=== PATIENT | female | born 1935 | race Caucasian/White ===

== ENCOUNTER 2017-08-02 11:26 | Outpatient (RCR) | payer MEDICARE, OTHER, SELFPAY ==
[2017-07-12 17:29] LABS: International Normalized Ratio 2.3; Prothrombin Time (Protime)PT. 24.1 SECONDS (11.7-14.9)
[2017-08-02 12:14] LABS: International Normalized Ratio 1.8; Prothrombin Time (Protime)PT. 20.5 SECONDS (11.7-14.9)
== END 2017-08-02 11:30 | disposition home or self-care (01) ==
LOC: LAB 11:26
PROVIDERS: Family Provider Family Medicine; PCP Family Medicine; Visit Provider Internal Medicine Cardiovascular Disease
DX: I48.1 Persistent atrial fibrillation (principal); I34.8 Other nonrheumatic mitral valve disorders; Z79.899 Other long term (current) drug therapy
CPT/HCPCS: 36415; 85610

== ENCOUNTER 2017-08-21 11:30 | Outpatient (RCR) | payer MEDICARE, OTHER, SELFPAY ==
[2017-08-21 12:05] LABS: International Normalized Ratio 2.9; Prothrombin Time (Protime)PT. 29.2 SECONDS (11.7-14.9)
== END 2017-08-21 15:00 | disposition home or self-care (01) ==
LOC: LAB 11:30
PROVIDERS: Family Provider Family Medicine; PCP Family Medicine; Visit Provider Internal Medicine Cardiovascular Disease
DX: I48.0 Paroxysmal atrial fibrillation (principal); Z79.01 Long term (current) use of anticoagulants
CPT/HCPCS: 36415; 85610

== ENCOUNTER 2017-09-25 15:15 | Outpatient (RCR) | payer MEDICARE, OTHER, SELFPAY ==
[2017-09-11 16:33] LABS: International Normalized Ratio 3.1; Prothrombin Time (Protime)PT. 32.5 SECONDS (11.7-14.9)
[2017-09-25 17:38] LABS: Prothrombin Time (Protime)PT. 31.2 SECONDS (11.7-14.9)
== END 2017-09-25 16:00 | disposition home or self-care (01) ==
LOC: LAB 15:15
PROVIDERS: Family Provider Family Medicine; PCP Family Medicine; Visit Provider Internal Medicine Cardiovascular Disease
DX: I48.0 Paroxysmal atrial fibrillation (principal); Z79.01 Long term (current) use of anticoagulants
CPT/HCPCS: 36415; 85610

== ENCOUNTER → 2017-09-28 10:36 | Outpatient (CLI) | payer MEDICARE, OTHER, SELFPAY ==
[2017-09-28 11:20] LABS: Hematocrit 34.6 % (37-47); Hemoglobin 11.9 g/dl (12.0-15.0); Mean Corp Hgb Conc 34.4 g/gl (32-36); Mean Corpuscular Hgb 33.6 pg (27.0-32.0); Mean Corpuscular Volume 97.7 fL (81-99); Mean Platelet Vol. 9.4 fl (6.2-12.0); Platelet Count 359 K/mm3 (150-450); RBC Distribution Width CV 12.5 % (11.6-14.6); RBC Distribution Width SD 43.5 fl (35.1-43.9); Red Blood Count 3.54 M/mm3 (4.2-5.4); White Blood Count 5.5 K/mm3 (4.4-11.0)
[2017-09-28 11:26] LABS: Scan Indicated on CBC? Y/N NO
[2017-09-28 11:49] LABS: Thyroid Stim Hormone (TSH) 1.53 uIU/mL (0.358-3.74)
== END ==
PROVIDERS: Family Provider Family Medicine; PCP Family Medicine; Visit Provider Internal Medicine Critical Care Medicine
DX: R53.83 Other fatigue (principal)
CPT/HCPCS: 36415; 84443; 85027

== ENCOUNTER 2017-10-23 15:21 | Outpatient (RCR) | payer MEDICARE, OTHER, SELFPAY ==
[2017-10-23 16:29] LABS: International Normalized Ratio 2.8
== END 2017-10-23 16:00 | disposition home or self-care (01) ==
LOC: LAB 15:21
PROVIDERS: Family Provider Family Medicine; PCP Family Medicine; Visit Provider Internal Medicine Cardiovascular Disease
DX: I48.0 Paroxysmal atrial fibrillation (principal); Z79.01 Long term (current) use of anticoagulants
CPT/HCPCS: 36415; 85610

== ENCOUNTER 2017-11-20 08:31 | Outpatient (RCR) | payer MEDICARE, OTHER, SELFPAY ==
[2017-11-20 10:39] LABS: International Normalized Ratio 3.2; Prothrombin Time (Protime)PT. 32.8 SECONDS (11.7-14.9)
== END 2017-11-20 09:00 | disposition home or self-care (01) ==
LOC: LAB 08:31
PROVIDERS: Family Provider Family Medicine; PCP Family Medicine; Visit Provider Internal Medicine Cardiovascular Disease
DX: I48.0 Paroxysmal atrial fibrillation (principal); Z79.01 Long term (current) use of anticoagulants
CPT/HCPCS: 36415; 85610

== ENCOUNTER 2017-12-29 13:56 | Outpatient (RCR) | payer MEDICARE, OTHER, SELFPAY ==
[2017-12-08 12:10] LABS: Prothrombin Time (Protime)PT. 35.7 SECONDS (11.7-14.9)
[2017-12-08 12:12] LABS: International Normalized Ratio 3.5
[2017-12-15 15:43] LABS: International Normalized Ratio 2.4; Prothrombin Time (Protime)PT. 26.1 SECONDS (11.7-14.9)
[2017-12-29 14:59] LABS: International Normalized Ratio 1.9; Prothrombin Time (Protime)PT. 22.2 SECONDS (11.7-14.9)
== END 2017-12-29 15:00 | disposition home or self-care (01) ==
LOC: LAB 13:56
PROVIDERS: Family Provider Family Medicine; PCP Family Medicine; Visit Provider Internal Medicine Cardiovascular Disease
DX: I48.0 Paroxysmal atrial fibrillation (principal); Z79.01 Long term (current) use of anticoagulants
CPT/HCPCS: 36415; 85610

== ENCOUNTER 2018-01-12 14:50 | Outpatient (RCR) | payer MEDICARE, OTHER, SELFPAY ==
[2018-01-12 15:54] LABS: Prothrombin Time (Protime)PT. 22.9 SECONDS (11.7-14.9)
== END 2018-01-12 16:00 | disposition home or self-care (01) ==
LOC: LAB 14:50
PROVIDERS: Family Provider Family Medicine; PCP Family Medicine; Visit Provider Internal Medicine Cardiovascular Disease
DX: I48.0 Paroxysmal atrial fibrillation (principal); Z79.01 Long term (current) use of anticoagulants
CPT/HCPCS: 36415; 85610

== ENCOUNTER → 2018-01-18 13:35 | Outpatient (CLI) | payer MEDICARE, OTHER, SELFPAY ==
--- NOTE | 2018-01-19 09:53 | PFT ---
INTRODUCTION: The patient is an 83-year-old female that presents for pulmonary function testing secondary to a diagnosis of shortness of breath. Respiratory therapy reports good patient effort. Bronchodilators were used during testing. 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 There is no significant response to aerosolized bronchodilators. Spirograms are of good quality do not plateau. Body plus tomography was performed and reveals an elevated TLC and RV, indicative of underlying hyperinflation and air-trapping. Diffusing capacity by single breath CO is severely reduced. When compared to previous pulmonary function studies dated December 2016, there has been a significant reduction in the patient's DLCO. IMPRESSION: These pulmonary function studies demonstrate the presence of an irreversible moderately severe large airways obstructive ventilatory defect with associated hyperinflation, air trapping and reduction in diffusing capacity. There has been significant worsening in the patient's DLCO since PFTs were last completed in December 2016.
== END ==
PROVIDERS: Family Provider Family Medicine; PCP Family Medicine; Visit Provider Nurse Practitioner Acute Care
DX: E66.9 Obesity, unspecified (principal); R06.09 Other forms of dyspnea; F17.201 Nicotine dependence, unspecified, in remission; J44.9 Chronic obstructive pulmonary disease, unspecified
CPT/HCPCS: 94060; 94726; 94729

== ENCOUNTER → 2018-02-05 10:55 | Outpatient (CLI) | payer MEDICARE, OTHER, SELFPAY ==
--- NOTE | 2018-02-05 10:57 | ECHOCS_ITS ---
Reason For Study: DYSPNEA/ SOB Procedure This was a 2D Doppler, Color Flow transthoracic echocardiogram. Exam performed in department. Left Ventricle Normal size and thickness. The estimated ejection fraction is 65 %. Stage 2 diastolic dysfunction. No regional wall motion abnormalities noted. Right Ventricle Normal size and thickness. Normal systolic function. Atria The left atrium is moderately enlarged. Normal right atrium. Normal atrial septum. Mitral Valve Mild diffuse mitral valve thickening. Mild mitral annular calcification extending into the posterior leaflet. Tricuspid Valve Normal tricuspid valve. Mild (1+) tricuspid valve insufficiency. Right ventricular systolic pressure estimated to be 30 mmHg. Aortic Valve Trisinus/trileaflet aortic valve. Pulmonic Valve Normal pulmonic valve. Great Vessels Normal aortic root. Mild atherosclerosis of the aortic arch. Normal inferior vena cava. Inferior vena cava collapse with sniff. Pericardium/Pleural No pericardial effusion. MMode/2D Measurements & Calculations LVIDd: 4.9 cm IVSd: 1.1 cm LVOT diam: 2.0 cm LVIDs: 3.5 cm LVPWd: 1.3 cm LVOT area: 3.0 cm2 RVDd: 3.5 cm FS: 28.3 % Ao root diam: 3.6 cm LAV(MOD-bp): 82.3 ml EDV(MOD-sp4): 39.4 ml LA dimension: 4.7 cm LAV(MOD-bp) Indexed: 50.5 ml/m2 ESV(MOD-sp4): 15.7 ml LAV(MOD-sp2): 80.1 ml EF(MOD-sp4): 60.2 % LAV(MOD-sp4): 84.1 ml EDV(MOD-sp2): 41.0 ml SV(MOD-sp4): 23.7 ml SV(MOD-sp2): 27.0 ml EF(MOD-sp2): 65.8 % LA A4 area: 26.1 cm2 RA A4 area: 20.2 cm2 Time Measurements MV dec time: 0.18 sec Doppler Measurements & Calculations MV E max seth: 87.4 cm/sec Lat Peak E' Seth: 7.0 cm/sec Med Peak E' Seth: 7.3 cm/sec MV A max seth: 28.5 cm/sec E/E' lat: 12.5 E/E' med: 12.0 MV E/A: 3.1 Ao V2 max: 98.2 cm/sec LV V1 max: 77.8 cm/sec PA V2 max: 72.0 cm/sec Ao max P.9 mmHg LV V1 max P.4 mmHg DILLON(V,D): 2.4 cm2 PI end-d seth: 136.9 cm/sec TR max seth: 235.0 cm/sec TR max P.2 mmHg Interpretation Summary The estimated ejection fraction is 65 %. Stage 2 diastolic dysfunction. The left atrium is moderately enlarged. Mild (1+) tricuspid valve insufficiency. Right ventricular systolic pressure estimated to be 30 mmHg. Compared to echo report dated 06/19/2015, LV function has remained the same; RVSP has decreased from 36 to 30 mm Hg. Ordering Physician: Goldie Chua Referring Physician: KARY GALICIA Performed By: Korin Samaniego RDCS, RVT
== END ==
PROVIDERS: Family Provider Family Medicine; PCP Family Medicine; Visit Provider Nurse Practitioner Acute Care
DX: R06.09 Other forms of dyspnea (principal); R06.02 Shortness of breath; Z98.890 Other specified postprocedural states; Z90.49 Acquired absence of other specified parts of digestive tract
CPT/HCPCS: 93306

== ENCOUNTER → 2018-02-08 20:23 | Outpatient (CLI) | payer MEDICARE, OTHER, SELFPAY | PROVIDERS: Family Provider Family Medicine; PCP Family Medicine; Visit Provider Nurse Practitioner Acute Care | DX: G47.10 Hypersomnia, unspecified (principal) | CPT/HCPCS: 95810 ==

== ENCOUNTER 2018-02-23 15:01 | Outpatient (RCR) | payer MEDICARE, OTHER, SELFPAY ==
[2018-02-02 14:43] LABS: International Normalized Ratio 2.7
[2018-02-23 16:15] LABS: International Normalized Ratio 2.7; Prothrombin Time (Protime)PT. 28.4 SECONDS (11.7-14.9)
== END 2018-02-23 16:00 | disposition home or self-care (01) ==
LOC: LAB 15:01
PROVIDERS: Family Provider Family Medicine; PCP Family Medicine; Visit Provider Internal Medicine Cardiovascular Disease
DX: I48.0 Paroxysmal atrial fibrillation (principal); Z79.01 Long term (current) use of anticoagulants
CPT/HCPCS: 36415; 85610

== ENCOUNTER 2018-03-16 15:20 | Outpatient (RCR) | payer MEDICARE, OTHER, SELFPAY ==
[2018-03-16 17:15] LABS: International Normalized Ratio 2.8; Prothrombin Time (Protime)PT. 29.3 SECONDS (11.7-14.9)
== END 2018-03-16 17:00 | disposition home or self-care (01) ==
LOC: LAB 15:20
PROVIDERS: Family Provider Family Medicine; PCP Family Medicine; Visit Provider Internal Medicine Cardiovascular Disease
DX: I48.0 Paroxysmal atrial fibrillation (principal); Z79.01 Long term (current) use of anticoagulants
CPT/HCPCS: 36415; 85610

== ENCOUNTER 2018-04-13 15:02 | Outpatient (RCR) | payer MEDICARE, OTHER, SELFPAY ==
[2018-04-13 17:34] LABS: International Normalized Ratio 2.6; Prothrombin Time (Protime)PT. 27.8 SECONDS (11.7-14.9)
== END 2018-04-13 16:00 | disposition home or self-care (01) ==
LOC: LAB 15:02
PROVIDERS: Family Provider Family Medicine; PCP Family Medicine; Referring Provider Internal Medicine Cardiovascular Disease; Visit Provider Internal Medicine Cardiovascular Disease
DX: I48.0 Paroxysmal atrial fibrillation (principal); Z79.01 Long term (current) use of anticoagulants
CPT/HCPCS: 36415; 85610

== ENCOUNTER → 2018-05-16 23:12 | Outpatient (CLI) | payer MEDICARE, OTHER, SELFPAY ==
[2018-05-16] MEDS: Zolpidem Tartrate 5 MG Tablet PO (22:00)
== END ==
PROVIDERS: Family Provider Family Medicine; PCP Family Medicine; Visit Provider Nurse Practitioner Acute Care
DX: G47.33 Obstructive sleep apnea (adult) (pediatric) (principal)
CPT/HCPCS: 95811

== ENCOUNTER 2018-05-18 14:42 | Outpatient (RCR) | payer MEDICARE, OTHER, SELFPAY ==
[2018-05-18 17:00] LABS: International Normalized Ratio 2.5; Prothrombin Time (Protime)PT. 27.5 SECONDS (11.7-14.9)
== END 2018-06-01 11:10 | disposition home or self-care (01) ==
LOC: LAB 14:42
PROVIDERS: Family Provider Family Medicine; PCP Family Medicine; Referring Provider Internal Medicine Cardiovascular Disease; Visit Provider Internal Medicine Cardiovascular Disease
DX: I48.0 Paroxysmal atrial fibrillation (principal); Z79.01 Long term (current) use of anticoagulants
CPT/HCPCS: 36415; 85610

== ENCOUNTER 2018-06-14 13:00 | Outpatient (RCR) | payer MEDICARE, OTHER, SELFPAY ==
[2018-04-18 10:13] VITALS: BMI 28.3
[2018-06-14 13:48] LABS: International Normalized Ratio 2.8; Prothrombin Time (Protime)PT. 29.4 SECONDS (11.7-14.9)
--- OUTSIDE RECORDS SUMMARY | 2018-07-31 08:41 | XMS RPT_ITS ---
:1935 Author Organization OHIP Support Name Relationship Address Phone YESIKA YAÑEZ Unavailable [address] + [place] [address] R Unavailable Unavailable Unavailable AYANAHALL YESIKA Unavailable [address] + [place] [address] R Unavailable Unavailable Unavailable AYANAHALL YESIKA Unavailable [address] + [place] [address] R Unavailable Unavailable Unavailable AYANAHALL YESIKA Unavailable [address] + [place] [address] R Unavailable Unavailable Unavailable AYANAHALL YESIKA Unavailable [address] + [place] [address] R Unavailable Unavailable Unavailable MULHALL YESIKA Unavailable [address] + [place] [address] R Unavailable Unavailable Unavailable MULHALL YESIKA Unavailable [address] + [place] [address] R Unavailable Unavailable Unavailable AYANAHALL YESIKA Unavailable [address] + [place] [address] R Unavailable Unavailable Unavailable AYANAHALL YESIKA Unavailable [address] + [place] [address] R Unavailable Unavailable Unavailable AYANAHALL YESIKA Unavailable [address] + [place] [address] R Unavailable Unavailable Unavailable MULHALL YESIKA Unavailable [address] + [place] [address] R Unavailable Unavailable Unavailable MULHALL YESIKA Unavailable [address] + [place] [address] R Unavailable Unavailable Unavailable AYANAHALL YESIKA Unavailable [address] + [place] [address] R Unavailable Unavailable Unavailable MULHALL YESIKA Unavailable [address] + [place] [address] R Unavailable Unavailable Unavailable MULHALL YESIKA Unavailable [address] + [place] [address] R Unavailable Unavailable Unavailable MULHALL YESIKA Unavailable [address] + [place] [address] R Unavailable Unavailable Unavailable MULHALL YESIKA Unavailable [address] + [place] [address] R Unavailable Unavailable Unavailable MULHALL YESIKA Unavailable [address] + [place] [address] R Unavailable Unavailable Unavailable MULHALL YESIKA Unavailable [address] + [place] [address] R Unavailable Unavailable Unavailable MULHALL YESIKA Unavailable [address] + [place] [address] R Unavailable Unavailable Unavailable MULHALL YESIKA Unavailable [address] + [place] [address] R Unavailable Unavailable Unavailable MULHALL YESIKA Unavailable [address] + [place] [address] R Unavailable Unavailable Unavailable MULHALL YESIKA Unavailable [address] + [place] [address] R Unavailable Unavailable Unavailable MULHALL YESIKA Unavailable [address] + [place] [address] R Unavailable Unavailable Unavailable MULHALL YESIKA Unavailable [address] + [place] [address] R Unavailable Unavailable Unavailable MULHALL YESIKA Unavailable [address] + [place] [address] R Unavailable Unavailable Unavailable MULHALL YESIKA Unavailable [address] + [place] [address] R Unavailable Unavailable Unavailable MULHALL YESIKA Unavailable [address] + [place] [address] R Unavailable Unavailable Unavailable Care Team Providers Name Role Phone Rafael Chacon Attending Unavailable Rafael Chacon Referring Unavailable Malys, Kayla Primary Care Unavailable Goldie Chua Attending Unavailable Malys, Kayla Referring Unavailable Moodispaw, Rafael Attending Unavailable Malys, Kayla Primary Care Unavailable Moodispaw, Rafael Attending Unavailable MoodispawRafael Referring Unavailable Malys, Kayla Primary Care Unavailable Moodispaw, Rafael Attending Unavailable Moodispaw, Rafael Referring Unavailable Malys, Kayla Primary Care Unavailable Silver, Tylor Attending Unavailable Malys, Kayla Referring Unavailable Silver, Tylor Attending Unavailable Silver, Tylor Referring Unavailable Malys, Kayla Primary Care Unavailable Silver, Tylor Attending Unavailable Silver, Tylor Referring Unavailable Malys, Kayla Primary Care Unavailable Moodispaw, Rafael Attending Unavailable Moodispaw, Rafael Referring Unavailable Malys, Kayla Primary Care Unavailable Moodispaw, Rafael Attending Unavailable Moodispani, Rafael Referring Unavailable Malys, Kayla Primary Care Unavailable Moodispani, Rafael Attending Unavailable Moodispani, Rafael Referring Unavailable Malys, Kayla Primary Care Unavailable Toma, Goldie Attending Unavailable Malys, Kayla Referring Unavailable Moodispaw, Rafael Attending Unavailable Moodispaw, Rafael Referring Unavailable Malys, Kayla Primary Care Unavailable Toma, Goldie Attending Unavailable Goldie Chua Referring Unavailable Malys, Kayla Primary Care Unavailable Toma, Goldie Attending Unavailable Malys, Kayla Referring Unavailable Toma, Goldie Attending Unavailable Toma, Goldie Referring Unavailable Malys, Kayla Primary Care Unavailable Goldie Chua Attending Unavailable Toma, Goldie Referring Unavailable Malys, Kayla Primary Care Unavailable Eli Vasques Attending Unavailable Moodispani, Rafael Attending Unavailable Moodispani, Rafael Referring Unavailable Malys, Kayla Primary Care Unavailable Moodispaw, Rafael Attending Unavailable Malys, Kayla Referring Unavailable Malys, Kayla Primary Care Unavailable Robert Mario D.O. Attending Unavailable Goldie Chua Referring Unavailable Moodispaw, Rafael Attending Unavailable Moodispani, Rafael Referring Unavailable Malys, Kayla Primary Care Unavailable Asif Sanchez Attending Unavailable Goldie Chua Referring Unavailable Moodispaw, Rafael Attending Unavailable Moodispaw, Rafael Referring Unavailable Malys, Kayla Primary Care Unavailable Toma, Goldie Attending Unavailable Malys, Kayla Referring Unavailable Moodispaw, Rafael Attending Unavailable Moodispani, Rafael Referring Unavailable Malys, Kayla Primary Care Unavailable Toma, Goldie Attending Unavailable Malys, Kayla Primary Care Unavailable Moodispaw, Rafael Attending Unavailable Moodispaw, Rafael Referring Unavailable WilliamcharuKayla Primary Care Unavailable PROBLEMS PROBLEMS DATE TYPE CONDITION / CODE ATTENDING STATUS SOURCE 07/19/2018 Unknown I48.1 - Persistent Chua, Active [place] atrial fibrillation [facility] / I48.1(ICD-10) Hospital Repository 07/19/2018 Unknown G47.33 - Obstructive Chua, Active [place] sleep apnea (adult) [facility] (pediatric) / Hospital G47.33(ICD-10) Repository 07/19/2018 Unknown R53.83 - Other Chua, Active [place] fatigue / [facility] R53.83(ICD-10) Hospital Repository 07/02/2018 Unknown I48.0 - Paroxysmal MoodisRafael biswas Active [facility] atrial fibrillation [facility] / I48.0(ICD-10) Hospital Repository 02/08/2018 Unknown G47.10 - Chua, Active [place] Hypersomnia, [facility] unspecified / Hospital G47.10(ICD-10) Repository 03/07/2018 Unknown R06.09 - Other forms Asif Sanchez Active [place] of dyspnea / Community R06.09(ICD-10) Hospital Repository 01/25/2018 Unknown Z98.890 - Other Chua, Active [place] specified [facility] postprocedural Hospital states / Repository Z98.890(ICD-10) 01/25/2018 Unknown Z90.49 - Acquired Chua, Active [place] absence of other [facility] specified parts of Hospital digestive tract / Repository Z90.49(ICD-10) 01/25/2018 Unknown R06.00 - Dyspnea, Chua, Active [place] unspecified / [facility] R06.00(ICD-10) Hospital Repository 02/08/2018 Unknown R06.02 - Shortness Robert Brown, Active [facility] of breath / [facility] R06.02(ICD-10) Hospital Repository 02/01/2018 Unknown Z79.01 - care home Rafael Chacon Active [facility] (current) use of [facility] anticoagulants / Hospital Z79.01(ICD-10) Repository 09/28/2017 Unknown J44.9 - Chronic SilverTylor bolanos Active [place] obstructive [facility] pulmonary disease, Hospital unspecified / Repository J44.9(ICD-10) PROCEDURES PROCEDURES No Procedure Records FoundRESULTS RESULTS PULMONARY VISIT REPORT Observed: 07/19/2018 Status: F Source: [facility] [place] [address] [place] [address] OFFICE VISIT Date of Service: 07/19/18 MR#: [id number] Acct: [id number] Name: IVELISSE YAÑEZ Rep #: [id number] : 1935 Provider: Goldie Chua Age/Sex: 83/F [place] [facility] Status: Signed Assessment AND Plan 1. Restless legs syndrome (RLS) G25.81 Plan New. Plan to evaluate whether or not she truly has restless leg syndrome or if her limbs are restless secondary to cause such as anemia. Blood work will be obtained next week, as she already has blood work to be scheduled, we will check a CBC, ferritin level, iron and iron binding capacity. If anemia is identified she will be treated appropriately. If anemia is ruled out we will consider whether or not she would benefit from treatment of restless leg syndrome with medication such as Requip. Follow-up in 3 months. Contact the office with any new or worsening symptoms in the meantime. 2. ROSARIO (obstructive sleep apnea) G47.33 Plan Patient is using and benefiting from Pap therapy. No indication for titration study at this time. Continue to encourage weight loss. Contact the office for any new or worsening symptoms in the meantime. Follow-up in 3 months. Orders Orders: 3. 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 No need for prednisone or antibiotic. Continue current maintenance medication. No additional testing at this time. Contact the office for any new or worsening symptoms. An acute visit and typically be arranged within 1-2 days. Follow-up in 3 months. Annual influenza vaccination current. Pneumonia vaccines current. Plan Detail Other Orders Orders: Follow Up 3 Months ([facility]) HPI 3 M FU: Chief Complaint: Nonproductive cough HPI Comments Details: This patient presents the office today to follow- up on her obstructive sleep apnea, moderate COPD and dyspnea on exertion. She is in a wheelchair today, on room air. She has not been seen in the ED or urgent care for any respiratory illnesses since her last office visit. She has not required any antibiotics or prednisone for any breathing problems. She continues compliance with her albuterol nebulizer as needed, which she has not needed recently. She does report that she recently did have a cold but did not require any treatment for it and is getting over the symptoms as we speak. She continues to have a nonproductive cough, denies any sputum production or hemoptysis. She denies any fever, chills or body aches. She denies any wheezing, chest tightness, chest pain or palpitations. She continues to experience shortness of breath on exertion only but believes that it has somewhat improved. He has noticed that she feels more rested when using the BiPAP. She admits that over the past 10-14 days she had some difficulty with compliance secondary to her chest congestion and for cough. She does report feeling good relief and feeling refreshed using the BiPAP. She is not currently napping. She denies any difficulty with dry mouth but does admit some occasional air leaks. She is unsure if she is restless when she sleeps. Titration study completed on May 16, 2018 suggested that patient be treated with pressure support of 16/10 cm of water with 1 L of supplemental oxygen bleed, also noted PLMS index of 89.1 events per hour. Compliance report in the past 30 days has been reviewed and shows 70% compliance, average use is just under 4 hours. Current settings are 12/8 cm of water. AHI is controlled at an average of 0.5 events per hour and leaks do appear to be a consistent issue. Intake Vital Signs07/19/18 Height 5 ft 1 in 07/19/18 Weight: 149 lb Intake Visit Reasons: 3 M FU [facility] Vendor: [employer] Accompanied by: Self Allergies hydrochlorothiazide Allergy (Severe, Verified 07/19/18 08:06) Unknown Sulfa (Sulfonamide Antibiotics) Allergy (Severe, Verified 07/19/18 08:06) Unknown Medications warfarin 6 mg tablet 3 mg PO .1XW tab 06/22/17 [History Confirmed 07/19/18] albuterol sulfate HFA 90 mcg/actuation aerosol inhaler 2 puff INHALATION Q4H PRN g 07/11/17 [History Confirmed 07/19/18] warfarin 3 mg tablet 3 mg PO QWEEK #12 tab 07/13/17 [Rx Confirmed 07/19/18] potassium chloride ER 10 mEq tablet,extended release 20 meq PO QDAY #180 tab 08/21/17 [Rx Confirmed 07/19/18] diltiazem CD 120 mg capsule,extended release 24 hr 120 mg PO QDAY cap 01/12/18 [History Confirmed 07/19/18] warfarin 5 mg tablet 5 mg PO 6XW #90 tab 01/12/18 [Rx Confirmed 07/19/18] albuterol sulfate 2.5 mg/3 mL (0.083 %) solution for nebulization 2.5 mg INHALATION Q4H PRN #180 vial 04/18/18 [Rx Confirmed 07/19/18] ipratropium bromide 0.02 % solution for inhalation 2.5 ml INHALATION BID #120 vial 04/20/18 [Rx Confirmed 07/19/18] pravastatin 20 mg tablet 20 mg PO QHS #90 tab 05/31/18 [Rx Confirmed 07/19/18] [facility] Medical History Nonrheumatic tricuspid valve regurgitation (Acute) Nonrheumatic mitral valve regurgitation (Acute) Persistent atrial fibrillation (Chronic) Long-term use of high-risk medication (Chronic) Dyspnea (Acute) Atrial enlargement, bilateral (Chronic) Neck mass (Chronic) Thyromegaly (Chronic) Thyroid nodule (Chronic) Stage 2 moderate COPD by GOLD classification (Chronic) Syncope (Acute) Hypoxia (Acute) Tobacco dependence in remission (Chronic) TREVIÑO (dyspnea on exertion) (Chronic) Obesity (Chronic) care home (current) use of anticoagulants (Chronic) Nummular eczema (Chronic) Seborrheic keratoses (Chronic) History of colon cancer (Resolved) Surgical History History of colon resection (Resolved) Family History Father CAD (coronary artery disease) Myocardial infarction, Onset Age: 54 Daughter Breast cancer Social History Smoking Status: Former smoker how long ago did patient quit smokin second hand exposure: Yes alcohol intake: current alcohol intake frequency: a few times a week Alcohol type: beer, wine substance use type: does not use Review of Systems Const CONSTITUTIONAL: Positive fatigue; negative anorexia, body ache, chills, daytime sleepiness, fever(s), night sweats, oral thrush, stops breathing during sleep, weight loss, sleeping in chair, weight loss, weight gain, frequent colds, seasonal allergies, other, headache(s) or orthopnea EETM Ear Nose Throat Mouth: Positive nasal discharge and hearing normal; negative hoarseness, dry mouth in morning, change in vision, itchy eyes, eye pain, swallowing Difficulty, ear pain, headache(s), mouth pain, nasal congestion, sinus pain, sinus pressure, sore throat, other, hard of hearing, nose bleed or post nasal drip Cardio Cardiovascular: Negative chest pain, chest pain at rest, chest pain with activity, irregular heart rhythm, edema, shortness of breath when lying down, palpitations, other or murmur Resp Respiratory: Positive as per HPI, shortness of breath shortness of breath: Positive with activity and cough cough: Positive productive color: Positive thick and yellow and non-productive; negative pain with cough, wheezing, chest congestion, chest tightness, pain on inspiration, inhalers, increase use of rescue inhalers, snoring, apnea or other Gastro Gastrointestional: Negative bloody stools, change in appetite, difficulty swallowing, reflux, hematemesis, melena stool, loose stool, constipation or other Genitourinary: Negative blood in urine, nocturia, pain with urination or other Musc Musculoskeletal: Negative body pain, back pain, neck pain or other Skin/Breast Skin/Breast: Negative dry skin, itching, unusual bruising, breast lump, other or rash Neuro Neurological: Negative restless legs, confusion, weakness or other Psych Psychocological: Negative abnormal sleep pattern, anxiety, thoughts of hurting self/others, hopelessness or other Lymph Lymphatic: Negative easy bleeding, easy bruising, other or swollen lymph nodes Exam Const Constitutional: Positive cooperative, in no acute respiratory distress, healthy appearing, well developed, well nourished, good hygiene and conversant Head Head: Positive normocephalic and atraumatic; negative cyanosis of lips/distal nose Eyes Eye: Positive clear conjunctiva; negative nystagmus or scleral abnormality Ears Ear: Positive external ears normal and hearing normal; negative hard of hearing Nose Nose: Positive external nose normal and no nasal discharge; negative epistaxis Mouth Mouth: Positive oral mucosae normal, no lesions, good dentition and posterior oropharynx is adequate; negative malodorous breath, oral thrush present or post nasal drip Mallampati Score: II: Mallampati Score Neck Neck: Positive normal visual inspection, full ROM, trachea midline and thick neck; negative lymphadenopathy, JVD or tender Chest Wall Chest: Positive normal inspection of the chest and symmetric chest movement; negative increased A/P diameter Resp lung sounds: Positive diminished, normal expiratory time and normal respiratory effort; negative wheezes, rhonchi, rales, dullness to percussion or wheeze present on forced exhalation Cardio Cardiac: Positive regular rate, S2 normal, S1 normal and regular rhythm; negative murmur GI GI: Positive normal to inspection; negative distended Genitourinary: Positive deferred Musc Musculoskeletal: Positive ROM normal and in a wheelchair; negative kyphosis or scoliosis Skin Pulmonary Skin Exam: Positive intact and dermal atrophy; negative rash Pulses Pulse: Yes pulses normal x4 extremities Extremities Extremities: Yes capillary refill normal, No clubbing, No cyanosis, Yes edema Location: lower extremity location: Bilateral pitting +1 Neuro Neurologic: Yes conversant, Yes no focal neuro deficits, Yes normal concentration, Yes understands questions, Yes cooperative, Yes normal cognition, Yes normal coordination, No tremor Lymph Lymphatic: No tenderness, No cervical adenopathy, No lymphadenopathy Psych Appearance: Positive grossly normal, eye contact and well kempt Mental Status: Positive mental status grossly normal Mood: Positive congruent mood Affect: Positive normal affect Coding Level of Care Code Off vis,est,level 4 Diagnoses Restless legs syndrome (RLS) G25.81 ROSARIO (obstructive sleep apnea) G47.33 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 [place], [place], [address] PROTHROMBIN TIME W/INR Collected: 06/14/2018 Status: F Source: [place] 1:02 PM [facility] REPOSITORY TYPE CODE TESTS RESULT OUT OF RANGE REFERENCE UNITS LAB L300.4150 11.7-14.9 SECONDS High PROTIME 29.4 LAB L300.4200 Normal INR 2.8 Performed By: #### L300.3900 #### [facility] [address] [place], [place], [address] PROTHROMBIN TIME W/INR Collected: 05/18/2018 Status: F Source: [place] 2:58 PM [facility] REPOSITORY TYPE CODE TESTS RESULT OUT OF RANGE REFERENCE UNITS LAB L300.4150 11.7-14.9 SECONDS High PROTIME 27.5 LAB L300.4200 Normal INR 2.5 Performed By: #### L300.3900 #### [facility] [address] [place], [place], [address] PULMONARY VISIT REPORT Observed: 04/20/2018 Status: F Source: [place] 3:41 PM [facility] REPOSITORY Pul[facility] Medicine of [address] [place], [place] [address] OFFICE VISIT Date of Service: 04/18/18 MR#: [id number] Acct: [id number] Name: IVELISSE YAÑEZ Rep #: [id number] : 1935 Provider: Goldie Chua Age/Sex: 83/F [place] [facility] Status: Signed Assessment AND Plan 1. ROSARIO (obstructive sleep apnea) G47.33 Plan New. Lengthy discussion about the pathophysiology of obstructive sleep apnea and its impact on her respiratory failure and COPD. Patient is agreeable to participate in a titration study. Initially goal will be that she wears the device at least 4 hours nightly, ultimately any time spent sleeping she should wear Pap therapy. Follow-up in 3 months to evaluate her response to therapy, anticipate that she will be on therapy 4-6 weeks at the 3-month follow-up. Contact the office with any difficulties acclimating to Pap therapy. Orders Orders: 2. 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 No need for prednisone or antibiotic. Continue current maintenance medication. No additional testing at this time. Contact the office for any new or worsening symptoms. An acute visit and typically be arranged within 1-2 days. Follow-up in 3 months. Continue the use of supplemental oxygen as needed to maintain saturations 89-92%. The patient is using and benefiting from supplemental oxygen, most specifically on ambulation. Plan Detail Other Medications New: albuterol sulfate 2.5 mg (3 mL) Inhalation Q4H PRN 180 vials 6RF shortness of breath or wheezing Refilled: Follow Up 3 Months ([facility]) HPI 3 M FU: Chief Complaint: Shortness of breath HPI Comments Details: This patient presents the office today for routine follow-up on her COPD and hypersomnia. She is in a wheelchair and currently on room air. She reports that she continues to have shortness of breath on exertion and is exerted easily. She does not experience any shortness of breath with conversation or at rest. She continues to have an occasional cough that is productive of yellow sputum, denies any hemoptysis. She also has clear nasal drainage. She denies any wheezing, chest tightness, chest pain or palpitations. She has been compliant with DuoNeb's by nebulizer 2-3 times daily. She finds them very effective. She has not added any [id number] medications. She has not been to the ED urgent care for respiratory illnesses since her last office visit. She has not required any antibiotics or prednisone for any breathing problems. She does not feel rested upon arising in the morning. She has occasional dry cough. She does have a couple episodes of nocturia nightly. She naps for 30 minutes typically daily. Echocardiogram completed on February 05, 2018 showed an EF of 65% with stage II diastolic dysfunction and an RVSP estimated to be 30 mmHg. Polysomnogram completed on February 08, 2018 interpreted as showing moderate obstructive sleep apnea with an overall AHI of 19.4 events per hour noted to be higher in the REM stage of sleep at 38.6 events per hour. Significant limb movement was also noted with a PLMS index of 107.6 events per hour, nocturnal hypoxia was also documented. A CPAP titration study is recommended with the use of 2 L of supplemental oxygen during the titration. Intake Vital Signs04/18/18 Height 5 ft 1 in 04/18/18 Weight: 150 lb Intake Visit Reasons: 3 M FU Information Management Officer Required: No DME [place] [facility]ompanied by: Self Allergies hydrochlorothiazide Allergy (Severe, Verified 04/18/18 06:46) Unknown Sulfa (Sulfonamide Antibiotics) Allergy (Severe, Verified 04/18/18 06:46) Unknown Medications warfarin 6 mg tablet 3 mg PO .1XW tab 06/22/17 [History Confirmed 04/18/18] albuterol sulfate HFA 90 mcg/actuation aerosol inhaler 2 puff INHALATION Q4H PRN g 07/11/17 [History Confirmed 04/18/18] pravastatin 20 mg tablet 20 mg PO QHS 07/11/17 [History Confirmed 04/18/18] warfarin 3 mg tablet 3 mg PO QWEEK #12 tab 07/13/17 [Rx Confirmed 04/18/18] potassium chloride ER 10 mEq tablet,extended release 20 meq PO QDAY #180 tab 08/21/17 [Rx Confirmed 04/18/18] diltiazem CD 120 mg capsule,extended release 24 hr 120 mg PO QDAY cap 01/12/18 [History Confirmed 04/18/18] warfarin 5 mg tablet 5 mg PO 6XW #90 tab 01/12/18 [Rx Confirmed 04/18/18] albuterol sulfate 2.5 mg/3 mL (0.083 %) solution for nebulization 2.5 mg INHALATION Q4H PRN #180 vial 04/18/18 [Rx Confirmed 04/18/18] ipratropium bromide 0.02 % solution for inhalation 2.5 ml INHALATION BID #120 vial 04/20/18 [Rx] [facility] Medical History Nonrheumatic tricuspid valve regurgitation (Acute) Nonrheumatic mitral valve regurgitation (Acute) Persistent atrial fibrillation (Chronic) Long-term use of high-risk medication (Chronic) Dyspnea (Acute) Atrial enlargement, bilateral (Chronic) Neck mass (Chronic) Thyromegaly (Chronic) Thyroid nodule (Chronic) Stage 2 moderate COPD by GOLD classification (Chronic) Syncope (Acute) Hypoxia (Acute) Tobacco dependence in remission (Chronic) TREVIÑO (dyspnea on exertion) (Chronic) Obesity (Chronic) meterman (current) use of anticoagulants (Chronic) Nummular eczema (Chronic) Seborrheic keratoses (Chronic) History of colon cancer (Resolved) Surgical History History of colon resection (Resolved) Family History Father CAD (coronary artery disease) Myocardial infarction, Onset Age: 54 Daughter Breast cancer Social History Smoking Status: Former smoker how long ago did patient quit smokin second hand exposure: Yes alcohol intake: current alcohol intake frequency: a few times a week Alcohol type: beer, wine substance use type: does not use Review of Systems Const CONSTITUTIONAL: Positive fatigue; negative anorexia, body ache, chills, daytime sleepiness, fever(s), night sweats, oral thrush, stops breathing during sleep, weight loss, sleeping in chair, weight loss, weight gain, frequent colds, seasonal allergies, other, headache(s) or orthopnea EETM Ear Nose Throat Mouth: Positive hearing normal and nasal discharge; negative hard of hearing, hoarseness, dry mouth in morning, change in vision, itchy eyes, eye pain, swallowing Difficulty, ear pain, nose bleed, headache(s), mouth pain, nasal congestion, post nasal drip, sinus pain, sinus pressure, sore throat or other Cardio Cardiovascular: Positive edema Location: lower extremity; negative chest pain, chest pain at rest, chest pain with activity, irregular heart rhythm, shortness of breath when lying down, palpitations, murmur or other Resp Respiratory: Positive as per HPI, shortness of breath shortness of breath: Positive with activity, cough cough: Positive productive color: Positive yellow and inhalers; negative pain with cough, wheezing, chest congestion, chest tightness, pain on inspiration, increase use of rescue inhalers, snoring, apnea or other Gastro Gastrointestional: Negative bloody stools, change in appetite, difficulty swallowing, reflux, hematemesis, melena stool, loose stool, constipation or other Genitourinary: Negative blood in urine, nocturia, pain with urination or other Musc Musculoskeletal: Negative body pain, back pain, neck pain or other Skin/Breast Skin/Breast: Negative dry skin, itching, rash, unusual bruising, breast lump or other Neuro Neurological: Negative restless legs, confusion, weakness or other Psych Psychocological: Negative abnormal sleep pattern, anxiety, thoughts of hurting self/others, hopelessness or other Lymph Lymphatic: Negative easy bleeding, easy bruising, swollen lymph nodes or other Exam Const Constitutional: Positive conversant, cooperative, in no acute respiratory distress, healthy appearing, well developed, well nourished and good hygiene Head Head: Positive normocephalic and atraumatic; negative cyanosis of lips/distal nose Eyes Eye: Positive clear conjunctiva; negative nystagmus or scleral abnormality Ears Ear: Positive hearing normal and external ears normal; negative hard of hearing Nose Nose: Positive external nose normal and no nasal discharge; negative epistaxis Mouth Mouth: Positive oral mucosae normal, no lesions, good dentition and posterior oropharynx is adequate; negative post nasal drip, malodorous breath or oral thrush present Mallampati Score: II: Mallampati Score Neck Neck: Positive normal visual inspection, full ROM, trachea midline and thick neck; negative lymphadenopathy, JVD or tender Chest Wall Chest: Positive normal inspection of the chest and symmetric chest movement; negative increased A/P diameter Resp lung sounds: Positive diminished, normal expiratory time and normal respiratory effort; negative wheezes, rhonchi, rales, dullness to percussion or wheeze present on forced exhalation Cardio Cardiac: Positive regular rate, S2 normal, S1 normal and regular rhythm; negative murmur GI GI: Positive normal to inspection; negative distended Genitourinary: Positive deferred [facility] [place] Musculoskeletal: Positive ROM normal and in a wheelchair; negative kyphosis or scoliosis Skin Pulmonary Skin Exam: Positive intact and dermal atrophy; negative rash Pulses Pulse: Yes pulses normal x4 extremities Extremities Extremities: Yes capillary refill normal, No clubbing, No cyanosis, Yes edema Location: lower extremity location: Bilateral pitting +1 Neuro Neurologic: Yes conversant, Yes no focal neuro deficits, Yes normal concentration, Yes understands questions, Yes cooperative, Yes normal cognition, Yes normal coordination Lymph Lymphatic: No lymphadenopathy, No tenderness, No cervical adenopathy Psych Appearance: Positive grossly normal, eye contact and well kempt Mental Status: Positive mental status grossly normal Mood: Positive congruent mood Affect: Positive normal affect Coding Level of Care Code Off vis,est,level 4 Diagnoses ROSARIO (obstructive sleep apnea) G47.33 Stage 2 moderate COPD by GOLD classification J44.9 04/20/18 1541 <Electronically signed by Goldie Chua PERFORMANCE IMPROVEMENT CONSULTANT-C> Date Goldie Chua PERFORMANCE IMPROVEMENT CONSULTANT-C Cosigner Signature: Date (if applicable) CC: Kayla Lund DO PROTHROMBIN TIME W/INR Collected: 04/13/2018 Status: F Source: [place] 3:05 PM [facility] [place] REPOSITORY TYPE CODE TESTS RESULT OUT OF RANGE REFERENCE UNITS LAB L300.4150 11.7-14.9 SECONDS High PROTIME 27.8 LAB L300.4200 Normal INR 2.6 Performed By: #### L300.3900 #### [facility] [address] [place], [place], [address] PROTHROMBIN TIME W/INR Collected: 03/16/2018 Status: F Source: [place] 3:22 PM [facility] REPOSITORY TYPE CODE TESTS RESULT OUT OF RANGE REFERENCE UNITS LAB L300.4150 11.7-14.9 SECONDS High PROTIME 29.3 LAB L300.4200 Normal INR 2.8 Performed By: #### L300.3900 #### [facility] [address] [place], [place], [address] PROTHROMBIN TIME W/INR Collected: 02/23/2018 Status: F Source: [place] 3:12 PM [facility] REPOSITORY TYPE CODE TESTS RESULT OUT OF RANGE REFERENCE UNITS LAB L300.4150 11.7-14.9 SECONDS High PROTIME 28.4 LAB L300.4200 Normal INR 2.7 Performed By: #### L300.3900 #### [facility] [address] [place], [address] ECHO, COMPLETE W/ Observed: 02/05/2018 Status: F Source: [place] CONTRAST 4:59 PM [facility] REPOSITORY [facility] [address] [place] [address] Echo Complete 02/05/18 1057 MR#: [id number] Acct: [id number] Name: IVELISSE YAÑEZ Rep #: [id number] : 1935 83 From: Asif Sanchez MD Attending Dr: Goldie Chua PERFORMANCE IMPROVEMENT CONSULTANT Status: REG CLI Ordering Dr: Goldie Chua PERFORMANCE IMPROVEMENT CONSULTANT-C Date: 02/05/18 Location: CVS Sex: F C Admitted: Reason For Study: DYSPNEA/ SOB Procedure This was a 2D Doppler, Color Flow transthoracic echocardiogram. Exam performed in department. Left Ventricle Normal size and thickness. The estimated ejection fraction is 65 %. Stage 2 diastolic dysfunction. No regional wall motion abnormalities noted. Right Ventricle Normal size and thickness. Normal systolic function. Atria The left atrium is moderately enlarged. Normal right atrium. Normal atrial septum. Mitral Valve Mild diffuse mitral valve thickening. Mild mitral annular calcification extending into the posterior leaflet. Tricuspid Valve Normal tricuspid valve. Mild (1+) tricuspid valve insufficiency. Right ventricular systolic pressure estimated to be 30 mmHg. Aortic Valve Trisinus/trileaflet aortic valve. Pulmonic Valve Normal pulmonic valve. Great Vessels Normal aortic root. Mild atherosclerosis of the aortic arch. Normal inferior vena cava. Inferior vena cava collapse with sniff. Pericardium/Pleural No pericardial effusion. MMode/2D Measurements AND Calculations LVIDd: 4.9 cm IVSd: 1.1 cm LVOT diam: 2.0 cm LVIDs: 3.5 cm LVPWd: 1.3 cm LVOT area: 3.0 cm2 RVDd: 3.5 cm FS: 28.3 % Ao root diam: 3.6 cm LAV(MOD-bp): 82.3 ml EDV(MOD-sp4): 39.4 ml LA dimension: 4.7 cm LAV(MOD-bp) Indexed: 50.5 ml/m2 ESV(MOD-sp4): 15.7 ml LAV(MOD-sp2): 80.1 ml EF(MOD-sp4): 60.2 % LAV(MOD-sp4): 84.1 ml EDV(MOD-sp2): 41.0 ml SV(MOD-sp4): 23.7 ml SV(MOD-sp2): 27.0 ml EF(MOD-sp2): 65.8 % LA A4 area: 26.1 cm2 RA A4 area: 20.2 cm2 Time Measurements MV dec time: 0.18 sec Doppler Measurements AND Calculations MV E max seth: 87.4 cm/sec Lat Peak E' Seth: 7.0 cm/sec Med Peak E' Seth: 7.3 cm/sec MV A max seth: 28.5 cm/sec E/E' lat: 12.5 E/E' med: 12.0 MV E/A: 3.1 Ao V2 max: 98.2 cm/sec LV V1 max: 77.8 cm/sec PA V2 max: 72.0 cm/sec Ao max P.9 mmHg LV V1 max P.4 mmHg DILLON(V,D): 2.4 cm2 PI end-d seth: 136.9 cm/sec TR max seth: 235.0 cm/sec TR max P.2 mmHg Interpretation Summary The estimated ejection fraction is 65 %. Stage 2 diastolic dysfunction. The left atrium is moderately enlarged. Mild (1+) tricuspid valve insufficiency. Right ventricular systolic pressure estimated to be 30 mmHg. Compared to echo report dated 06/19/2015, LV function has remained the same; RVSP has decreased from 36 to 30 mm Hg. Ordering Physician: Goldie Chua Referring Physician: KAYLA LUND Performed By: Korin Samaniego, AMANDACS, RVT 02/05/18 1659 Date Asif Sanchez MD CC: Goldie Lund DO Date Dictated: 02/05/18 1057 Date Transcribed: 02/05/181658 Computer Systems Software Architect: Signed CARDIOLOGY VISIT Observed: 02/05/2018 Status: F Source: [place]Y REPORT 10:59 AM [facility] REPOSITORY [facility] [address] [place] [address]. [address] [place] [address] OFFICE VISIT Date of Service: 02/05/18 MR#: [id number] Acct: [id number] Name: IVELISSE YAÑEZ Rep #: [id number] : 1935 Provider: Rafael Chacon MD Age/Sex: 83/F Location[place] [facility] Status: Signed HPI HPI Details: IVELISSE YAÑEZ, is a 83 F who presents to the office today for for outpatient cardiovascular follow-up of her history of underlying atrial fibrillation, MR/TR, and COPD. She states since her visit of 02/01/2017 she has not required any additional inpatient cardiovascular evaluation or care. She states she is scheduled for an outpatient cardiovascular study today which she believes is a transthoracic echocardiogram. She is also scheduled for an upcoming sleep study. She denies any resting or exertional chest discomfort. There has been no obvious evidence of orthopnea or PND. She has waxing and waning trace bilateral ankle edema. There has been no near syncope or syncope. She does state that she has her chronic shortness of breath and becomes more dyspneic with exertion. Intake Vital Signs02/05/18 Height 5 ft 1 in 02/05/18 Weight: 145 lb 02/05/18 Body Mass Index (BMI) 27.3 02/05/18 Blood Pressure 116/68 Intake Visit Reasons: 1 Y FU Allergies hydrochlorothiazide Allergy (Severe, Verified 02/05/18 10:03) Unknown Sulfa (Sulfonamide Antibiotics) Allergy (Severe, Verified 02/05/18 10:03) Unknown Medications warfarin 6 mg tablet 3 mg PO .1XW tab 06/22/17 [History Confirmed 02/05/18] albuterol sulfate 2.5 mg/3 mL (0.083 %) solution for nebulization 2.5 mg INHALATION Q4H PRN ml 07/11/17 [History Confirmed 02/05/18] albuterol sulfate HFA 90 mcg/actuation aerosol inhaler 2 puff INHALATION Q4H PRN g 07/11/17 [History Confirmed 02/05/18] ipratropium bromide 0.02 % solution for inhalation 1.25 ml INHALATION BID ml 07/11/17 [History Confirmed 02/05/18] pravastatin 20 mg tablet 20 mg PO QHS 07/11/17 [History Confirmed 02/05/18] warfarin 3 mg tablet 3 mg PO QWEEK #12 tab 07/13/17 [Rx Confirmed 02/05/18] potassium chloride ER 10 mEq tablet,extended release 20 meq PO QDAY #180 tab 08/21/17 [Rx Confirmed 02/05/18] diltiazem CD 120 mg capsule,extended release 24 hr 120 mg PO QDAY cap 01/12/18 [History Confirmed 02/05/18] warfarin 5 mg tablet 5 mg PO 6XW #90 tab 01/12/18 [Rx Confirmed 02/05/18] [facility] Medical History Nonrheumatic tricuspid valve regurgitation (Acute) Nonrheumatic mitral valve regurgitation (Acute) Persistent atrial fibrillation (Chronic) Long-term use of high-risk medication (Chronic) Dyspnea (Acute) Atrial enlargement, bilateral (Chronic) Neck mass (Chronic) Thyromegaly (Chronic) Thyroid nodule (Chronic) Stage 2 moderate COPD by GOLD classification (Chronic) Syncope (Acute) Hypoxia (Acute) Tobacco dependence in remission (Chronic) TREVIÑO (dyspnea on exertion) (Chronic) Obesity (Chronic) care home (current) use of anticoagulants (Chronic) Nummular eczema (Chronic) Seborrheic keratoses (Chronic) History of colon cancer (Resolved) Surgical History History of colon resection (Resolved) Family History Father CAD (coronary artery disease) Myocardial infarction, Onset Age: 54 Daughter Breast cancer Social History Smoking Status: Former smoker how long ago did patient quit smokin second hand exposure: Yes alcohol intake: current alcohol intake frequency: a few times a week Alcohol type: beer, wine substance use type: does not use ROS Const Const: Positive for fatigue (tired all of the time; I dont feel myself); negative for weakness, weight gain, weight loss, frequent falls or excessive sweating Eyes Eyes: Negative for change in vision, blurry vision or transient loss of vision ENT ENT: Positive for balance problems (ambulates with a cane while out); negative for dizziness Cardio Chest Pain: No Palpitations: No Edema: None Muscle aches with walking: None Resp Respiratory: Positive for SOB with activity (slightly increased); negative for SOB at rest GI GI: Negative vomiting or vomiting blood/hematemesis : Negative for hematuria Musc Musc: Positive for balance problems (ambulates with a cane while out); negative for muscle aches/ myalgia, muscle weakness or joint pain Skin Skin: Negative non-healing lesions or rash Neuro Neuro: Negative for weakness, blurry vision, dizziness, lightheadedness, frequent falls or orthostatic symptoms Silvestre Hematologic/Lymphatic: Negative for easy bleeding Endo Endo: Positive for fatigue (tired all of the time; I dont feel myself); negative for excessive sweating Psych Psych: Negative for anxiety or depression Allergy Allergy/Immunology: Negative for hives, Negative for rash Cardiology Exam Const Appearance: cooperative, healthy appearing, comfortable, no acute distress, well developed and well groomed Nutritional Appearance: average body habitus Orientation: alert, awake and oriented x3 Head Head: normal to inspection, normocephalic and atraumatic Ears: hearing grossly normal bilaterally Nose: external nose normal Face and Sinus: face symmetric Mouth: oral mucosae normal Eyes Eyelids: eyelids normal Conjunctivae: conjunctivae normal Pupils: PERRL EOM: EOM intact bilaterally Neck Neck: normal visual inspection and full ROM Carotids: normal carotid upstroke Chest Chest inspection: normal inspection of the chest and symmetric chest movement Auscultation: Bilateral: Clear to Auscultation Cardio Rhythm: irregular rhythm Heart sounds: S1 normal and S2 normal Murmur: Grade 1/6, soft, mid systolic and LLSB GI GI: normal to inspection, bowel sounds present and soft Neuro General: alert, awake and other (examined in the wheelchair) Extremities Pulses: Normal: Right Radial Pulse, Left Radial Pulse Lower Extremity Edema: Trace: Bilateral Psych Psychological: normal affect Supplemental Info She did have a transthoracic echocardiogram performed on 06/19/2015. The results are as noted below. Having issues L room 5 is an issue as wellInterpretation Summary Lefi ventricular systolic function is normal. The estimated ejection fraction is 70 %. Mild concentric left ventricular hypertrophy. Mildly dilated right ventricle. The left atrium is severely enlarged. The right atrium is severely enlarged. There is moderate mitral annular calcification. Extension of the mitral annular calcification onto the posterior mitral valve leaflet. Mild-Moderate (1-2+) mitral valve insufficiency. Mild tricuspid valve insufficiency. Mild focal aortic valve thickening. Trivial aortic valve insufficiency. Right ventricular systolic pressure estimated to be 36 mmHg. She had a pharmacologic stress nuclear imaging study performed on 01/08/2015. The results are as noted below. The patient underwent pharmacologic (regadenoson) evaluation with a peak heart rate of 81 beats per minute (56% predicted maximum heart rate) and a peak blood pressure of 136/78 mmHg. The baseline ECG demonstrated atrial fibrillation. The peak pharmacologic ECG demonstrated continued atrial fibrillation with no obvious ECG changes. There were no obvious additional cardiac dysrhythmias pretest, during pharmacologic infusion, or recovery. There was no complaint of chest discomfort during pharmacologic infusion or recovery. The examination was discontinued secondary to completion of protocol. IMPRESSION: 1. Pharmacologic (regadenoson) evaluation. 2. Peak pharmacologic ECG with continued atrial fibrillation with no obvious ECG changes. 3. Nuclear images pending. MYOCARDIAL PERFUSION IMAGING STUDY: TECHNIQUE: The patient was injected with 10.5 mCi of Tc99m Cardiolite and subsequently rest SPECT Cardiolite nuclear imaging was obtained in the horizontal long, vertical long and short axes views. The patient underwent pharmacologic (regadenoson) evaluation with a peak heart rate of 81 beats per minute (56% predicted maximum heart rate) and a peak blood pressure of 136/78 mmHg. The patient was injected with 35.7 mCi of Tc99m Cardiolite and subsequently stress SPECT Cardiolite nuclear imaging was obtained in the horizontal long, vertical long and short axes views. A gated Cardiolite study at peak stress was obtained. INTERPRETATION: Rest and stress SPECT Cardiolite nuclear imaging both demonstrate an element of extracardiac/hepatic and gastrointestinal tracer uptake near the inferior segments. At rest, there is notation of a small area of subtle decreased tracer uptake near the distal anterior/anteroapical/lateral apical segments. These findings appear to improve and/or normalize following stress. There are similar type findings on the resting and stress polar map images. There was end systolic thickening and brightening. The gated Cardiolite study demonstrates myocardial thickening and inward wall motion. The reported LVEF is 87%. The aforementioned findings appear compatible with shifting soft tissue attenuation/artifact and/or physiologic apical thinning with no myocardial perfusion changes considered diagnostic for stress induced myocardial ischemia or previous myocardial injury/infarction. IMPRESSION: 1. Rest and stress SPECT Cardiolite nuclear imaging demonstrate myocardial perfusion changes appearing compatible with the effects of shifting soft tissue attenuation/artifact being more prominent at rest as opposed to stress and/or physiologic apical thinning with no myocardial perfusion changes considered diagnostic for stress induced myocardial ischemia or previous myocardial injury/infarction. 2. The gated Cardiolite study reports an LVEF of 87%. She had a Holter monitor performed on 07/08/2010. The results are as noted below. THIS JARON 24 HOUR HOLTER SCAN. 100% ATRIAL FIBRILLATION. LONGEST R-R WAS 2.1 SECONDS AT 5:03 AM. MINIMUM HEART RATE 43 8PM AT 4:44 AM. AVERAGE HEART RATE 72 BPM. MAXIMUM HEART RATE 104 BPM AT 3:10 PM. PT. REPORTS GOING UP AND DOWN STEPS TO BASEMENT AND GETTING A LITTLE SOB SOMETIME AFTER 2:15 PM AND BEFORE 5:00 PM? OCCASIONAL VENTRICULAR COMPLEXES. 24 VENTRICULAR COUPLETS. NINE BEATS IN VENTRICULAR TRIGEMINY. NO RUNS. NO SYMPTOMS OTHER THAN THE LITTLE SHORT OF BREATH WHEN GOING UP AND DOWN STAIRS. She had an ECG performed on . At that time she was in atrial fibrillation/flutter; low voltage-possible pulmonary disease Assessment AND Plan 1. Persistent atrial fibrillation I48.1 Plan At the present time she appears to be rate controlled. She continues her anticoagulant therapy. 2. Nonrheumatic mitral valve insufficiency I34.0 Plan She does have a history of both MR and TR. Based upon her ongoing shortness of breath and dyspnea she is already been asked to have an echocardiogram to reassess her valvular anatomy and physiology with respect any potential progression of disease and her alteration in right sided involvement/pressures that would contribute to her symptoms. 3. Nonrheumatic tricuspid valve regurgitation I36.1 Plan Again she is going to undergo further evaluation with an echocardiographic study which is already been arranged. 4. Long-term use of high-risk medication Z79.899 Plan She will continue medical therapy. Her INR is followed and her medications are adjusted 5. Dyspnea on exertion R06.09 Plan She will undergo evaluation as noted above for her shortness of breath and dyspnea. If her noninvasive cardiovascular study and her pulmonary studies are unremarkable and if there is still cardiovascular concerns that she may need to be reconsidered for additional cardiovascular evaluation for the possibility of CAD/myocardial ischemia with either noninvasive or invasive studies Plan Detail Additional Comments Otherwise she will be scheduled for an outpatient visit in approximately 1 year. Thank you for allowing me to participate in the care of your patient. Please don't hesitate to call if any issues arise. This note was generated using a voice recognition system and there may be incorrect words, spelling or punctuation that were not noted when reviewing the office note prior to saving. Follow Up 1 Year (PFM) Coding Level of Care Code Off vis,est,level 3 Diagnoses Persistent atrial fibrillation I48.1 Nonrheumatic mitral valve insufficiency I34.0 Nonrheumatic tricuspid valve regurgitation I36.1 Long-term use of high-risk medication Z79.899 Dyspnea on exertion R06.09 Coding Level of Care Code Off vis,est,level 3 Diagnoses Persistent atrial fibrillation I48.1 Nonrheumatic mitral valve insufficiency I34.0 Nonrheumatic tricuspid valve regurgitation I36.1 Long-term use of high-risk medication Z79.899 Dyspnea on exertion R06.09 02/05/18 1059 <Electronically signed by Rafael Chacon MD> Date Rafael Chacon MD Cosigner Signature: Date (if applicable) CC: Kayla Lund DO PROTHROMBIN TIME W/INR Collected: 02/02/2018 Status: F Source: [place] 1:09 PM [facility] REPOSITORY TYPE CODE TESTS RESULT OUT OF RANGE REFERENCE UNITS LAB L300.4150 11.7-14.9 SECONDS High PROTIME 29.0 LAB L300.4200 Normal INR 2.7 Performed By: #### L300.3900 #### [facility] [address] [place], [place], [id number] PULMONARY VISIT REPORT Observed: 01/25/2018 Status: F Source: [place] 2:30 PM [facility] REPOSITORY [facility] [address] [place] [address] OFFICE VISIT Date of Service: 01/25/18 MR#: [id number] Acct: [id number] Name: IVELISSE YAÑEZ Rep #: [id number] : 1935 Provider: Goldie Chua Age/Sex: 83/F Location[place] [facility] Status: Signed Assessment AND Plan 1. Hypersomnia G47.10 Plan New. Patient reports that she does not feel rested upon arising in the morning, she does report dry mouth in the morning and is having episodes of nocturia nightly. Concern for hypersomnia, she is agreeable to a polysomnogram, with follow- up as indicated and treatment if necessary. Plan to follow-up in 3 months, at which time anticipate she will be on Pap therapy for at least 4 weeks. She has been encouraged to contact the office with any difficulties acclimating to Pap therapy in the meantime. Orders Orders: 2. Stage 2 moderate COPD by GOLD classification J44.9 Plan Stable. She does not appear to be an exacerbation of her COPD today. No additional testing at this time. Follow-up in 3 months. 3. TREVIÑO (dyspnea on exertion) R06.09 Plan Shortness of breath on exertion has worsened, there was some concern for possible hypoxia with ambulation. The patient was able to complete a 6 minute walk in the office today and did not desaturate the entire time. Given her worsening shortness of breath and now her inability to tolerate walking as she did previously, I am going to have an echocardiogram completed. She does have a follow-up appointment with her field service technician on February 06, I would like to have the echocardiogram completed and available for him to review. Follow-up with myself in 3 months to continue to review the patient's symptoms and develop a plan. Orders Orders: Plan Detail Other Orders Orders: Follow Up 3 Months ([facility]) HPI 3 M FU: Chief Complaint: Shortness of breath on exertion HPI Comments Details: This patient presents the office today for routine follow-up on her moderate COPD. She is in a wheelchair today, currently on room air. She has not been seen in the ED or urgent care for any respiratory illnesses since last office visit. She has not required any antibiotics or prednisone for any breathing problems. She does not typically in a wheelchair but she reports that over the past 3 months her shortness of breath has worsened and she has began using a wheelchair when away from home. She denies any cough, sputum production or hemoptysis. She denies any wheezing or chest tightness. She denies any fever, chills or body aches. She is using her rescue inhaler once daily for her shortness of breath, but admits that she does not see any improvement. She is having some lower extremity edema. She is not feeling rested upon arising in the morning. She does report frequent morning dry mouth. She is having couple episodes of nocturia nightly. Test results reviewed with the patient: Pulmonary function test completed on January 18, 2018 interpreted as showing a reversible moderately severe large airway obstructive defect associated with hyperinflation, air trapping and a reduction in diffusing capacity. It is noted that the diffusing capacity has worsened significantly since last PFTs. FVC 70% of predicted, FEV1 64% predicted, FEV1/FVC 67% predicted, TLC 133% predicted, RV to 20% predicted and DLCO 6% of predicted. Intake Vital Signs01/25/18 Pulse Ox 98 01/25/18 Oxygen Delivery Method room air 01/25/18 Comment 6 min, ambulation 01/25/18 Pulse Ox 96 01/25/18 Oxygen Delivery Method room air Intake Visit Reasons: 3 M FU Accompanied by: Self Allergies hydrochlorothiazide Allergy (Severe, Verified 01/25/18 10:07) Unknown Sulfa (Sulfonamide Antibiotics) Allergy (Severe, Verified 01/25/18 10:07) Unknown Medications warfarin 6 mg tablet 3 mg PO .1XW tab 06/22/17 [History Confirmed 01/25/18] albuterol sulfate 2.5 mg/3 mL (0.083 %) solution for nebulization 2.5 mg INHALATION Q4H PRN ml 07/11/17 [History Confirmed 01/25/18] albuterol sulfate HFA 90 mcg/actuation aerosol inhaler 2 puff INHALATION Q4H PRN g 07/11/17 [History Confirmed 01/25/18] ipratropium bromide 0.02 % solution for inhalation 1.25 ml INHALATION BID ml 07/11/17 [History Confirmed 01/25/18] pravastatin 20 mg tablet 20 mg PO QHS 07/11/17 [History Confirmed 01/25/18] warfarin 3 mg tablet 3 mg PO QWEEK #12 tab 07/13/17 [Rx Confirmed 01/25/18] potassium chloride ER 10 mEq tablet,extended release 20 meq PO QDAY #180 tab 02/19/18 [Rx Confirmed 01/25/18] diltiazem CD 120 mg capsule,extended release 24 hr 120 mg PO QDAY cap 01/12/18 [History Confirmed 01/25/18] warfarin 5 mg tablet 5 mg PO 6XW #90 tab 01/12/18 [Rx Confirmed 01/25/18] [facility] Medical History 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) Palpitations (Acute) Long-term use of high-risk medication (Chronic) Dyspnea (Acute) Atrial enlargement, bilateral (Chronic) History of colon cancer (Resolved) Neck mass (Chronic) Thyromegaly (Chronic) Thyroid nodule (Chronic) Stage 2 moderate COPD by GOLD classification (Chronic) Seborrheic keratosis (Chronic) Syncope (Acute) Hypoxia (Acute) Tobacco dependence in remission (Chronic) TREVIÑO (dyspnea on exertion) (Chronic) Obesity (Chronic) Paroxysmal atrial fibrillation (Chronic) meterman (current) use of anticoagulants (Chronic) Surgical History History of colon resection (Resolved) Family History Father CAD (coronary artery disease) Daughter Breast cancer Social History Smoking Status: Former smoker how long ago did patient quit smokin second hand exposure: Yes alcohol intake: current alcohol intake frequency: a few times a week Alcohol type: beer, wine substance use type: does not use Review of Systems Const CONSTITUTIONAL: Positive fatigue; negative anorexia, body ache, chills, daytime sleepiness, fever(s), night sweats, oral thrush, stops breathing during sleep, weight loss, sleeping in chair, weight loss, weight gain, frequent colds, seasonal allergies, other, headache(s) or orthopnea EETM Ear Nose Throat Mouth: Positive hard of hearing; negative hoarseness, dry mouth in morning, change in vision, itchy eyes, eye pain, swallowing Difficulty, ear pain, nose bleed, headache(s), mouth pain, nasal congestion, nasal discharge, post nasal drip, sinus pain, sinus pressure, sore throat or other Cardio Cardiovascular: Negative chest pain, chest pain at rest, chest pain with activity, irregular heart rhythm, edema, shortness of breath when lying down, palpitations, murmur or other Resp Respiratory: Positive as per HPI, shortness of breath shortness of breath: Positive with activity, cough cough: Positive productive color: Positive thick and yellow and inhalers; negative pain with cough, wheezing, chest congestion, chest tightness, pain on inspiration, increase use of rescue inhalers, snoring, apnea or other Gastro Gastrointestional: Negative bloody stools, change in appetite, difficulty swallowing, reflux, hematemesis, melena stool, loose stool, constipation or other Genitourinary: Negative blood in urine, nocturia, pain with urination or other Musc Musculoskeletal: Negative body pain, back pain, neck pain or other Skin/Breast Skin/Breast: Negative dry skin, itching, rash, unusual bruising, breast lump or other Neuro Neurological: Negative restless legs, confusion, weakness or other Psych Psychocological: Negative abnormal sleep pattern, anxiety, thoughts of hurting self/others, hopelessness or other Lymph Lymphatic: Negative easy bleeding, easy bruising, swollen lymph nodes or other Exam Const Constitutional: Positive conversant, cooperative, in no acute respiratory distress, well developed, well nourished, good hygiene and frail appearing Head Head: Positive normocephalic and atraumatic; negative cyanosis of lips/distal nose Eyes Eye: Positive clear conjunctiva; negative nystagmus or scleral abnormality Ears Ear: Positive hard of hearing and external ears normal Nose Nose: Positive external nose normal and no nasal discharge; negative epistaxis Mouth Mouth: Positive dentures, oral mucosae normal, no lesions and crowded posterior oropharynx; negative post nasal drip, malodorous breath or oral thrush present Mallampati Score: III: Mallampati Score Neck Neck: Positive normal visual inspection, full ROM and trachea midline; negative lymphadenopathy, JVD or tender Chest Wall Chest: Positive normal inspection of the chest and symmetric chest movement; negative increased A/P diameter Resp lung sounds: Positive clear to auscultation, good air exchange, normal expiratory time and normal respiratory effort; negative diminished, wheezes, rhonchi, rales, dullness to percussion or wheeze present on forced exhalation Cardio Cardiac: Positive regular rate, regular rhythm, S1 normal and S2 normal; negative murmur GI GI: Positive normal to inspection and normal bowel sounds; negative distended Genitourinary: Positive deferred Musc Musculoskeletal: Positive ROM normal and in a wheelchair; negative kyphosis or scoliosis Skin Pulmonary Skin Exam: Positive intact; negative rash, lesion, ulcers, erythema or scaly Pulses Pulse: Yes pulses normal x4 extremities Extremities Extremities: Yes capillary refill normal, No clubbing, No cyanosis, Yes edema Location: lower extremity location: Bilateral pitting +1 Neuro Neurologic: Yes conversant, Yes no focal neuro deficits, Yes understands questions, Yes normal concentration, Yes cooperative, Yes normal cognition, Yes normal coordination Lymph Lymphatic: No lymphadenopathy, No tenderness, No cervical adenopathy, No axillary adenopathy Psych Appearance: Positive grossly normal, eye contact and well kempt Mental Status: Positive mental status grossly normal Mood: Positive congruent mood Affect: Positive normal affect Office Procedures Walking Oximetry Walking Oximetry Procedure performed by: Mervat Hooper Walking Oximetry: Yes walking oximetry preformed, desaturation below 89% did not occur, no signs of distress prior to departing office and no indication for supplemental oxygen at this time Coding Level of Care Code Off vis,est,level 4 Diagnoses Hypersomnia G47.10 Stage 2 moderate COPD by GOLD classification J44.9 TREVIÑO (dyspnea on exertion) R06.09 01/25/18 1430 <Electronically signed by Goldie Chua PERFORMANCE IMPROVEMENT CONSULTANT-C> Date Goldie Chua NP-C Cosigner Signature: Date (if applicable) CC: Kayla Lund DO PULMONARY FUNCTION Observed: 01/19/2018 Status: F Source: [place] TEST 9:55 AM [facility] REPOSITORY [facility] Pulmonary Services/Neurology [address] [place] [address] MR#: [id number] Acct: [id number] Name: IVELISSE YAÑEZ Rep #: [id number] : 1935 83 From: Robert Mario DO Referring Dr: Goldie Chua PERFORMANCE IMPROVEMENT CONSULTANT Status: REG CLI Ordering Dr: Date: Location: [facility] Sex: F C INTRODUCTION: The patient is an 83-year-old female that presents for pulmonary function testing secondary to a diagnosis of shortness of breath. Respiratory therapy reports good patient effort. Bronchodilators were used during testing. 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 There is no significant response to aerosolized bronchodilators. Spirograms are of good quality do not plateau. Body plus tomography was performed and reveals an elevated TLC and RV, indicative of underlying hyperinflation and air-trapping. Diffusing capacity by single breath CO is severely reduced. When compared to previous pulmonary function studies dated December 2016, there has been a significant reduction in the patient's DLCO. IMPRESSION: These pulmonary function studies demonstrate the presence of an irreversible moderately severe large airways obstructive ventilatory defect with associated hyperinflation, air trapping and reduction in diffusing capacity. There has been significant worsening in the patient's DLCO since PFTs were last completed in December 2016. 01/19/18 0955 <Electronically signed by Robert Mario DO> Date Robert Mario DO CC: Goldie Lund DO Date Dictated: 01/19/18952 Date Transcribed: 01/19/18952 Computer Systems Software Architect: LISA Signed PROTHROMBIN TIME W/INR Collected: 01/12/2018 Status: F Source: [place] 3:01 PM [facility] REPOSITORY TYPE CODE TESTS RESULT OUT OF RANGE REFERENCE UNITS LAB L300.4150 11.7-14.9 SECONDS High PROTIME 22.9 LAB L300.4200 Normal INR 2.0 Performed By: #### L300.3900 #### [facility] [address] [place], [place], [address] PROTHROMBIN TIME W/INR Collected: 12/29/2017 Status: F Source: [place] 1:58 PM [facility] REPOSITORY TYPE CODE TESTS RESULT OUT OF RANGE REFERENCE UNITS LAB L300.4150 11.7-14.9 SECONDS High PROTIME 22.2 LAB L300.4200 Normal INR 1.9 Performed By: #### L300.3900 #### [facility] [address] [place], [place], [address] PROTHROMBIN TIME W/INR Collected: 12/15/2017 Status: F Source: [place] 2:31 PM [facility] REPOSITORY TYPE CODE TESTS RESULT OUT OF RANGE REFERENCE UNITS LAB L300.4150 11.7-14.9 SECONDS High PROTIME 26.1 LAB L300.4200 Normal INR 2.4 Performed By: #### [id number] #### [facility] [address] [place], [address] PROTHROMBIN TIME W/INR Collected: 12/08/2017 Status: F Source: [place] 10:33 AM [facility] REPOSITORY TYPE CODE TESTS RESULT OUT OF REFERENCE UNITS RANGE LAB L300.4150 11.7-14.9 SECONDS High PROTIME 35.7 LAB L300.4200 High alert INR 3.5 Result Comment: CRITICAL VALUE VERIFIED. CALLED TO MEG AT 'S OFFICE. 12/08/17 1211 Aram Powers. RESULTS READ BACK BY SAME. Performed By: #### L300.3900 #### [facility] [address] [place], [address] PROTHROMBIN TIME W/INR Collected: 11/20/2017 Status: F Source: [place] 8:35 AM [facility] REPOSITORY TYPE CODE TESTS RESULT OUT OF RANGE REFERENCE UNITS LAB L300.4150 11.7-14.9 SECONDS High PROTIME 32.8 LAB L300.4200 Normal INR 3.2 Performed By: #### [id number] #### [facility] [address] [place], [address] PROTHROMBIN TIME W/INR Collected: 10/23/2017 Status: F Source: [place] 3:24 PM [facility] REPOSITORY TYPE CODE TESTS RESULT OUT OF RANGE REFERENCE UNITS LAB L300.4150 11.7-14.9 SECONDS High PROTIME 30.0 LAB L300.4200 Normal INR 2.8 Performed By: #### [id number] #### [facility] [address] [place], [address] PULMONARY VISIT REPORT Observed: 09/28/2017 Status: F Source: [place] 3:41 PM [facility] REPOSITORY [facility] [address] [place] [address] OFFICE VISIT Date of Service: 09/28/17 MR#: [id number] Acct: [id number] Name: IVELISSE YAÑEZ Rep #: [id number] : 1935 Provider: Tylor Sheppard MD Age/Sex: 82/F [facility] Status: Signed Assessment AND Plan 1. Stage 2 moderate COPD by GOLD classification J44.9 Plan Patient is reporting significant worsening in dyspnea on exertion despite the fact that she has not smoked in several years. Patient does have some comorbid conditions such as atrial fibrillation, which may be compensating overall disease process. Patient has had pulmonary function test in the past, but had significant difficulty in performing the testing. It is unclear if repeating the testing would be too reliable results for true correlation. Will obtain a walking oximetry for comparison to previous. Patient may benefit from supplemental oxygen with exertion. Obtain walking oximetry. No change in medications. Orders Orders: 2. Fatigue, unspecified type R53.83 Plan Patient reports significant fatigue throughout the day. It is unclear if this is related to untreated sleep apnea. Other possible etiologies would be anemia and possible hypothyroidism. Patient does have a history of a thyroid nodule, but has no information on whether this has been checked. Will obtain a TSH for evaluation. Patient also has a history of almost dying from colon cancer, so a CBC to evaluate for possible anemia will also be obtained. Obtain CBC and TSH. Defer to PCP if abnormal. Orders Orders: 3. Hypersomnia G47.10 Plan Patient does report a history of being fatigued during the day. Patient will take naps and does report snoring. Patient does not have anyone has witnessed apneas. Did discuss with patient about the role of polysomnogram and the overall workup. After review of the risks, benefits alternatives, patient would like to forego any diagnostic testing at this time. Sleep study in the future if patient agrees HPI 3 M FU: Chief Complaint: Shortness of breath on exertion Details: Patient is an 82-year-old female, currently under the care of Dr. Lund, who presents for evaluation secondary to continued shortness of breath on exertion. Since last visit, patient denies any ER visits, hospitalizations or prednisone burst. Patient does believe that her dyspnea on exertion has progressed since its last visit. Patient denies any dyspnea at rest, but states her exercise tolerance is approximately 100 feet at this time. Patient readily avoids steps secondary to her dyspnea on exertion. Patient estimates that she has been using her nebulizer 2-3 times per week and does report some subjective improvement in overall condition. Patient has reported that she tends to take daily naps. Patient does report snoring. Patient believes her nocturnal oxygen at 2 L/min does help her sleep more soundly. Patient denies waking up with headaches. Patient does report sometimes having problems in concentration immediately upon waking. Patient does take a nap on a daily basis. Patient reports that over the winter she felt like she was more cold and had noted dry skin and fatigue. Patient is not clear if this is secondary to seasonal affective disorder or if something is wrong. Patient is not a very good historian about her past and did not know about the reported thyromegaly and thyroid nodule. Patient was unable to say whether she had had any routine laboratory studies recently. Patient has noted a loss of appetite, but denies any fever, chills, nausea, vomiting, diarrhea or rash. Intake Vital Signs09/28/17 Height 5 ft 1 in 09/28/17 Weight: 68.492 kg Intake Visit Reasons: 3 M FU Accompanied by: Self Allergies hydrochlorothiazide Allergy (Severe, Verified 09/28/17 09:41) Unknown Sulfa (Sulfonamide Antibiotics) Allergy (Severe, Verified 09/28/17 09:41) Unknown Medications warfarin 5 mg tablet 5 mg PO 6XW tab 06/22/17 [History Confirmed 09/28/17] warfarin 6 mg tablet 3 mg PO .1XW tab 06/22/17 [History Confirmed 09/28/17] albuterol sulfate 2.5 mg/3 mL (0.083 %) solution for nebulization 2.5 mg INHALATION Q4H PRN ml 07/11/17 [History Confirmed 09/28/17] albuterol sulfate HFA 90 mcg/actuation aerosol inhaler 2 puff INHALATION Q4H PRN g 07/11/17 [History Confirmed 09/28/17] diltiazem CD 120 mg capsule,extended release 24 hr 120 mg PO ONCE 07/11/17 [History Confirmed 09/28/17] ipratropium bromide 0.02 % solution for inhalation 1.25 ml INHALATION BID ml 07/11/17 [History Confirmed 09/28/17] pravastatin 20 mg tablet 20 mg PO QHS 07/11/17 [History Confirmed 09/28/17] warfarin 3 mg tablet 3 mg PO QWEEK #12 tab 07/13/17 [Rx Confirmed 09/28/17] potassium chloride ER 10 mEq tablet,extended release 20 meq PO QDAY #180 tab 08/21/17 [Rx Confirmed 09/28/17] [facility] Medical History 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) Palpitations (Acute) Long-term use of high-risk medication (Chronic) Dyspnea (Acute) Atrial enlargement, bilateral (Chronic) History of colon cancer (Resolved) Neck mass (Chronic) Thyromegaly (Chronic) Thyroid nodule (Chronic) Stage 2 moderate COPD by GOLD classification (Chronic) Seborrheic keratosis (Chronic) Syncope (Acute) Hypoxia (Acute) Tobacco dependence in remission (Chronic) TREVIÑO (dyspnea on exertion) (Chronic) Obesity (Chronic) Paroxysmal atrial fibrillation (Chronic) care home (current) use of anticoagulants (Chronic) Surgical History History of colon resection (Resolved) Family History Father CAD (coronary artery disease) Daughter Breast cancer Social History Smoking Status: Former smoker how long ago did patient quit smokin second hand exposure: Yes alcohol intake: current alcohol intake frequency: a few times a week Alcohol type: beer, wine substance use type: does not use Review of Systems Const CONSTITUTIONAL: Positive fatigue; negative anorexia, body ache, chills, daytime sleepiness, fever(s), night sweats, oral thrush, stops breathing during sleep, weight loss, sleeping in chair, weight loss, weight gain, frequent colds, seasonal allergies, other, headache(s) or orthopnea EETM Ear Nose Throat Mouth: Positive hard of hearing; negative hearing normal, hoarseness, dry mouth in morning, change in vision, itchy eyes, eye pain, swallowing Difficulty, ear pain, nose bleed, headache(s), mouth pain, nasal congestion, nasal discharge, post nasal drip, sinus pain, sinus pressure, sore throat or other Cardio Cardiovascular: Negative chest pain, chest pain at rest, chest pain with activity, irregular heart rhythm, edema, shortness of breath when lying down, palpitations, murmur or other Resp Respiratory: Positive as per HPI and shortness of breath; negative pain with cough, wheezing, chest congestion, cough, chest tightness, pain on inspiration, inhalers, increase use of rescue inhalers, snoring, apnea or other Gastro Gastrointestional: Positive change in appetite; negative bloody stools, difficulty swallowing, reflux, hematemesis, melena stool, loose stool, constipation or other Genitourinary: Negative blood in urine, nocturia, pain with urination or other Musc Musculoskeletal: Negative body pain, back pain, neck pain or other Skin/Breast Skin/Breast: Negative dry skin, itching, rash, unusual bruising, breast lump or other Neuro Neurological: Negative restless legs, confusion, weakness or other Psych Psychocological: Negative abnormal sleep pattern, anxiety, thoughts of hurting self/others, hopelessness or other Lymph Lymphatic: Negative easy bleeding, easy bruising, swollen lymph nodes or other Exam Const Constitutional: Positive conversant, cooperative, in no acute respiratory distress, well developed, well nourished and good hygiene; negative wearing supplemental oxygen Head Head: Positive normocephalic and atraumatic; negative cyanosis of lips/distal nose, frontal sinus tenderness or maxillary sinus tenderness Eyes Eye: Positive clear conjunctiva; negative scleral abnormality or nystagmus Ears Ear: Positive hard of hearing and external ears normal; negative hearing normal Nose Nose: Positive external nose normal, septum normal and no nasal discharge; negative epistaxis or nasal polyp Mouth Mouth: Positive oral mucosae normal, dentures and crowded posterior oropharynx; negative post nasal drip, malodorous breath, no lesions or oral thrush present Mallampati Score: III: Mallampati Score Neck Neck: Positive normal visual inspection, full ROM, trachea midline and female neck greater than 37 cm (15 in); negative lymphadenopathy or JVD Chest Wall Chest: Positive normal inspection of the chest and symmetric chest movement; negative crepitus or increased A/P diameter Resp lung sounds: Positive clear to auscultation, good air exchange, normal expiratory time and normal respiratory effort; negative wheezes, wheeze present on forced exhalation, rhonchi, rales, dullness to percussion or use of accessory muscles Cardio Cardiac: Positive regular rate, S1 normal and S2 normal; negative murmur, regular rhythm, rub or gallop GI GI: Positive normal to inspection and normal bowel sounds; negative distended, epigastric tenderness, hepatomegaly or splenomegaly Genitourinary: Positive deferred Musc Musculoskeletal: Positive ROM normal and in a wheelchair; negative kyphosis, scoliosis or rheumatoid nodules Skin Pulmonary Skin Exam: Positive intact; negative rash, lesion, ulcers, erythema or dermal atrophy Pulses Pulse: Yes radial pulses present Extremities Extremities: Yes capillary refill normal, No clubbing, No cyanosis, Yes edema Location: lower extremity location: Bilateral pitting trace, No stasis dermatitis Neuro Neurologic: Yes conversant, Yes no focal neuro deficits, Yes cooperative, Yes normal cognition, Yes understands questions, Yes normal concentration, Yes normal coordination Lymph Lymphatic: No lymphadenopathy Psych Appearance: Positive grossly normal Mental Status: Positive mental status grossly normal Mood: Positive congruent mood Affect: Positive normal affect Coding Level of Care Code Off vis,est,level 4 Diagnoses Stage 2 moderate COPD by GOLD classification J44.9 Fatigue, unspecified type R53.83 Fatigue type: unspecified Hypersomnia G47.10 09/28/17 1541 <Electronically signed by Tylor Sheppard MD> Date Tylor Sheppard MD Cosigner Signature: Date (if applicable) CC: Kayla Lund DO CBC-COMPLETE BLOOD CNT Collected: 09/28/2017 Status: F Source: [place] NO DIFF 10:41 AM [facility] REPOSITORY TYPE CODE TESTS RESULT OUT OF RANGE REFERENCE UNITS LAB L100.1000 4.4-11.0 K/mm3 Normal WBC 5.5 LAB L100.1200 4.2-5.4 M/mm3 Low RBC 3.54 LAB L100.1300 12.0-15.0 g/dl Low HGB 11.9 LAB L100.1400 37-47 % Low HCT 34.6 LAB L100.1500 81-99 fL Normal MCV 97.7 LAB L100.1600 27.0-32.0 pg High MCH 33.6 LAB L100.1700 32-36 g/gl Normal MCHC 34.4 LAB L100.1810 11.6-14.6 % Normal RDW CV 12.5 LAB L100.1820 35.1-43.9 fl Normal RDW SD 43.5 LAB L100.1900 150-450 K/mm3 Normal PLT 359 LAB L100.2000 6.2-12.0 fl Normal MPV 9.4 Performed By: #### L100.0500, L501.9520 #### [facility] Laboratory [address] [place], [address] THYROID STIM HORMONE Collected: 09/28/2017 Status: F Source: REMY (TSH) 10:41 AM [facility] REPOSITORY TYPE CODE TESTS RESULT OUT OF RANGE REFERENCE UNITS LAB L501.9520 0.358-3.74 uIU/mL Normal TSH 1.53 Performed By: #### L100.0500, L501.9520 #### [facility] Laboratory [address] [place], [address] PROTHROMBIN TIME W/INR Collected: 09/25/2017 Status: F Source: REMY 3:16 PM [facility] REPOSITORY TYPE CODE TESTS RESULT OUT OF RANGE REFERENCE UNITS LAB L300.4150 11.7-14.9 SECONDS High PROTIME 31.2 LAB L300.4200 Normal INR 3.0 Performed By: #### L300.3900 #### [facility] Laboratory [address] [facility] [place], [address] PROTHROMBIN TIME W/INR Collected: 09/11/2017 Status: F Source: REMY 2:24 PM [facility] REPOSITORY TYPE CODE TESTS RESULT OUT OF RANGE REFERENCE UNITS LAB L300.4150 11.7-14.9 SECONDS High PROTIME 32.5 LAB L300.4200 Normal INR 3.1 Performed By: #### L300.3900 #### [facility] Laboratory [address] [place], [address] PROTHROMBIN TIME W/INR Collected: 08/21/2017 Status: F Source: REMY 11:36 AM [facility] REPOSITORY Order Comment: Comments: STANDING ORDER Comments: STANDING ORDER TYPE CODE TESTS RESULT OUT OF RANGE REFERENCE UNITS LAB L300.4150 11.7-14.9 SECONDS High PROTIME 29.2 LAB L300.4200 Normal INR 2.9 Performed By: #### L300.3900 #### [facility] Laboratory [address] [place], [address] PROTHROMBIN TIME W/INR Collected: 08/02/2017 Status: F Source: REMY 11:31 AM [facility] REPOSITORY TYPE CODE TESTS RESULT OUT OF RANGE REFERENCE UNITS LAB L300.4150 11.7-14.9 SECONDS High PROTIME 20.5 LAB L300.4200 Normal INR 1.8 Performed By: #### L300.3900 #### [facility] Laboratory [address] [place], [address] ALLERGIES ALLERGIES DATE TYPE / CODE NAME / CODE REACTION SEVERITY SOURCE 07/19/2018 Drug Sulfa Unknown [facility] Allergy/4160 (Sulfonamide Hospital 79296(SNOMED Antibiotics)/ Repository CT) [id number](RX NORM) 07/19/2018 Drug hydrochloroth Unknown [facility] Allergy/4160 iazide/G98448 Hospital 67263(SNOMED 2294(RXNORM) Repository CT) ENCOUNTERS ENCOUNTERS ADMIT/DISCHARGE ACCOUNT ADMITTING ENCOUNTER LOCATION SOURCE NUMBER CLASS 07/19/2018/ [id number] Ambulatory BMSBuilding:B [place] 9 1 [facility] Repository 07/03/2018 [id number] Ambulatory [place] 3 [facility] ing:LAB Repository 06/14/2018/ [id number] [place] 8 1 [facility] ing:LAB Repository 05/18/2018/ [id number] Ambulatory [place] 8 2 [facility] ing:LAB Repository 05/16/2018 [id number] [facility] [place] [facility] Repository 04/18/2018/ [id number] Ambulatory BMSBuilding:B [place] 8 3 [facility] Repository 04/13/2018/ [id number] Amb[place] 8 8 [facility] Repository 03/16/2018/ [id number] Ambulatory [place] 8 6 [facility] ing:LAB Repository 02/23/2018/ [id number] Ambulatory [place] [facility]LAB Repository 02/08/2018 [id number] [place] 7 [facility] Hospital ing:SL Repository 02/05/2018 [id number] Ambulatory [place] 3 [facility] Hospital ing:CVS Repository 02/05/2018/ [id number] Ambulatory BMSBuilding:B [place] 8 5 [facility] Repository 02/05/2018 [id number] Ambulatory BMSBuilding:W [place] 2 [facility] Repository 02/01/2018 [id number] Ambulatory BMSBuilding:B [place] 9 [facility] Repository 01/25/2018/ [id number] Ambulatory BMSBuilding:B [place] 8 4 [facility] Repository 01/19/2018 [id number] Ambulatory BMSBuilding:W [place] 1 [facility] Repository 01/18/2018 [id number] Ambulatory [place] 6 [facility] ing[facility]PSN Repository 01/12/2018/ [id number] Ambulatory [place] 8 0 [facility] ing:LAB Repository 12/29/2017/ [id number] Ambulatory [place] 8 3 [facility] ing:LAB Repository 12/27/2017 [id number] Ambulatory BMSBuilding:B [place] 7 [facility] Repository 11/20/2017/ [id number] Ambulatory [place]y 8 8 [facility] ing:LAB Repository 10/23/2017/ [id number] Ambulatory [place] 8 2 [facility] ing:LAB Repository 10/06/2017 [id number] Ambulatory [place] 9 [facility] ing:PSN Repository 09/28/2017 [id number] Ambulatory [place] Remy 3 [facility] ing:LAB Repository 09/28/2017/ [id number] Ambulatory BMSBuilding:B [place] 8 9 [facility] Repository 09/25/2017/ [id number] Ambulatory [place] 8 8 [facility] ing:LAB Repository 08/21/2017/ [id number] Ambulatory [place] 8 4 [facility] ing:LAB Repository 08/02/2017/ [id number] Ambulatory [place] 8 1 [facility] ing:LAB Repository PAYERS PAYERS ENCOUNTER GUARANTOR PAYER SUBSCRIBER SOURCE 07/19/2018 IVELISSE M Primary IVELISSE M [place] [id number] N Insurance:MEDICARE MULHALLDOB: [facility] [id number] Number: Repository [address]Zmc: [phone]) [id number] [phone] () Date:2018-04-18 07/19/2018 Secondary IVELISSE M [place] Insurance:CONTINENTAL MULHALLDOB: [facility] [id number] Cancer CenterPolicy Number: Repository [id number] Date:0658-05-21[address]XVNQGG, [place] [address]TA: 07/19/2018 Tertiary NOT GIVENUNK [place] Insurance:SELF PAY [facility] Number: Effective Repository Date:2018-07-12 07/03/2018 IVELISSE M Primary IVELISSE M [place] [id number] N Insurance:CONTINENTAL MULHALLDOB: [facility] 3523[place]: Repository [id number]: 330 [id number] [phone] (HP) Date:4800-48-50MW [address] [address]UATKNF, [place] [address]NF: 07/03/2018 Secondary IVELISSE M [place] Insurance:MEDICARE MULHALLDOB: Community PART A [facility] [id number] Hospital Number: Repository [id number] Date:2017-08-04 07/03/2018 Tertiary NOT GIVENUNK [place] Insurance:SELF PAY [facility] Number: Effective Repository Date:2018-07-02 06/14/2018 IVELISSE M Primary IVELISSE M [place] [id number] N Insurance:CONTINENTAL MULHALLDOB: [facility] 7712-92-[place]: Repository [id number]: [phone] [id number] [phone] () Date:9332-17-81VB [address] [address]XOKL, [place] [address]AZ: 06/14/2018 Secondary IVELISSE M [place] Insurance:MEDICARE MULHALLDOB: Community PART A [facility] [id number] Hospital Number: Repository [id number] Date:2017-08-04 06/14/2018 Tertiary NOT GIVENUNK [place] Insurance:SELF PAY [facility] Hospital Number: Effective Repository Date:2018-06-04 05/18/2018 IVELISSE M Primary IVELISSE M [place] [id number] N Insurance:CONTINENTAL MULHALLDOB: [facility] 0168-84-[place]: Repository [id number]: (330 [id number] [phone] (HP) Date:7325-80-81LS [address] [address]VJBCIZ, [place] [address]EO: 05/18/2018 Secondary IVELISSE M [place] Insurance:MEDICARE MULHALLDOB: Community PART A [facility] [id number] Hospital Number: Repository [id number] Date:2017-08-04 05/18/2018 Tertiary NOT GIVENUNK [place] Insurance:SELF PAY [facility] Number: Effective Repository Date:2018-05-03 05/16/2018 IVELISSE M Primary IVELISSE M [place] [id number] N Insurance:MEDICARE MULHALLDOB: Community PROSPECT PART A [facility] [id number] [facility] [place] Number: Repository [address]Ejc: 330 [id number] [phone] (HP) Date:2018-04-18 05/16/2018 Secondary IVELISSE M [place] Insurance:CONTINENTAL MULHALLDOB: [facility] [id number] Cancer CenterPolicy Number: Repository [id number] Date:9902-72-95GJ [address] [address]FSPLDP, [place] [address]KC: 05/16/2018 Tertiary NOT GIVENUNK [place] Insurance:SELF PAY [facility] Number: Effective Repository Date:2018-04-18 04/18/2018 IVELISSE M Primary IVELISSE M [place] [id number] N Insurance:MEDICARE MULHALLDOB: Community PROSPECT PART A [facility] [id number] [facility] [place] Number: Repository [address]Cwe: 330 [id number] [phone] (HP) Date:2018-01-25 04/18/2018 Secondary IVELISSE M [place] Insurance:CONTINENTAL MULHALLDOB: [facility] [id number] Hospital [place]icy Number: Repository [id number] Date:4639-77-41KR [address] [address]OOEUDA, [place] [address]KA: 04/18/2018 Tertiary NOT GIVENUNK [place] Insurance:SELF PAY [facility] Number: Effective Repository Date:2018-04-11 04/13/2018 IVELISSE M Primary IVELISSE M [place] [id number] N Insurance:MEDICARE MULHALLDOB: Community PROSPECT PART A [facility] [id number] [facility] Number: Repository [address]Vos: 330 [id number] [phone] (HP) Date:2017-08-04 04/13/2018 Secondary IVELISSE M [place] Insurance:CONTINENTAL MULHALLDOB: Community [place] [id number] Hospital [place]CP[place]icy Number: Repository [id number] Date:2202-37-67WM [address] [address]LRRYVF, [place] [address]NR: 04/13/2018 Tertiary NOT GIVENUNK [place] Insurance:SELF PAY [facility] Number: Effective Repository Date:2018-04-04 03/16/2018 IVELISSE M Primary IVELISSE M [place] [id number] N Insurance:MEDICARE MULHALLDOB: Community PROSPECT PART A [facility] [id number] [facility]amos [facility] Number: Repository [address]Dzx: 330 [id number] [phone] (HP) Date:2017-08-04 03/16/2018 Secondary IVELISSE M [place] Insurance:CONTINENTAL MULHALLDOB: [facility] [id number] Hospital [place]icy Number: Repository [id number] Date:7224-91-58QK [address]JKLVWI, [place] [address]RH: 03/16/2018 Tertiary NOT GIVENUNK [place] Insurance:SELF PAY [facility] Number: Effective Repository Date:2018-03-06 02/23/2018 IVELISSE M Primary IVELISSE M [place] [id number] N Insurance:MEDICARE MULHALLDOB: Community PROSPECT PART A [facility] [id number] [facility], [place] Number: Repository [address]Xgw: 330 [id number] [phone] (HP) Date:2017-08-04 02/23/2018 Secondary IVELISSE M [place] Insurance:CONTINENTAL MULHALLDOB: [facility] [id number] Hospital [place]CPolicy Number: Repository [id number] Date:6979-55-42OX [address] [address]BMBAFN, [place] [address]WI: 02/23/2018 Tertiary NOT GIVENUNK [place] Insurance:SELF PAY [facility] Number: Effective Repository Date:2018-02-01 02/08/2018 IVELISSE M Primary IVELISSE M [place] [id number] N Insurance:MEDICARE MULHALLDOB: Community PROSPECT PART A [facility] [id number] [facility] [place] Number: Repository [address]Mns: 330 [id number] [phone] (HP) Date:2018-01-29 02/08/2018 Secondary IVELISSE M [place] Insurance:CONTINENTAL MULHALLDOB: [facility] [id number] Hospital [place]CPolicy Number: Repository [id number] Date:2548-40-33VT [address] [address]SDSPPN, [place] [address]ST: 02/08/2018 Tertiary NOT GIVENUNK [place] Insurance:SELF PAY [facility] Number: Effective Repository Date:2018-01-29 02/05/2018 IVELISSE M Primary IVELISSE M [place] [id number] N Insurance:MEDICARE MULHALLDOB: Community PROSPECT PART A [facility] [id number] Alamos Medical [facility], [place] Number: Repository [address]Fml: 330 [id number] [phone] (HP) Date:2018-01-29 02/05/2018 Secondary IVELISSE M [place] Insurance:CONTINENTAL MULHALLDOB: [facility] [id number] Hospital INCPolicy Number: Repository [id number] Date:2907-22-22MK [address] [address]VFNXKB, [place] [address]YB: 02/05/2018 Tertiary NOT GIVENUNK [place] Insurance:SELF PAY [facility] Number: Effective Repository Date:2018-01-29 02/05/2018 IVELISSE M Primary IVELISSE M [place] [id number] N Insurance:MEDICARE MULHALLDOB: Community PROSPECT PART A [facility] [id number] Memorial [facility] [place] Number: Repository [address]Onk: 330 [id number] [phone] (HP) Date:2017-06-20 02/05/2018 Secondary IVELISSE M [place] Insurance:CONTINENTAL MULHALLDOB: [facility] [id number] Hospital INCPolicy Number: Repository [id number] Date:9575-52-36VC [address] [address]UZEFQL, [place] [address]ER: 02/05/2018 Tertiary NOT GIVENUNK [place] Insurance:SELF PAY [facility] Number: Effective Repository Date:2018-02-05 02/05/2018 IVELISSE M Primary IVELISSE M [place] [id number] N Insurance:MEDICARE MULHALLDOB: Community PROSPECT PART A [facility] [id number], [place] Number: Repository [address]Zbb: 330 [id number] [phone] (HP) Date:2017-08-04 02/05/2018 Secondary IVELISSE M [place] Insurance:CONTINENTAL MULHALLDOB: [facility] [id number] Number: Repository [id number] Date:2335-04-47QK [address] [address]IYSAXL, [place] [address]PA: 02/05/2018 Tertiary NOT GIVENUNK [place] Insurance:SELF PAY [facility] Number: Effective Repository Date:2018-02-05 02/01/2018 IVELISSE M Primary IVELISSE M [place] [id number] N Insurance:MEDICARE MULHALLDOB: Community PROSPECT PART A [facility] [id number] [place] [address], [place] Number: Repository [address]Pyr: 330 [id number] [phone] (HP) Date:2018-02-01 02/01/2018 Secondary IVELISSE M [place] Insurance:CONTINENTAL MULHALLDOB: [facility] [id number] [place], [place] [address]ic Number: Repository [id number] Date:9932-86-13WS [address] [address]AU[place]US, [place] [address]ND: 02/01/2018 Tertiary NOT GIVENUNK [place] Insurance:SELF PAY [facility] Number: Effective Repository Date:2018-02-01 01/25/2018 IVELISSE M Primary IVELISSE M [place] [id number] N Insurance:MEDICARE MULHALLDOB: Community PROSPECT PART A [facility] [id number] [place] [address], [place] Number: Repository [address]Mty: 330 [id number] [phone] (HP) Date:2017-12-25 01/25/2018 Secondary IVELISSE M [place] Insurance:CONTINENTAL MULHALLDOB: [facility] [id number] Hospital INCPolicy Number: Repository [id number] Date:8867-12-16RJ [address] [address]ICIVIL, [place] [address]FD: 01/25/2018 Tertiary NOT GIVENUNK [place] Insurance:SELF PAY [facility] Number: Effective Repository Date:2018-01-17 01/19/2018 IVELISSE M Primary IVELISSE M [place] [id number] N Insurance:MEDICARE MULHALLDOB: Community PROSPECT PART A [facility] [id number] [facility], [place] Number: Repository [address]Lhw: 330 [id number] [phone] (HP) Date:2017-12-25 01/19/2018 Secondary IVELISSE M [place] Insurance:CONTINENTAL MULHALLDOB: [facility] [id number] Hospital INCPolicy Number: Repository [id number] Date:0591-56-84EQ [address] [address]K, [place] [address]WW: 01/19/2018 Tertiary NOT GIVENUNK [place] Insurance:SELF PAY [facility] Number: Effective Repository Date:2018-01-19 01/18/2018 IVELISSE M Primary IVELISSE M [place] [id number] N Insurance:MEDICARE MULHALLDOB: Community PROSPECT PART A [facility] [id number] Alamos Medical Center, [place] Number: Repository [address]Ykj: 330 [id number] [phone] (HP) Date:2017-12-25 01/18/2018 Secondary IVELISSE M [place] Insurance:CONTINENTAL MULHALLDOB: [facility] [id number] Hospital INCPolicy Number: Repository [id number] Date:9455-23-88VB [address] [address]KASFCP, [place] [address]IM: 01/18/2018 Tertiary NOT GIVENUNK [place] Insurance:SELF PAY [facility] INS[facility]ANCEVa Hospital Number: Effective Repository Date:2017-12-25 01/12/2018 IVELISSE M Primary IVELISSE M [place] [id number] N Insurance:MEDICARE MULHALLDOB: Community PROSPECT PART A [facility] [id number] Alamos [facility], [place] Number: Repository 78[address]Qfa: 330 [id number] [phone] (HP) Date:2017-08-04 01/12/2018 Secondary IVELISSE M [place] Insurance:CONTINENTAL MULHALLDOB: [facility] [id number] Hospital INCPolicy Number: Repository [id number] Date:8657-87-96GL [address] [address]TUVPMA, [place] [address]RQ: 01/12/2018 Tertiary NOT GIVENUNK [place] Insurance:SELF PAY [facility] Number: Effective Repository Date:2017-12-29 12/29/2017 IVELISSE M Primary IVELISSE M [place] [id number] N Insurance:MEDICARE MULHALLDOB: Community PROSPECT PART A [facility] [id number] Alamos Medical [facility], [place] Number: Repository [address]Hko: 330 [id number] [phone] () Date:2017-08-04 12/29/2017 Secondary IVELISSE M [place] Insurance:CONTINENTAL MULHALLDOB: [facility] [id number] Hospital INCPolicy Number: Repository [id number] Date:2944-77-45ET [address]BIXJOR, [place] [address]EU: 12/29/2017 Tertiary NOT GIVENUNK [place] Insurance:SELF PAY [facility] Number: Effective Repository Date:2017-11-30 12/27/2017 IVELISSE M Primary IVELISSE M [place] [id number] N Insurance:MEDICARE MULHALLDOB: Community PROSPECT PART A [facility] [id number] [facility] [place] Number: Repository [address]Htu: 330 [id number] [phone] (HP) Date:2017-09-28 12/27/2017 Secondary IVELISSE M [place] Insurance:CONTINENTAL MULHALLDOB: [facility] [id number] Cancer CenterPolicy Number: Repository [id number] Date:5218-29-77XJ [address] [address]LOEPNI, [place] [address]HB: 12/27/2017 Tertiary NOT GIVENUNK [place] Insurance:SELF PAY [facility] Number: Effective Repository Date:2017-12-20 11/20/2017 Ivelisse M Primary Ivelisse M [place] [id number] N Insurance:MEDICARE Mul[place]DOB: Community [place] PART A [facility] [id number] Number: Repository [address]Vkl: 330 [id number] [phone] () Date:2017-08-04 11/20/2017 Secondary Ivelisse M [place] Insurance:CONTINENTAL MulhallDOB: [facility] [id number] Alamos Medical Centericy Number: Repository [id number] Date:1870-36-11YZ [address] [address]RTBVTJ, [place] [address]YQ: 11/20/2017 Tertiary NOT GIVENUNK [place] Insurance:SELF PAY [facility] Number: Effective Repository Date:2017-10-31 10/23/2017 Ivelisse M Primary Ivelisse M [place] [id number] N Insurance:MEDICARE MulhallDOB: Community [place] PART A [facility] [id number], [place] Number: Repository [address]Zta: 330 [id number] [phone] (HP) Date:2017-08-04 10/23/2017 Secondary Ivelisse M [place] Insurance:CONTINENTAL MulhallDOB: [facility] [id number] Alamos Medical Centeric Number: Repository [id number] Date:3762-44-95UK [address] [address]HYUSSB, [place] [address]WS: 10/23/2017 Tertiary NOT GIVENUNK [place] Insurance:SELF PAY [facility] Number: Effective Repository Date:2017-10-02 10/06/2017 Ivelisse M Primary Ivelisse M [place] [id number] N Insurance:MEDICARE MulhallDOB: Community [place] PART A [facility] [id number] [place] Number: Repository [address]Scp: 330 [id number] [phone] (HP) Date:2017-09-28 10/06/2017 Secondary Ivelisse M [place] Insurance:CONTINENTAL MulhallDOB: [facility] [id number] Hospital INCPolicy Number: Repository [id number] Date:7738-11-97SN [address] [address]HTUWMX, [place] [address]OP: 10/06/2017 Tertiary NOT GIVENUNK [place] Insurance:SELF PAY [facility] Number: Effective Repository Date:2017-09-28 09/28/2017 Ivelisse M Primary Ivelisse M [place] [id number] N Insurance:MEDICARE MulhallDOB: Community [place] PART A [facility] [id number] Regional Medical [facility], [place] Number: Repository [address]Azj: 330 [id number] [phone] (HP) Date:2017-09-28 09/28/2017 Secondary Ivelisse M [place] Insurance:CONTINENTAL MulhallDOB: [facility] [id number] Hospital INCPolicy Number: Repository [id number] Date:4513-48-69UD [address] [address]VJCRWK, [place] [address]PN: 09/28/2017 Tertiary NOT GIVENUNK [place] Insurance:SELF PAY [facility] Number: Effective Repository Date:2017-09-28 09/28/2017 Ivelisse M Primary Ivelisse M [place] [id number] N Insurance:MEDICARE MulhallDOB: Community [place] PART A [facility] [id number] Regional Medical [facility], [place] Number: Repository [address]Vix: 330 [id number] [phone] (HP) Date:2017-07-12 09/28/2017 Secondary Ivelisse M [place] Insurance:CONTINENTAL MulhallDOB: [facility] [id number] [place], [place] [address]Policy Number: Repository [id number] Date:8461-38-62BN [address] [address]IXJLQD, [place] [address]CZ: 09/28/2017 Tertiary NOT GIVENUNK [place] Insurance:SELF PAY [facility] Number: Effective Repository Date:2017-09-26 09/25/2017 Ivelisse M Primary Ivelisse M [place] [id number] N Insurance:MEDICARE MulhallDOB: Community [place] PART A [facility] [id number], [place] Number: Repository [address]Eet: 330 [id number] [phone] (HP) Date:2017-08-04 09/25/2017 Secondary Ivelisse M [place] Insurance:CONTINENTAL MulhallDOB: [facility] [id number] [place] [address] [place]CPolicy Number: Repository [id number] Date:1336-88-98KM [address] [address]WUWCJA, [place] [address]FK: 09/25/2017 Tertiary NOT GIVENUNK [place] Insurance:SELF PAY [facility] Number: Effective Repository Date:2017-09-01 08/21/2017 Ivelisse M Primary Ivelisse M [place] [id number] N Insurance:MEDICARE MulhallDOB: Community [place] PART A [facility] [id number], [place] Number: Repository [address]Kdc: 330 [id number] [phone] (HP) Date:2017-08-04 08/21/2017 Secondary Ivelisse M [place] Insurance:CONTINENTAL MulhallDOB: [facility] [id number] [place] [address] [place]CPolicy Number: Repository [id number] Date:2178-01-48CU [address] [address]NVLOMT, [place] [address]HT: 08/21/2017 Tertiary NOT GIVENUNK [place] Insurance:SELF PAY [facility] Hospital Number: Effective Repository Date:2017-08-04 08/02/2017 Ivelisse M Primary Ivelisse M [place] [id number] N Insurance:MEDICARE MulhallDOB: Community [place] PART A BPolicy [id number] Care Hospital [facility] [place] Number[place] Repository [address]Zmy: (844) [id number] [phone] () Date:2001-12-31 08/02/2017 Secondary Ivelisse M [place] Insurance:CONTINENTAL MulhallDOB: [facility] [place] [id number] Hospital INCPolicy Number: Repository [id number] Date:3473-34-56CD [address] [address]LGNIWG, [place] [address]KK: 08/02/2017 Tertiary NOT GIVENUNK [place] Insurance:SELF PAY [facility] [facility] Number: Effective Repository Date:2017-07-03
== END 2018-06-14 14:00 | disposition home or self-care (01) ==
LOC: LAB 13:00
PROVIDERS: Family Provider Family Medicine; PCP Family Medicine; Referring Provider Internal Medicine Cardiovascular Disease; Visit Provider Internal Medicine Cardiovascular Disease
DX: I48.0 Paroxysmal atrial fibrillation (principal); Z79.01 Long term (current) use of anticoagulants
CPT/HCPCS: 36415; 85610

== ENCOUNTER 2018-07-26 13:39 | Outpatient (RCR) | payer MEDICARE, OTHER, SELFPAY ==
[2018-04-18 10:13] VITALS: BMI 28.3
[2018-07-12 14:15] LABS: International Normalized Ratio 3.1; Prothrombin Time (Protime)PT. 32.4 SECONDS (11.7-14.9)
[2018-07-19 10:14] VITALS: BMI 28.1
[2018-07-26 14:56] LABS: Hematocrit 36.5 % (37-47); Hemoglobin 11.6 g/dl (12.0-15.0); Mean Corp Hgb Conc 31.8 g/gl (32-36); Mean Corpuscular Hgb 30.1 pg (27.0-32.0); Mean Corpuscular Volume 94.6 fL (81-99); Mean Platelet Vol. 9.9 fl (6.2-12.0); Platelet Count 308 K/mm3 (150-450); RBC Distribution Width SD 48.3 fl (35.1-43.9); Red Blood Count 3.86 M/mm3 (4.2-5.4); White Blood Count 5.6 K/mm3 (4.4-11.0)
[2018-07-26 14:57] LABS: Scan Indicated on CBC? Y/N NO
[2018-07-26 15:07] LABS: International Normalized Ratio 2.7; Prothrombin Time (Protime)PT. 29.1 SECONDS (11.7-14.9)
[2018-07-26 15:20] LABS: Ferritin 145 ng/mL (8-252); Iron 85 ug/dL (50-170); Iron Binding Capacity,Total 318 ug/dL (250-450); PERCENT IRON SATURATION 26.7 % (15.0-55.0)
== END 2018-07-26 14:00 | disposition home or self-care (01) ==
LOC: LAB 13:39
PROVIDERS: Nurse Practitioner Acute Care; Family Provider Family Medicine; PCP Family Medicine; Referring Provider Internal Medicine Cardiovascular Disease; Visit Provider Internal Medicine Cardiovascular Disease
DX: I48.0 Paroxysmal atrial fibrillation (principal); Z79.01 Long term (current) use of anticoagulants; R53.83 Other fatigue
CPT/HCPCS: 36415; 82728; 83540; 83550; 85027; 85610

== ENCOUNTER → 2018-08-30 10:34 | Outpatient (CLI) | payer MEDICARE, OTHER, SELFPAY ==
[2018-07-19 10:14] VITALS: BMI 28.1
[2018-08-30 11:02] VITALS: PULSE 77; PULSE 78; PULSE 79; PULSE 81; PULSE 86; PULSE 89; O2SAT 96; O2SAT 97; O2SAT 98
--- NOTE | 2018-08-30 13:58 | WT_ITS ---
PSN 6 Minute Walk Test - 6 Minute Walk Test 6 Minute Walk Test: 6 Minute Walk Test PSN:6-Minute Walk Test Start: 08/30/18 11:02 Freq: Status: Active Protocol: RESP.6MINW Document 08/30/18 11:02 [facility] (Rec: 08/30/18 11:06 [facility] [id number]) 6 Minute Walk Test Date Performed 08/30/18 Time Performed 10:45 Height 5 ft 2 in Weight: 152 lb Weight in Pounds 152.[address]: Goldie Chua Assistive device used: Cane Pre-test Oxygen Delivery Method Room Air Pulse Ox (%) 98 Pulse Rate (60-100 beats/min) 78 Dyspnea Yuliya Scale (0-10) 0 Exertion Yuliya Scale (6-20) 11 1st minute Oxygen Delivery Method Room Air Pulse Ox (%) 96 Pulse Rate (60-100 beats/min) 77 2nd minute Oxygen Delivery Method Room Air Pulse Ox (%) 96 Pulse Rate (60-100 beats/min) 86 3rd minute Oxygen Delivery Method Room Air Pulse Ox (%) 98 Pulse Rate (60-100 beats/min) 79 4th minute Oxygen Delivery Method Room Air Pulse Ox (%) 97 Pulse Rate (60-100 beats/min) 81 5th minute Oxygen Delivery Method Room Air Pulse Ox (%) 98 Pulse Rate (60-100 beats/min) 89 6th minute Oxygen Delivery Method Room Air Pulse Ox (%) 96 Pulse Rate (60-100 beats/min) 77 Post-test Oxygen Delivery Method Room Air Pulse Ox (%) 98 Pulse Rate (60-100 beats/min) 78 Dyspnea Yuliya Scale (0-10) 0.5 Exertion Yuliya Scale (6-20) 13 Full Laps Walked 8 Partial Lap, Number of Tiles Walked 11 Total Distance Walked (ft) 483 - Interpretation Interpretation: The patient ambulated 483 feet over the course of 6 minutes beginning on room air with the use of a cane. Pretesting oxygen saturation was noted to be 98% on room air. With ambulation, the emerald oxygen saturation was 96%. Although there was evidence of impaired walk distance, there was no significant exertional oxygen desaturation. This would suggest a musculoskeletal limitation to exercise tolerance. - Recommendations Recommendations: There is no indication for the use of supplemental oxygen at this time.
== END ==
PROVIDERS: Family Provider Family Medicine; PCP Family Medicine; Referring Provider Nurse Practitioner Acute Care; Visit Provider Nurse Practitioner Acute Care
DX: J44.9 Chronic obstructive pulmonary disease, unspecified (principal); I48.1 Persistent atrial fibrillation; Z79.01 Long term (current) use of anticoagulants
CPT/HCPCS: 36415; 85610; 94618

== ENCOUNTER 2018-08-30 11:03 | Outpatient (RCR) | payer MEDICARE, OTHER, SELFPAY ==
[2018-07-19 10:14] VITALS: BMI 28.1
[2018-08-16 13:31] LABS: International Normalized Ratio 3.1; Prothrombin Time (Protime)PT. 31.8 SECONDS (11.7-14.9)
[2018-08-30 12:54] LABS: International Normalized Ratio 3.4; Prothrombin Time (Protime)PT. 34.3 SECONDS (11.7-14.9)
== END 2018-08-30 14:29 | disposition home or self-care (01) ==
LOC: LAB 11:03
PROVIDERS: Family Provider Family Medicine; PCP Family Medicine; Referring Provider Internal Medicine Cardiovascular Disease; Visit Provider Internal Medicine Cardiovascular Disease
DX: I48.1 Persistent atrial fibrillation (principal); Z79.01 Long term (current) use of anticoagulants
CPT/HCPCS: 36415; 85610

== ENCOUNTER 2018-09-17 12:33 | Outpatient (RCR) | payer MEDICARE, OTHER, SELFPAY ==
[2018-07-19 10:14] VITALS: BMI 28.1
[2018-09-10 14:33] LABS: International Normalized Ratio 3.3; Prothrombin Time (Protime)PT. 33.4 SECONDS (11.7-14.9)
[2018-09-17 13:12] LABS: International Normalized Ratio 2.9; Prothrombin Time (Protime)PT. 30.5 SECONDS (11.7-14.9)
== END 2018-09-17 13:33 | disposition home or self-care (01) ==
LOC: LAB 12:33
PROVIDERS: Family Provider Family Medicine; PCP Family Medicine; Referring Provider Internal Medicine Cardiovascular Disease; Visit Provider Internal Medicine Cardiovascular Disease
DX: I48.1 Persistent atrial fibrillation (principal); Z79.01 Long term (current) use of anticoagulants
CPT/HCPCS: 36415; 85610

== ENCOUNTER 2018-10-22 11:43 | Outpatient (RCR) | payer MEDICARE, OTHER, SELFPAY ==
[2018-07-19 10:14] VITALS: BMI 28.1
[2018-10-01 14:03] LABS: International Normalized Ratio 2.7; Prothrombin Time (Protime)PT. 28.6 SECONDS (11.7-14.9)
[2018-10-22 12:48] LABS: International Normalized Ratio 2.6; Prothrombin Time (Protime)PT. 28.3 SECONDS (11.7-14.9)
== END 2018-10-30 16:00 | disposition home or self-care (01) ==
LOC: LAB 11:43
PROVIDERS: Family Provider Family Medicine; PCP Family Medicine; Referring Provider Internal Medicine Cardiovascular Disease; Visit Provider Internal Medicine Cardiovascular Disease
DX: I48.0 Paroxysmal atrial fibrillation (principal); Z79.01 Long term (current) use of anticoagulants
CPT/HCPCS: 36415; 85610

== ENCOUNTER → 2018-11-14 20:00 | Outpatient (CLI) | payer MEDICARE, OTHER, SELFPAY ==
[2018-10-10 10:15] VITALS: BMI 28.5
[2018-11-14] MEDS: Zolpidem Tartrate 5 MG Tablet PO (21:00)
== END ==
PROVIDERS: Family Provider Family Medicine; PCP Family Medicine; Referring Provider Nurse Practitioner Acute Care; Visit Provider Nurse Practitioner Acute Care
DX: G47.33 Obstructive sleep apnea (adult) (pediatric) (principal)
CPT/HCPCS: 95811

== ENCOUNTER 2018-11-19 14:04 | Outpatient (RCR) | payer MEDICARE, OTHER, SELFPAY ==
[2018-10-10 10:15] VITALS: BMI 28.5
[2018-10-31 12:19] VITALS: BMI 28.1
[2018-11-19 15:03] LABS: International Normalized Ratio 3.4; Prothrombin Time (Protime)PT. 34.5 SECONDS (11.7-14.9)
== END 2018-11-19 15:04 | disposition home or self-care (01) ==
LOC: LAB 14:04
PROVIDERS: Family Provider Family Medicine; PCP Family Medicine; Referring Provider Internal Medicine Cardiovascular Disease; Visit Provider Internal Medicine Cardiovascular Disease
DX: I48.1 Persistent atrial fibrillation (principal); Z79.01 Long term (current) use of anticoagulants
CPT/HCPCS: 36415; 85610

== ENCOUNTER 2018-12-24 13:07 | Outpatient (RCR) | payer MEDICARE, OTHER, SELFPAY ==
[2018-10-31 12:19] VITALS: BMI 28.1
[2018-12-03 13:13] LABS: International Normalized Ratio 2.5; Prothrombin Time (Protime)PT. 26.9 SECONDS (11.7-14.9)
[2018-12-24 13:44] LABS: International Normalized Ratio 2.3; Prothrombin Time (Protime)PT. 25.4 SECONDS (11.7-14.9)
== END 2018-12-30 12:00 | disposition home or self-care (01) ==
LOC: LAB 13:07
PROVIDERS: Family Provider Family Medicine; PCP Family Medicine; Referring Provider Internal Medicine Cardiovascular Disease; Visit Provider Internal Medicine Cardiovascular Disease
DX: I48.1 Persistent atrial fibrillation (principal); Z79.01 Long term (current) use of anticoagulants
CPT/HCPCS: 36415; 85610

== ENCOUNTER 2019-01-21 14:16 | Outpatient (RCR) | payer MEDICARE, OTHER, SELFPAY ==
[2018-12-04 15:25] VITALS: BMI 28.5
[2019-01-21 15:16] LABS: Prothrombin Time (Protime)PT. 31.3 SECONDS (11.7-14.9)
== END 2019-01-30 16:00 | disposition home or self-care (01) ==
LOC: LAB 14:16
PROVIDERS: Family Provider Family Medicine; PCP Family Medicine; Referring Provider Internal Medicine Cardiovascular Disease; Visit Provider Internal Medicine Cardiovascular Disease
DX: I48.1 Persistent atrial fibrillation (principal); Z79.01 Long term (current) use of anticoagulants
CPT/HCPCS: 36415; 85610

== ENCOUNTER 2019-02-18 13:11 | Outpatient (RCR) | payer MEDICARE, OTHER, SELFPAY ==
[2018-12-04 15:25] VITALS: BMI 28.5
[2019-02-18 14:21] LABS: International Normalized Ratio 3.1
== END 2019-02-18 15:00 | disposition home or self-care (01) ==
LOC: LAB 13:11
PROVIDERS: Family Provider Family Medicine; PCP Family Medicine; Referring Provider Internal Medicine Cardiovascular Disease; Visit Provider Internal Medicine Cardiovascular Disease
DX: I48.1 Persistent atrial fibrillation (principal); Z79.01 Long term (current) use of anticoagulants
CPT/HCPCS: 36415; 85610

== ENCOUNTER → 2019-03-06 15:10 | Outpatient (CLI) | payer MEDICARE, OTHER, SELFPAY ==
[2019-03-06 14:20] VITALS: BMI 30.8
--- NOTE | 2019-03-06 15:15 | RAD_ITS ---
STUDY: X-RAY CHEST REASON FOR EXAM: Female, 84 years old. Shortness of breath. Atrial fibrillation. TECHNIQUE: PA and lateral views of the chest. COMPARISON: January 05, 2015. FINDINGS: The lungs are well expanded. No new mass or infiltrate. There is no demonstrated pleural abnormality. There is mild cardiac enlargement. Normal mediastinum and kylee. Normal visualized pulmonary arteries. There is atherosclerotic calcification of the aortic arch with tortuosity. There is demineralization of the osseous structures. There is anterior wedging of what is thought to be the T10 vertebra. This is stable. There is degenerative osteoarthritis of the bilateral shoulders. There is no demonstrated abnormality of the visualized soft tissue structures of the upper abdomen. RAD/Chest PA and Lateral IMPRESSION: Cardiomegaly without acute pulmonary disease or major interval change. Electronically Signed: Marcus Simpson DO at 19:01 EDT Tel [phone], Service support ,
== END ==
PROVIDERS: Family Provider Family Medicine; PCP Family Medicine; Referring Provider Internal Medicine Cardiovascular Disease; Visit Provider Internal Medicine Cardiovascular Disease
DX: I48.1 Persistent atrial fibrillation (principal); R06.09 Other forms of dyspnea; I34.0 Nonrheumatic mitral (valve) insufficiency; I36.1 Nonrheumatic tricuspid (valve) insufficiency; Z79.01 Long term (current) use of anticoagulants
CPT/HCPCS: 36415; 71046; 85610

== ENCOUNTER → 2019-03-29 06:56 | Outpatient (CLI) | payer MEDICARE, OTHER, SELFPAY ==
[2019-03-06 14:20] VITALS: BMI 30.8
--- NOTE | 2019-03-29 06:57 | ECHOD_ITS ---
Reason For Study: DYSPNEA/SOB Procedure This was a 2D Doppler, Color Flow transthoracic echocardiogram. The study was technically difficult. Exam performed in department. Left Ventricle Normal LV size. Sigmoid septum. Left ventricular systolic function is normal. The estimated ejection fraction is 70 %. No regional wall motion abnormalities noted. Right Ventricle Normal RV size. Normal systolic function. Atria The left atrium is severely enlarged. The right atrium is severely enlarged. No doppler evidence for ASD. Bubble contrast study negative for right to left interatrial shunt. Mitral Valve There is moderate mitral annular calcification. Extension of the mitral annular calcification onto the posterior mitral valve leaflet. Moderate (2+) mitral valve insufficiency. Tricuspid Valve Normal tricuspid valve. Moderate (2+) tricuspid valve insufficiency. Right ventricular systolic pressure estimated to be 34 mmHg. Aortic Valve Trisinus/trileaflet aortic valve. Mild diffuse aortic valve thickening. Mild focal aortic valve calcification. Aortic sclerosis, no stenosis. Pulmonic Valve The pulmonic valve is not well visualized. Mild (1+) pulmonic valve insufficiency. Great Vessels Normal sized aortic root. Pericardium/Pleural No pericardial effusion. Medication Performed a rapid injection of agitated mix of 9 cc saline and 1cc air to assess for atrial septal defect. MMode/2D Measurements & Calculations LVIDd: 5.6 cm IVSd: 0.86 cm Ao root diam: 3.6 cm LVIDs: 3.5 cm LVPWd: 0.92 cm RVDd: 3.6 cm FS: 37.6 % LAV(MOD-bp): 87.7 ml LA A4 area: 25.5 cm2 LA dimension(2D): 4.6 cm LAV(MOD-bp) Indexed: 50.7 ml/m2 LAV(MOD-sp2): 84.7 ml LAV(MOD-sp4): 86.2 ml RA A4 area: 25.4 cm2 Time Measurements MV dec time: 0.17 sec Doppler Measurements & Calculations MV E max nena: 123.2 cm/sec Ao V2 max: 118.3 cm/sec LV V1 max: 75.1 cm/sec MV A max nena: 36.5 cm/sec Ao max P.6 mmHg LV V1 max P.3 mmHg MV E/A: 3.4 PA V2 max: 65.4 cm/sec TR max nena: 278.5 cm/sec TR max P.1 mmHg Interpretation Summary The study was technically difficult. Left ventricular systolic function is normal. The estimated ejection fraction is 70 %. Sigmoid septum. The left atrium is severely enlarged. The right atrium is severely enlarged. There is moderate mitral annular calcification. Extension of the mitral annular calcification onto the posterior mitral valve leaflet. Moderate (2+) mitral valve insufficiency. Moderate (2+) tricuspid valve insufficiency. Aortic sclerosis, no stenosis. Mild (1+) pulmonic valve insufficiency. Right ventricular systolic pressure estimated to be 34 mmHg. Transmitral diastolic flow velocities suggest diastolic dysfunction (pseudonormal pattern). Bubble contrast study negative for right to left interatrial shunt. Ordering Physician: Rafael Chacon Referring Physician: Kayla Lund Performed By: Mildred Valdez, MERNA, RVT
--- NOTE | 2019-03-29 10:44 | STRESSREP_ITS ---
Stress Test Report Date: 03-29-19 Procedure: Pharmacologic stress nuclear imaging study Indications: Shortness of breath/dyspnea; atrial fibrillation Consent: Per the patient Procedure: The patient underwent pharmacologic (Regadenoson) evaluation with a peak heart rate of 81 beats per minute (58 %predicted maximal heart rate) and a peak blood pressure of 152/80 mmHg. The baseline ECG demonstrated atrial fibrillation; low voltage QRS. The peak pharmacologic ECG demonstrated no obvious ECG changes. There were no cardiac dysrhythmias pretest, during pharmacologic infusion, or recovery. There was no complaint of chest discomfort during pharmacologic infusion or recovery. The examination was discontinued secondary to completion of protocol. Impression: 1. Pharmacologic (Regadenoson) evaluation 2. Peak pharmacologic ECG with continued atrial fibrillation with low voltage QRS with no obvious ECG changes. 3. There were no cardiac dysrhythmias pretest, during pharmacologic infusion, or recovery. 4. Nuclear images pending Myocardial perfusion imaging study: Technique: The patient was injected with 11.0 millicuries of technetium 99m Cardiolite and subsequently rest SPECT Cardiolite nuclear imaging was obtained in the horizontal long, vertical long, and short axis views. The patient underwent pharmacologic (Regadenoson) evaluation with a peak heart rate of 81 beats per minute (58 % percent predicted maximal heart rate) and a peak blood pressure of 152/80 mmHg. The patient was injected with 33.0 millicuries of technetium 99m Ca rdiolite and subsequently stress SPECT Cardiolite nuclear imaging was obtained in the horizontal long, vertical long, and short axis views. A gated Cardiolite study at peak stress was note obtained. Interpretation: Rest and stress SPECT Cardiolite nuclear imaging status post realignment, normalization, and attenuation correction demonstrate relative uniform tracer uptake and myocardial perfusion appearing within normal limits. Impression: 1. Rest and stress SPECT Cardiolite nuclear imaging demonstrate relative uniform tracer uptake and myocardial perfusion appearing within normal limits. 2. The gated Cardiolite study at peak stress was not obtained. This note was generated with [email or web address] software. It may contain incorrect words, spelling, and punctuation that were not noted in checking the note before signing.
== END ==
PROVIDERS: Family Provider Family Medicine; PCP Family Medicine; Referring Provider Internal Medicine Cardiovascular Disease; Visit Provider Internal Medicine Cardiovascular Disease
DX: I48.1 Persistent atrial fibrillation (principal); I34.0 Nonrheumatic mitral (valve) insufficiency; I36.1 Nonrheumatic tricuspid (valve) insufficiency; R06.09 Other forms of dyspnea
CPT/HCPCS: 78452; 93017; 93306; A9500; A4216; J2785

== ENCOUNTER 2019-04-01 10:52 | Outpatient (RCR) | payer MEDICARE, OTHER, SELFPAY ==
[2018-12-04 15:25] VITALS: BMI 28.5
[2019-03-06 14:20] VITALS: BMI 30.8
[2019-03-06 16:48] LABS: International Normalized Ratio 2.4; Prothrombin Time (Protime)PT. 26.4 SECONDS (11.7-14.9)
[2019-03-18 13:50] LABS: International Normalized Ratio 2.9; Prothrombin Time (Protime)PT. 30.8 SECONDS (11.7-14.9)
[2019-04-01 12:03] LABS: International Normalized Ratio 3.1; Prothrombin Time (Protime)PT. 32.4 SECONDS (11.7-14.9)
== END 2019-04-01 16:32 | disposition home or self-care (01) ==
LOC: LAB 10:52
PROVIDERS: Family Provider Family Medicine; PCP Family Medicine; Referring Provider Internal Medicine Cardiovascular Disease; Visit Provider Internal Medicine Cardiovascular Disease
DX: I48.1 Persistent atrial fibrillation (principal); Z79.01 Long term (current) use of anticoagulants
CPT/HCPCS: 36415; 85610

== ENCOUNTER 2019-04-22 13:17 | Outpatient (RCR) | payer MEDICARE, OTHER, SELFPAY ==
[2019-04-01 10:10] VITALS: BMI 30.4
[2019-04-10 10:11] VITALS: BMI 30.4
[2019-04-22 15:09] LABS: International Normalized Ratio 2.6; Prothrombin Time (Protime)PT. 27.9 SECONDS (11.7-14.9)
== END 2019-04-22 18:00 | disposition home or self-care (01) ==
LOC: LAB 13:17
PROVIDERS: Family Provider Family Medicine; PCP Family Medicine; Referring Provider Internal Medicine Cardiovascular Disease; Visit Provider Internal Medicine Cardiovascular Disease
DX: I48.19 Other persistent atrial fibrillation (principal); Z79.01 Long term (current) use of anticoagulants
CPT/HCPCS: 36415; 85610

== ENCOUNTER 2019-05-23 12:47 | Outpatient (RCR) | payer MEDICARE, OTHER, SELFPAY ==
[2019-04-10 10:11] VITALS: BMI 30.4
[2019-05-20 16:08] LABS: Prothrombin Time (Protime)PT. 43.9 SECONDS (11.7-14.9)
[2019-05-20 16:36] LABS: International Normalized Ratio 4.6
[2019-05-23 13:40] LABS: International Normalized Ratio 2.3; Prothrombin Time (Protime)PT. 25.2 SECONDS (11.7-14.9)
== END 2019-05-23 18:00 | disposition home or self-care (01) ==
LOC: LAB 12:47
PROVIDERS: Family Provider Family Medicine; PCP Family Medicine; Referring Provider Internal Medicine Cardiovascular Disease; Visit Provider Internal Medicine Cardiovascular Disease
DX: I48.11 Longstanding persistent atrial fibrillation (principal); Z79.01 Long term (current) use of anticoagulants
CPT/HCPCS: 36415; 85610

== ENCOUNTER 2019-06-20 15:29 | Outpatient (RCR) | payer MEDICARE, OTHER, SELFPAY ==
[2019-04-10 10:11] VITALS: BMI 30.4
[2019-06-06 14:33] LABS: International Normalized Ratio 2.5; Prothrombin Time (Protime)PT. 27.4 SECONDS (11.7-14.9)
[2019-06-20 17:47] LABS: Prothrombin Time (Protime)PT. 22.4 SECONDS (11.7-14.9)
== END 2019-06-20 18:00 | disposition home or self-care (01) ==
LOC: LAB 15:29
PROVIDERS: Family Provider Family Medicine; PCP Family Medicine; Referring Provider Internal Medicine Cardiovascular Disease; Visit Provider Internal Medicine Cardiovascular Disease
DX: I48.11 Longstanding persistent atrial fibrillation (principal); Z79.01 Long term (current) use of anticoagulants
CPT/HCPCS: 36415; 85610

== ENCOUNTER 2019-07-11 13:04 | Outpatient (RCR) | payer MEDICARE, OTHER, SELFPAY ==
[2019-04-10 10:11] VITALS: BMI 30.4
[2019-07-11 14:37] LABS: Prothrombin Time (Protime)PT. 22.9 SECONDS (11.7-14.9)
== END 2019-07-11 18:00 | disposition home or self-care (01) ==
LOC: LAB 13:04
PROVIDERS: Family Provider Family Medicine; PCP Family Medicine; Referring Provider Internal Medicine Cardiovascular Disease; Visit Provider Internal Medicine Cardiovascular Disease
DX: I48.11 Longstanding persistent atrial fibrillation (principal); Z79.01 Long term (current) use of anticoagulants
CPT/HCPCS: 36415; 85610

== ENCOUNTER 2019-08-08 15:00 | Outpatient (RCR) | payer MEDICARE, OTHER, SELFPAY ==
[2019-04-10 10:11] VITALS: BMI 30.4
[2019-08-08 17:11] LABS: International Normalized Ratio 2.3; Prothrombin Time (Protime)PT. 24.9 SECONDS (11.7-14.9)
== END 2019-08-08 18:00 | disposition home or self-care (01) ==
LOC: LAB 15:00
PROVIDERS: Family Provider Family Medicine; PCP Family Medicine; Referring Provider Internal Medicine Cardiovascular Disease; Visit Provider Internal Medicine Cardiovascular Disease
DX: I48.19 Other persistent atrial fibrillation (principal); Z79.01 Long term (current) use of anticoagulants
CPT/HCPCS: 36415; 85610

== ENCOUNTER 2019-09-05 12:55 | Outpatient (RCR) | payer MEDICARE, OTHER, SELFPAY ==
[2019-04-10 10:11] VITALS: BMI 30.4
[2019-09-05 13:48] LABS: International Normalized Ratio 2.2; Prothrombin Time (Protime)PT. 24.2 SECONDS (11.7-14.9)
== END 2019-09-05 18:00 | disposition home or self-care (01) ==
LOC: LAB 12:55
PROVIDERS: Family Provider Family Medicine; PCP Family Medicine; Referring Provider Internal Medicine Cardiovascular Disease; Visit Provider Internal Medicine Cardiovascular Disease
DX: I48.11 Longstanding persistent atrial fibrillation (principal); Z79.01 Long term (current) use of anticoagulants
CPT/HCPCS: 36415; 85610

== ENCOUNTER 2019-10-03 09:47 | Outpatient (RCR) | payer MEDICARE, OTHER, SELFPAY ==
[2019-04-10 10:11] VITALS: BMI 30.4
[2019-10-03 10:52] LABS: International Normalized Ratio 2.9; Prothrombin Time (Protime)PT. 30.8 SECONDS (11.7-14.9)
== END 2019-10-03 18:00 | disposition home or self-care (01) ==
LOC: LAB 09:47
PROVIDERS: Family Provider Family Medicine; PCP Family Medicine; Referring Provider Internal Medicine Cardiovascular Disease; Visit Provider Internal Medicine Cardiovascular Disease
DX: I48.19 Other persistent atrial fibrillation (principal); Z79.01 Long term (current) use of anticoagulants
CPT/HCPCS: 36415; 85610

== ENCOUNTER 2019-11-27 11:50 | Outpatient (RCR) | payer MEDICARE, OTHER, SELFPAY ==
[2019-10-16 08:10] VITALS: BMI 30.4
[2019-11-27 11:04] VITALS: BMI 29.8
[2019-11-27 12:47] LABS: International Normalized Ratio 1.8; Prothrombin Time (Protime)PT. 20.5 SECONDS (11.7-14.9)
== END 2019-11-27 18:00 | disposition home or self-care (01) ==
LOC: LAB 11:50
PROVIDERS: Nurse Practitioner Family; Family Provider Family Medicine; PCP Family Medicine; Referring Provider Internal Medicine Cardiovascular Disease; Visit Provider Internal Medicine Cardiovascular Disease
DX: I48.19 Other persistent atrial fibrillation (principal); Z79.01 Long term (current) use of anticoagulants
CPT/HCPCS: 36415; 85610

== ENCOUNTER 2019-12-04 14:48 | Outpatient (RCR) | payer MEDICARE, OTHER, SELFPAY ==
[2019-12-04 17:20] LABS: Prothrombin Time (Protime)PT. 22.1 SECONDS (11.7-14.9)
== END 2019-12-04 18:00 | disposition home or self-care (01) ==
LOC: LAB 14:48
PROVIDERS: Family Provider Family Medicine; PCP Family Medicine; Referring Provider Internal Medicine Cardiovascular Disease; Visit Provider Internal Medicine Cardiovascular Disease
DX: I48.19 Other persistent atrial fibrillation (principal); Z79.01 Long term (current) use of anticoagulants
CPT/HCPCS: 36415; 85610

== ENCOUNTER 2020-01-30 13:31 | Outpatient (RCR) | payer MEDICARE, OTHER, SELFPAY ==
[2020-01-02 13:42] LABS: International Normalized Ratio 2.6; Prothrombin Time (Protime)PT. 27.8 SECONDS (11.7-14.9)
[2020-01-30 14:37] LABS: International Normalized Ratio 2.3; Prothrombin Time (Protime)PT. 24.6 SECONDS (11.7-14.9)
== END 2020-01-30 18:00 | disposition home or self-care (01) ==
LOC: LAB 13:31
PROVIDERS: Family Provider Family Medicine; PCP Family Medicine; Referring Provider Internal Medicine Cardiovascular Disease; Visit Provider Internal Medicine Cardiovascular Disease
DX: I48.19 Other persistent atrial fibrillation (principal); Z79.01 Long term (current) use of anticoagulants
CPT/HCPCS: 36415; 85610

== ENCOUNTER 2020-02-27 13:20 | Outpatient (RCR) | payer MEDICARE, OTHER, SELFPAY ==
[2020-02-27 14:40] LABS: International Normalized Ratio 2.8; Prothrombin Time (Protime)PT. 29.4 SECONDS (11.7-14.9)
== END 2020-03-02 18:00 | disposition home or self-care (01) ==
LOC: LAB 13:20
PROVIDERS: Family Provider Family Medicine; PCP Family Medicine; Referring Provider Internal Medicine Cardiovascular Disease; Visit Provider Internal Medicine Cardiovascular Disease
DX: I48.19 Other persistent atrial fibrillation (principal); Z79.01 Long term (current) use of anticoagulants
CPT/HCPCS: 36415; 85610

== ENCOUNTER 2020-03-26 13:46 | Outpatient (RCR) | payer MEDICARE, OTHER, SELFPAY ==
[2020-03-26 15:12] LABS: Prothrombin Time (Protime)PT. 37.3 SECONDS (11.7-14.9)
[2020-03-26 15:18] LABS: International Normalized Ratio 3.8
== END 2020-03-26 18:00 | disposition home or self-care (01) ==
LOC: LAB 13:46
PROVIDERS: Family Provider Family Medicine; PCP Family Medicine; Referring Provider Internal Medicine Cardiovascular Disease; Visit Provider Internal Medicine Cardiovascular Disease
DX: I48.19 Other persistent atrial fibrillation (principal); Z79.01 Long term (current) use of anticoagulants
CPT/HCPCS: 36415; 85610

== ENCOUNTER 2020-04-23 13:47 | Outpatient (RCR) | payer MEDICARE, OTHER, SELFPAY ==
[2020-04-02 13:36] LABS: International Normalized Ratio 3.3; Prothrombin Time (Protime)PT. 33.1 SECONDS (11.7-14.9)
[2020-04-09 12:22] LABS: International Normalized Ratio 2.3; Prothrombin Time (Protime)PT. 24.4 SECONDS (11.7-14.9)
[2020-04-23 14:24] LABS: International Normalized Ratio 2.1; Prothrombin Time (Protime)PT. 22.8 SECONDS (11.7-14.9)
== END 2020-04-23 18:00 | disposition home or self-care (01) ==
LOC: LAB 13:47
PROVIDERS: Family Provider Family Medicine; PCP Family Medicine; Referring Provider Internal Medicine Cardiovascular Disease; Visit Provider Internal Medicine Cardiovascular Disease
DX: I48.19 Other persistent atrial fibrillation (principal); Z79.01 Long term (current) use of anticoagulants
CPT/HCPCS: 36415; 85610

== ENCOUNTER 2020-05-21 11:32 | Outpatient (RCR) | payer MEDICARE, OTHER, SELFPAY ==
[2020-04-16 10:36] VITALS: BMI 29.2
[2020-05-21 12:40] LABS: International Normalized Ratio 2.3; Prothrombin Time (Protime)PT. 24.7 SECONDS (11.7-14.9)
== END 2020-05-21 18:00 | disposition home or self-care (01) ==
LOC: LAB 11:32
PROVIDERS: Family Provider Family Medicine; PCP Family Medicine; Referring Provider Internal Medicine Cardiovascular Disease; Visit Provider Internal Medicine Cardiovascular Disease
DX: I48.19 Other persistent atrial fibrillation (principal); Z79.01 Long term (current) use of anticoagulants
CPT/HCPCS: 36415; 85610

== ENCOUNTER 2020-07-02 13:46 | Outpatient (RCR) | payer MEDICARE, OTHER, SELFPAY ==
[2020-04-16 10:36] VITALS: BMI 29.2
[2020-06-18 15:27] LABS: International Normalized Ratio 1.7; Prothrombin Time (Protime)PT. 19.3 SECONDS (11.7-14.9)
[2020-07-02 16:00] LABS: International Normalized Ratio 2.2; Prothrombin Time (Protime)PT. 23.9 SECONDS (11.7-14.9)
== END 2020-07-02 18:00 | disposition home or self-care (01) ==
LOC: LAB 13:46
PROVIDERS: Family Provider Family Medicine; PCP Family Medicine; Referring Provider Internal Medicine Cardiovascular Disease; Visit Provider Internal Medicine Cardiovascular Disease
DX: I48.19 Other persistent atrial fibrillation (principal); Z79.01 Long term (current) use of anticoagulants
CPT/HCPCS: 36415; 85610

== ENCOUNTER 2020-07-30 10:07 | Outpatient (RCR) | payer MEDICARE, OTHER, SELFPAY ==
[2020-04-16 10:36] VITALS: BMI 29.2
[2020-07-16 15:50] LABS: International Normalized Ratio 1.9; Prothrombin Time (Protime)PT. 21.1 SECONDS (11.7-14.9)
[2020-07-30 11:29] LABS: International Normalized Ratio 2.3; Prothrombin Time (Protime)PT. 24.5 SECONDS (11.7-14.9)
[2020-07-30 11:52] LABS: AST(SGOT) 21 U/L (15-37); Alanine Aminotransfer ALT/SGPT 20 U/L (13-56); Albumin, Serum 3.5 g/dL (3.2-5.0); Alkaline Phosphatase 101 U/L (45-117); Bilirubin, Direct 0.21 mg/dL (0.00-0.30); Cholesterol 160 mg/dL (200); High Density Lipoprotein 78 mg/dL; Protein, Total 7.5 g/dL (6.4-8.2); Triglycerides 118 mg/dL; Very Low Density Lipoprotein 24 mg/dL (5-40)
== END 2020-07-30 18:00 | disposition home or self-care (01) ==
LOC: LAB 10:07
PROVIDERS: Family Provider Family Medicine; PCP Family Medicine; Referring Provider Internal Medicine Cardiovascular Disease; Visit Provider Internal Medicine Cardiovascular Disease
DX: I48.19 Other persistent atrial fibrillation (principal); Z79.01 Long term (current) use of anticoagulants; E78.00 Pure hypercholesterolemia, unspecified
CPT/HCPCS: 36415; 80061; 80076; 85610

== ENCOUNTER 2020-08-20 14:16 | Outpatient (RCR) | payer MEDICARE, OTHER, SELFPAY ==
[2020-07-27 15:20] VITALS: BMI 28.9
[2020-08-20 16:16] LABS: International Normalized Ratio 2.2; Prothrombin Time (Protime)PT. 23.9 SECONDS (11.7-14.9)
== END 2020-08-20 18:00 | disposition home or self-care (01) ==
LOC: LAB 14:16
PROVIDERS: Family Provider Family Medicine; PCP Family Medicine; Referring Provider Internal Medicine Cardiovascular Disease; Visit Provider Internal Medicine Cardiovascular Disease
DX: I48.19 Other persistent atrial fibrillation (principal); Z79.01 Long term (current) use of anticoagulants
CPT/HCPCS: 36415; 85610

== ENCOUNTER 2020-09-17 13:50 | Outpatient (RCR) | payer MEDICARE, OTHER, SELFPAY ==
[2020-07-27 15:20] VITALS: BMI 28.9
[2020-09-17 15:10] LABS: International Normalized Ratio 2.7; Prothrombin Time (Protime)PT. 28.2 SECONDS (11.7-14.9)
== END 2020-09-17 18:00 | disposition home or self-care (01) ==
LOC: LAB 13:50
PROVIDERS: Family Provider Family Medicine; PCP Family Medicine; Referring Provider Internal Medicine Cardiovascular Disease; Visit Provider Internal Medicine Cardiovascular Disease
DX: Z79.01 Long term (current) use of anticoagulants (principal); I48.19 Other persistent atrial fibrillation
CPT/HCPCS: 36415; 85610

== ENCOUNTER 2020-10-15 16:19 | Outpatient (RCR) | payer MEDICARE, OTHER, SELFPAY ==
[2020-07-27 15:20] VITALS: BMI 28.9
[2020-10-15 17:05] LABS: International Normalized Ratio 2.1
== END 2020-10-15 18:00 | disposition home or self-care (01) ==
LOC: LAB 16:19
PROVIDERS: Family Provider Family Medicine; PCP Family Medicine; Referring Provider Internal Medicine Cardiovascular Disease; Visit Provider Internal Medicine Cardiovascular Disease
DX: I48.19 Other persistent atrial fibrillation (principal); Z79.01 Long term (current) use of anticoagulants
CPT/HCPCS: 36415; 85610

== ENCOUNTER 2020-11-12 11:00 | Outpatient (RCR) | payer MEDICARE, OTHER, SELFPAY ==
[2020-10-29 08:08] VITALS: BMI 29.6
[2020-11-12 12:03] LABS: International Normalized Ratio 2.1; Prothrombin Time (Protime)PT. 22.5 SECONDS (11.7-14.9)
== END 2020-11-12 18:00 | disposition home or self-care (01) ==
LOC: LAB 11:00
PROVIDERS: Family Provider Family Medicine; Referring Provider Internal Medicine Cardiovascular Disease; Visit Provider Internal Medicine Cardiovascular Disease
DX: I48.19 Other persistent atrial fibrillation (principal); Z79.01 Long term (current) use of anticoagulants
CPT/HCPCS: 36415; 85610

== ENCOUNTER 2020-12-10 12:35 | Outpatient (RCR) | payer MEDICARE, OTHER, SELFPAY ==
[2020-10-29 08:08] VITALS: BMI 29.6
[2020-12-10 13:30] LABS: International Normalized Ratio 2.5; Prothrombin Time (Protime)PT. 25.8 SECONDS (11.7-14.9)
== END 2020-12-10 18:00 | disposition home or self-care (01) ==
LOC: LAB 12:35
PROVIDERS: Family Provider Family Medicine; Referring Provider Internal Medicine Cardiovascular Disease; Visit Provider Internal Medicine Cardiovascular Disease
DX: I48.19 Other persistent atrial fibrillation (principal); Z79.899 Other long term (current) drug therapy
CPT/HCPCS: 36415; 85610

== ENCOUNTER 2021-01-08 12:32 | Outpatient (RCR) | payer MEDICARE, OTHER, SELFPAY ==
[2020-10-29 08:08] VITALS: BMI 29.6
[2021-01-06 14:28] VITALS: BMI 29.6
[2021-01-08 14:08] LABS: International Normalized Ratio 2.5; Prothrombin Time (Protime)PT. 26.4 SECONDS (11.7-14.9)
== END 2021-01-08 18:00 | disposition home or self-care (01) ==
LOC: LAB 12:32
PROVIDERS: Family Provider Family Medicine; Referring Provider Internal Medicine Cardiovascular Disease; Visit Provider Internal Medicine Cardiovascular Disease
DX: I48.19 Other persistent atrial fibrillation (principal); Z79.01 Long term (current) use of anticoagulants
CPT/HCPCS: 36415; 85610

== ENCOUNTER 2021-02-05 09:23 | Outpatient (RCR) | payer MEDICARE, OTHER, SELFPAY ==
[2021-01-06 14:28] VITALS: BMI 29.6
[2021-02-05 10:27] LABS: International Normalized Ratio 2.1; Prothrombin Time (Protime)PT. 22.7 SECONDS (11.7-14.9)
[2021-02-05 10:33] LABS: AST(SGOT) 14 U/L (15-37); Alanine Aminotransfer ALT/SGPT 15 U/L (13-56); Albumin, Serum 3.5 g/dL (3.2-5.0); Alkaline Phosphatase 76 U/L (45-117); Bilirubin, Direct 0.17 mg/dL (0.00-0.30); Cholesterol 152 mg/dL (200); High Density Lipoprotein 68 mg/dL; Protein, Total 7.5 g/dL (6.4-8.2); Triglycerides 97 mg/dL; Very Low Density Lipoprotein 19 mg/dL (5-40)
== END 2021-02-05 18:00 | disposition home or self-care (01) ==
LOC: LAB 09:23
PROVIDERS: Family Provider Family Medicine; Referring Provider Internal Medicine Cardiovascular Disease; Visit Provider Internal Medicine Cardiovascular Disease
DX: I48.19 Other persistent atrial fibrillation (principal); Z79.899 Other long term (current) drug therapy; E78.9 Disorder of lipoprotein metabolism, unspecified
CPT/HCPCS: 36415; 80061; 80076; 85610

== ENCOUNTER 2021-03-05 15:01 | Outpatient (RCR) | payer MEDICARE, OTHER, SELFPAY ==
[2021-03-02 23:51] VITALS: BMI 29.6
[2021-03-05 16:25] LABS: International Normalized Ratio 2.6; Prothrombin Time (Protime)PT. 27.2 SECONDS (11.7-14.9)
== END 2021-03-05 18:00 | disposition home or self-care (01) ==
LOC: LAB 15:01
PROVIDERS: Family Provider Family Medicine; Referring Provider Internal Medicine Cardiovascular Disease; Visit Provider Internal Medicine Cardiovascular Disease
DX: I48.19 Other persistent atrial fibrillation (principal); Z79.899 Other long term (current) drug therapy
CPT/HCPCS: 36415; 85610

== ENCOUNTER 2021-04-28 15:19 | Outpatient (RCR) | payer MEDICARE, OTHER, SELFPAY ==
[2021-04-01 21:57] VITALS: BMI 29.6
[2021-04-02 12:30] LABS: International Normalized Ratio 2.7; Prothrombin Time (Protime)PT. 27.6 SECONDS (11.7-14.9)
[2021-04-28 16:31] LABS: International Normalized Ratio 2.4; Prothrombin Time (Protime)PT. 25.6 SECONDS (11.7-14.9)
== END 2021-05-02 18:00 | disposition home or self-care (01) ==
LOC: LAB 15:19
PROVIDERS: Family Provider Family Medicine; Referring Provider Internal Medicine Cardiovascular Disease; Visit Provider Internal Medicine Cardiovascular Disease
DX: I48.19 Other persistent atrial fibrillation (principal); Z79.899 Other long term (current) drug therapy
CPT/HCPCS: 36415; 85610

== ENCOUNTER 2021-05-31 14:37 | Outpatient (RCR) | payer MEDICARE, OTHER, SELFPAY ==
[2021-05-02 20:16] VITALS: BMI 29.6
[2021-05-31 15:27] LABS: Prothrombin Time (Protime)PT. 39.1 SECONDS (11.7-14.9)
[2021-05-31 15:49] LABS: International Normalized Ratio 4.1
== END 2021-06-01 18:00 | disposition home or self-care (01) ==
LOC: LAB 14:37
PROVIDERS: Family Provider Family Medicine; Referring Provider Internal Medicine Cardiovascular Disease; Visit Provider Internal Medicine Cardiovascular Disease
DX: I48.19 Other persistent atrial fibrillation (principal); Z79.899 Other long term (current) drug therapy
CPT/HCPCS: 36415; 85610

== ENCOUNTER 2021-06-28 14:24 | Outpatient (RCR) | payer MEDICARE, OTHER, SELFPAY ==
[2021-06-02 03:33] VITALS: BMI 29.6
[2021-06-07 14:23] LABS: International Normalized Ratio 3.3; Prothrombin Time (Protime)PT. 33.1 SECONDS (11.7-14.9)
[2021-06-14 16:21] LABS: International Normalized Ratio 2.8; Prothrombin Time (Protime)PT. 28.6 SECONDS (11.7-14.9)
[2021-06-17 12:06] LABS: International Normalized Ratio 2.4; Prothrombin Time (Protime)PT. 25.5 SECONDS (11.7-14.9)
[2021-06-17 12:26] LABS: Anion Gap 3 (5-15); BUN 14 mg/dL (7-18); BUN/Creat Ratio 10.3 RATIO (10-20); Calcium,Total 9.6 mg/dL (8.5-10.1); Chloride 106 mmol/L (98-107); Creatinine, Serum 1.36 mg/dL (0.55-1.02); EST Glomerular Filtration Rate 39 mL/min (>60); Est Glom Filt Rate - Afr Amer 48 mL/min (>60); Glucose 85 mg/dL (74-106); Potassium 4.4 mmol/L (3.5-5.1); Sodium Level 138 mmol/L (136-145)
[2021-06-28 15:25] LABS: International Normalized Ratio 2.4; Prothrombin Time (Protime)PT. 25.6 SECONDS (11.7-14.9)
== END 2021-07-03 18:00 | disposition home or self-care (01) ==
LOC: LAB 14:24
PROVIDERS: Nurse Practitioner Family; Family Provider Family Medicine; Referring Provider Internal Medicine Cardiovascular Disease; Visit Provider Internal Medicine Cardiovascular Disease
DX: I48.19 Other persistent atrial fibrillation (principal); R06.09 Other forms of dyspnea; Z79.01 Long term (current) use of anticoagulants; Z79.899 Other long term (current) drug therapy
CPT/HCPCS: 36415; 80048; 83880; 85610

== ENCOUNTER 2021-07-12 14:51 | Outpatient (RCR) | payer MEDICARE, OTHER, SELFPAY ==
[2021-07-04 04:35] VITALS: BMI 29.6
[2021-07-12 15:44] LABS: International Normalized Ratio 2.6; Prothrombin Time (Protime)PT. 26.9 SECONDS (11.7-14.9)
== END 2021-08-02 18:00 | disposition home or self-care (01) ==
LOC: LAB 14:51
PROVIDERS: Family Provider Family Medicine; Referring Provider Internal Medicine Cardiovascular Disease; Visit Provider Internal Medicine Cardiovascular Disease
DX: I48.19 Other persistent atrial fibrillation (principal); Z79.01 Long term (current) use of anticoagulants; Z79.899 Other long term (current) drug therapy
CPT/HCPCS: 36415; 85610

== ENCOUNTER 2021-08-09 13:30 | Outpatient (RCR) | payer MEDICARE, OTHER, SELFPAY ==
[2021-08-03 01:25] VITALS: BMI 29.6
[2021-08-09 15:15] LABS: AST(SGOT) 16 U/L (15-37); Alanine Aminotransfer ALT/SGPT 13 U/L (13-56); Albumin, Serum 3.4 g/dL (3.2-5.0); Alkaline Phosphatase 82 U/L (45-117); Bilirubin, Direct 0.09 mg/dL (0.00-0.30); Cholesterol 170 mg/dL (200); Globulin 4.1 g/dL (2.2-4.2); High Density Lipoprotein 65 mg/dL; Protein, Total 7.5 g/dL (6.4-8.2); Triglycerides 228 mg/dL; Very Low Density Lipoprotein 46 mg/dL (5-40)
[2021-08-09 15:23] LABS: International Normalized Ratio 2.6; Prothrombin Time (Protime)PT. 27.2 SECONDS (11.7-14.9)
== END 2021-08-09 23:59 | disposition home or self-care (01) ==
LOC: LAB 13:30
PROVIDERS: Family Provider Family Medicine; Referring Provider Internal Medicine Cardiovascular Disease; Visit Provider Internal Medicine Cardiovascular Disease
DX: Z79.01 Long term (current) use of anticoagulants (principal); Z79.899 Other long term (current) drug therapy
CPT/HCPCS: 36415; 80061; 80076; 85610

== ENCOUNTER 2021-09-06 15:24 | Outpatient (RCR) | payer MEDICARE, OTHER, SELFPAY ==
[2021-08-31 09:51] VITALS: BMI 29.6
[2021-09-06 17:45] LABS: International Normalized Ratio 2.4; Prothrombin Time (Protime)PT. 25.6 SECONDS (11.7-14.9)
== END 2021-09-30 18:00 | disposition home or self-care (01) ==
LOC: LAB 15:24
PROVIDERS: Family Provider Family Medicine; Referring Provider Internal Medicine Cardiovascular Disease; Visit Provider Internal Medicine Cardiovascular Disease
DX: I48.19 Other persistent atrial fibrillation (principal); Z79.899 Other long term (current) drug therapy
CPT/HCPCS: 36415; 85610

== ENCOUNTER 2021-10-05 10:22 | Outpatient (CLI) | payer MEDICARE, OTHER, SELFPAY ==
--- NOTE | 2021-10-05 10:25 | ECHOCS_ITS ---
Procedure This was a 2D Doppler, Color Flow transthoracic echocardiogram. Very technically difficult study, patient unable to lay in proper position for adequate imaging. Contrast injection was performed with those images taken with patient supine.. The study was technically difficult. Contrast injection was performed. Exam performed in department. Left Ventricle Normal LV size. Left ventricular systolic function is normal. The estimated ejection fraction is 60 %. No regional wall motion abnormalities noted. Right Ventricle Normal RV size. Normal systolic function. Atria The left atrium is severely enlarged. The right atrium is severely enlarged. Probable chiari network. No doppler evidence for ASD. Mitral Valve There is moderate mitral annular calcification. Extension of the mitral annular calcification onto the base of the posterior mitral valve leaflet. Moderate (2+) mitral valve insufficiency. Tricuspid Valve Normal tricuspid valve. Moderate (2+) tricuspid valve insufficiency. Right ventricular systolic pressure estimated to be 30 mmHg. Aortic Valve Trisinus/trileaflet aortic valve. Mild diffuse aortic valve thickening. Mild focal aortic valve calcification. Trivial aortic valve insufficiency. Pulmonic Valve The pulmonic valve is not well visualized. Mild (1+) pulmonic valve insufficiency. Great Vessels Normal sized aortic root. Pericardium/Pleural No pericardial effusion. Medication 22 gauge I.V. with prn adaptor inserted into right arm. Diluted definity 2ml given slow IV push to enhance endocardial definition. MMode/2D Measurements & Calculations LVIDd: 4.9 cm IVSd: 0.93 cm Ao root diam: 3.6 cm LVIDs: 2.6 cm LVPWd: 0.96 cm LA dimension: 4.5 cm FS: 47.0 % LAV(MOD-bp): 123.0 ml LA A4 area: 31.9 cm2 RA A4 area: 24.7 cm2 LAV(MOD-bp) Indexed: 72.6 ml/m2 LAV(MOD-sp2): 116.6 ml LAV(MOD-sp4): 112.0 ml Time Measurements MV dec time: 0.16 sec Doppler Measurements & Calculations MV E max seth: 111.1 cm/sec Lat Peak E' Seth: 9.3 cm/sec Med Peak E' Seth: 9.4 cm/sec MV A max seth: 34.0 cm/sec E/E' lat: 12.0 E/E' med: 11.8 MV E/A: 3.3 MV V2 max: 123.6 cm/sec MV P1/2t max seth: 123.6 cm/sec Ao V2 max: 92.9 cm/sec MV max P.1 mmHg MV P1/2t: 72.6 msec Ao max P.4 mmHg MV V2 mean: 55.2 cm/sec MV dec slope: 498.7 cm/sec2 MV mean P.6 mmHg MV V2 VTI: 25.7 cm MVA(P1/2t): 3.0 cm2 LV V1 max: 84.0 cm/sec PA V2 max: 78.0 cm/sec TR max seth: 257.6 cm/sec LV V1 max P.8 mmHg TR max P.5 mmHg ECHO/Echo Complete W/ Contrast Interpretation Summary The study was technically difficult. Contrast injection was performed. Left ventricular systolic function is normal. The estimated ejection fraction is 60 %. The left atrium is severely enlarged. The right atrium is severely enlarged. Probable chiari network. There is moderate mitral annular calcification. Extension of the mitral annular calcification onto the base of the posterior mi tral valve leaflet. Moderate (2+) mitral valve insufficiency. Moderate (2+) tricuspid valve insufficiency. Mild diffuse aortic valve thickening. Mild focal aortic valve calcification. Trivial aortic valve insufficiency. Mild (1+) pulmonic valve insufficiency. Right ventricular systolic pressure estimated to be 30 mmHg. Transmitral diastolic flow velocities suggest diastolic dysfunction (pseudonorm al pattern). Ordering Physician: Jean Rice Referring Physician: Jean Rice Performed By: Josef Kamara RCS
[2021-10-05 12:18] LABS: International Normalized Ratio 2.7; Prothrombin Time (Protime)PT. 28.1 SECONDS (11.7-14.9)
== END 2021-10-05 23:59 | disposition home or self-care (01) ==
LOC: CVS 10:24 → LAB 11:47 → CVS 11:49
PROVIDERS: Referring Provider Nurse Practitioner Family; Visit Provider Nurse Practitioner Family
DX: I48.19 Other persistent atrial fibrillation (principal); Z79.899 Other long term (current) drug therapy
CPT/HCPCS: 36415; 85610; 93306; Q9957; A4216; C8929

== ENCOUNTER 2021-10-05 11:49 | Outpatient (RCR) | payer MEDICARE, OTHER, SELFPAY ==
[2021-10-01 02:42] VITALS: BMI 29.6
== END 2021-10-05 18:00 | disposition home or self-care (01) ==
LOC: LAB 11:49
PROVIDERS: Family Provider Family Medicine; Referring Provider Internal Medicine Cardiovascular Disease; Visit Provider Internal Medicine Cardiovascular Disease
DX: I48.19 Other persistent atrial fibrillation (principal); Z79.899 Other long term (current) drug therapy

== ENCOUNTER 2021-11-09 13:51 | Outpatient (RCR) | payer MEDICARE, OTHER, SELFPAY ==
[2021-10-31 03:35] VITALS: BMI 29.6
[2021-11-09 14:50] LABS: International Normalized Ratio 2.4; Prothrombin Time (Protime)PT. 25.4 SECONDS (11.7-14.9)
== END 2021-11-09 18:00 | disposition home or self-care (01) ==
LOC: LAB 13:51
PROVIDERS: Family Provider Family Medicine; Referring Provider Internal Medicine Cardiovascular Disease; Visit Provider Internal Medicine Cardiovascular Disease
DX: I48.19 Other persistent atrial fibrillation (principal); Z79.899 Other long term (current) drug therapy
CPT/HCPCS: 36415; 85610

== ENCOUNTER 2021-12-07 13:45 | Outpatient (RCR) | payer MEDICARE, OTHER, SELFPAY ==
[2021-11-30 20:55] VITALS: BMI 29.6
[2021-12-07 16:31] LABS: International Normalized Ratio 2.1; Prothrombin Time (Protime)PT. 23.6 SECONDS (11.7-14.9)
== END 2021-12-07 23:59 | disposition home or self-care (01) ==
LOC: LAB 13:45
PROVIDERS: Family Provider Family Medicine; Referring Provider Internal Medicine Cardiovascular Disease; Visit Provider Internal Medicine Cardiovascular Disease
DX: I48.19 Other persistent atrial fibrillation (principal); Z79.01 Long term (current) use of anticoagulants
CPT/HCPCS: 36415; 85610

== ENCOUNTER 2022-01-04 12:56 | Outpatient (RCR) | payer MEDICARE, OTHER, SELFPAY ==
[2021-12-31 07:22] VITALS: BMI 29.6
[2022-01-04 13:51] LABS: International Normalized Ratio 2.1; Prothrombin Time (Protime)PT. 23.4 SECONDS (11.7-14.9)
== END 2022-01-30 02:48 | disposition home or self-care (01) ==
LOC: LAB 12:56
PROVIDERS: Family Provider Family Medicine; Referring Provider Internal Medicine Cardiovascular Disease; Visit Provider Internal Medicine Cardiovascular Disease
DX: I48.19 Other persistent atrial fibrillation (principal); Z79.01 Long term (current) use of anticoagulants
CPT/HCPCS: 36415; 85610

== ENCOUNTER 2022-02-16 10:22 | Outpatient (RCR) | payer MEDICARE, OTHER, SELFPAY ==
[2022-01-30 02:48] VITALS: BMI 29.6
[2022-02-02 17:18] LABS: International Normalized Ratio 3.1; Prothrombin Time (Protime)PT. 31.4 SECONDS (11.7-14.9)
[2022-02-16 11:13] LABS: International Normalized Ratio 2.4
[2022-02-16 11:32] LABS: AST(SGOT) 15 U/L (15-37); Alanine Aminotransfer ALT/SGPT 15 U/L (13-56); Albumin, Serum 3.4 g/dL (3.2-5.0); Alkaline Phosphatase 89 U/L (45-117); Bilirubin, Direct 0.16 mg/dL (0.00-0.30); Cholesterol 158 mg/dL (200); Globulin 4.1 g/dL (2.2-4.2); High Density Lipoprotein 77 mg/dL; Protein, Total 7.5 g/dL (6.4-8.2); Triglycerides 112 mg/dL; Very Low Density Lipoprotein 22 mg/dL (5-40)
== END 2022-02-16 18:00 | disposition home or self-care (01) ==
LOC: LAB 10:22
PROVIDERS: Family Provider Family Medicine; Referring Provider Internal Medicine Cardiovascular Disease; Visit Provider Internal Medicine Cardiovascular Disease
DX: I48.19 Other persistent atrial fibrillation (principal); Z79.01 Long term (current) use of anticoagulants; E78.00 Pure hypercholesterolemia, unspecified; Z79.899 Other long term (current) drug therapy; E66.09 Other obesity due to excess calories; Z68.32 Body mass index [BMI] 32.0-32.9, adult
CPT/HCPCS: 36415; 80061; 80076; 85610

== ENCOUNTER 2022-06-15 13:41 | Outpatient (RCR) | payer MEDICARE, OTHER, SELFPAY ==
[2022-03-02 23:17] VITALS: BMI 29.6
[2022-06-02 15:07] LABS: International Normalized Ratio 4.4; Prothrombin Time (Protime)PT. 42.1 SECONDS (11.7-14.9)
[2022-06-08 15:23] LABS: Hematocrit 37.2 % (37-47); Hemoglobin 12.4 g/dL (12.0-15.0); Mean Corp Hgb Conc 33.3 g/dL (32-36); Mean Corpuscular Hgb 32.6 pg (27.0-32.0); Mean Corpuscular Volume 97.9 fL (81-99); Mean Platelet Vol. 10.1 fl (6.2-12.0); Platelet Count 300 K/mm3 (150-450); RBC Distribution Width CV 14.7 % (11.6-14.6); RBC Distribution Width SD 53.2 fl (35.1-43.9)
[2022-06-08 15:47] LABS: International Normalized Ratio 3.9; Prothrombin Time (Protime)PT. 37.9 SECONDS (11.7-14.9)
[2022-06-08 16:08] LABS: BNP,B-Type NATRIURETIC PEPTIDE 186.3 pg/mL (0-100)
[2022-06-08 16:09] LABS: Anion Gap 4 (5-15); BUN 13 mg/dL (7-18); BUN/Creat Ratio 9.6 RATIO (10-20); Calcium,Total 9.3 mg/dL (8.5-10.1); Chloride 103 mmol/L (98-107); Creatinine, Serum 1.36 mg/dL (0.55-1.02); EST Glomerular Filtration Rate 39 mL/min (>60); Est Glom Filt Rate - Afr Amer 48 mL/min (>60); Glucose 105 mg/dL (74-106); Potassium 3.7 mmol/L (3.5-5.1); Sodium Level 137 mmol/L (136-145)
[2022-06-15 14:50] LABS: International Normalized Ratio 2.8; Prothrombin Time (Protime)PT. 29.4 SECONDS (11.7-14.9)
== END 2022-06-15 18:00 | disposition home or self-care (01) ==
LOC: LAB 13:41
PROVIDERS: Nurse Practitioner Family; Family Provider Family Medicine; Referring Provider Internal Medicine Cardiovascular Disease; Visit Provider Internal Medicine Cardiovascular Disease
DX: I48.19 Other persistent atrial fibrillation (principal); Z79.01 Long term (current) use of anticoagulants; R06.02 Shortness of breath; J96.11 Chronic respiratory failure with hypoxia; I08.1 Rheumatic disorders of both mitral and tricuspid valves
CPT/HCPCS: 36415; 80048; 83880; 85027; 85610

== ENCOUNTER 2022-07-14 13:51 | Outpatient (RCR) | payer MEDICARE, OTHER, SELFPAY ==
[2022-07-03 04:07] VITALS: BMI 29.6
[2022-07-14 14:54] LABS: International Normalized Ratio 2.9; Prothrombin Time (Protime)PT. 30.1 SECONDS (11.7-14.9)
== END 2022-07-14 18:00 | disposition home or self-care (01) ==
LOC: LAB 13:51
PROVIDERS: Family Provider Family Medicine; Referring Provider Internal Medicine Cardiovascular Disease; Visit Provider Internal Medicine Cardiovascular Disease
DX: I48.19 Other persistent atrial fibrillation (principal); Z79.01 Long term (current) use of anticoagulants
CPT/HCPCS: 36415; 85610

== ENCOUNTER 2022-08-24 15:01 | Outpatient (RCR) | payer MEDICARE, OTHER, SELFPAY ==
[2022-08-03 08:34] VITALS: BMI 29.6
[2022-08-19 16:35] LABS: International Normalized Ratio 1.6; Prothrombin Time (Protime)PT. 18.6 SECONDS (11.7-14.9)
[2022-08-24 15:22] LABS: Prothrombin Time (Protime)PT. 22.5 SECONDS (11.7-14.9)
[2022-08-24 16:05] LABS: AST(SGOT) 16 U/L (15-37); Alanine Aminotransfer ALT/SGPT 14 U/L (13-56); Albumin, Serum 3.7 g/dL (3.2-5.0); Alkaline Phosphatase 80 U/L (45-117); Bilirubin, Direct 0.18 mg/dL (0.00-0.30); Cholesterol 175 mg/dL (200); Globulin 3.8 g/dL (2.2-4.2); High Density Lipoprotein 103 mg/dL; Protein, Total 7.5 g/dL (6.4-8.2); Triglycerides 100 mg/dL; Very Low Density Lipoprotein 20 mg/dL (5-40)
== END 2022-08-24 18:00 | disposition home or self-care (01) ==
LOC: LAB 15:01
PROVIDERS: Family Provider Family Medicine; Referring Provider Internal Medicine Cardiovascular Disease; Visit Provider Internal Medicine Cardiovascular Disease
DX: I48.19 Other persistent atrial fibrillation (principal); Z79.01 Long term (current) use of anticoagulants; Z79.899 Other long term (current) drug therapy; E78.00 Pure hypercholesterolemia, unspecified; E66.09 Other obesity due to excess calories; Z68.32 Body mass index [BMI] 32.0-32.9, adult
CPT/HCPCS: 36415; 80061; 80076; 85610

== ENCOUNTER → 2022-09-06 | Outpatient (CLI) | payer MEDICARE, OTHER, SELFPAY ==
--- NOTE | 2022-09-06 14:30 | RAD_ITS ---
EXAM: XR CHEST, 2 VIEWS CLINICAL INDICATION: SOB, cough TECHNIQUE: Frontal and lateral views of the chest. This report was created using alooma report generation technology. COMPARISON: March 06, 2019 FINDINGS: LUNGS AND PLEURAL SPACES: Question short segment scarring/subsegmental atelectasis at the peripheral aspect of the left midlung. No consolidation. No pleural effusion or pneumothorax. Emphysema. Mild subsegmental atelectasis at the lower lobes. HEART: Cardiomegaly. MEDIASTINUM: No hilar or mediastinal enlargement. BONES/JOINTS: Diffuse osteopenia. Redemonstration of a chronic fracture involving a lower thoracic spine vertebral body with overall moderate anterior height loss. SOFT TISSUES: Unremarkable. VASCULATURE: Atherosclerotic calcifications of the nonenlarged thoracic aorta. RAD/Chest PA and Lateral IMPRESSION: Cardiomegaly. No pneumonia. No other acute disease. Electronically Signed: Mahad Avelar MD at 2:20 EST ,
[2022-09-06 15:08] LABS: Absolute Lymphocyte Count 0.89 X10^3/uL (0.83-4.51); Absolute Neutrophil Count 6.3 X10^3/uL (2.0-7.7); Basophil# 0.04 X10^3/uL; Basophil% 0.5 % (0-1); Eosinophil# 0.09 X10^3/uL; Eosinophils% 1.2 % (0-5); Hematocrit 38.7 % (37-47); Hemoglobin 12.8 g/dL (12.0-15.0); Lymphocyte # 0.89 X10^3/ul (0.83-4.51); Lymphocyte % 11.6 % (19-41); Mean Corp Hgb Conc 33.1 g/dL (32-36); Mean Corpuscular Hgb 34.6 pg (27.0-32.0); Mean Corpuscular Volume 104.6 fL (81-99); Mean Platelet Vol. 9.6 fl (6.2-12.0); Monocyte# 0.36 X10^3/uL; Monocyte% 4.7 % (0-10); NRBC Flagged by Analyzer 0 % (0-5); Neutrophil # 6.28 X10^3/uL (2.7-7.7); Neutrophil % 81.5 % (47-70); Platelet Count 379 K/mm3 (150-450); RBC Distribution Width CV 16.3 % (11.6-14.6); RBC Distribution Width SD 63.9 fl (35.1-43.9); White Blood Count 7.7 K/mm3 (4.4-11.0)
[2022-09-06 15:31] LABS: Anion Gap 6 (5-15); BUN 11 mg/dL (7-18); BUN/Creat Ratio 9.7 RATIO (10-20); Calcium,Total 9.4 mg/dL (8.5-10.1); Chloride 100 mmol/L (98-107); Creatinine, Serum 1.13 mg/dL (0.55-1.02); EST Glomerular Filtration Rate 49 mL/min (>60); Est Glom Filt Rate - Afr Amer 59 mL/min (>60); Glucose 101 mg/dL (74-106); Potassium 3.8 mmol/L (3.5-5.1); Sodium Level 138 mmol/L (136-145)
== END | disposition home or self-care (01) ==
LOC: RAD 14:20
PROVIDERS: Referring Provider Nurse Practitioner Family; Visit Provider Nurse Practitioner Family
DX: R06.02 Shortness of breath (principal); R06.09 Other forms of dyspnea; I34.0 Nonrheumatic mitral (valve) insufficiency; Z79.01 Long term (current) use of anticoagulants
CPT/HCPCS: 36415; 71046; 80048; 83880; 85025

== ENCOUNTER 2022-09-28 14:47 | Outpatient (RCR) | payer MEDICARE, OTHER, SELFPAY ==
[2022-08-30 22:29] VITALS: BMI 29.6
[2022-09-02 16:41] LABS: International Normalized Ratio 1.7; Prothrombin Time (Protime)PT. 19.7 SECONDS (11.7-14.9)
[2022-09-19 15:58] LABS: International Normalized Ratio 3.1; Prothrombin Time (Protime)PT. 31.5 SECONDS (11.7-14.9)
[2022-09-28 15:26] LABS: International Normalized Ratio 2.3; Prothrombin Time (Protime)PT. 24.9 SECONDS (11.7-14.9)
== END 2022-09-30 23:13 | disposition home or self-care (01) ==
LOC: LAB 14:47
PROVIDERS: Family Provider Family Medicine; Referring Provider Internal Medicine Cardiovascular Disease; Visit Provider Internal Medicine Cardiovascular Disease
DX: I48.19 Other persistent atrial fibrillation (principal); Z79.899 Other long term (current) drug therapy
CPT/HCPCS: 36415; 85610

== ENCOUNTER 2022-10-12 17:09 | Outpatient (RCR) | payer MEDICARE, OTHER, SELFPAY ==
[2022-09-30 23:13] VITALS: BMI 29.6
[2022-10-12 17:53] LABS: International Normalized Ratio 2.6; Prothrombin Time (Protime)PT. 27.1 SECONDS (11.7-14.9)
== END 2022-10-30 02:06 | disposition home or self-care (01) ==
LOC: LAB 17:09
PROVIDERS: Family Provider Family Medicine; Referring Provider Internal Medicine Cardiovascular Disease; Visit Provider Internal Medicine Cardiovascular Disease
DX: I48.19 Other persistent atrial fibrillation (principal); Z79.899 Other long term (current) drug therapy
CPT/HCPCS: 36415; 85610

== ENCOUNTER 2022-11-04 10:20 | Outpatient (RCR) | payer MEDICARE, OTHER, SELFPAY ==
[2022-10-30 02:06] VITALS: BMI 29.6
[2022-11-04 11:41] LABS: AST(SGOT) 20 U/L (15-37); Alanine Aminotransfer ALT/SGPT 20 U/L (13-56); Albumin, Serum 3.5 g/dL (3.2-5.0); Alkaline Phosphatase 80 U/L (45-117); Bilirubin, Direct 0.17 mg/dL (0.00-0.30); Cholesterol 200 mg/dL (200); Globulin 3.8 g/dL (2.2-4.2); High Density Lipoprotein 96 mg/dL; Protein, Total 7.3 g/dL (6.4-8.2); Triglycerides 106 mg/dL; Very Low Density Lipoprotein 21 mg/dL (5-40)
== END 2022-11-04 11:30 | disposition home or self-care (01) ==
LOC: LAB 10:20
PROVIDERS: Family Provider Family Medicine; PCP Family Medicine Geriatric Medicine; Referring Provider Internal Medicine Cardiovascular Disease; Visit Provider Internal Medicine Cardiovascular Disease
DX: I48.19 Other persistent atrial fibrillation (principal); Z79.899 Other long term (current) drug therapy
CPT/HCPCS: 36415; 80061; 80076

== ENCOUNTER → 2022-12-01 | Outpatient (CLI) | payer MEDICARE, OTHER, SELFPAY ==
[2022-12-01 14:15] LABS: AST(SGOT) 23 U/L (15-37); Alanine Aminotransfer ALT/SGPT 15 U/L (13-56); Albumin, Serum 3.8 g/dL (3.2-5.0); Alkaline Phosphatase 85 U/L (45-117); Cholesterol 211 mg/dL (200); Globulin 3.9 g/dL (2.2-4.2); High Density Lipoprotein 108 mg/dL; Protein, Total 7.7 g/dL (6.4-8.2); Triglycerides 115 mg/dL; Very Low Density Lipoprotein 23 mg/dL (5-40)
== END | disposition home or self-care (01) ==
LOC: LAB 13:30
PROVIDERS: PCP Family Medicine Geriatric Medicine; Referring Provider Nurse Practitioner Gerontology; Visit Provider Nurse Practitioner Gerontology
DX: E78.5 Hyperlipidemia, unspecified (principal)
CPT/HCPCS: 36415; 80061; 80076

== ENCOUNTER 2022-12-08 10:28 | Outpatient (RCR) | payer MEDICARE, OTHER, SELFPAY ==
[2022-12-01 08:15] VITALS: BMI 29.6
[2022-12-08 11:12] LABS: Prothrombin Time (Protime)PT. 22.5 SECONDS (11.7-14.9)
== END 2022-12-08 18:00 | disposition home or self-care (01) ==
LOC: LAB 10:28
PROVIDERS: Family Provider Family Medicine; PCP Family Medicine Geriatric Medicine; Referring Provider Internal Medicine Cardiovascular Disease; Visit Provider Internal Medicine Cardiovascular Disease
DX: I48.19 Other persistent atrial fibrillation (principal); Z79.899 Other long term (current) drug therapy
CPT/HCPCS: 36415; 85610

== ENCOUNTER → 2022-12-09 | Outpatient (CLI) | payer MEDICARE, OTHER, SELFPAY ==
[2022-12-09 12:30] VITALS: PULSE 72; PULSE 77; PULSE 78; PULSE 81; PULSE 84; PULSE 85; PULSE 89; O2SAT 92; O2SAT 93; O2SAT 94; O2SAT 95; O2SAT 96
--- NOTE | 2022-12-10 11:54 | PCM.PSN.6M ---
PSN 6 Minute Walk Test 6 Minute Walk Test 6 Minute Walk Test: 6 Minute Walk Test PSN:6-Minute Walk Test Start: 12/09/22 12:58 Freq: Status: Active Protocol: RESP.6MINW Document 12/09/22 12:30 [facility] (Rec: 12/09/22 13:02 [facility] [id number]) 6 Minute Walk Test Date Performed 12/09/22 Time Performed 12:30 Height 5 ft 2 in Weight: 68.039 kg Weight in Pounds 150.[address]: [place] Assistive device used: Cane Pre-test Oxygen Delivery Method Room Air Pulse Ox (%) 93 Pulse Rate (60-100 beats/min) 77 Dyspnea Yuliya Scale (0-10) 0.5 Exertion Yuliya Scale (6-20) 6 1st minute Oxygen Delivery Method Room Air Pulse Ox (%) 96 Pulse Rate (60-100 beats/min) 78 Reported Symptoms Increased Work of Breathing 2nd minute Oxygen Delivery Method Room Air Pulse Ox (%) 92 Pulse Rate (60-100 beats/min) 77 Reported Symptoms Increased Work of Breathing 3rd minute Oxygen Delivery Method Room Air Pulse Ox (%) 95 Pulse Rate (60-100 beats/min) 81 Dyspnea Yuliya Scale (0-10) 3 Number of Rests Taken 1 Reported Symptoms Increased Work of Breathing 4th minute Oxygen Delivery Method Room Air Pulse Ox (%) 95 Pulse Rate (60-100 beats/min) 84 5th minute Oxygen Delivery Method Room Air Pulse Ox (%) 96 Pulse Rate (60-100 beats/min) 85 Reported Symptoms Increased Work of Breathing 6th minute Oxygen Delivery Method Room Air Pulse Ox (%) 94 Pulse Rate (60-100 beats/min) 89 Dyspnea Yuliya Scale (0-10) 4 Exertion Yuliya Scale (6-20) 12 Reported Symptoms Increased Work of Breathing Post-test Oxygen Delivery Method Room Air Pulse Ox (%) 93 Pulse Rate (60-100 beats/min) 72 Reported Symptoms Increased Work of Breathing Full Laps Walked 8 Partial Lap, Number of Tiles Walked 0 Total Distance Walked (ft) 472 Interpretation Interpretation: The patient was able to ambulate 472 feet over the course of 6 minutes with the assistance of a cane and 1 break. The patient experienced no significant desaturation or tachycardia. These findings are consistent with a musculoskeletal limitation exercise tolerance. Recommendations Recommendations: No supplemental oxygen is indicated at this time.
== END | disposition home or self-care (01) ==
LOC: PSN 12:32
PROVIDERS: PCP Family Medicine Geriatric Medicine; Referring Provider Nurse Practitioner Acute Care; Visit Provider Nurse Practitioner Acute Care
DX: J44.9 Chronic obstructive pulmonary disease, unspecified (principal)
CPT/HCPCS: 94618

== ENCOUNTER 2023-01-06 13:13 | Outpatient (RCR) | payer MEDICARE, OTHER, SELFPAY ==
[2022-12-30 22:34] VITALS: BMI 29.6
[2023-01-06 14:06] LABS: Prothrombin Time (Protime)PT. 23.1 SECONDS (11.7-14.9)
== END 2023-01-30 18:00 | disposition home or self-care (01) ==
LOC: LAB 13:13
PROVIDERS: Family Provider Family Medicine; PCP Family Medicine Geriatric Medicine; Referring Provider Nurse Practitioner Family; Visit Provider Nurse Practitioner Family
DX: I48.19 Other persistent atrial fibrillation (principal); Z79.899 Other long term (current) drug therapy
CPT/HCPCS: 36415; 85610

== ENCOUNTER 2023-02-10 15:32 | Outpatient (RCR) | payer MEDICARE, OTHER, SELFPAY ==
[2023-01-31 00:54] VITALS: BMI 29.6
[2023-02-03 13:54] LABS: International Normalized Ratio 1.7; Prothrombin Time (Protime)PT. 19.7 SECONDS (11.7-14.9)
[2023-02-10 16:21] LABS: Prothrombin Time (Protime)PT. 23.3 SECONDS (11.7-14.9)
== END 2023-02-10 18:00 | disposition home or self-care (01) ==
LOC: LAB 15:32
PROVIDERS: Family Provider Family Medicine; PCP Family Medicine Geriatric Medicine; Referring Provider Nurse Practitioner Family; Visit Provider Nurse Practitioner Family
DX: I48.19 Other persistent atrial fibrillation (principal); Z79.899 Other long term (current) drug therapy
CPT/HCPCS: 36415; 85610

== ENCOUNTER → 2023-02-14 | Outpatient (CLI) | payer MEDICARE, OTHER, SELFPAY ==
--- NOTE | 2023-02-14 16:15 | RAD_ITS ---
EXAM: XR RIGHT FOOT COMPLETE, 3 OR MORE VIEWS CLINICAL INDICATION: FOOT PAIN TECHNIQUE: Frontal, lateral and oblique views of the right foot. COMPARISON: No relevant prior studies available. FINDINGS: BONES/JOINTS: Bones are osteopenic. No acute fracture. No subluxation. Normal alignment. Preservation of the joint space. No sclerotic or destructive changes observed. SOFT TISSUES: Unremarkable. No soft tissue swelling or gas. No radiopaque foreign body. RAD/Foot min 3 Views IMPRESSION: Osteopenia with no acute osseous abnormality. Electronically Signed: Rick Herrera MD at 17:20 EDT ,
[2023-02-14 16:53] LABS: Absolute Lymphocyte Count 0.95 X10^3/uL (0.83-4.51); Basophil# 0.05 X10^3/uL; Basophil% 0.7 % (0-1); Eosinophils% 1.3 % (0-5); Hematocrit 38.2 % (37-47); Hemoglobin 12.8 g/dL (12.0-15.0); Lymphocyte # 0.95 X10^3/ul (0.83-4.51); Lymphocyte % 12.7 % (19-41); Mean Corp Hgb Conc 33.5 g/dL (32-36); Mean Corpuscular Hgb 37.1 pg (27.0-32.0); Mean Corpuscular Volume 110.7 fL (81-99); Mean Platelet Vol. 9.8 fl (6.2-12.0); Monocyte# 0.41 X10^3/uL; Monocyte% 5.5 % (0-10); NRBC Flagged by Analyzer 0 % (0-5); Neutrophil # 5.95 X10^3/uL (2.7-7.7); Neutrophil % 79.4 % (47-70); POSITIVE MORPHOLOGY YES; Platelet Count 368 K/mm3 (150-450); RBC Distribution Width SD 69.4 fl (35.1-43.9); Red Blood Count 3.45 M/mm3 (4.2-5.4); White Blood Count 7.5 K/mm3 (4.4-11.0)
[2023-02-14 16:58] LABS: Differential Indicated SCAN CRITERIA MET
[2023-02-14 17:17] LABS: Differential Comment SCANNED; Erythrocyte Sedimentation Rate 11 mm/hr (0-30)
[2023-02-14 17:20] LABS: Anion Gap 5 (5-15); BUN 20 mg/dL (7-18); Calcium,Total 9.3 mg/dL (8.5-10.1); Chloride 98 mmol/L (98-107); Creatinine, Serum 1.82 mg/dL (0.55-1.02); EST Glomerular Filtration Rate 28 mL/min (>60); Est Glom Filt Rate - Afr Amer 34 mL/min (>60); Glucose 130 mg/dL (74-106); Potassium 3.3 mmol/L (3.5-5.1); Sodium Level 138 mmol/L (136-145); Uric Acid 14.4 mg/dL (2.6-6.0)
== END | disposition home or self-care (01) ==
PROVIDERS: PCP Family Medicine Geriatric Medicine; Visit Provider Family Medicine Geriatric Medicine
DX: I48.91 Unspecified atrial fibrillation (principal); M79.671 Pain in right foot; R09.02 Hypoxemia
CPT/HCPCS: 36415; 73630; 80048; 84550; 85025; 85652; 86141

== ENCOUNTER → 2023-02-23 | Outpatient (CLI) | payer MEDICARE, OTHER, SELFPAY ==
[2023-02-23 12:55] LABS: Anion Gap 10 (5-15); BUN 45 mg/dL (7-18); BUN/Creat Ratio 22.1 RATIO (10-20); Calcium,Total 9.4 mg/dL (8.5-10.1); Chloride 95 mmol/L (98-107); Creatinine, Serum 2.04 mg/dL (0.55-1.02); EST Glomerular Filtration Rate 25 mL/min (>60); Est Glom Filt Rate - Afr Amer 30 mL/min (>60); Glucose 108 mg/dL (74-106); Potassium 3.8 mmol/L (3.5-5.1); Sodium Level 135 mmol/L (136-145)
== END | disposition home or self-care (01) ==
LOC: POLAB3 12:20
PROVIDERS: PCP Family Medicine Geriatric Medicine; Visit Provider Family Medicine Geriatric Medicine
DX: N18.32 Chronic kidney disease, stage 3b (principal)
CPT/HCPCS: 36415; 80048

== ENCOUNTER 2023-03-10 14:47 | Outpatient (RCR) | payer MEDICARE, OTHER, SELFPAY ==
[2023-03-02 23:07] VITALS: BMI 29.6
[2023-03-10 16:54] LABS: International Normalized Ratio 2.3; Prothrombin Time (Protime)PT. 25.5 SECONDS (11.7-14.9)
== END 2023-03-10 18:00 | disposition home or self-care (01) ==
LOC: LAB 14:47
PROVIDERS: Family Provider Family Medicine; PCP Family Medicine Geriatric Medicine; Referring Provider Nurse Practitioner Family; Visit Provider Nurse Practitioner Family
DX: I48.19 Other persistent atrial fibrillation (principal); Z79.899 Other long term (current) drug therapy
CPT/HCPCS: 36415; 85610

== ENCOUNTER 2023-03-30 13:34 | Emergency (ER) | payer MEDICARE, OTHER, SELFPAY ==
[2023-03-30 13:36] VITALS: BP 126/61; PULSE 83; RESP 18; TEMP 37.1; O2SAT 92; BMI 27.8
--- NOTE | 2023-03-30 13:58 | CT_ITS ---
STUDY: CT BRAIN WITHOUT CONTRAST REASON FOR EXAM: Female, 88 years old. Head injury due to a fall. Patient is on blunted. RADIATION DOSAGE (If Supplied By Facility): CTDIvol = ( 44.99 ) mGy, DLP = ( 745.49 ) mGycm TECHNIQUE: Transaxial CT imaging of the brain was performed without administration of intravenous contrast material. Individualized dose optimization techniques were used for this CT. COMPARISON: No relevant priors. FINDINGS: Normal soft tissue structures. Normal calvarium. There is mild cerebral atrophy with widening of the extra-axial spaces and ventricular dilatation. There are areas of decreased attenuation within the white matter tracts of the supratentorial brain, consistent with microvascular disease changes. Normal basal ganglia and thalami. Normal brainstem. Normal cerebellum. There is no intracranial hemorrhage. There are no findings of an acute ischemic infarction. Atherosclerotic calcification of the vertebral arteries and cavernous portions of the internal carotid arteries bilaterally. Partial opacification of the right maxillary sinus. CT/Brain/Head without Contrast IMPRESSION: Chronic involutional changes of the brain. Partial opacification of the right maxillary sinus. Electronically Signed: Tam Motley MD at 14:59 EDT ,
--- NOTE | 2023-03-30 14:00 | EX.ED.DYSGE1 ---
HPI History of Present Illness Chief Complaint: Lower Extremity Injury Informant: patient Narrative Narrative: Patient presents after a fall at home with left hip injury. She was trying to go to the restroom and either lost her balance or missed the commode as she went to sit and fell onto the floor landing on her left hip. EMS was called for transport. She denies striking her head. Patient is on Coumadin. She does wear home oxygen at night, but typically not during the day. She does not know what her normal O2 sat is during the day on room air. [facility] Medical History Atrial enlargement, bilateral TREVIÑO (dyspnea on exertion) Fatigue History of colon cancer Hypersomnia Hypoxia detention (current) use of anticoagulants Long-term use of high-risk medication Neck mass Nonrheumatic mitral valve regurgitation Nonrheumatic tricuspid valve regurgitation Nummular eczema Obesity ROSARIO (obstructive sleep apnea) Persistent atrial fibrillation Restless legs syndrome (RLS) Seborrheic keratoses Stage 2 moderate COPD by GOLD classification Syncope Thyroid nodule Thyromegaly Tobacco dependence in remission Home Medications Handicap Parking Placard #1 ea 12/24/20 [Rx Last Taken Unknown] potassium chloride 10 mEq tablet,extended release 20 meq (2 x 10 mEq) PO QDAY #180 tabs 10/20/22 [Rx Last Taken Unknown] warfarin 3 mg tablet 3 mg PO .COMPLEX #90 tabs 11/24/22 [Rx Last Taken Unknown] diltiazem HCl 120 mg capsule,extended release 24 hr (Cardizem CD) 120 mg PO QDAY #90 caps 01/09/23 [Rx Last Taken Unknown] albuterol sulfate 90 mcg/actuation aerosol inhaler (Ventolin HFA) 2 puff inhalation Q4H PRN shortness of breath or wheezing #8.5 grams 01/23/23 [Rx Last Taken Unknown] furosemide 40 mg tablet (Lasix) 40 mg PO .PRN 01/23/23 [History Last Taken Unknown] febuxostat 40 mg tablet 40 mg PO DAILY 03/15/23 [History Last Taken Unknown] Allergy/AdvReac Type Severity Reaction Status Date / Time hydrochlorothiazide Allergy Severe Unknown Verified 03/30/23 13:43 Sulfa (Sulfonamide Allergy Severe Unknown Verified 03/30/23 13:43 Antibiotics) Family History Father CAD (coronary artery disease) Myocardial infarction, Onset Age: 54 Daughter Breast cancer Surgical History History of colon resection Social History Smoking Status: Former smoker how long ago did patient quit smokin second hand exposure: Yes alcohol intake: current alcohol intake frequency: a few times a week Alcohol type: beer and wine substance use type: does not use ROS ROS ED Constitutional Constitutional ED: Denies chills or fever(s) Eyes Eyes: Denies discharge from eye(s) ENT ENT ED: Denies discharge from eye(s), rhinorrhea or sore throat Cardiovascular Cardiovascular: Denies chest pain or palpitations Respiratory/Chest Respiratory/Chest: Reports dyspnea; Denies cough Gastrointestinal Gastrointestinal: Denies abdominal pain, nausea or vomiting Genitourinary Genitourinary ED: Denies dysuria Musculoskeletal Musculoskeletal: Reports extremity pain; Denies back pain Integumentary Denies Abrasions or rash Neurologic Neurologic: Denies headache(s) Allergic/Immunologic Allergic/Immunologic ED: Denies lip swelling or urticaria EXAM Physical Exam Const Vital Signs: 03/30/23 13:36 Temperature 98.7 F Temperature Source Oral Pulse Rate 83 Respiratory Rate 18 Blood Pressure 126/61 H Blood Pressure Mean 82 Pulse Ox 92 Oxygen Delivery Method Nasal Cannula Oxygen Flow Rate (L/min) 2 Positive well nourished and well developed General Appearance ED: well developed HEENT Reports normocephalic and head/scalp atraumatic Eyes PERRL and EOMs intact bilaterally Neck supple Chest Wall inspection of chest normal and palpation of chest normal Resp normal respiratory effort and clear to auscultation bilaterally Cardio regular rate and regular rhythm GI non-tender Palpation: soft Extremity Extremity Narrative: Tenderness location lateral aspect of the left hip. Patient lying in a left posterior oblique position with her knees bent. No tenderness over the right pelvis. Strong distal pulses are noted patient has good sensation and can wiggle toes of her left leg. Neuro oriented x3 and no sensory deficits noted Sensorium / Orientation: alert Psych mental status grossly normal Skin no rashes or lesions noted MDM MDM MDM Narrative Medical decision making narrative: Patient be given at a small dose of fentanyl for pain control. CT scan of the head will be obtained given her fall and on Coumadin. X-ray of the chest as well as pelvis/left hip obtained to evaluate for fracture or injury. Labwork obtained to evaluate for leukocytosis, anemia, and electrolyte derangement. History & Record Review Discussion w/independent historian: Patient and Family Lab Data Attestation: I reviewed the patient's lab results. Labs: Laboratory Results - last 24 hr 03/30/23 14:14 WBC 8.6 RBC 3.20 L Hgb 12.0 Hct 35.4 L MCV 110.6 H MCH 37.5 H MCHC 33.9 RDW Std Deviation 61.4 H RDW Coeff of Gera 15.0 H Plt Count 324 MPV 9.4 Immature Gran % (Auto) 0.900 Neut % (Auto) 87.6 H Lymph % (Auto) 6.1 L [place] % (Auto) 4.8 Eos % (Auto) 0.3 Baso % (Auto) 0.3 Absolute Neuts (auto) 7.5 Absolute Lymphs (auto) 0.53 L Nucleated RBC % 0 Differential Comment SCANNED PT 27.8 H INR 2.6 Sodium 138 Potassium 3.5 Chloride 100 Carbon Dioxide 33.0 H Anion Gap 5 BUN 33 H Creatinine 1.67 H Estim Creat Clear Calc 19.13 Est GFR (MDRD) Af Amer 37 L Est GFR (MDRD) Non-Af 31 L BUN/Creatinine Ratio 19.8 Glucose 102 Calcium 9.1 Radiography Chest X-Ray - ED: 1 View, Read by ED Physician and Chronic Changes Diagnostic Testing: Clinical Impression(s) from Imaging Studies Brain CT 03/30/23 13:58 IMPRESSION: Chronic involutional changes of the brain. Partial opacification of the right maxillary sinus. Electronically Signed: Tam Motley MD at 14:59 EDT , Chest X-Ray 03/30/23 14:40 IMPRESSION: No acute abnormality is seen. There is been no change since prior study. Electronically Signed: Tam Motley MD at 15:01 EDT , Hip/Pelvis X-Ray 03/30/23 14:40 IMPRESSION: Degenerative changes. Electronically Signed: Tam Motley MD at 15:00 EDT , Treatment and Re-Evaluation :: Patient ultimately declined pain medication here. CT scan of the head is unremarkable. Portable chest x-ray per my interpretation was chronic changes with no acute injury or infiltrate. Radiology interpretation is reviewed. Pelvis and left hip x-rays per my interpretation reveal no obvious bony fracture. Radiology interpretation is reviewed and agrees. CBC and chemistry studies are largely unremarkable. Her INR is therapeutic at 2.6. Patient does have chronic renal insufficiency with a creatinine of 1.67 which is consistent with her baseline. Test results are discussed with the patient. She is able to get up and stand at bedside. She would like to try to go home. She will take Tylenol and use ice to her hip for pain. Return instructions are given. Discharge Plan Triage Chief Complaint: Lower Extremity Injury ED Provider: Sonya Diaz Dx/Rx/DC Orders Clinical Impression: Contusion of hip, Fall Instructions: ED Hip Contusion, ED FALL-from [id number] Prescriptions: No Action furosemide [Lasix] 40 mg tablet 40 mg PO .PRN albuterol sulfate [Ventolin HFA] 90 mcg/actuation HFA aerosol inhaler 2 puff INHALATION Q4H PRN (Reason: shortness of breath or wheezing) Qty: 8.5 0RF (DME) Handicap Parking Placard See Rx Instructions .Route .MEDSUPPLY Qty: 1 0RF Rx Instructions: As directed potassium chloride 10 mEq tablet extended release 20 meq PO QDAY Qty: 180 3RF Rx Instructions: give with food (meal/snack) warfarin 3 mg tablet 3 mg PO .COMPLEX Qty: 90 3RF Protocol: Dose Management Condition: Monday Dose/Route: 3 mg Instruction: 1 x 3 mg tablet Condition: Monday Dose/Route: 1.5 mg Instruction: 0.5 x 3 mg tablets Condition: Monday Dose/Route: 3 mg Instruction: 1 x 3 mg tablet Condition: Monday Dose/Route: 3 mg Instruction: 1 x 3 mg tablet Condition: Dose/Route: 3 mg Instruction: 1 x 3 mg tablet Condition: Monday Dose/Route: 3 mg Instruction: 1 x 3 mg tablet Condition: Monday Dose/Route: 3 mg Instruction: 1 x 3 mg tablet Protocol Text: Adjustment Start Date: Monday03/13/23 INR Value: 2.3 INR Date: 03/10/23 Recheck Date: 04/10/23 Rx Instructions: 1/2 tablet (1.5 mg) on Mondays and Wednesdays: Whole tablet (3mg) all other days of the week. Please give 90 pills in case dose needs increased. diltiazem HCl [Cardizem CD] 120 mg capsule,extended release 24hr 120 mg PO QDAY Qty: 90 3RF febuxostat 40 mg tablet 40 mg PO DAILY Primary Care Provider: Fletcher Menchaca Chi Referrals: Fletcher Menchaca Chi, MD [Primary Care Provider] - 3-5 Days if not improving Disposition Disposition: Home, Self Care
[2023-03-30 14:37] LABS: Absolute Lymphocyte Count 0.53 X10^3/uL (0.83-4.51); Absolute Neutrophil Count 7.5 X10^3/uL (2.0-7.7); Basophil# 0.03 X10^3/uL; Basophil% 0.3 % (0-1); Eosinophil# 0.03 X10^3/uL; Eosinophils% 0.3 % (0-5); Hematocrit 35.4 % (37-47); Lymphocyte # 0.53 X10^3/ul (0.83-4.51); Lymphocyte % 6.1 % (19-41); Mean Corp Hgb Conc 33.9 g/dL (32-36); Mean Corpuscular Hgb 37.5 pg (27.0-32.0); Mean Corpuscular Volume 110.6 fL (81-99); Mean Platelet Vol. 9.4 fl (6.2-12.0); Monocyte# 0.41 X10^3/uL; Monocyte% 4.8 % (0-10); NRBC Flagged by Analyzer 0 % (0-5); Neutrophil # 7.54 X10^3/uL (2.7-7.7); Neutrophil % 87.6 % (47-70); POSITIVE DIFFERENTIAL YES; Platelet Count 324 K/mm3 (150-450); RBC Distribution Width SD 61.4 fl (35.1-43.9); White Blood Count 8.6 K/mm3 (4.4-11.0)
--- NOTE | 2023-03-30 14:40 | RAD_ITS ---
STUDY: X-RAY - PELVIS AND LEFT HIP REASON FOR EXAM: Female, 88 years old. Left hip pain following a fall. TECHNIQUE: 3 views of the pelvis and hip. COMPARISON: None. FINDINGS: There is a non-specific bowel gas pattern. Prior abdominal hernia repair. There is narrowing with cortical sclerosis and osteophyte formation of the sacroiliac joint consistent with degenerative osteoarthritic changes. Normal bilateral superior and inferior pubic rami. Normal pubic symphysis. Normal bilateral ischial tuberosities. Normal visualized femoral head. Normal acetabulum. There is moderate articular joint space narrowing of the hip. RAD/HIP, UNI W/ Pelvis 2-3 Views IMPRESSION: Degenerative changes. Electronically Signed: Tam Motley MD at 15:00 EDT ,
--- NOTE | 2023-03-30 14:40 | RAD_ITS ---
STUDY: X-RAY CHEST REASON FOR EXAM: Female, 88 years old. Shortness of breath. History of fall. TECHNIQUE: Single AP portable view of the chest. COMPARISON: Comparison is made with prior study September 06, 2022. FINDINGS: The lungs are clear and expanded. There is no demonstrated pleural abnormality. There is mild cardiac enlargement. Normal mediastinum and kylee. Normal visualized pulmonary arteries. There is atherosclerotic calcification of the aortic arch with tortuosity. There are diffuse degenerative changes of the visualized thoracic spine. Normal visualized ribs, clavicles, and shoulders. There is no demonstrated abnormality of the visualized soft tissue structures of the upper abdomen. RAD/Chest 1 View (Portable) IMPRESSION: No acute abnormality is seen. There is been no change since prior study. Electronically Signed: Tam Motley MD at 15:01 EDT ,
[2023-03-30 14:44] LABS: Anion Gap 5 (5-15); BUN 33 mg/dL (7-18); BUN/Creat Ratio 19.8 RATIO (10-20); Calcium,Total 9.1 mg/dL (8.5-10.1); Chloride 100 mmol/L (98-107); Creatinine, Serum 1.67 mg/dL (0.55-1.02); EST Glomerular Filtration Rate 31 mL/min (>60); Est Glom Filt Rate - Afr Amer 37 mL/min (>60); Estimated Creatinine Clearance 19.13 ml/min; Glucose 102 mg/dL (74-106); Potassium 3.5 mmol/L (3.5-5.1); Sodium Level 138 mmol/L (136-145)
[2023-03-30 14:48] LABS: International Normalized Ratio 2.6; Prothrombin Time (Protime)PT. 27.8 SECONDS (11.7-14.9)
[2023-03-30 14:59] LABS: Differential Indicated SCAN CRITERIA MET
[2023-03-30 15:19] LABS: Differential Comment SCANNED
[2023-03-30 16:32] VITALS: BP 110/86; PULSE 81; RESP 18; O2SAT 94
== END 2023-03-30 16:33 | disposition home or self-care (01) ==
PROVIDERS: Emergency Provider Emergency Medicine; PCP Family Medicine Geriatric Medicine; Visit Provider Emergency Medicine
DX: S70.02XA Contusion of left hip, initial encounter (principal); J44.9 Chronic obstructive pulmonary disease, unspecified; I48.19 Other persistent atrial fibrillation; W18.39XA Other fall on same level, initial encounter; Y92.002 Bathroom of unspecified non-institutional (private) residence as the place of occurrence of the external cause; Z79.01 Long term (current) use of anticoagulants; Z87.891 Personal history of nicotine dependence
CPT/HCPCS: 70450; 71045; 73502; 80048; 85025; 85610; 99285; A4216

== ENCOUNTER 2023-04-06 12:34 | Outpatient (RCR) | payer MEDICARE, OTHER, SELFPAY ==
[2023-04-02 03:16] VITALS: BMI 29.6
[2023-04-06 13:39] LABS: Prothrombin Time (Protime)PT. 31.2 SECONDS (11.7-14.9)
== END 2023-04-06 18:00 | disposition home or self-care (01) ==
LOC: LAB 12:34
PROVIDERS: Family Provider Family Medicine; PCP Family Medicine Geriatric Medicine; Referring Provider Nurse Practitioner Family; Visit Provider Nurse Practitioner Family
DX: I48.19 Other persistent atrial fibrillation (principal); Z79.899 Other long term (current) drug therapy
CPT/HCPCS: 36415; 85610

== ENCOUNTER 2023-04-09 10:04 | Inpatient (IN) | payer MEDICARE, OTHER, SELFPAY ==
[2023-04-09] VITALS (8 sets, daily range): BP systolic 121–179; BP diastolic 72–145; PULSE 63–94; RESP 12–22; TEMP 36.2–36.6; O2SAT 91–100; BMI 27.1; BMI 25.0
[2023-04-09 10:30] LABS: Mucous, Urine 0 SEEN /hpf (<or=2+); Red Blood Cells-Urine 0 SEEN /hpf (0-5); Squamous Epithelial Cells - UA 0 SEEN /hpf (5-10)
--- NOTE | 2023-04-09 10:32 | CT_ITS ---
INDICATION: confusion EXAMINATION: CT BRAIN - CT Head or Brain W/O Contrast Injection TECHNIQUE: Multiple axial images were obtained of the head without intravenous contrast. A radiation dose optimization technique was used for this scan. IV Contrast dosage and agent: None. RADIATION DOSAGE (If Supplied By Facility): CTDIvol = ( 44.99 ) mGy, DLP = ( 812.98 ) mGycm COMPARISON: March 30, 2023 FINDINGS: BRAIN PARENCHYMA: No intra- or extra-axial hemorrhage. There are patchy areas of low attenuation within the white matter of the cerebral hemispheres, a nonspecific finding most commonly reflecting small vessel ischemia. No evidence of acute infarct. No intracranial mass or mass effect. There is preservation of the tam/white matter interface. Posterior fossa structures are unremarkable. CSF SPACES: Appropriate for age. No hydrocephalus. Basal cisterns are patent. CALVARIUM, SKULL BASE, PARANASAL SINUSES AND MASTOID AIR CELLS: There is a stable partially visualized low-attenuation focus within the right maxillary sinus which may reflect a mucous retention cyst or polyp. No discrete lytic or blastic abnormalities. ORBITS: Both globes, extraocular muscles, optic nerves and retrobulbar fat appear unremarkable. ASPECTS Score for Acute Strokes: 10 CT/Brain/Head without Contrast IMPRESSION: No acute intracranial process. Small vessel ischemia. Electronically Signed: Judy Pena MD at 11:25 EDT ,
--- NOTE | 2023-04-09 10:33 | EDS_ITS ---
HPI History of Present Illness Chief Complaint: Confusion Informant: patient, spouse/S.O. and family Narrative Narrative: Presents with family secondary to increased confusion and weakness. states that he tried to get her up out of bed to her walker today and he was too weak to help her. She slowly slid to the ground and they called grandson to come help. She reportedly has been more confused the last couple days. She wears oxygen at night and states he found her without her oxygen on in the morning. They do have a journal of her vital sign readings including pulse ox during the day and her sats have been over 90%. She did reportedly have an episode of urinary incontinence in the car on the way to the hospital. Nursing staff states her brief was very saturated with foul-smelling urine. Patient denies having a fever. She denies pain, does states she feels very tired. 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 classification Syncope Thyroid nodule Thyromegaly Tobacco dependence in remission Home Medications Handicap Parking Placard #1 ea 12/24/20 [Rx Last Taken Unknown] potassium chloride 10 mEq tablet,extended release 20 meq (2 x 10 mEq) PO QDAY #180 tabs 10/20/22 [Rx Last Taken Unknown] warfarin 3 mg tablet 3 mg PO .COMPLEX #90 tabs 11/24/22 [Rx Last Taken Unknown] diltiazem HCl 120 mg capsule,extended release 24 hr (Cardizem CD) 120 mg PO QDAY #90 caps 01/09/23 [Rx Last Taken Unknown] albuterol sulfate 90 mcg/actuation aerosol inhaler (Ventolin HFA) 2 puff inhalation Q4H PRN shortness of breath or wheezing #8.5 grams 01/23/23 [Rx Last Taken Unknown] furosemide 40 mg tablet (Lasix) 40 mg PO .PRN 01/23/23 [History Last Taken Unknown] febuxostat 40 mg tablet 40 mg PO DAILY 03/15/23 [History Last Taken Unknown] Allergy/AdvReac Type Severity Reaction Status Date / Time hydrochlorothiazide Allergy Severe Unknown Verified 03/30/23 13:43 Sulfa (Sulfonamide Allergy Severe Unknown Verified 03/30/23 13:43 Antibiotics) Family History Father CAD (coronary artery disease) Myocardial infarction, Onset Age: 54 Daughter Breast cancer Surgical History History of colon resection Social History Smoking Status: Former smoker how long ago did patient quit smokin second hand exposure: Yes alcohol intake: current alcohol intake frequency: a few times a week Alcohol type: beer and wine substance use type: does not use ROS ROS ED Constitutional Constitutional ED: Denies chills or fever(s) ENT ENT ED: Denies rhinorrhea or sore throat Cardiovascular Cardiovascular: Denies chest pain or palpitations Respiratory/Chest Respiratory/Chest: Denies cough or dyspnea Gastrointestinal Gastrointestinal: Denies abdominal pain, nausea or vomiting Genitourinary Genitourinary ED: Reports other Details: Urinary incontinence today Musculoskeletal Musculoskeletal: Denies back pain or extremity pain Integumentary Denies Abrasions or rash Neurologic Neurologic: Reports weakness; Denies headache(s) Psychiatric Psychiatric: Denies anxiety or depression Allergic/Immunologic Allergic/Immunologic ED: Denies lip swelling or urticaria EXAM Physical Exam Const Vital Signs: 04/09/23 10:05 Temperature 97.2 F L Temperature Source Temporal Pulse Rate 68 Respiratory Rate 18 Blood Pressure 179/145 H Blood Pressure Mean 156 Pulse Ox 92 Oxygen Delivery Method Room Air Positive well nourished and well developed General Appearance ED: well developed HEENT Reports moist mucous membranes Eyes EOMs intact bilaterally Chest Wall inspection of chest normal and palpation of chest normal Resp normal respiratory effort and clear to auscultation bilaterally Cardio regular rhythm GI non-tender Auscultation: hypoactive bowel sounds Palpation: soft Extremity normal to inspection Neuro Neuro Narrative: Patient was all 4 extremities with no focal deficits. Psych mental status grossly normal Psych Narrative: Calm and cooperative. Skin no rashes or lesions noted Skin Narrative: Nursing staff noted excoriation on her buttocks. MDM MDM MDM Narrative Medical decision making narrative: Patient placed on hospital monitor. Labwork obtained to evaluate for leukocytosis, anemia, and electrolyte derangement. Urinalysis obtained to evaluate for infection/hematuria. Given the patient's confusion and being on Coumadin she is sent for head CT to evaluate for any evidence of bleed. History & Record Review Discussion w/independent historian: Patient, Family and Significant other Additional record(s) reviewed:: Prior ED visit and Prior labs Lab Data Attestation: I reviewed the patient's lab results. Labs: Laboratory Results - last 24 hr 04/09/23 04/09/23 10:25 10:36 WBC 11.7 H RBC 3.59 L Hgb 13.6 Hct 39.8 MCV 110.9 H MCH 37.9 H MCHC 34.2 RDW Std Deviation 61.2 H RDW Coeff of Gera 14.8 H Plt Count 403 MPV 9.7 Immature Gran % (Auto) 1.400 H Neut % (Auto) 93.0 H Lymph % (Auto) 2.6 L [place] % (Auto) 2.8 Eos % (Auto) 0.1 Baso % (Auto) 0.1 Absolute Neuts (auto) 10.9 H Absolute Lymphs (auto) 0.30 L Nucleated RBC % 0 PT 39.9 H INR 4.0 H* Sodium 136 Potassium 4.1 Chloride 99 Carbon Dioxide 29.0 Anion Gap 8 BUN 64 H Creatinine 2.63 H Est GFR (MDRD) Af Amer 22 L Est GFR (MDRD) Non-Af 18 L BUN/Creatinine Ratio 24.3 H Glucose 133 H Calcium 9.8 Urine Color Yellow Urine Clarity Cloudy Urine pH 6.5 Ur Specific [place] 1.010 Urine Protein 30 H Urine Glucose (UA) Normal Urine Ketones Negative Urine Occult Blood 50 H Urine Nitrite Positive H Urine Bilirubin Negative Urine Urobilinogen Normal Ur Leukocyte Esterase 500 H Urine RBC 0 SEEN Urine WBC 50-100 SEEN Ur Squamous Epith Cells 0 SEEN Urine Bacteria 2+ Urine Mucus 0 SEEN Radiography Diagnostic Testing: Clinical Impression(s) from Imaging Studies Brain CT 04/09/23 10:32 IMPRESSION: No acute intracranial process. Small vessel ischemia. Electronically Signed: Judy Pena MD at 11:25 EDT , Treatment and Re-Evaluation :: CBC was elevated white count 11.7 with 93% neutrophils. Hemoglobin is normal at 13.6. INR is elevated at 4.0. Chemistry studies significant for BUN of 64 and a creatinine of 2.63. Creatinine late last month was 1.64. Urinalysis does reveal evidence of infection with positive nitrites, 50-100 white cells, 2+ bacteria. Urine culture has been ordered and patient is given a dose of Rocephin. CT scan of the head was obtained given her confusion with Coumadin. This reveals chronic changes but no evidence of acute bleed. Given the patient's confusion and her 's difficulty in caring for her I do feel she requires observation for IV antibiotics and physical therapy. I will speak with the hospitalist. Discharge Plan Triage Chief Complaint: Confusion Other Complaint: Fall Complaint ED Provider: Sonya Diaz Dx/Rx/DC Orders Clinical Impression: ADOLFO (acute kidney injury), UTI (urinary tract infection), Coagulopathy Prescriptions: No Action furosemide [Lasix] 40 mg tablet 40 mg PO .PRN albuterol sulfate [Ventolin HFA] 90 mcg/actuation HFA aerosol inhaler 2 puff INHALATION Q4H PRN (Reason: shortness of breath or wheezing) Qty: 8.5 0RF (DME) Handicap Parking Placard See Rx Instructions .Route .MEDSUPPLY Qty: 1 0RF Rx Instructions: As directed potassium chloride 10 mEq tablet extended release 20 meq PO QDAY Qty: 180 3RF Rx Instructions: give with food (meal/snack) warfarin 3 mg tablet 3 mg PO .COMPLEX Qty: 90 3RF Protocol: Dose Management Condition: Monday Dose/Route: 3 mg Instruction: 1 x 3 mg tablet Condition: Monday Dose/Route: 1.5 mg Instruction: 0.5 x 3 mg tablets Condition: Monday Dose/Route: 3 mg Instruction: 1 x 3 mg tablet Condition: Monday Dose/Route: 3 mg Instruction: 1 x 3 mg tablet Condition: Dose/Route: 3 mg Instruction: 1 x 3 mg tablet Condition: Monday Dose/Route: 3 mg Instruction: 1 x 3 mg tablet Condition: Monday Dose/Route: 3 mg Instruction: 1 x 3 mg tablet Protocol Text: Adjustment Start Date: Monday04/07/23 INR Value: 3.0 INR Date: 04/06/23 Recheck Date: 05/05/23 Rx Instructions: 1/2 tablet (1.5 mg) on Mondays and Wednesdays: Whole tablet (3mg) all other days of the week. Please give 90 pills in case dose needs increased. diltiazem HCl [Cardizem CD] 120 mg capsule,extended release 24hr 120 mg PO QDAY Qty: 90 3RF febuxostat 40 mg tablet 40 mg PO DAILY Primary Care Provider: Fletcher Menchaca Chi Referrals: Fletcher Menchaca Chi, MD [Primary Care Provider] - Disposition Disposition: Acute Care [facility]
[2023-04-09 10:56] LABS: Anion Gap 8 (5-15); BUN 64 mg/dL (7-18); BUN/Creat Ratio 24.3 RATIO (10-20); Calcium,Total 9.8 mg/dL (8.5-10.1); Chloride 99 mmol/L (98-107); Creatinine, Serum 2.63 mg/dL (0.55-1.02); EST Glomerular Filtration Rate 18 mL/min (>60); Est Glom Filt Rate - Afr Amer 22 mL/min (>60); Glucose 133 mg/dL (74-106); Potassium 4.1 mmol/L (3.5-5.1); Sodium Level 136 mmol/L (136-145)
[2023-04-09 10:58] LABS: Absolute Neutrophil Count 10.9 X10^3/uL (2.0-7.7); Basophil# 0.01 X10^3/uL; Basophil% 0.1 % (0-1); Eosinophil# 0.01 X10^3/uL; Eosinophils% 0.1 % (0-5); Hematocrit 39.8 % (37-47); Hemoglobin 13.6 g/dL (12.0-15.0); Lymphocyte % 2.6 % (19-41); Mean Corp Hgb Conc 34.2 g/dL (32-36); Mean Corpuscular Hgb 37.9 pg (27.0-32.0); Mean Corpuscular Volume 110.9 fL (81-99); Mean Platelet Vol. 9.7 fl (6.2-12.0); Monocyte# 0.33 X10^3/uL; Monocyte% 2.8 % (0-10); NRBC Flagged by Analyzer 0 % (0-5); Neutrophil # 10.91 X10^3/uL (2.7-7.7); POSITIVE DIFFERENTIAL YES; Platelet Count 403 K/mm3 (150-450); RBC Distribution Width CV 14.8 % (11.6-14.6); RBC Distribution Width SD 61.2 fl (35.1-43.9); Red Blood Count 3.59 M/mm3 (4.2-5.4); White Blood Count 11.7 K/mm3 (4.4-11.0)
[2023-04-09 11:00] LABS: Differential Indicated SCAN CRITERIA MET
[2023-04-09 11:02] LABS: Color, Urine Yellow (Yellow); Glucose, Dipstick Normal (Normal); Ketone-Dipstick Negative (Negative); Leukocyte Esterase-Dipstick 500 /ul (Negative); Nitrite-Dipstick Positive (Negative); Occult Blood-Urine 50 /ul (Negative); Protein-Dipstick 30 mg/dl (Negative); Urine Bilirubin Dipstick Negative (Negative); Urine Clarity Cloudy (Clear); Urine Urobilinogen Normal (Normal); Urine pH 6.5 (5.0 - 8.0)
[2023-04-09 11:06] LABS: Prothrombin Time (Protime)PT. 39.9 SECONDS (11.7-14.9)
[2023-04-09 11:36] LABS: Bacteria 2+ /hpf (None Seen); White Blood Cells 50-100 SEEN /hpf (0-5)
[2023-04-09 11:52] LABS: Differential Comment SCANNED
[2023-04-09] MEDS: Ceftriaxone 1 GM/50 ML BAG IV (12:06)
[2023-04-09] MEDS: 0.9% Normal Saline (1000mL) 1,000 ML 150 ML IV (12:06)
--- NOTE | 2023-04-09 16:30 | HP.PCM.HOS_ITS ---
HPI - General General Date of Admission: 04/09/23 Date of Service: 04/09/23 Chief Complaint: Generalized weakness, confusion HPI Narrative IVELISSE YAÑEZ, is a 88 F who presents to the emergency room at [facility] after being brought in by her family due to increased confusion and weakness patient's said that the patient slid to the ground at home and he was unable to get her up off the floor. According to the , she has been confused for the last couple of days, patient states she wears oxygen at night but according to the medical record, he has found her in the morning not wearing the oxygen. According to her pulmonary visit notes, she is on BiPAP at a setting of 11/7, she is supposed to use oxygen at 2-1/2 L as needed to maintain a pulse ox above 90%. Lab work obtained in the emergency room showed a white blood cell count of 11.7, INR was 4, chemistry profile was abnormal for a BUN of 64 and a creatinine of 2.63. Patient's urinalysis revealed 50-100 WBCs, and +[address] of the brain showed no acute intracranial process, there was small vessel ischemia noted. Patient will be admitted to [place] [id number] for acute kidney injury and urinary tract infection. I tried calling the to get information about the patient's nighttime oxygen setting but he cannot hear on the phone due to hearing loss. 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5 grams 01/23/23 [Rx Last Taken Unknown] furosemide 40 mg tablet (Lasix) 40 mg PO DAILY ASK PCP 01/23/23 [History Last Taken Unknown] febuxostat 40 mg tablet 40 mg PO DAILY GOUT 03/15/23 [History Last Taken Unknown] Allergy/AdvReac Type Severity Reaction Status Date / Time hydrochlorothiazide Allergy Severe Unknown Verified 03/30/23 13:43 Sulfa (Sulfonamide Allergy Severe Unknown Verified 03/30/23 13:43 Antibiotics) Family History Father CAD (coronary artery disease) Myocardial infarction, Onset Age: 54 Daughter Breast cancer Surgical History History of colon resection Social History Smoking Status: Former smoker how long ago did patient quit smokin second hand exposure: Yes alcohol intake: current alcohol intake frequency: a few times a week Alcohol type: beer and wine substance use type: does not use ROS ROS Narrative Patient exhibits some moderate confusion, she is oriented as to person, place, and year, she cannot carry on a conversation with this examiner due to confusion. Vital Signs Vital Signs Vital Signs: 04/09/23 10:05 04/09/23 12:09 04/09/23 12:11 Temperature 97.2 F L Temperature Source Temporal Pulse Rate 68 90 82 Respiratory Rate 18 19 H 16 Respiratory Effort Respiratory Depth Respiratory Pattern Blood Pressure 179/145 H 154/89 H Blood Pressure Mean 156 110 Blood Pressure Source Blood Pressure Position Blood Pressure Location Pulse Ox 92 92 93 Oxygen Delivery Method Room Air Room Air 04/09/23 12:20 04/09/23 12:23 04/09/23 13:29 Temperature 97.1 F L Temperature Source Temporal Pulse Rate 93 84 Respiratory Rate 16 18 Respiratory Effort Normal Non-Labored Respiratory Depth Normal Respiratory Pattern Normal Blood Pressure 133/91 H 132/98 H Blood Pressure Mean 105 109 Blood Pressure Source Monitor Blood Pressure Position Semi-Fowlers Blood Pressure Location Right Arm Pulse Ox 91 100 Oxygen Delivery Method Room Air Room Air 04/09/23 16:13 Temperature 97.9 F Temperature Source Oral Pulse Rate 85 Respiratory Rate 18 Respiratory Effort Respiratory Depth Respiratory Pattern Blood Pressure 137/76 H Blood Pressure Mean 96 Blood Pressure Source Monitor Blood Pressure Position Semi-Fowlers Blood Pressure Location Right Arm Pulse Ox 97 Oxygen Delivery Method Room Air Weight Weight: 61.9 kg Body Mass Index (BMI) 25.0 Physical Exam Const alert, no apparent distress and average body habitus Constitutional Narrative: Patient is alert, she is oriented as to person place and year but is otherwise confused and cannot carry on lengthy conversation General Appearance: cooperative, well kempt and well developed Orientation / Consciousness: awake, oriented to person and oriented to place HEENT normocephalic, head/scalp atraumatic, hearing grossly normal bilaterally and moist oral mucous membranes Eyes PERRL, EOMs intact bilaterally and conjunctivae normal Neck supple, no JVD, thyroid normal and no carotid bruits General: trachea midline Resp normal respiratory effort, no retractions, no use of accessory muscles and clear to auscultation bilaterally Auscultation: Negative for rales, rhonchi or wheezes Cardio S1 normal heart sound, S2 normal heart sound, no murmurs, no rub and no gallops Cardio Narrative: Heart rate and rhythm is irregular GI normal to inspection, nondistended, normoactive bowel sounds, soft to palpation, non-tender and non-distended Extremity no clubbing, cyanosis or edema Skin no rashes or lesions noted General Skin Exam: no breakdown Neuro CN's II-XII intact bilaterally, moves all extremities, no focal motor deficits and no sensory deficits noted Neuro Narrative: Exhibits moderate confusion but is oriented as to person, place, and year Sensorium / Orientation: awake, alert, oriented to person and oriented to place Psych Psych Narrative: Patient exhibits moderate confusion, she is oriented as to person, place, and y ear Results Lab / Micro Data 04/09/23 10:36 04/09/23 10:36 Labs: Laboratory Results - last 24 hr 04/09/23 10:25: Urine Color Yellow, Urine Clarity Cloudy, Urine pH 6.5, Ur Specific [place] 1.010, Urine Protein 30 H, Urine Glucose (UA) Normal, Urine Ketones Negative, Urine Occult Blood 50 H, Urine Nitrite Positive H, Urine Bilirubin Negative, Urine Urobilinogen Normal, Ur Leukocyte Esterase 500 H, Urine RBC 0 SEEN, Urine WBC 50-100 SEEN, Ur Squamous Epith Cells 0 SEEN, Urine Bacteria 2+, Urine Mucus 0 SEEN 04/09/23 10:36: WBC 11.7 H, RBC 3.59 L, Hgb 13.6, Hct 39.8, MCV 110.9 H, MCH 37.9 H, MCHC 34.2, RDW Std Deviation 61.2 H, RDW Coeff of Gera 14.8 H, Plt Count 403, MPV 9.7, Immature Gran % (Auto) 1.400 H, Neut % (Auto) 93.0 H, Lymph % (Auto) 2.6 L, [place] % (Auto) 2.8, Eos % (Auto) 0.1, Baso % (Auto) 0.1, Absolute Neuts (auto) 10.9 H, Absolute Lymphs (auto) 0.30 L, Nucleated RBC % 0, Differential Comment SCANNED, PT 39.9 H, INR 4.0 H*, Sodium 136, Potassium 4.1, Chloride 99, Carbon Dioxide 29.0, Anion Gap 8, BUN 64 H, Creatinine 2.63 H, Est GFR (MDRD) Af Amer 22 L, Est GFR (MDRD) Non-Af 18 L, BUN/Creatinine Ratio 24.3 H , Glucose 133 H, Calcium 9.[address] 04/09/23 10:32 IMPRESSION: No acute intracranial process. Small vessel ischemia. Electronically Signed: Judy Pena MD at 11:25 EDT , Assessment & Plan Assessment/Plan (1) ADOLFO (acute kidney injury): PLAN: Plan 1. Acute kidney injury-patient will be admitted to [facility], she will receive IV fluids, labs will be monitored #2 urinary tract infection-patient was given IV Rocephin, she will remain on this medication, urine will be cultured #3 metabolic encephalopathy-complicates care, medical course, recovery, and prognosis #4 acute debility secondary to #1, #2, and #3-patient will be seen by PT and OT #5 chronic atrial fibrillation-patient is on Coumadin but her INR presently is elevated, I will hold her Coumadin and recheck INR tomorrow #6 obstructive sleep apnea-patient is on BiPAP at night-the settings appear to be 11/ 7 cm, it appears that she may be using 2-1/2.5 L of oxygen at bedtime, I am unable to communicate with the patient's over the phone due to his hearing loss #7 chronic obstructive pulmonary disease-complicates care, medical course, recovery, and prognosis #8 chronic hypoxic respiratory failure-it appears that the patient is using oxygen 2-1/2 L as needed at home #9 hypercoagulable state secondary to chronic atrial fibrillation-patient is on Coumadin, INR is now elevated, Coumadin will be held and INR will be rechecked tomorrow Total clinical time spent by myself addressing the patient's medical issues, reviewing all of her data, and collaborating with patient's care team: 75 minutes Charges/Coding Visit Charges Inpatient E&M: 96948 Init Hosp L3
[2023-04-09] MEDS: 0.9% Normal Saline (1000mL) 1,000 ML 100 ML IV (20:57)
[2023-04-09] MEDS: Menthol/Lanolin/Calamine/Znox 113 GM Tube 1 APPLIC TOPICAL (20:57)
[2023-04-10 02:35] VITALS: O2SAT 97
[2023-04-10 03:09] VITALS: BP 109/80; PULSE 95; RESP 20; TEMP 37.1; O2SAT 97
[2023-04-10 06:23] LABS: Absolute Lymphocyte Count 0.46 X10^3/uL (0.83-4.51); Absolute Neutrophil Count 7.7 X10^3/uL (2.0-7.7); Eosinophil# 0.02 X10^3/uL; Eosinophils% 0.2 % (0-5); Hematocrit 33.6 % (37-47); Hemoglobin 11.3 g/dL (12.0-15.0); Lymphocyte # 0.46 X10^3/ul (0.83-4.51); Lymphocyte % 5.3 % (19-41); Mean Corp Hgb Conc 33.6 g/dL (32-36); Mean Corpuscular Hgb 37.8 pg (27.0-32.0); Mean Corpuscular Volume 112.4 fL (81-99); Mean Platelet Vol. 9.8 fl (6.2-12.0); Monocyte# 0.36 X10^3/uL; Monocyte% 4.2 % (0-10); NRBC Flagged by Analyzer 0 % (0-5); Neutrophil % 89.1 % (47-70); POSITIVE DIFFERENTIAL YES; Platelet Count 306 K/mm3 (150-450); RBC Distribution Width SD 61.9 fl (35.1-43.9); Red Blood Count 2.99 M/mm3 (4.2-5.4); White Blood Count 8.6 K/mm3 (4.4-11.0)
[2023-04-10 06:29] LABS: Differential Indicated SCAN CRITERIA MET
[2023-04-10] MEDS: 0.9% Normal Saline (1000mL) 1,000 ML 100 ML IV ×3 (06:43→23:07)
[2023-04-10 06:49] LABS: Anion Gap 6 (5-15); BUN 60 mg/dL (7-18); BUN/Creat Ratio 31.1 RATIO (10-20); Calcium,Total 8.6 mg/dL (8.5-10.1); Chloride 105 mmol/L (98-107); Creatinine, Serum 1.93 mg/dL (0.55-1.02); EST Glomerular Filtration Rate 26 mL/min (>60); Est Glom Filt Rate - Afr Amer 32 mL/min (>60); Estimated Creatinine Clearance 16.55 ml/min; Glucose 85 mg/dL (74-106); Potassium 3.6 mmol/L (3.5-5.1); Sodium Level 139 mmol/L (136-145)
[2023-04-10 06:51] LABS: Differential Comment SCANNED
[2023-04-10 07:20] LABS: Prothrombin Time (Protime)PT. 42.5 SECONDS (11.7-14.9)
[2023-04-10 07:58] LABS: International Normalized Ratio 4.4
[2023-04-10 09:00] VITALS: BP 141/69; PULSE 95; RESP 20; TEMP 36.7; O2SAT 99
[2023-04-10] MEDS: dilTIAZem CD 120 MG Capsule PO (09:08)
[2023-04-10] MEDS: Ceftriaxone 1 GM/50 ML BAG IV (09:09)
[2023-04-10] MEDS: Menthol/Lanolin/Calamine/Znox 113 GM Tube 1 APPLIC TOPICAL ×2 (09:09→20:42)
--- NOTE | 2023-04-10 09:48 | PN.HOSP_ITS ---
Reason for Visit Reason for Visit: Diagnoses Acute kidney failure, unspecified (04/09/23) Subjective Subjective Patient was seen and examined today, she is on 2-1/2 L of oxygen at the present time, she does not look in any distress. Labs are better today, creatinine is 1.93, BUN was 60, white count was normal, INR was still elevated at 4.4 Objective Data Objective Data Vital Signs: Vital Signs Temp Pulse Resp BP Pulse Ox O2 Del Method O2 Flow Rate 98.1 F 95 20 H 141/69 H 99 Nasal Cannula 2.5 04/10/23 09:00 04/10/23 09:00 04/10/23 09:00 04/10/23 09:00 04/10/23 09:00 04/10/23 09:00 04/10/23 09:00 FiO2 30 04/09/23 21:02 Oxygen Flow Rate (L/min) 2.5 Oxygen Delivery Method Nasal Cannula Weight: 61.9 kg Body Mass Index (BMI) 25.0 Intake & Output: Intake and Output for Last 24 Hours 04/08/23 04/09/23 04/10/23 23:59 23:59 23:59 Intake Total 996.67 / 1046.67 1226.67 / 1226.67 Output Total 150 / 250 250 / 250 Balance 846.67 / 796.67 976.67 / 976.67 Lab / Micro Data 04/10/23 05:40 04/10/23 05:40 Labs: Laboratory Results - last 24 hr 04/09/23 10:25: Urine Color Yellow, Urine Clarity Cloudy, Urine pH 6.5, Ur Sp ecific [place] 1.010, Urine Protein 30 H, Urine Glucose (UA) Normal, Urine Ke tones Negative, Urine Occult Blood 50 H, Urine Nitrite Positive H, Urine Bilirubin Negative, Urine Urobilinogen Normal, Ur Leukocyte Esterase 500 H, Urine RBC 0 SEEN, Urine WBC 50-100 SEEN, Ur Squamous Epith Cells 0 SEEN, Urine Bacteria 2+, Urine Mucus 0 SEEN 04/09/23 10:36: WBC 11.7 H, RBC 3.59 L, Hgb 13.6, Hct 39.8, MCV 110.9 H, MCH 37.9 H, MCHC 34.2, RDW Std Deviation 61.2 H, RDW Coeff of Gera 14.8 H, Plt Count 403, MPV 9.7, Immature Gran % (Auto) 1.400 H, Neut % (Auto) 93.0 H, Lymph % (Auto) 2.6 L, [place] % (Auto) 2.8, Eos % (Auto) 0.1, Baso % (Auto) 0.1, Absolute Neuts (auto) 10.9 H, Absolute Lymphs (auto) 0.30 L, Nucleated RBC % 0, Differential Comment SCANNED, PT 39.9 H, INR 4.0 H*, Sodium 136, Potassium 4.1, Chloride 99, Carbon Dioxide 29.0, Anion Gap 8, BUN 64 H, Creatinine 2.63 H, Est GFR (MDRD) Af Amer 22 L, Est GFR (MDRD) Non-Af 18 L, BUN/Creatinine Ratio 24.3 H , Glucose 133 H, Calcium 9.8 04/10/23 05:40: WBC 8.6, RBC 2.99 L, Hgb 11.3 L, Hct 33.6 L, MCV 112.4 H, MCH 37.8 H, MCHC 33.6, RDW Std Deviation 61.9 H, RDW Coeff of Gera 15.0 H, Plt Count 306, MPV 9.8, Immature Gran % (Auto) 1.200 H, Neut % (Auto) 89.1 H, Lymph % (Auto) 5.3 L, [place] % (Auto) 4.2, Eos % (Auto) 0.2, Baso % (Auto) 0.0, Absolute Neuts (auto) 7.7, Absolute Lymphs (auto) 0.46 L, Nucleated RBC % 0, Differential Comment SCANNED, PT 42.5 H, INR 4.4 H*, Sodium 139, Potassium 3.6, Chloride 105, Carbon Dioxide 28.0, Anion Gap 6, BUN 60 H, Creatinine 1.93 H, Estim Creat Clear Calc 16.55, Est GFR (MDRD) Af Amer 32 L, Est GFR (MDRD) Non-Af 26 L, BUN/Crea tinine Ratio 31.1 H, Glucose 85, Calcium 8.6 Radiography Diagnostic Testing: Radiology Impression Brain CT 04/09/23 10:32 IMPRESSION: No acute intracranial process. Small vessel ischemia. Electronically Signed: Judy Pena MD at 11:25 EDT , Physical Exam Narrative alert, no apparent distress and average body habitus Constitutional Narrative: Patient is alert, she is oriented as to person place and year but is otherwise confused and cannot carry on lengthy conversation General Appearance: cooperative, well kempt and well developed Orientation / Consciousness: awake, oriented to person and oriented to place HEENT normocephalic, head/scalp atraumatic, hearing grossly normal bilaterally and moist oral mucous membranes Eyes PERRL, EOMs intact bilaterally and conjunctivae normal Neck supple, no JVD, thyroid normal and no carotid bruits General: trachea midline Resp normal respiratory effort, no retractions, no use of accessory muscles and clear to auscultation bilaterally Auscultation: Negative for rales, rhonchi or wheezes Cardio S1 normal heart sound, S2 normal heart sound, no murmurs, no rub and no gallops Cardio Narrative: Heart rate and rhythm is irregular GI normal to inspection, nondistended, normoactive bowel sounds, soft to palpation, non-tender and non-distended Extremity no clubbing, cyanosis or edema Skin no rashes or lesions noted General Skin Exam: no breakdown Neuro CN's II-XII intact bilaterally, moves all extremities, no focal motor deficits and no sensory deficits noted Neuro Narrative: Exhibits moderate confusion but is oriented as to person, place, and year Sensorium / Orientation: awake, alert, oriented to person and oriented to place Psych Psych Narrative: Patient exhibits moderate confusion, she is oriented as to person, place, and year Assessment & Plan Assessment/Plan (1) UTI (urinary tract infection): (2) ADOLFO (acute kidney injury): PLAN: Plan 1. Acute kidney injury-continue IV fluids, creatinine is improved today #2 urinary tract infection-patient on IV Rocephin, she will remain on this medication, urine culture pending #3 metabolic encephalopathy-complicates care, medical course, recovery, and prognosis #4 acute debility secondary to #1, #2, and #3-patient will be seen by PT and OT #5 chronic atrial fibrillation-patient is on Coumadin but her INR presently is elevated, I will hold her Coumadin and recheck INR tomorrow #6 obstructive sleep apnea-patient is on BiPAP at night-the settings appear to be 11/ 7 cm, it appears that she may be using 2-1/2.5 L of oxygen at bedtime, I am unable to communicate with the patient's over the phone due to his hearing loss #7 chronic obstructive pulmonary disease-complicates care, medical course, recovery, and prognosis #8 chronic hypoxic respiratory failure-it appears that the patient is using oxygen 2-1/2 L as needed at home #9 hypercoagulable state secondary to chronic atrial fibrillation-patient is on Coumadin, INR is now elevated, Coumadin will be held and INR will be rechecked tomorrow Total clinical time spent by myself addressing the patient's medical issues, reviewing all of her data, and collaborating with patient's care team: 25 minute s Charges/Coding Visit Charges Inpatient E&M: [id number] [facility] Hosp L1
--- NOTE | 2023-04-10 10:11 | EKG12_ITS ---
Test Reason : Blood Pressure : / mmHG Vent. Rate : 165 BPM Atrial Rate : 108 BPM P-R Int : 174 ms QRS Dur : 008 ms QT Int : 314 ms P-R-T Axes : 165 000 062 degrees QTc Int : 520 ms Atrial fibrillation Indeterminate axis Pulmonary disease pattern Nonspecific T wave abnormality Abnormal ECG No previous ECGs available Confirmed by SANDRINE PHELPS, GROVER ([id number]), tape editor KT DOUGLAS ([id number]) on 04/11/2023 11:29:30 AM Referred By: T Confirmed By:GROVER DELUCA MD
--- NOTE | 2023-04-10 12:30 | CASEMGMT ---
Addendum entered by Syl Rich 04/10/23 16:36: 1600: RN FOUZIA spoke w/Solo @ [facility] and she was made aware of pt being admitted to [facility]. Also discussed 's report of pt's ETOH use. Solo spoke w/SKEIN STRAIGHTENER who sees pt from [facility] and states the SKEIN STRAIGHTENER went w/pt and to Dr Menchaca's office appt a few weeks ago and pt's ETOH use was discussed at the appt w/him and pt reports she only drinks a faviola every night. Original Note: RN?CM?LENDING ADVISOR?CM?to room to meet with patient for initial transition planning/care coordination?assessment.?RN?CM?introduced self and role at [facility].? Pt voices understanding and consents to?assessment?at this time.? Pt sitting up in chair in room in no distress at this time.? @ bedside. Pt is A/O at this time and answers all questions appropriately, although there were a few things she was unable to recall. Pt is ANIAK and is very ANIAK. also states he has dementia and has difficulty remembering things.? Care providers, pharmacy, and demographics verified/updated at this time between the two of them. PCP: Dr Menchaca Specialists: Dr Sheppard and Goldie England, [employer] [facility]-pulmonology, [facility]/cardiology Preferred Pharmacy: [facility] Retail @ discharge, if goes home. Insurance: [facility] Prescription Benefit:?Yes Living Will/HPOA:?Pt states she has done both LW and HCPOA, but states she is not sure who is her POA and unable to recall. They are not sure if is listed as HCPOA agent or if it is her GS, Kyler, or son, Jean ANGEL: , Cesar. Son, Jean Hickman. GS, Kyler Small. Pt had a daughter (Kyler's mother), who has . Living Arrangements: Lives w/her in large house trailer w/a basement. 3 steps to enter through back door, 5 steps thru ght front door. Kyler lives in house behind them. Pt has difficulty getting up/down the stairs and Kyler assists her. Pt also needs help getting up into 's truck and Kyler assist w/that as well. Pt able to do ADL's. does the laundry and most of the cooking. Pt does some of the cooking. CCN: Pt is active w/CCN and sets up pt's medications. SKEIN STRAIGHTENER from [facility] also went with pt to Dr Mecnhaca's appt recently. Transportation:?Pt has been driving, but states, I think those days are over. drives. DME: States has the following DME:?walker, rails/grab bars, pulse ox, CPAP w/O2 bleed-in @ HS @ 3 L/M. Pt states she does not wear it during the day, just at bedtime. Pt and state she has a concentrator and one back-up tank. Pt does not have a shower chair, but states it would be a good idea for her to have one. He and pt made aware this is not covered by insurance and made aware of locations this could be purchased at. Pt states Kyler is working on put toilet siderails/riser in bathroom. Pt has a medical alert button, but states she does not wear it. HHC/SNF: No hx of SNF. Discussed discharge planning. Questions answered re: SNF and they were both made aware of 3 [place] In-patient hospital stay requirements by [facility] for SNF benefits. Both pt and would like pt to go to a SNF and interested in looking at a list of SNF options. They also asked BAILEY FRAGOSO to call pt's GS, Kyler, to discuss this with him and state they would like him to make the decision on where she should go. Call placed to Kyler and discussed SNF w/him, questions answered. He states he will be coming into the hospital today after he gets off of work @ 3:30 PM. He was made aware a list of local SNF's could be placed in pt's room for them to review when he comes in. He voices appreciation. When BAILEY FRAGOSO exiting room, pt's states he would like to walk out with BAILEY FRAGOSO. After exiting room, voiced concern to BAILEY FRAGOSO about pt having an alcohol problem. BAILEY FRAGOSO stepped into private room w/ for pt confidentiality. states pt has drank for a long time, but that is has become more of a problem in the past 10 years. He states pt's mother was an alcoholic and that pt is just like her mother. He reports that pt keeps it hidden and doesn't like to talk about it and that she gets madder than the devil when he bring it up and states she has a temper. He reports he thinks she drinks every night and that she drinks a mixed drink that is 19% alcohol and she drinks it straight. He does not know how much of it she drinks and he doesn't think she drinks more during the day, but he is not sure. He states, That's why she drives to [place] to the store to buy the alcohol there instead of at the local store because she doesn't want anyone she knows to see she drinks. He is not aware of her ever having withdrawal symptoms. Zee ARMSTRONG, made aware of above request for SNF and report of pt drinking. RN, Casey, made aware of report of ETOH use and he states will notify Dr Alas. PLAN:??SNF Tammy QUEVEDO?RN?CM
--- NOTE | 2023-04-10 14:29 | CASEMGMT ---
Addendum entered by Liza Chapa 04/10/23 15:42: [facility] can accept. [facility] are reviewing. Will await for outcome. Original Note: Social Work Reason for referral: short-term SNF placement SW met with patient, introduced self and role. Confirmed pt's interest in SNF placement. Provided pt with SNF list in [facility] with quality and resource data via [email or web address] Application Guide. Pt prefers [facility], but would like this worker call Kyler jones, to confirm. SW educated to pt needing 3-midnights for Medicare coverage, otherwise, pt would be private pay with part B therapies. Pt would like grandson to have that knowledge. SW agreed to contact karen. SW phoned grandwil and discussed above. Karen confirmed and expressed understanding to Medicare coverage. Karen confirmed SNF choices and referrals. SW placed SNF referrals via [email or web address] Application and phoned TCU. TCU accepted pt. [facility] will continue to follow for DC planning. Liza Chapa, [facility] [facility]
[2023-04-10 15:00] VITALS: BP 124/70; PULSE 93; RESP 20; TEMP 36.3; O2SAT 95
[2023-04-10 20:27] VITALS: BP 123/83; PULSE 94; RESP 18; TEMP 36.9; O2SAT 92
[2023-04-10] MEDS: Acetaminophen 325 MG Tablet 650 MG PO (20:44)
[2023-04-10 22:37] VITALS: PULSE 94; RESP 12; RESP 17; O2SAT 98
[2023-04-11] VITALS (11 sets, daily range): BP systolic 104–148; BP diastolic 60–67; PULSE 75–101; RESP 12–25; TEMP 36.6–37; O2SAT 95–100
[2023-04-11 07:09] LABS: Anion Gap 3 (5-15); BUN 44 mg/dL (7-18); BUN/Creat Ratio 32.6 RATIO (10-20); Calcium,Total 8.6 mg/dL (8.5-10.1); Chloride 112 mmol/L (98-107); Creatinine, Serum 1.35 mg/dL (0.55-1.02); EST Glomerular Filtration Rate 40 mL/min (>60); Est Glom Filt Rate - Afr Amer 48 mL/min (>60); Estimated Creatinine Clearance 23.66 ml/min; Glucose 91 mg/dL (74-106); Potassium 3.4 mmol/L (3.5-5.1); Sodium Level 142 mmol/L (136-145)
[2023-04-11 07:15] LABS: Prothrombin Time (Protime)PT. 31.3 SECONDS (11.7-14.9)
[2023-04-11] MEDS: dilTIAZem CD 120 MG Capsule PO (08:28)
[2023-04-11] MEDS: Menthol/Lanolin/Calamine/Znox 113 GM Tube 1 APPLIC TOPICAL ×2 (08:28→20:51)
[2023-04-11] MEDS: 0.9% Normal Saline (1000mL) 1,000 ML 75 ML IV (09:51)
--- NOTE | 2023-04-11 09:51 | PCM.PN.HOSP ---
Reason for Visit Reason for Visit: Diagnoses Acute kidney failure, unspecified (04/09/23) Urinary tract infection, site not specified (04/09/23) Subjective Subjective Patient was seen and examined today, she is on 2 L O2 at rest, she does not complain of any shortness of breath, she is alert and responds appropriately to simple questions. Case management talked with me yesterday, the would like the patient to go to an extended care facility for rehab services, patient understands this and agrees. Patient's urine culture returned positive for E. coli which is pansensitive. Patient will receive Rocephin again this morning, I will then place her on oral medication starting tomorrow. Objective Data Objective Data Vital Signs: Vital Signs Temp Pulse Resp BP Pulse Ox O2 Del Method O2 Flow Rate 98.6 F 75 20 H 118/65 100 Nasal Cannula 2 04/11/23 08:00 04/11/23 08:00 04/11/23 08:00 04/11/23 08:00 04/11/23 08:00 04/11/23 08:49 04/11/23 08:49 FiO2 30 04/11/23 04:27 Oxygen Flow Rate (L/min) 2 Oxygen Delivery Method Nasal Cannula Weight: 61.9 kg Body Mass Index (BMI) 25.0 Intake & Output: Intake and Output for Last 24 Hours 04/09/23 04/10/23 04/11/23 23:59 23:59 23:59 Intake Total 996.67 / 1046.67 2916.67 / 3036.67 1143.33 / 1143.33 Output Total 150 / 250 600 / 600 225 / 225 Balance 846.67 / 796.67 2316.67 / 2436.67 918.33 / 918.33 Lab / Micro Data 04/10/23 05:40 04/11/23 06:15 Labs: Laboratory Results - last 24 hr 04/11/23 06:15: PT 31.3 H, INR 3.0, Sodium 142, Potassium 3.4 L, Chloride 112 H, Carbon Dioxide 27.0, Anion Gap 3 L, BUN 44 H, Creatinine 1.35 H, Estim Creat Clear Calc 23.66, Est GFR (MDRD) Af Amer 48 L, Est GFR (MDRD) Non-Af 40 L, BUN/Creatinine Ratio 32.6 H, Glucose 91, Calcium 8.6 Micro: Microbiology 04/09/23 10:25 Urine Catheter - Catheter Urine Culture - Final Escherichia coli Physical Exam Const alert, oriented x3, no apparent distress and average body habitus General Appearance: cooperative, well kempt and well developed Orientation / Consciousness: awake, oriented to person, oriented to place and oriented to time HEENT normocephalic, head/scalp atraumatic and moist oral mucous membranes Eyes PERRL, EOMs intact bilaterally and conjunctivae normal Neck supple, no JVD, thyroid normal and no carotid bruits General: trachea midline Resp normal respiratory effort, no retractions, no use of accessory muscles and clear to auscultation bilaterally Auscultation: Negative for rales, rhonchi or wheezes Cardio S1 normal heart sound, S2 normal heart sound, no murmurs, no rub and no gallops Cardio Narrative: Heart rate and rhythm is irregular GI normal to inspection, nondistended, normoactive bowel sounds, soft to palpation, non-tender and non-distended Extremity no clubbing, cyanosis or edema Skin no rashes or lesions noted General Skin Exam: no breakdown Neuro CN's II-XII intact bilaterally, moves all extremities, no focal motor deficits and no sensory deficits noted Sensorium / Orientation: awake, alert, oriented to person and oriented to place Speech: speech normal Psych affect normal Assessment & Plan Assessment/Plan (1) UTI (urinary tract infection): (2) ADOLFO (acute kidney injury): PLAN: Plan 1. Acute kidney injury-continue IV fluids, creatinine is improved today, BMP will be repeated tomorrow #2 Acute cystitis secondary to E. coli-patient on IV Rocephin, I will begin the patient on oral Keflex starting tomorrow #3 metabolic encephalopathy-this appears to have cleared at this time #4 acute debility secondary to #1, #2, and #3-patient will be seen by PT and OT #5 chronic atrial fibrillation-patient is on Coumadin, INR was 3 today, I will restart her Coumadin at 2 mg daily starting today, I will reorder an INR for tomorrow. I attempted to obtain an EKG on the patient because there is not one in her medical record, unfortunately because of the patient's body habitus, an adequate EKG was not able to be obtained. #6 obstructive sleep apnea-patient is on BiPAP at night-the settings appear to be 11/ 7 cm, it appears that she may be using 2-1/2.5 L of oxygen at bedtime, I am unable to communicate with the patient's over the phone due to his hearing loss #7 chronic obstructive pulmonary disease-complicates care, medical course, recovery, and prognosis #8 chronic hypoxic respiratory failure-patient is currently on 2 L of oxygen continuous at rest, it appears that the patient is using oxygen 2-1/2 L as needed at home #9 hypercoagulable state secondary to chronic atrial fibrillation-patient is on Coumadin, patient's Coumadin will be restarted today Additional note, case management talked with me yesterday and according to the patient's family members, she drinks alcohol in the evening, it is not clear how much alcohol she drinks but she has at least 1 faviola type drink every night. Patient shows no evidence of alcohol withdrawal at this time. I do not know how relevant her alcohol intake is at this time. Total clinical time spent by myself addressing the patient's medical issues, reviewing all of her data, and collaborating with patient's care team: 35 minutes Charges/Coding Visit Charges Inpatient E&M: 43467 Subs Hosp L2
[2023-04-11] MEDS: Ceftriaxone 1 GM/50 ML BAG IV (09:53)
--- NOTE | 2023-04-11 10:36 | CASEMGMT ---
Social Work [facility] pt. SW spoke with physician and pt will be monitored over night and likely ready for dischrage tomorrow. SW met with pt and introduced self and role of SW. SW spoke with pt regarding SNF choice. Pt deferring decision to her grandson Kyler. Phone call to Kyler and SNF preference is [facility]. TCU notified and confirms acceptance of pt tomorrow. SW met with pt and updated on decision and pt is agreeable. [facility] notified to cancel referral. Plan: TCU, Monday [facility]
--- NOTE | 2023-04-11 10:44 | CASEMGMT ---
Discharge Planning [facility]. Sabine Caruso, Discharge Planning Asst.
[2023-04-11] MEDS: Jantoven 2 MG Tablet PO (17:03)
[2023-04-12] MEDS: 0.9% Normal Saline (1000mL) 1,000 ML 75 ML IV (00:16)
[2023-04-12 01:52] VITALS: PULSE 91; RESP 12; RESP 26; O2SAT 97
[2023-04-12 03:15] VITALS: BP 128/75; PULSE 90; RESP 14; TEMP 36.7; O2SAT 96
[2023-04-12 07:40] VITALS: O2SAT 96
[2023-04-12] MEDS: dilTIAZem CD 120 MG Capsule PO (09:33)
[2023-04-12] MEDS: Menthol/Lanolin/Calamine/Znox 113 GM Tube 1 APPLIC TOPICAL (09:33)
[2023-04-12] MEDS: Ceftriaxone 1 GM/50 ML BAG IV (09:35)
[2023-04-12 10:00] VITALS: BP 122/65; PULSE 100; RESP 16; TEMP 37.3; O2SAT 99
--- NOTE | 2023-04-12 11:05 | PN.HOSP_ITS ---
Reason for Visit Reason for Visit: Diagnoses Acute kidney failure, unspecified (04/09/23) Urinary tract infection, site not specified (04/09/23) Subjective Subjective Feels well. Denies any complaints. Objective Data Objective Data Vital Signs: Vital Signs Temp Pulse Resp BP Pulse Ox O2 Del Method O2 Flow Rate 37.3 C 100 16 122/65 H 99 Nasal Cannula 2 04/12/23 10:00 04/12/23 10:00 04/12/23 10:00 04/12/23 10:00 04/12/23 10:00 04/12/23 10:00 04/12/23 10:00 FiO2 30 04/12/23 01:52 Oxygen Flow Rate (L/min) 2 Oxygen Delivery Method Nasal Cannula Weight: 61.9 kg Body Mass Index (BMI) 25.0 Intake & Output: Intake and Output for Last 24 Hours 04/10/23 04/11/23 04/12/23 23:59 23:59 23:59 Intake Total 2916.67 / 3036.67 2295.00 / 2445.00 998.75 / 998.75 Output Total 600 / 600 725 / 925 500 / 500 Balance 2316.67 / 2436.67 1570.00 / 1520.00 498.75 / 498.75 Lab / Micro Data 04/10/23 05:40 04/11/23 06:15 Micro: Microbiology 04/09/23 10:25 Urine Catheter - Catheter Urine Culture - Final Escherichia coli Physical Exam Const alert and no apparent distress Resp normal respiratory effort and no retractions Cardio regular rate, regular rhythm, S1 normal heart sound and S2 normal heart sound GI normal to inspection, nondistended, normoactive bowel sounds, soft to palpation, non-tender and non-distended Neuro Sensorium / Orientation: awake and alert Assessment & Plan Assessment/Plan (1) UTI (urinary tract infection): QUALIFIERS: Hematuria presence: without hematuria Urinary tract infection type: acute cystitis Qualified Code(s): N30.00 - Acute cystitis without hematuria PLAN: 2/2 E. coli, pansensitive. on CTX change to macrobid and treat through 04/16. (2) ADOLFO (acute kidney injury): PLAN: Resolved with IVF and hold furosemide. Unclear baseline as prior labs have been variable, but currently improved. (3) Metabolic encephalopathy: PLAN: resolved 2/2 E. coli and dehydration. (4) Coagulopathy: PLAN: resolved. resumed on a lower dose of warfarin (2 rather than 3) monitor INR (5) Debility: PLAN: 2/2 to above SNF today. PLAN: Plan Chronic conditions: * chronic atrial fibrillation-Coumadin at 2 mg daily. Continue diltiazem. * obstructive sleep apnea-patient is on BiPAP at night-the settings appear to be 11/ 7 cm, it appears that she may be using 2-1/2.5 L of oxygen at bedtime, * chronic obstructive pulmonary disease-complicates care, medical course, recovery, and prognosis * chronic hypoxic respiratory failure-patient is currently on 2 L of oxygen continuous at rest, it appears that the patient is using oxygen 2-1/2 L as needed at home * gout: febuxostat VTE prophylaxis: not indictated as she is already anticoagulated. Disposition: to SNF.
[2023-04-12 13:03] LABS: International Normalized Ratio 1.8; Prothrombin Time (Protime)PT. 21.1 SECONDS (11.7-14.9)
--- NOTE | 2023-04-12 13:54 | PCM.TXEXTCAR ---
Diet Diet Order/Speech Therapy: 04/09/23 13:10 Diet: Regular - General Food consistency:: Regular Liquid Consistency:: Regular/Thin Type of Dietary Supplement:: [place] Breakfast Therapies Physical Therapy: Eval and Treat Occupational Therapy: Eval and Treat Speech Therapy: Eval and Treat Problem/Diagnosis (1) UTI (urinary tract infection): Status: Acute Code(s): N39.0 - Urinary tract infection, site not specified Plan: 2/2 E. coli, pansensitive. on CTX change to macrobid and treat through 04/16. (2) ADOLFO (acute kidney injury): Status: Acute Code(s): N17.9 - Acute kidney failure, unspecified Plan: Resolved with IVF and hold furosemide. Unclear baseline as prior labs have been variable, but currently improved. (3) Metabolic encephalopathy: Status: Acute Code(s): G93.41 - Metabolic encephalopathy Plan: resolved 2/2 E. coli and dehydration. (4) Coagulopathy: Status: Acute Code(s): D68.9 - Coagulation defect, unspecified Plan: resolved. resumed on a lower dose of warfarin (2 rather than 3) monitor INR (5) Debility: Status: Acute Code(s): R53.81 - Other malaise Plan: 2/2 to above SNF today. Plan Chronic conditions: chronic atrial fibrillation-Coumadin at 2 mg daily. Continue diltiazem. obstructive sleep apnea-patient is on BiPAP at night-the settings appear to be 11/ 7 cm, it appears that she may be using 2-1/2.5 L of oxygen at bedtime, chronic obstructive pulmonary disease-complicates care, medical course, recovery, and prognosis chronic hypoxic respiratory failure-patient is currently on 2 L of oxygen continuous at rest, it appears that the patient is using oxygen 2-1/2 L as needed at home gout: febuxostat VTE prophylaxis: not indictated as she is already anticoagulated. Disposition: to SNF. Allergies/Procedures Done in Hospital Allergies hydrochlorothiazide Allergy (Severe, Verified 03/30/23 13:43) Unknown Sulfa (Sulfonamide Antibiotics) Allergy (Severe, Verified 03/30/23 13:43) Unknown Procedures: None Type of Care/Length of Stay Estimated LOS: Convalescent Care Less Than 30 days Type of Care Needed: Skilled Rehab Potential: Good Prognosis: Good Additional Orders/Day of Discharge Day of Discharge: 04/12/23 Dietary and Speech Recommendations Dietitian Recommendations/Changes: Continue liberal regular diet Will order 8 oz CIB w/ meals for increased nutrition if consumed - especially since pt seems to like to drink milk. Discharge Plan Admission Admit Date/Time: 04/09/23 12:20 Primary Reason for Your Visit: UTI. ADOLFO. confusion. Attending Provider: Jeb Fang Primary Care Provider: Fletcher Menchaca [employer] Providers: Robe Alas Discharge Orders/Prescriptions Prescriptions: New acetaminophen 325 mg Tablet 650 mg PO Q6H PRN PRN (Reason: Pain 1-10 Or Fever >100.7) Qty: 0 0RF warfarin [Jantoven] 2 mg Tablet 2 mg PO DINNER Qty: 0 0RF menthol-zinc oxide [Calmoseptine] 0.44-20.6 % Ointment 1 applic topical BID Qty: 0 0RF Protocol: *Topical Application Instructions APPLICATION INSTRUCTIONS: YOLANDA BUTTOCKS nitrofurantoin monohyd/m-cryst [Macrobid] 100 mg capsule 100 mg PO BID Qty: 8 0RF Rx Instructions: must administer with a meal/food Continued albuterol sulfate [Ventolin HFA] 90 mcg/actuation HFA aerosol inhaler 2 puff INHALATION Q4H PRN (Reason: shortness of breath or wheezing) Qty: 8.5 0RF (DME) Handicap Parking Placard See Rx Instructions .Route .MEDSUPPLY Qty: 1 0RF Rx Instructions: As directed diltiazem HCl [Cardizem CD] 120 mg capsule,extended release 24hr 120 mg PO QDAY Qty: 90 3RF febuxostat 40 mg tablet 40 mg PO DAILY Discontinued furosemide [Lasix] 40 mg tablet 40 mg PO DAILY potassium chloride 10 mEq tablet extended release 20 meq PO QDAY Qty: 180 3RF Rx Instructions: give with food (meal/snack) warfarin 3 mg tablet 3 mg PO .COMPLEX Qty: 90 3RF Protocol: Dose Management Condition: Monday Dose/Route: 3 mg Instruction: 1 x 3 mg tablet Condition: Monday Dose/Route: 1.5 mg Instruction: 0.5 x 3 mg tablets Condition: Monday Dose/Route: 3 mg Instruction: 1 x 3 mg tablet Condition: Monday Dose/Route: 3 mg Instruction: 1 x 3 mg tablet Condition: Dose/Route: 3 mg Instruction: 1 x 3 mg tablet Condition: Monday Dose/Route: 3 mg Instruction: 1 x 3 mg tablet Condition: Monday Dose/Route: 3 mg Instruction: 1 x 3 mg tablet Protocol Text: Adjustment Start Date: Monday04/07/23 INR Value: 3.0 INR Date: 04/06/23 Recheck Date: 05/05/23 Rx Instructions: 1/2 tablet (1.5 mg) on Mondays and Wednesdays: Whole tablet (3mg) all other days of the week. Please give 90 pills in case dose needs increased. Referrals / Follow Up: Fletcher Menchaca Chi, MD [Primary Care Provider] - Within 2 Weeks Disposition Disposition (needs filled in before D/C Order can be placed): [facility] Facility (1) UTI (urinary tract infection) Qualifiers: Urinary tract infection type: acute cystitis Hematuria presence: without hematuria Qualified Code(s): N30.00 - Acute cystitis without hematuria
--- NOTE | 2023-04-12 13:59 | DS.PCM_ITS ---
Providers Date of Admission: 04/09/23 Primary Care Physician: Dr. Fletcher Menchaca MD Reason For Visit: URINARY TRACT INFECTION, ACUTE KIDNEY INJURY Diagnosis Discharge Diagnosis (1) UTI (urinary tract infection): Status: Acute Code(s): N39.0 - Urinary tract infection, site not specified Qualifiers: Urinary tract infection type: acute cystitis Hematuria presence: without hematuria Qualified Code(s): N30.00 - Acute cystitis without hematuria Plan: 2/2 E. coli, pansensitive. on CTX change to macrobid and treat through 04/16. (2) ADOLFO (acute kidney injury): Status: Acute Code(s): N17.9 - Acute kidney failure, unspecified Plan: Resolved with IVF and hold furosemide. Unclear baseline as prior labs have been variable, but currently improved. (3) Metabolic encephalopathy: Status: Acute Code(s): G93.41 - Metabolic encephalopathy Plan: resolved 2/2 E. coli and dehydration. (4) Coagulopathy: Status: Acute Code(s): D68.9 - Coagulation defect, unspecified Plan: resolved. resumed on a lower dose of warfarin (2 rather than 3) monitor INR (5) Debility: Status: Acute Code(s): R53.81 - Other malaise Plan: 2/2 to above SNF today. Plan Chronic conditions: * chronic atrial fibrillation-Coumadin at 2 mg daily. Continue diltiazem. * obstructive sleep apnea-patient is on BiPAP at night-the settings appear to be 11/ 7 cm, it appears that she may be using 2-1/2.5 L of oxygen at bedtime, * chronic obstructive pulmonary disease-complicates care, medical course, recovery, and prognosis * chronic hypoxic respiratory failure-patient is currently on 2 L of oxygen continuous at rest, it appears that the patient is using oxygen 2-1/2 L as needed at home * gout: febuxostat VTE prophylaxis: not indictated as she is already anticoagulated. Disposition: to SNF. Medications at Discharge Home Medications Handicap Parking Placard #1 ea 12/24/20 diltiazem HCl 120 mg capsule,extended release 24 hr (Cardizem CD) 120 mg PO QDAY #90 caps 01/09/23 albuterol sulfate 90 mcg/actuation aerosol inhaler (Ventolin HFA) 2 puff inhalation Q4H PRN shortness of breath or wheezing #8.5 grams 01/23/23 febuxostat 40 mg tablet 40 mg PO DAILY GOUT 03/15/23 acetaminophen 325 mg tablet 650 mg (2 x 325 mg) PO Q6H PRN PRN Pain 1-10 Or Fever >100.7 #0 tabs 04/12/23 menthol 0.44 %-zinc oxide 20.6 % topical ointment (Calmoseptine) 1 applic topical BID #0 grams 04/12/23 nitrofurantoin monohydrate/macrocrystals 100 mg capsule (Macrobid) 100 mg PO BID #8 caps 04/12/23 warfarin 2 mg tablet (Jantoven) 2 mg PO DINNER #0 tabs 04/12/23 Hospital Course Operations None Procedures None Summary of Care Provided Minutes Spent on Discharge: 32 Weight / BMI Weight Weight: 61.9 kg Body Mass Index (BMI) 25.0 ABG / Lab / Microbiology Data 04/10/23 05:40 04/11/23 06:15 Laboratory: Laboratory Results - last 24 hr 04/12/23 12:30: PT 21.1 H, INR 1.8 Microbiology: Microbiology 04/09/23 10:25 Urine Catheter - Catheter Urine Culture - Final Escherichia coli Meaningful Use Info Meaningful Use Diagnoses (Choose all that apply): None applicable Discharge Plan Admission Admit Date/Time: 04/09/23 12:20 Primary Reason for Your Visit: UTI. ADOLFO. confusion. Attending Provider: Jeb Fang Primary Care Provider: Fletcher Menchaca [facility] [employer] Providers: Robe Alas Discharge Orders/Prescriptions Prescriptions: New acetaminophen 325 mg Tablet 650 mg PO Q6H PRN PRN (Reason: Pain 1-10 Or Fever >100.7) Qty: 0 0RF warfarin [Jantoven] 2 mg Tablet 2 mg PO DINNER Qty: 0 0RF menthol-zinc oxide [Calmoseptine] 0.44-20.6 % Ointment 1 applic topical BID Qty: 0 0RF Protocol: *Topical Application Instructions APPLICATION INSTRUCTIONS: YOLADNA BUTTOCKS nitrofurantoin monohyd/m-cryst [Macrobid] 100 mg capsule 100 mg PO BID Qty: 8 0RF Rx Instructions: must administer with a meal/food Continued albuterol sulfate [Ventolin HFA] 90 mcg/actuation HFA aerosol inhaler 2 puff INHALATION Q4H PRN (Reason: shortness of breath or wheezing) Qty: 8.5 0RF (DME) Handicap Parking Placard See Rx Instructions .Route .MEDSUPPLY Qty: 1 0RF Rx Instructions: As directed diltiazem HCl [Cardizem CD] 120 mg capsule,extended release 24hr 120 mg PO QDAY Qty: 90 3RF febuxostat 40 mg tablet 40 mg PO DAILY Discontinued furosemide [Lasix] 40 mg tablet 40 mg PO DAILY potassium chloride 10 mEq tablet extended release 20 meq PO QDAY Qty: 180 3RF Rx Instructions: give with food (meal/snack) warfarin 3 mg tablet 3 mg PO .COMPLEX Qty: 90 3RF Protocol: Dose Management Condition: Monday Dose/Route: 3 mg Instruction: 1 x 3 mg tablet Condition: Monday Dose/Route: 1.5 mg Instruction: 0.5 x 3 mg tablets Condition: Monday Dose/Route: 3 mg Instruction: 1 x 3 mg tablet Condition: Monday Dose/Route: 3 mg Instruction: 1 x 3 mg tablet Condition: Dose/Route: 3 mg Instruction: 1 x 3 mg tablet Condition: Monday Dose/Route: 3 mg Instruction: 1 x 3 mg tablet Condition: Monday Dose/Route: 3 mg Instruction: 1 x 3 mg tablet Protocol Text: Adjustment Start Date: Monday04/07/23 INR Value: 3.0 INR Date: 04/06/23 Recheck Date: 05/05/23 Rx Instructions: 1/2 tablet (1.5 mg) on Mondays and Wednesdays: Whole tablet (3mg) all other days of the week. Please give 90 pills in case dose needs increased. Referrals / Follow Up: Fletcher Menchaca Chi, MD [Primary Care Provider] - Within 2 Weeks Disposition Disposition (needs filled in before D/C Order can be placed): [facility] Charges/Coding Visit Charges Inpatient E&M: 07499 Disch Hosp >30min
[2023-04-12 14:13] VITALS: BP 136/78; PULSE 93; RESP 16; TEMP 36.6; O2SAT 95
--- NOTE | 2023-04-12 14:38 | PHA.DC.MC.R ---
Pharmacy [facility] has performed discharge medication reconciliation and counseling for this patient. The patient's discharge medication list was reviewed for discrepancies and discrepancies were resolved. The patient was counseled on the following discharge medications and changes in medications for homegoing were reviewed. The Reason for Use, instructions for use, and potential side effects were reviewed for new medication. The patient's questions regarding all of their medications were answered. 1. Nitrofurantoin 100 mg PO BID x 4 days The patient demonstrated some understanding but would benefit from further education and reinforcement. Medications at Discharge Home Medications Handicap Parking Placard #1 ea 12/24/20 diltiazem HCl 120 mg capsule,extended release 24 hr (Cardizem CD) 120 mg PO QDAY #90 caps 01/09/23 albuterol sulfate 90 mcg/actuation aerosol inhaler (Ventolin HFA) 2 puff inhalation Q4H PRN shortness of breath or wheezing #8.5 grams 01/23/23 febuxostat 40 mg tablet 40 mg PO DAILY GOUT 03/15/23 acetaminophen 325 mg tablet 650 mg (2 x 325 mg) PO Q6H PRN PRN Pain 1-10 Or Fever >100.7 #0 tabs 04/12/23 menthol 0.44 %-zinc oxide 20.6 % topical ointment (Calmoseptine) 1 applic topical BID #0 grams 04/12/23 nitrofurantoin monohydrate/macrocrystals 100 mg capsule (Macrobid) 100 mg PO BID #8 caps 04/12/23 warfarin 2 mg tablet (Jantoven) 2 mg PO DINNER #0 tabs 04/12/23
--- NOTE | 2023-04-12 15:12 | CASEMGMT ---
Social Work Per physician, pt is ready for discharge today. [facility] in TCU updated and pt can be accepted today. Discharge orders faxed to TCU. SW met with pt and updated on discharge plan to TCU and she is agreeable. Phone call to pt's grandson Kyler and updated on discharge and he is agreeable and will notify pt's . Disposition: TCU, intermediate facility [facility]
--- NOTE | 2023-04-12 15:22 | NURSING ---
report called to tcu. pt will go to room 2
== END 2023-04-12 17:35 | disposition skilled nursing facility (03) | DRG 689 ==
LOC: ED 11:47 → MS3 12:32
PROVIDERS: Admitting Provider Internal Medicine; Emergency Provider Emergency Medicine; PCP Family Medicine Geriatric Medicine
DX: N30.00 Acute cystitis without hematuria (principal); G93.41 Metabolic encephalopathy; J96.11 Chronic respiratory failure with hypoxia; D68.9 Coagulation defect, unspecified; I48.20 Chronic atrial fibrillation, unspecified; N17.9 Acute kidney failure, unspecified; E86.0 Dehydration; J44.9 Chronic obstructive pulmonary disease, unspecified; G47.33 Obstructive sleep apnea (adult) (pediatric); M10.9 Gout, unspecified; H91.90 Unspecified hearing loss, unspecified ear; R53.81 Other malaise; Z87.891 Personal history of nicotine dependence; Z79.01 Long term (current) use of anticoagulants; B96.20 Unspecified Escherichia coli [E. coli] as the cause of diseases classified elsewhere; Z79.899 Other long term (current) drug therapy
CPT/HCPCS: 36415; 70450; 80048; 81001; 85025; 85610; 87077; 87086; 87088; 87186; 93005; 94002; 94003; 94762; 97110; 97116; 97162; 97166; 97530; 97535; 99285; J7030; A4216

== ENCOUNTER 2023-04-12 17:30 | Inpatient (IN) | payer MEDICARE, OTHER, SELFPAY ==
[2023-04-12 18:37] VITALS: BP 139/64; PULSE 92; RESP 18; TEMP 37.1; O2SAT 94; BMI 27.1
[2023-04-12 19:09] VITALS: PULSE 90; RESP 20; O2SAT 98
--- NOTE | 2023-04-12 20:22 | HP.PCM_ITS ---
HPI - General General Date of Admission: 04/12/23 Date of Service: 04/12/23 Chief Complaint: Here for rehabilitation. HPI Narrative 04/09/2023 IVELISSE YAÑEZ, is a 88 Female who presents to [facility] Emergency Department with confusion. Worsening confusion, weakness, unable to get out of bed. Slid to floor, more confused for 2 days. Pulsox > 90%. Urinary incontinence, urine foul smelling. WBC 11.7, INR 4.0, BUN 64, Creatinine 2.63. Urinalysis consistent with urinary tract infection, Rocephin given, urine culture sent. 04/09/2023 Admit to Hospital. IV fluids for acute kidney injury. Rocephin IV for urinary tract infection, urine culture pending. 04/10/2023 Oxygen 2.5 liters per nasal cannula. Creatinine improved to 1.93, INR 4.4. IV fluids for acute kidney injury. Rocephin IV for urinary tract infection. Confused. 04/11/2023 Oxygen 2 liters, confusion improved, resolved. Urine culture grew > 100,000 pansensitive E. Coli. 1 more Rocephin dose, then transition to oral antibiotic. INR 3, restart coumadin 2mg daily. 04/12/2023 Admit to TCU with debility, here for rehabilitation, strengthening, prior to discharge home with . Grandson present. Resident confused. [facility] Medical History Atrial enlargement, bilateral TREVIÑO (dyspnea on exertion) Fatigue History of colon cancer Hypersomnia Hypoxia emt intermediate (current) use of anticoagulants Long-term use of high-risk medication Neck mass Nonrheumatic mitral valve regurgitation Nonrheumatic tricuspid valve regurgitation Nummular eczema Obesity ROSARIO (obstructive sleep apnea) Persistent atrial fibrillation Restless legs syndrome (RLS) Seborrheic keratoses Stage 2 moderate COPD by GOLD classification Syncope Thyroid nodule Thyromegaly Tobacco dependence in remission Home Medications Handicap Parking Placard #1 ea 12/24/20 [Rx Last Taken Unknown] diltiazem HCl 120 mg capsule,extended release 24 hr (Cardizem CD) 120 mg PO QDAY Heart #90 caps 01/09/23 [Rx Last Taken 04/12/23 10:15] albuterol sulfate 90 mcg/actuation aerosol inhaler (Ventolin HFA) 2 puff inhalation Q4H PRN shortness of breath or wheezing #8.5 grams 01/23/23 [Rx Last Taken Unknown] febuxostat 40 mg tablet 40 mg PO DAILY GOUT 03/15/23 [History Last Taken Unknown] acetaminophen 325 mg tablet 650 mg (2 x 325 mg) PO Q6H PRN PRN Pain 1-10 Or Fever >100.7 #0 tabs 04/12/23 [Rx Last Taken Unknown] menthol 0.44 %-zinc oxide 20.6 % topical ointment (Calmoseptine) 1 applic topical BID Skin #0 grams 04/12/23 [Rx Last Taken Unknown] nitrofurantoin monohydrate/macrocrystals 100 mg capsule (Macrobid) 100 mg PO BID Antibiotic #8 caps 04/12/23 [Rx Last Taken Unknown] warfarin 2 mg tablet (Jantoven) 2 mg PO DINNER Anticoagulant #0 tabs 04/12/23 [Rx Last Taken Unknown] Allergy/AdvReac Type Severity Reaction Status Date / Time hydrochlorothiazide Allergy Severe Unknown Verified 03/30/23 13:43 Sulfa (Sulfonamide Allergy Severe Unknown Verified 03/30/23 13:43 Antibiotics) Family History Father CAD (coronary artery disease) Myocardial infarction, Onset Age: 54 Daughter Breast cancer Surgical History History of colon resection Social History (Updated 04/12/23 @ 20:[address] Fletcher Menchaca MD) household members: spouse Smoking Status: Former smoker how long ago did patient quit smokin second hand exposure: Yes alcohol intake: current alcohol intake frequency: a few times a week Alcohol type: beer and wine substance use type: does not use ROS Constitutional Constitutional: Denies chills, fever(s) or weight gain ENT HEENT: Denies headache(s), nasal congestion or nasal discharge Cardiovascular Cardiovascular: Denies chest pain or palpitations Respiratory/Chest Respiratory/Chest: Denies cough, excessive phlegm production or shortness of breath with exertion Gastrointestinal Gastrointestinal: Denies abdominal pain, nausea or vomiting Genitourinary Genitourinary: Denies dysuria Musculoskeletal Musculoskeletal: Denies joint pain or joint swelling Integumentary Integumentary: Denies rash or wounds Neurologic Neurologic: Denies focal weakness, numbness or tingling Psychiatric Psychiatric: Denies anxiety, auditory hallucinations, depression, homicidal ideation or suicidal ideation Vital Signs Vital Signs Vital Signs: 04/12/23 18:37 Temperature 98.7 F Temperature Source Temporal Pulse Rate 92 Respiratory Rate 18 Blood Pressure 139/64 H Blood Pressure Mean 89 Blood Pressure Source Monitor Blood Pressure Position Semi-Fowlers Blood Pressure Location Right Arm Pulse Ox 94 Oxygen Delivery Method Room Air Weight Weight: 67.358 kg Body Mass Index (BMI) 27.1 Physical Exam Const alert General Appearance: cooperative HEENT normocephalic Eyes PERRL and EOMs intact bilaterally Neck supple, no JVD and no carotid bruits Resp normal respiratory effort, normal air movement and clear to auscultation bilaterally Cardio regular rate and regular rhythm GI normal to inspection, nondistended, normoactive bowel sounds, non-tender and non-distended Extremity normal capillary refill General Extremity: Negative for edema Skin no rashes or lesions noted General Skin Exam: no breakdown Psych affect normal Appearance: appropriate Assessment & Plan Assessment/Plan (1) Debility: (2) Acute delirium: (3) UTI (urinary tract infection): QUALIFIERS: Hematuria presence: without hematuria Urinary tract infection type: acute cystitis Qualified Code(s): N30.00 - Acute cystitis without hematuria (4) ADOLFO (acute kidney injury): (5) Dehydration: (6) Atrial fibrillation: (7) COPD (chronic obstructive pulmonary disease): (8) Chronic respiratory failure with hypoxia: (9) Alcohol dependence: (10) Mild cognitive impairment: (11) Gout: (12) Sleep apnea: PLAN: Plan 88 year old female with below past medical history hospitalized for acute delirium secondary to urinary tract infection, complicated by acute kidney injury, dehydration, coagulopathy, admitted to TCU with debility, here for rehabilitation, strengthening, prior to discharge home with . * Debility - PT/OT. * Pain - Tylenol 1000mg q6 prn pain (1-10). * Bowel - senna/colace 1 tablet bid, Magnesium citrate 300ml daily prn. * Adult immunization - Administer pneumonia vaccine, covid19 vaccine, flu vaccine as appropriate. * DVT prophylaxis - on warfarin. * COPD - Albuterol 2 puffs q4h prn. * Chronic hypoxia - resident on oxygen at home, pulsox 94% on RA, she appears short of breath, order Chest X-ray. * Sleep apnea - BiPAP at night. * Atrial fibrillation - Diltiazem 120mg daily, warfarin 2mg daily, follow INR. * Gout - Febuxostat 40mg daily. * E. Coli urinary tract infection - Nitrofurantoin 100mg bid thru 04/14/2023. * Alcohol dependence - She drinks tequila every night, I have asked her to stop. * Mixed dementia (Alcohol/Alzheimer) - Treat when cognition to baseline.
--- NOTE | 2023-04-12 20:49 | RAD_ITS ---
STUDY: X-RAY CHEST REASON FOR EXAM: Female, 88 years old. Shortness of breath TECHNIQUE: PA and lateral COMPARISON: March 30, 2023. FINDINGS: Mild bibasilar subsegmental uncertain significance possibly inflammatory. There is no demonstrated pleural abnormality. Heart is enlarged.. Normal mediastinum and kylee. Normal visualized pulmonary arteries. Mildly calcified aortic arch and descending thoracic aorta. Dorsal spine and shoulders demonstrate degenerative change Normal visualized ribs, clavicles, and shoulders. There is no demonstrated abnormality of the visualized soft tissue structures of the upper abdomen. RAD/Chest PA and Lateral IMPRESSION: ASHD. Mild bibasilar interstitial thickening which is new finding since prior study possibly inflammatory.. Clinical correlation recommended Electronically Signed: Devang Delgado MD at 21:13 EDT ,
[2023-04-12] MEDS: Senna/Docusate Sodium 1 Tablet PO (21:44)
[2023-04-12] MEDS: Menthol/Lanolin/Calamine/Znox 113 GM Tube 1 APPLIC TOPICAL (21:44)
[2023-04-12] MEDS: Nitrofurantoin Macrocrystals 100 MG Capsule PO (21:44)
[2023-04-13 01:10] VITALS: PULSE 72; RESP 18; O2SAT 94
--- NOTE | 2023-04-13 01:20 | CPS ---
Pt. has 3L bleed-in with BiPAP provided by [facility].
--- NOTE | 2023-04-13 04:54 | NURSING ---
Pt SOB this shift, chest xray ordered and completed. Dr Menchaca updated with results, no new orders given at this time. Pt stated she felt much better after 2L O2 applied; SpO2 98%. Respiratory applied BiPap and pt oumar. well throughout HS. Pt is confused and unable to answer admission questions at this time. She states she has a family member/friend coming in today to bring clothes and help her with questions. Pt wants to be a full code at this time and said she would need time to think about her code status and review it with her .
[2023-04-13 05:52] LABS: Absolute Lymphocyte Count 0.46 X10^3/uL (0.83-4.51); Absolute Neutrophil Count 7.9 X10^3/uL (2.0-7.7); Basophil# 0.03 X10^3/uL; Basophil% 0.3 % (0-1); Eosinophil# 0.06 X10^3/uL; Eosinophils% 0.7 % (0-5); Hematocrit 31.5 % (37-47); Hemoglobin 10.4 g/dL (12.0-15.0); Lymphocyte # 0.46 X10^3/ul (0.83-4.51); Lymphocyte % 5.1 % (19-41); Mean Corpuscular Hgb 37.7 pg (27.0-32.0); Mean Corpuscular Volume 114.1 fL (81-99); Mean Platelet Vol. 9.8 fl (6.2-12.0); Monocyte# 0.34 X10^3/uL; Monocyte% 3.8 % (0-10); NRBC Flagged by Analyzer 0 % (0-5); Neutrophil # 7.93 X10^3/uL (2.7-7.7); Neutrophil % 87.7 % (47-70); POSITIVE DIFFERENTIAL YES; Platelet Count 287 K/mm3 (150-450); RBC Distribution Width CV 14.9 % (11.6-14.6); RBC Distribution Width SD 63.1 fl (35.1-43.9); Red Blood Count 2.76 M/mm3 (4.2-5.4)
[2023-04-13 05:55] LABS: Differential Indicated SCAN CRITERIA MET
[2023-04-13 06:37] LABS: Anion Gap 4 (5-15); BUN 24 mg/dL (7-18); BUN/Creat Ratio 22.4 RATIO (10-20); Calcium,Total 9.1 mg/dL (8.5-10.1); Chloride 115 mmol/L (98-107); Creatinine, Serum 1.07 mg/dL (0.55-1.02); EST Glomerular Filtration Rate 52 mL/min (>60); Est Glom Filt Rate - Afr Amer 63 mL/min (>60); Estimated Creatinine Clearance 29.85 ml/min; Glucose 93 mg/dL (74-106); Potassium 3.5 mmol/L (3.5-5.1); Sodium Level 145 mmol/L (136-145)
[2023-04-13 07:13] LABS: Differential Comment SCANNED
[2023-04-13 07:31] VITALS: O2SAT 92
[2023-04-13] MEDS: Febuxostat 40 MG TABLET PO (08:47)
[2023-04-13] MEDS: Nitrofurantoin Macrocrystals 100 MG Capsule PO ×2 (08:47→20:35)
[2023-04-13] MEDS: Senna/Docusate Sodium 1 Tablet PO ×2 (08:47→20:35)
[2023-04-13] MEDS: dilTIAZem CD 120 MG Capsule PO (08:48)
[2023-04-13] MEDS: Albuterol IH (6.7 GM) 1 PUFF INHALER 2 PUFF INHALATION (08:51)
[2023-04-13] MEDS: Menthol/Lanolin/Calamine/Znox 113 GM Tube 1 APPLIC TOPICAL ×2 (08:51→20:37)
[2023-04-13 09:10] LABS: International Normalized Ratio 1.6; Prothrombin Time (Protime)PT. 19.6 SECONDS (11.7-14.9)
[2023-04-13 09:16] VITALS: BP 136/65; PULSE 87
[2023-04-13 09:34] VITALS: PULSE 87; RESP 18; O2SAT 90
--- NOTE | 2023-04-13 10:05 | NURSING ---
ANAYELI Nichols called patient's grandson, Kyler and requested that he bring copies of POA and living will paperwork. Kyler states that he and his grandfather share POA.
--- NOTE | 2023-04-13 10:26 | PCM.PN.DRR ---
TCU RX Drug Regimen Review Subjective/Objective Subjective/Objective: Subjective: 88 YOF admitted to TCU 04/12/23 S/P hospitalization at [facility] secondary to confusion, UTI. Patient admitted to TCU for rehabilitation and strengthening prior to dc home where she resides with her . Objective: Allergies hydrochlorothiazide Allergy (Severe, Verified 03/30/23 13:43) Unknown Sulfa (Sulfonamide Antibiotics) Allergy (Severe, Verified 03/30/23 13:43) Unknown Current Medications Generic Name Dose Route Start Last Admin Trade Name Freq PRN Reason Stop Dose Admin Acetaminophen 1,000 mg 04/12/23 20:41 Acetaminophen 500 Mg Tablet PO Q6H PRN PRN Pain Score 1-10 Albuterol Sulfate 2 puff 04/12/23 18:50 04/13/23 08:51 Albuterol Ih (6.7 Gm) 1 Puff Inhaler INHALATION 2 puff Q4H PRN Administration shortness of breath or wheezing Calamine/Phenol 1 applic 04/12/23 22:00 04/13/23 08:51 Menthol/Lanolin/Calamine/Znox 113 Gm Tube TOPICAL 1 applic BID [facility] Administration Protocol Diltiazem HCl 120 mg 04/13/23 10:00 04/13/23 08:48 Diltiazem Cd 120 Mg Capsule PO 120 mg DAILY [facility] Administration Protocol Febuxostat 40 mg 04/13/23 10:00 04/13/23 08:47 Febuxostat 40 Mg Tablet PO 40 mg DAILY DOMINGO Administration Magnesium Citrate 300 ml 04/12/23 20:40 Magnesium Citrate 300 Ml PO DAILY PRN Constipation Nitrofurantoin Macrocrystals 100 mg 04/12/23 22:00 04/13/23 08:47 Nitrofurantoin Macrocrystals 100 Mg Capsule PO 04/16/23 10:01 100 mg BID DOMINGO Administration Senna/Docusate Sodium 1 tablet 04/12/23 22:00 04/13/23 08:47 Senna/Docusate Sodium 1 Tablet PO 1 tablet BID DOMINGO Administration Tuberculin PPD 0.1 ml 04/20/23 10:00 Tuberculin,Purif.Prot.Deriv. 50 Tu/Ml Vial ID 04/20/23 10:01 X1 ONE Warfarin Sodium 2 mg 04/13/23 17:00 Jantoven 2 Mg Tablet PO DINNER [facility] Problem List (Updated 04/12/23 @ 20:[address] Fletcher Menchaca MD) Sleep apnea (Acute) Gout (Acute) Mild cognitive impairment (Acute) Alcohol dependence (Acute) COPD (chronic obstructive pulmonary disease) (Chronic) Atrial fibrillation (Acute) Dehydration (Acute) Acute delirium (Acute) Debility (Acute) UTI (urinary tract infection) (Acute) ADOLFO (acute kidney injury) (Acute) Chronic respiratory failure with hypoxia (Chronic) Vital Signs Temp Pulse Resp BP Pulse Ox O2 Del Method O2 Flow Rate 98.7 F 87 18 136/65 H 90 Room Air 3 04/12/23 18:37 04/13/23 09:34 04/13/23 09:34 04/13/23 09:16 04/13/23 09:34 04/13/23 09:34 04/13/23 07:31 FiO2 32 04/13/23 04:16 Oxygen Flow Rate (L/min) 3 Oxygen Delivery Method Room Air Weight: 67.358 kg Body Mass Index (BMI) 27.1 Sodium 145 mmol/L (136-145) 04/13/23 05:15 Potassium 3.5 mmol/L (3.5-5.1) 04/13/23 05:15 Chloride 115 mmol/L (98-107) H 04/13/23 05:15 Carbon Dioxide 26.0 mmol/L (21.0-32.0) 04/13/23 05:15 Anion Gap 4 (5-15) L 04/13/23 05:15 BUN 24 mg/dL (7-18) H 04/13/23 05:15 Creatinine 1.07 mg/dL (0.55-1.02) H 04/13/23 05:15 Est GFR (MDRD) Af Amer 63 mL/min (>60) 04/13/23 05:15 Est GFR (MDRD) Non-Af 52 mL/min (>60) L 04/13/23 05:15 BUN/Creatinine Ratio 22.4 RATIO (10-20) H 04/13/23 05:15 Glucose 93 mg/dL (74-106) 04/13/23 05:15 Assessment/Plan: 1. Pain: Tylenol 1000mg PO Q6h PRN Pain 1-10. Please continue to monitor for increased/decreased S/S pain, PRN medication usage. -To date, the patient has not required any PRN medication doses. Appears pain is managed at this time. 2. UTI d/t E.coli infection: Macrobid 100mg PO BID thru 04/16/23. Please continue to monitor for urinary symptoms/resolution of infection, CrCl (34mL/min using AdjBW on 04/13), new culture data if applicable. -Based on cultures from hospitalization, Macrobid is an appropriate antibiotic based on C/S data. 3. Atrial Fibrillation: Diltiazem 120mg PO Daily, Warfarin 2mg PO Daily. Please continue to monitor BP (range 136-139/64-78), pulse (range 72-87), S/S bleeding/bruising, INR ( 1.6 on 04/13). Patient's INR is not within goal range (2-3 for atrial fibrillation). Please consider increasing warfarin if clinically indicated (Note: INR potentially low d/t not having alcohol consumption while admitted), thank you. 4. Gout: Febuxostat 40mg PO Daily. Please continue to monitor for gout flare-ups, LFT (AST/ALT WNL 12/2022), exacerbation of atrial fibrillation, arthralgia. 5. COPD: Albuterol inhaler 2 puff Q4h PRN. Please continue to monitor for PRN medication effectiveness, HR (range 72-87), respiratory status. 6. History of alcohol dependence: Not on any medications at this time. Consider adding a MVI/ thiamine/ folic acid given history if clinically appropriate, thank you 7. Skin Integrity: Calmoseptine topically BID. Please continue to monitor for skin irritation/redness, ulcer formation. 8. Bowel: Senna-S 1 tab PO BID, Magnesium citrate 300mL PO Daily PRN. Please continue to monitor for increased/decreased constipation and/or diarrhea. -To date, the pt has not had a BM, but pt admitted less than 24hrs ago. If pt does not have a BM in the next 48hrs, consider using PRN medications to facilitate a BM. Assessment/Plan for indications treated with psychotropic medications: -The patient is not currently being maintained on psychotropic medications at time of medication review. Medical chart and medication regimen reviewed. The following medication irregularities or issues were identified: 1. History of alcohol dependence: Not on any medications at this time. Consider adding a MVI/ thiamine/ folic acid given history if clinically appropriate, thank you 2. Warfarin 2mg PO Daily. Patient's INR is not within goal range (2-3 for atrial fibrillation). Please consider increasing warfarin if clinically indicated (Note: INR potentially low d/t not having alcohol consumption while admitted), thank you. Date Date of Note:: 04/13/23
[2023-04-13] MEDS: Tuberculin,Purif.prot.deriv. 50 TU/ML Vial 0.1 ML ID (10:56)
--- NOTE | 2023-04-13 12:52 | CASEMGMT ---
Social Work Met with patient to complete initial assessment. Introduced self and role and reminded pt of meeting this worker on acute side of the hospital. Pt recalls. present in room for the beginning part of the assessment, per pt permission. Pt and are very MANZANITA. reports memory loss and needing to write things down. Pt scored 15/15 on BIMS but having much difficulty with word finding throughout assessment. ST order added for evaluation. See SW assessment for further details of PLOF and alcohol use hx. was leaving to go to the bank to retrieve copies of advanced directives. SW discussed code status and pt confirmed full code. Educated to Medicare benefit and encouraged to contact secondary insurance to ensure copay coverage. Pt's goal is to return at PLOF or better. Pt needs to be stronger, improve endurance, independent with ADLs, if possible, and safely complete entry steps. SW offered to provide resources for a ramp if needed. SW will continue to follow for DC planning and support. Liza Chapa, ROOSEVELT PLANT OPERATOR/SHIFT SUPERVISOR
--- NOTE | 2023-04-13 12:53 | NURSING ---
Addendum entered by Berna Malin 04/14/23 12:19: Grandson called and said he would be able to bring machine in. Original Note: PT AND WAS ASKED IF COULD BRING IN PT C PAP MACHINE. PT AND STATED THAT THE MACHINE WAS TO BIG. RN AWARE
[2023-04-13 12:56] VITALS: O2SAT 96
[2023-04-13 14:30] VITALS: BP 141/60; PULSE 88; RESP 20; TEMP 35.8; O2SAT 94
[2023-04-13] MEDS: Jantoven 2 MG Tablet PO (16:29)
[2023-04-13] MEDS: Acetaminophen 500 MG Tablet 1000 MG PO (20:34)
[2023-04-14 01:30] VITALS: PULSE 70; RESP 18; O2SAT 94
[2023-04-14 06:55] VITALS: O2SAT 93
[2023-04-14 09:28] VITALS: BP 127/51; PULSE 88; RESP 20; TEMP 36.7; O2SAT 96
[2023-04-14] MEDS: Menthol/Lanolin/Calamine/Znox 113 GM Tube 1 APPLIC TOPICAL ×2 (09:31→20:27)
[2023-04-14] MEDS: Febuxostat 40 MG TABLET PO (09:32)
[2023-04-14] MEDS: dilTIAZem CD 120 MG Capsule PO (09:32)
[2023-04-14] MEDS: Albuterol IH (6.7 GM) 1 PUFF INHALER 2 PUFF INHALATION (09:32)
[2023-04-14] MEDS: Nitrofurantoin Macrocrystals 100 MG Capsule PO ×2 (09:32→20:24)
[2023-04-14] MEDS: Senna/Docusate Sodium 1 Tablet PO ×2 (09:32→20:24)
[2023-04-14] MEDS: Jantoven 2 MG Tablet PO (17:04)
--- NOTE | 2023-04-14 21:41 | CPS ---
[2127] Pt. politely refused use of BiPAP tonight. Pt. maintaining appropriate oxygen saturations at this time on 2L NC (96%).
[2023-04-15 08:18] LABS: International Normalized Ratio 1.5; Prothrombin Time (Protime)PT. 18.4 SECONDS (11.7-14.9)
[2023-04-15 09:11] VITALS: O2SAT 96
[2023-04-15] MEDS: NIRMATRELVIR/RITONAVIR 1 EACH TABLET PO ×2 (09:26→20:54)
[2023-04-15] MEDS: Febuxostat 40 MG TABLET PO (09:35)
[2023-04-15] MEDS: Senna/Docusate Sodium 1 Tablet PO ×2 (09:36→20:51)
[2023-04-15] MEDS: dilTIAZem CD 120 MG Capsule PO (09:36)
[2023-04-15] MEDS: Nitrofurantoin Macrocrystals 100 MG Capsule PO ×2 (09:36→20:50)
[2023-04-15] MEDS: Menthol/Lanolin/Calamine/Znox 113 GM Tube 1 APPLIC TOPICAL ×2 (09:45→20:51)
--- NOTE | 2023-04-15 10:21 | NURSING ---
Pt and family updated on Pt testing positive. Pt c/o of intermittent cough no c/o of any other symptoms at this time. Pt placed in Covid Precautions call light within reach.
[2023-04-15 14:24] VITALS: BP 151/80; PULSE 93; RESP 22; TEMP 37.2; O2SAT 91
[2023-04-15] MEDS: Jantoven 2 MG Tablet PO (18:03)
[2023-04-15] MEDS: Albuterol IH (6.7 GM) 1 PUFF INHALER 2 PUFF INHALATION (18:05)
[2023-04-16] MEDS: NIRMATRELVIR/RITONAVIR 1 EACH TABLET PO ×2 (08:59→20:59)
[2023-04-16] MEDS: Senna/Docusate Sodium 1 Tablet PO ×2 (09:00→21:00)
[2023-04-16] MEDS: Febuxostat 40 MG TABLET PO (09:00)
[2023-04-16] MEDS: Nitrofurantoin Macrocrystals 100 MG Capsule PO (09:00)
[2023-04-16] MEDS: dilTIAZem CD 120 MG Capsule PO (09:01)
[2023-04-16] MEDS: Albuterol IH (6.7 GM) 1 PUFF INHALER 2 PUFF INHALATION ×2 (09:02→21:00)
[2023-04-16 09:19] VITALS: BP 138/76; PULSE 87
[2023-04-16 10:47] LABS: International Normalized Ratio 1.4; Prothrombin Time (Protime)PT. 16.7 SECONDS (11.7-14.9)
[2023-04-16] MEDS: Menthol/Lanolin/Calamine/Znox 113 GM Tube 1 APPLIC TOPICAL ×2 (13:34→20:58)
[2023-04-16 15:37] VITALS: BP 146/80; PULSE 87; RESP 24; TEMP 36.8; O2SAT 95
--- NOTE | 2023-04-16 20:11 | CPS ---
pt did not want to wear bipap tonight
[2023-04-16 20:17] VITALS: PULSE 94; RESP 18; O2SAT 94
[2023-04-16] MEDS: Miconazole Nitrate 43 GM Bottle 1 APPLIC TOPICAL (20:59)
[2023-04-17 06:00] LABS: International Normalized Ratio 1.4; Prothrombin Time (Protime)PT. 16.9 SECONDS (11.7-14.9)
[2023-04-17 06:30] VITALS: O2SAT 95
[2023-04-17 07:06] VITALS: O2SAT 94
[2023-04-17] MEDS: Febuxostat 40 MG TABLET PO (09:46)
[2023-04-17] MEDS: Senna/Docusate Sodium 1 Tablet PO ×2 (09:46→20:05)
[2023-04-17] MEDS: dilTIAZem CD 120 MG Capsule PO (09:46)
[2023-04-17] MEDS: NIRMATRELVIR/RITONAVIR 1 EACH TABLET PO ×2 (09:47→20:05)
[2023-04-17] MEDS: Miconazole Nitrate 43 GM Bottle 1 APPLIC TOPICAL ×2 (09:49→20:09)
[2023-04-17] MEDS: Menthol/Lanolin/Calamine/Znox 113 GM Tube 1 APPLIC TOPICAL ×2 (09:50→20:10)
--- NOTE | 2023-04-17 10:12 | NURSING ---
AT 0930,THIS NURSE HEARD AID RADHA THAT PT WAS ON FLOOR. WENT INTO ROOM AND FOUND PT ON FLOOR. ASKED PT IF SHE WAS HURT, HIT HEAD PT STATED NO. ASKED PT WHY SHE GOT UP PT STATED I WAS JUST TRYING TO GET MY PENCIL THAT WAS ON FLOOR. THIS NURSE STATED TO PT THAT SHE NEEDS TO USE THE CALL COLLAZO WHEN SHE NEEDS ANY THING. PT STATED WELL I DIDNT WANT TO BOTHER ANY ONE,STATED TO PT THAT WE ARE HERE TO HELP HER AND THAT SHE IS NOT A BOTHER. PT STATED OK. THIS NURSE,MARIBELL/RN AND AID HELPED PT IN TO RECLINER. VITALS DONE AND LOOKED OVER PT. TOLD PT THAT WE HAVE TO CALL FAMILY AND DUE TO HER FALL. PT ASKED THAT HER NOT BE CALLED DUE TO HE GETS CONFUSED AND UPSET AND WILL COME IN. STATED TO PT WE WILL CALL GRANDSON BUT SHE NEEDS TO TELL HER . PT STATED I WILL. DEBO/RN CALLED GRANDSON AND . PT HAS A 3X3 SKIN TEAR ON LEFT ELBOW. CLEANED,ADAPTIC,4X4 APPLIED. ALARM ALSO APPLIED TO RECLINER AND BED. AWARE. PT ALERT AND ORIENTED X3. PT IN GOOD HUMOR. WILL CONTINUE TO MONITOR.
[2023-04-17 10:51] VITALS: BP 139/82; PULSE 101; RESP 18; TEMP 36; O2SAT 90
--- NOTE | 2023-04-17 12:02 | NURSING ---
Milk Route Supervisor Note; Activity Asset: Laureen Dalal is independent in her choice of daily activities. She watches tv, reads enjoys word puzzles and visiting w/family and friends. She welcomes visit from the it professional and therapy dog when available. Staff will continue to offer daily activities and respect her right to say no.
[2023-04-17 15:14] VITALS: BP 122/66; PULSE 94; RESP 18; TEMP 36.5; O2SAT 97
--- NOTE | 2023-04-17 16:17 | CASEMGMT ---
Social Work BIMS () and PHQ-9 () completed for MDS assessment. Pt expressed not being able to do anything. Pt has a loss of independence, feeling isolated since COVID positive, and hasn't seen her in several days. Pt reports to not sleeping well and not having a good appetite. SW discussed sleep interventions such as lights off, eye mask and medication. Pt agreed to all. Updated EQUIPMENT SERVICE LEAD for eye mask. Written communication to for med. SW will continue to monitor and offered ongoing support. Liza Chapa FUEL EFFICIENT AUTOMOBILE DESIGNER WHEEL FILLER
[2023-04-17] MEDS: Mirtazapine 15 MG Tablet 7.5 MG PO (20:05)
[2023-04-18 06:05] LABS: International Normalized Ratio 1.3; Prothrombin Time (Protime)PT. 16.1 SECONDS (11.7-14.9)
--- NOTE | 2023-04-18 06:11 | NURSING ---
Education provided to patient on self transferring after alarms were going off, patient states that she just wanted to get up. Patient verbalized an understanding.
--- NOTE | 2023-04-18 07:10 | NURSING ---
ALL CARE GIVEN IN ROOM DO TO PT IN PRECAUTIONS FOR COVID.
[2023-04-18] MEDS: dilTIAZem CD 120 MG Capsule PO (09:48)
[2023-04-18] MEDS: NIRMATRELVIR/RITONAVIR 1 EACH TABLET PO ×2 (09:49→21:17)
[2023-04-18] MEDS: Senna/Docusate Sodium 1 Tablet PO ×2 (09:51→21:19)
[2023-04-18] MEDS: Febuxostat 40 MG TABLET PO (09:51)
[2023-04-18] MEDS: Miconazole Nitrate 43 GM Bottle 1 APPLIC TOPICAL ×2 (09:58→21:29)
[2023-04-18] MEDS: dexAMETHasone 4 MG Tablet 6 MG PO (10:00)
[2023-04-18] MEDS: Menthol/Lanolin/Calamine/Znox 113 GM Tube 1 APPLIC TOPICAL ×2 (10:04→21:29)
[2023-04-18 10:09] VITALS: BP 131/85; PULSE 93; O2SAT 96
--- NOTE | 2023-04-18 13:20 | RAD_ITS ---
EXAM: XR CHEST, 2 VIEWS CLINICAL INDICATION: covid19 TECHNIQUE: Frontal and lateral views of the chest. COMPARISON: XR Chest dated 04/12/2023 FINDINGS: LUNGS AND PLEURAL SPACES: Small bilateral pleural effusions. No pulmonary consolidation. No pulmonary vascular congestion. HEART: Stable cardiomegaly. MEDIASTINUM: No mediastinal or hilar mass. BONES/JOINTS: Compression deformities noted within the thoracic spine of uncertain age. VASCULATURE: Thoracic aorta is calcified and tortuous. RAD/Chest PA and Lateral IMPRESSION: Stable cardiomegaly. Small bilateral pleural effusions. Electronically Signed: Eliseo Smith MD at 13:36 EDT ,
[2023-04-18 13:30] VITALS: PULSE 86; RESP 18; O2SAT 98
[2023-04-18] MEDS: Ipratropium/Albuterol Sulfate 3 ML AMPUL.NEB INHALATION ×2 (13:30→19:32)
[2023-04-18 14:00] VITALS: BP 133/76; PULSE 91; RESP 16; TEMP 36.2; O2SAT 94
[2023-04-18 14:06] VITALS: O2SAT 92
[2023-04-18 15:14] VITALS: BMI 26.7
--- NOTE | 2023-04-18 16:36 | NURSING ---
PT AND FAMILY UPDATED ON A POSITIVE COVID ON FLOOR.
[2023-04-18 19:32] VITALS: PULSE 91; RESP 16; O2SAT 95
[2023-04-18 21:00] VITALS: PULSE 88; RESP 18; O2SAT 92
[2023-04-18] MEDS: Mirtazapine 15 MG Tablet 7.5 MG PO (21:19)
[2023-04-19 05:50] VITALS: PULSE 90; RESP 20; O2SAT 93
[2023-04-19 06:13] LABS: International Normalized Ratio 1.3; Prothrombin Time (Protime)PT. 16.3 SECONDS (11.7-14.9)
[2023-04-19 07:45] VITALS: PULSE 89; RESP 21; O2SAT 94
[2023-04-19] MEDS: Ipratropium/Albuterol Sulfate 3 ML AMPUL.NEB INHALATION ×3 (07:45→19:50)
--- NOTE | 2023-04-19 08:41 | NURSING ---
Repack Room Worker Note; MDS Complete
--- NOTE | 2023-04-19 09:46 | CASEMGMT ---
Addendum entered by Lzia Chapa 04/19/23 16:21: Received return call from Denilson [place] ASHWINI ARMSTRONG. is 100% service connected and does [place] life [place], [place], [place], but usually [place] provides a [facility] discount. is not eligible for any further aid services [place] to hire help. The [facility] is unable to assist pt since she is the not the nor service connected. SW to update family. Original Note: Social Work IDT met with patient and then two sons via conference call for care plan meeting. Discussed patient's progress in PT/OT/ST/SN. Educated to Medicare benefit. Encouraged to contact secondary insurance to ensure copay coverage. Pt is in COVID isolation through 04/26. Pt is using daytime O2 at times and SW to coordinate any needs at [place]. Pt currently uses [employer] for her night time O2 and CPAP. IDT recommending and explained to son's and family about safety concerns with pt and at home alone. Recommending additional assistance from aides during the day. PATTI offered and educated to [place] MENCHACA [place], nonskilled BREEDING MANAGER. Son's agreeable to having additional support for parents in the home. Son mentioned pt has a lifealert through the [facility] but is too heavy. SW offered to contact [facility] to see if pt or is eligible for services covered. SW provided resources to pt regardless. PATTI left message with Denilson [facility] PATTI. Will continue to follow. ROOSEVELT BrowerW
[2023-04-19] MEDS: dilTIAZem CD 120 MG Capsule PO (09:51)
[2023-04-19] MEDS: dexAMETHasone 4 MG Tablet 6 MG PO (09:51)
[2023-04-19] MEDS: NIRMATRELVIR/RITONAVIR 1 EACH TABLET PO ×2 (09:52→21:51)
[2023-04-19] MEDS: Senna/Docusate Sodium 1 Tablet PO ×2 (09:52→21:52)
[2023-04-19] MEDS: Febuxostat 40 MG TABLET PO (09:52)
[2023-04-19] MEDS: Menthol/Lanolin/Calamine/Znox 113 GM Tube 1 APPLIC TOPICAL ×2 (10:02→21:57)
[2023-04-19] MEDS: Miconazole Nitrate 43 GM Bottle 1 APPLIC TOPICAL ×2 (10:02→21:57)
[2023-04-19 12:50] VITALS: PULSE 83; RESP 18
[2023-04-19 14:55] VITALS: BP 118/71; PULSE 88; RESP 16; TEMP 36.2; O2SAT 95
[2023-04-19 19:50] VITALS: PULSE 86; RESP 18; O2SAT 94
[2023-04-19] MEDS: Mirtazapine 15 MG Tablet 7.5 MG PO (21:52)
[2023-04-20 05:55] LABS: Absolute Lymphocyte Count 0.28 X10^3/uL (0.83-4.51); Absolute Neutrophil Count 11.2 X10^3/uL (2.0-7.7); Basophil# 0.01 X10^3/uL; Basophil% 0.1 % (0-1); Differential Indicated SCAN CRITERIA MET; Hematocrit 28.7 % (37-47); Hemoglobin 9.4 g/dL (12.0-15.0); Lymphocyte # 0.28 X10^3/ul (0.83-4.51); Lymphocyte % 2.4 % (19-41); Mean Corp Hgb Conc 32.8 g/dL (32-36); Mean Corpuscular Hgb 36.9 pg (27.0-32.0); Mean Corpuscular Volume 112.5 fL (81-99); Mean Platelet Vol. 10.3 fl (6.2-12.0); Monocyte# 0.17 X10^3/uL; Monocyte% 1.4 % (0-10); NRBC Flagged by Analyzer 0 % (0-5); Neutrophil % 94.2 % (47-70); POSITIVE DIFFERENTIAL YES; Platelet Count 275 K/mm3 (150-450); RBC Distribution Width CV 14.6 % (11.6-14.6); RBC Distribution Width SD 59.8 fl (35.1-43.9); Red Blood Count 2.55 M/mm3 (4.2-5.4); White Blood Count 11.9 K/mm3 (4.4-11.0)
[2023-04-20 06:02] LABS: International Normalized Ratio 1.3; Prothrombin Time (Protime)PT. 16.3 SECONDS (11.7-14.9)
[2023-04-20 06:20] LABS: Anion Gap 5 (5-15); BUN 40 mg/dL (7-18); BUN/Creat Ratio 33.3 RATIO (10-20); Calcium,Total 9.1 mg/dL (8.5-10.1); Chloride 109 mmol/L (98-107); EST Glomerular Filtration Rate 45 mL/min (>60); Est Glom Filt Rate - Afr Amer 55 mL/min (>60); Estimated Creatinine Clearance 26.62 ml/min; Glucose 123 mg/dL (74-106); Potassium 4.3 mmol/L (3.5-5.1); Sodium Level 142 mmol/L (136-145)
[2023-04-20 06:23] LABS: Macrocytosis 2+
[2023-04-20] MEDS: dilTIAZem CD 120 MG Capsule PO (09:11)
[2023-04-20] MEDS: dexAMETHasone 4 MG Tablet 6 MG PO (09:11)
[2023-04-20] MEDS: Senna/Docusate Sodium 1 Tablet PO ×3 (09:12→22:00)
[2023-04-20] MEDS: NIRMATRELVIR/RITONAVIR 1 EACH TABLET PO (09:12)
[2023-04-20] MEDS: Febuxostat 40 MG TABLET PO (09:13)
[2023-04-20] MEDS: Albuterol IH (6.7 GM) 1 PUFF INHALER 2 PUFF INHALATION (09:22)
[2023-04-20] MEDS: Menthol/Lanolin/Calamine/Znox 113 GM Tube 1 APPLIC TOPICAL ×2 (09:25→22:02)
[2023-04-20] MEDS: Miconazole Nitrate 43 GM Bottle 1 APPLIC TOPICAL ×2 (09:25→22:02)
[2023-04-20 09:29] VITALS: BP 128/84; PULSE 91; O2SAT 97
[2023-04-20] MEDS: Tuberculin,Purif.prot.deriv. 50 TU/ML Vial 0.1 ML ID (11:17)
--- NOTE | 2023-04-20 14:13 | NURSING ---
All patient care today provided in-room due to Covid isolation precautions.
[2023-04-20] MEDS: Ipratropium/Albuterol Sulfate 3 ML AMPUL.NEB INHALATION (14:30)
[2023-04-20 15:05] VITALS: PULSE 75; RESP 18
[2023-04-20 16:00] VITALS: BP 153/73; PULSE 80; RESP 18; TEMP 36.7; O2SAT 96
[2023-04-20 19:33] VITALS: O2SAT 94
[2023-04-20] MEDS: Mirtazapine 15 MG Tablet 7.5 MG PO (21:59)
[2023-04-20] MEDS: MELATONIN 10 MG TABLET PO (22:00)
[2023-04-20 22:30] VITALS: RESP 20; O2SAT 92
[2023-04-21 05:50] LABS: Hematocrit 30.6 % (37-47)
[2023-04-21 05:57] LABS: International Normalized Ratio 1.3; Prothrombin Time (Protime)PT. 16.1 SECONDS (11.7-14.9)
[2023-04-21 07:15] VITALS: PULSE 94; RESP 24; O2SAT 93
[2023-04-21] MEDS: Ipratropium/Albuterol Sulfate 3 ML AMPUL.NEB INHALATION ×3 (07:15→19:16)
[2023-04-21] MEDS: dexAMETHasone 4 MG Tablet 6 MG PO (09:05)
[2023-04-21] MEDS: Febuxostat 40 MG TABLET PO (09:06)
[2023-04-21] MEDS: dilTIAZem CD 120 MG Capsule PO (09:06)
[2023-04-21] MEDS: Menthol/Lanolin/Calamine/Znox 113 GM Tube 1 APPLIC TOPICAL ×2 (09:07→22:20)
[2023-04-21] MEDS: Miconazole Nitrate 43 GM Bottle 1 APPLIC TOPICAL ×2 (09:07→22:21)
[2023-04-21 10:00] VITALS: RESP 18; O2SAT 91
[2023-04-21 11:53] VITALS: BP 126/64; PULSE 100; RESP 14; TEMP 36.9; O2SAT 94
[2023-04-21 13:50] VITALS: PULSE 101; RESP 20
--- NOTE | 2023-04-21 18:56 | NURSING ---
Patient SPO2 saturation low at 79% Bumped o2 to 4LNC improved to 84% patient bumped to 5LNC at 92%. Respiratory notified to give scheduled nebulizer.
[2023-04-21 19:09] VITALS: O2SAT 95
[2023-04-21 19:16] VITALS: PULSE 91; RESP 20; O2SAT 91
--- NOTE | 2023-04-21 19:25 | NURSING ---
dr tomlinson notified of hypoxia, ^ in oxygen 5 liters Rhonchi t/o. new order for cxr & start doxy x7 days
--- NOTE | 2023-04-21 19:40 | RAD_ITS ---
STUDY: X-RAY CHEST REASON FOR EXAM: Female, 88 years old. hypoxia TECHNIQUE: PA and lateral views of the chest. COMPARISON: 04/18/2023 FINDINGS: There is hyperinflation of the lungs consistent with chronic obstructive lung disease (COPD). There is no demonstrated pleural abnormality. There is moderate cardiac enlargement. Normal mediastinum and kylee. Normal visualized pulmonary arteries. Normal visualized aortic arch and descending thoracic aorta. Normal visualized thoracic spine. Normal visualized ribs, clavicles, and shoulders. There is no demonstrated abnormality of the visualized soft tissue structures of the upper abdomen. RAD/Chest PA and Lateral IMPRESSION: Emphysema without pneumonia or atelectasis. Cardiomegaly. Electronically Signed: Mario Santiago MD at 20:16 EDT ,
--- NOTE | 2023-04-21 20:25 | NURSING ---
Dr. Menchaca notified of chest xray results via phone, no new orders
[2023-04-21] MEDS: Doxycycline 100 MG CAPSULE PO (22:17)
[2023-04-21] MEDS: Senna/Docusate Sodium 1 Tablet PO (22:17)
[2023-04-21] MEDS: Mirtazapine 15 MG Tablet 7.5 MG PO (22:17)
[2023-04-21] MEDS: MELATONIN 10 MG TABLET PO (22:17)
[2023-04-22] VITALS (7 sets, daily range): BP systolic 138–144; BP diastolic 68–86; PULSE 64–99; RESP 14–20; TEMP 37–37.2; O2SAT 92–99
[2023-04-22] MEDS: Ipratropium/Albuterol Sulfate 3 ML AMPUL.NEB INHALATION ×3 (07:20→19:57)
[2023-04-22 08:43] LABS: International Normalized Ratio 1.1; Prothrombin Time (Protime)PT. 14.2 SECONDS (11.7-14.9)
[2023-04-22] MEDS: Menthol/Lanolin/Calamine/Znox 113 GM Tube 1 APPLIC TOPICAL ×2 (08:45→21:13)
[2023-04-22] MEDS: dilTIAZem CD 120 MG Capsule PO (08:46)
[2023-04-22] MEDS: dexAMETHasone 4 MG Tablet 6 MG PO (08:46)
[2023-04-22] MEDS: Miconazole Nitrate 43 GM Bottle 1 APPLIC TOPICAL ×2 (08:47→21:13)
[2023-04-22] MEDS: Doxycycline 100 MG CAPSULE PO ×2 (08:47→21:12)
[2023-04-22] MEDS: Senna/Docusate Sodium 1 Tablet PO ×2 (08:48→21:13)
[2023-04-22] MEDS: Febuxostat 40 MG TABLET PO (08:48)
--- NOTE | 2023-04-22 16:13 | NURSING ---
Pt's INR 1.1 this morning (1.3 yesterday). Currently taking 5mg Coumadin daily. Notified Dr. Menchaca, who gave order to increase Coumadin to 5.5mg daily.
[2023-04-22] MEDS: Warfarin 0.5 MG Tablet PO (18:47)
[2023-04-22] MEDS: Mirtazapine 15 MG Tablet 7.5 MG PO (21:12)
[2023-04-22] MEDS: MELATONIN 10 MG TABLET PO (21:12)
[2023-04-23 06:38] VITALS: PULSE 90; RESP 16; O2SAT 99
[2023-04-23 06:45] VITALS: PULSE 88; RESP 20; O2SAT 92
[2023-04-23] MEDS: Ipratropium/Albuterol Sulfate 3 ML AMPUL.NEB INHALATION ×3 (06:45→19:38)
[2023-04-23 08:16] LABS: International Normalized Ratio 1.2; Prothrombin Time (Protime)PT. 15.1 SECONDS (11.7-14.9)
[2023-04-23] MEDS: dexAMETHasone 4 MG Tablet 6 MG PO (10:02)
[2023-04-23] MEDS: Febuxostat 40 MG TABLET PO (10:02)
[2023-04-23] MEDS: Senna/Docusate Sodium 1 Tablet PO ×2 (10:02→21:52)
[2023-04-23] MEDS: dilTIAZem CD 120 MG Capsule PO (10:03)
[2023-04-23] MEDS: Menthol/Lanolin/Calamine/Znox 113 GM Tube 1 APPLIC TOPICAL ×2 (10:03→21:52)
[2023-04-23] MEDS: Miconazole Nitrate 43 GM Bottle 1 APPLIC TOPICAL ×2 (10:03→21:53)
[2023-04-23] MEDS: Doxycycline 100 MG CAPSULE PO ×2 (10:03→21:51)
[2023-04-23 10:40] VITALS: BP 134/63; PULSE 66; RESP 14; TEMP 36.4; O2SAT 99
[2023-04-23 12:50] VITALS: PULSE 82; RESP 16
[2023-04-23] MEDS: Warfarin 0.5 MG Tablet PO (18:29)
--- NOTE | 2023-04-23 19:19 | CPS ---
Pt refusing bipap
[2023-04-23 19:39] VITALS: PULSE 80; RESP 18
--- NOTE | 2023-04-23 19:39 | CPS ---
pt refusing bipap
[2023-04-23] MEDS: MELATONIN 10 MG TABLET PO (21:51)
[2023-04-23] MEDS: Mirtazapine 15 MG Tablet 7.5 MG PO (21:51)
[2023-04-24 06:38] LABS: International Normalized Ratio 1.2; Prothrombin Time (Protime)PT. 15.6 SECONDS (11.7-14.9)
[2023-04-24 06:46] VITALS: PULSE 85; RESP 18; O2SAT 94
[2023-04-24] MEDS: Ipratropium/Albuterol Sulfate 3 ML AMPUL.NEB INHALATION ×2 (06:46→12:52)
[2023-04-24 07:10] VITALS: O2SAT 94
[2023-04-24] MEDS: Febuxostat 40 MG TABLET PO (09:18)
[2023-04-24] MEDS: dexAMETHasone 4 MG Tablet 6 MG PO (09:18)
[2023-04-24] MEDS: dilTIAZem CD 120 MG Capsule PO (09:18)
[2023-04-24] MEDS: Doxycycline 100 MG CAPSULE PO ×2 (09:18→20:28)
[2023-04-24] MEDS: Senna/Docusate Sodium 1 Tablet PO ×2 (09:18→20:29)
[2023-04-24] MEDS: Miconazole Nitrate 43 GM Bottle 1 APPLIC TOPICAL ×2 (09:19→20:36)
[2023-04-24] MEDS: Menthol/Lanolin/Calamine/Znox 113 GM Tube 1 APPLIC TOPICAL ×2 (09:19→20:36)
[2023-04-24 10:00] VITALS: PULSE 78; RESP 14; O2SAT 99
--- NOTE | 2023-04-24 12:47 | NURSING ---
Patient would like covid vaccine when able. Per pharmacy she is not a candidate until at least 30 days after testing covid positive.
[2023-04-24 12:52] VITALS: PULSE 90; RESP 18
--- NOTE | 2023-04-24 15:39 | NURSING ---
04/24/23- Patient still on 3LNC Patient noted to have low SPO2 saturation w/ Therapy. Patient hands were cold and not reading correctly on SPO2. Hands warmed and SPO2 checked at 98% on 3L.
[2023-04-24 15:40] VITALS: BP 126/78; PULSE 84; RESP 14; TEMP 37.1; O2SAT 98
[2023-04-24] MEDS: MELATONIN 10 MG TABLET PO (20:28)
[2023-04-24] MEDS: Mirtazapine 15 MG Tablet 7.5 MG PO (20:28)
[2023-04-25 05:44] LABS: International Normalized Ratio 1.3; Prothrombin Time (Protime)PT. 16.5 SECONDS (11.7-14.9)
[2023-04-25] MEDS: Ipratropium/Albuterol Sulfate 3 ML AMPUL.NEB INHALATION (08:09)
--- NOTE | 2023-04-25 08:43 | MDS.RN ---
Information for the mds was obtained from review of the clinical record, interview of resident, staff, and direct observation of resident's care.
[2023-04-25 09:02] VITALS: O2SAT 82
[2023-04-25] MEDS: Senna/Docusate Sodium 1 Tablet PO ×2 (09:55→21:54)
[2023-04-25] MEDS: Febuxostat 40 MG TABLET PO (09:55)
[2023-04-25] MEDS: dexAMETHasone 4 MG Tablet 6 MG PO (09:55)
[2023-04-25] MEDS: dilTIAZem CD 120 MG Capsule PO (09:56)
[2023-04-25] MEDS: Doxycycline 100 MG CAPSULE PO ×2 (09:56→21:52)
[2023-04-25] MEDS: Miconazole Nitrate 43 GM Bottle 1 APPLIC TOPICAL ×2 (09:59→21:57)
[2023-04-25] MEDS: Menthol/Lanolin/Calamine/Znox 113 GM Tube 1 APPLIC TOPICAL ×2 (09:59→21:57)
[2023-04-25 10:03] VITALS: BP 127/65; PULSE 89; RESP 24; O2SAT 92
[2023-04-25 10:58] VITALS: BMI 27.3
[2023-04-25 14:49] VITALS: BP 153/77; PULSE 65; RESP 16; TEMP 36; O2SAT 91
--- NOTE | 2023-04-25 15:35 | CASEMGMT ---
Social Work IDT discussed patient's progress and concerns with returning home with d/t physical and cognitive deficits. IDT also recommends admits to a facility with pt as he has own deficits identified by staff. SW phoned grandson to discuss concerns and recommendations. Grandson expressed understanding and noted a decline in pt as well. GDSon did state does get around in the home well. SW identified people usually do better in their home environment, however, staff have consistently seen and spoken to , plus has voiced own deficits. GDSon to discuss SNF recommendation with family and follow up with this worker. SW educated to private pay cost and ability to apply for Medicaid, if eligible. Gdson expressed understanding. SW will continue to follow ROOSEVELT Brower
[2023-04-25] MEDS: Mirtazapine 15 MG Tablet 7.5 MG PO (21:53)
[2023-04-25] MEDS: MELATONIN 10 MG TABLET PO (21:54)
--- NOTE | 2023-04-25 23:28 | CPS ---
[2120] Pt. politely refused to wear BiPAP tonight.
[2023-04-26 06:06] LABS: International Normalized Ratio 1.6; Prothrombin Time (Protime)PT. 18.7 SECONDS (11.7-14.9)
[2023-04-26 08:18] VITALS: BP 140/67; PULSE 95; RESP 20; TEMP 36.9
[2023-04-26] MEDS: Menthol/Lanolin/Calamine/Znox 113 GM Tube 1 APPLIC TOPICAL ×2 (08:20→21:16)
[2023-04-26] MEDS: dilTIAZem CD 120 MG Capsule PO (08:22)
[2023-04-26] MEDS: dexAMETHasone 4 MG Tablet 6 MG PO (08:22)
[2023-04-26] MEDS: Senna/Docusate Sodium 1 Tablet PO ×2 (08:23→21:18)
[2023-04-26] MEDS: Febuxostat 40 MG TABLET PO (08:23)
[2023-04-26] MEDS: Doxycycline 100 MG CAPSULE PO ×2 (08:23→21:17)
[2023-04-26] MEDS: Miconazole Nitrate 43 GM Bottle 1 APPLIC TOPICAL ×2 (08:26→21:17)
[2023-04-26 09:33] VITALS: O2SAT 91
[2023-04-26 10:03] VITALS: O2SAT 97
[2023-04-26 15:14] VITALS: BP 130/66; PULSE 85; RESP 20; TEMP 36.3; O2SAT 97
[2023-04-26 20:04] VITALS: O2SAT 91
[2023-04-26 20:27] VITALS: PULSE 88; RESP 16; O2SAT 94
[2023-04-26] MEDS: Mirtazapine 15 MG Tablet 7.5 MG PO (21:17)
[2023-04-26] MEDS: MELATONIN 10 MG TABLET PO (21:17)
[2023-04-27 06:25] LABS: Hematocrit 33.7 % (37-47); Hemoglobin 11.4 g/dL (12.0-15.0); Mean Corp Hgb Conc 33.8 g/dL (32-36); Mean Corpuscular Volume 109.4 fL (81-99); Mean Platelet Vol. 10.5 fl (6.2-12.0); POSITIVE COUNT YES; POSITIVE DIFFERENTIAL YES; POSITIVE MORPHOLOGY YES; Platelet Count 262 K/mm3 (150-450); RBC Distribution Width CV 13.9 % (11.6-14.6); Red Blood Count 3.08 M/mm3 (4.2-5.4); White Blood Count 15.5 K/mm3 (4.4-11.0)
[2023-04-27 06:38] LABS: Anion Gap 5 (5-15); BUN 61 mg/dL (7-18); BUN/Creat Ratio 52.1 RATIO (10-20); Calcium,Total 8.9 mg/dL (8.5-10.1); Chloride 108 mmol/L (98-107); Creatinine, Serum 1.17 mg/dL (0.55-1.02); EST Glomerular Filtration Rate 47 mL/min (>60); Est Glom Filt Rate - Afr Amer 56 mL/min (>60); Glucose 101 mg/dL (74-106); Potassium 4.8 mmol/L (3.5-5.1); Sodium Level 142 mmol/L (136-145)
[2023-04-27 06:44] LABS: Differential Indicated MANUAL DIFF
[2023-04-27 06:51] LABS: International Normalized Ratio 1.6; Prothrombin Time (Protime)PT. 19.1 SECONDS (11.7-14.9)
[2023-04-27 08:16] VITALS: BP 140/58; PULSE 89; RESP 19; TEMP 36.9; O2SAT 94
[2023-04-27] MEDS: Menthol/Lanolin/Calamine/Znox 113 GM Tube 1 APPLIC TOPICAL ×2 (08:19→22:17)
[2023-04-27] MEDS: Miconazole Nitrate 43 GM Bottle 1 APPLIC TOPICAL ×2 (08:20→22:18)
[2023-04-27] MEDS: dilTIAZem CD 120 MG Capsule PO (08:21)
[2023-04-27] MEDS: dexAMETHasone 4 MG Tablet 6 MG PO (08:21)
[2023-04-27] MEDS: Febuxostat 40 MG TABLET PO (08:22)
[2023-04-27] MEDS: Senna/Docusate Sodium 1 Tablet PO ×2 (08:22→22:19)
[2023-04-27] MEDS: Doxycycline 100 MG CAPSULE PO ×2 (08:22→22:19)
[2023-04-27 11:00] VITALS: O2SAT 93
[2023-04-27 11:19] LABS: Lymphocyte 6 % (19-41); Metamyelocyte 1 % (0-1); Monocyte 2 % (0-10); Myelocyte 2 % (0-0); Neutrophil-Segmented 89 % (47-70); Total Cells Counted 100 (MANUAL DIFF)
[2023-04-27 11:20] LABS: Absolute Lymphocyte Count 0.93 X10^3/uL (0.83-4.51); Absolute Neutrophil Count 13.8 X10^3/uL (2.0-7.7); Platelet Estimate ADEQUATE (ADEQ); Red Cell Morphology NORM C+C NORMAL (NORM C&C)
[2023-04-27 12:37] VITALS: PULSE 78; RESP 18; O2SAT 95
[2023-04-27] MEDS: MELATONIN 10 MG TABLET PO (22:19)
[2023-04-27] MEDS: Mirtazapine 15 MG Tablet 7.5 MG PO (22:19)
[2023-04-28 06:30] LABS: International Normalized Ratio 1.8
[2023-04-28 08:50] VITALS: O2SAT 92
[2023-04-28 09:53] LABS: Pathologist Review Reviewed
[2023-04-28] MEDS: dilTIAZem CD 120 MG Capsule PO (10:23)
[2023-04-28] MEDS: Menthol/Lanolin/Calamine/Znox 113 GM Tube 1 APPLIC TOPICAL ×2 (10:23→21:33)
[2023-04-28] MEDS: Miconazole Nitrate 43 GM Bottle 1 APPLIC TOPICAL ×2 (10:24→21:33)
[2023-04-28] MEDS: dexAMETHasone 4 MG Tablet 6 MG PO (10:24)
[2023-04-28 10:25] VITALS: BP 126/63; PULSE 89
[2023-04-28] MEDS: Senna/Docusate Sodium 1 Tablet PO ×2 (10:25→21:29)
[2023-04-28] MEDS: Doxycycline 100 MG CAPSULE PO (10:25)
[2023-04-28] MEDS: Febuxostat 40 MG TABLET PO (11:21)
[2023-04-28 12:08] VITALS: BP 134/68; PULSE 94; RESP 16; TEMP 36.3; O2SAT 96
[2023-04-28] MEDS: MELATONIN 10 MG TABLET PO (21:29)
[2023-04-28] MEDS: Mirtazapine 15 MG Tablet 7.5 MG PO (21:29)
[2023-04-29 07:38] VITALS: O2SAT 93
[2023-04-29] MEDS: Menthol/Lanolin/Calamine/Znox 113 GM Tube 1 APPLIC TOPICAL ×2 (08:14→20:27)
[2023-04-29] MEDS: Febuxostat 40 MG TABLET PO (08:14)
[2023-04-29] MEDS: Senna/Docusate Sodium 1 Tablet PO ×2 (08:15→20:24)
[2023-04-29] MEDS: dilTIAZem CD 120 MG Capsule PO (08:15)
[2023-04-29] MEDS: Miconazole Nitrate 43 GM Bottle 1 APPLIC TOPICAL ×2 (08:17→20:28)
[2023-04-29 08:18] VITALS: BP 159/71; PULSE 84; RESP 20
[2023-04-29 08:56] LABS: Prothrombin Time (Protime)PT. 22.5 SECONDS (11.7-14.9)
[2023-04-29 15:12] VITALS: BP 120/69; PULSE 86; RESP 24; TEMP 36.4; O2SAT 94
[2023-04-29] MEDS: Mirtazapine 15 MG Tablet 7.5 MG PO (20:24)
[2023-04-29] MEDS: MELATONIN 10 MG TABLET PO (20:24)
--- NOTE | 2023-04-29 21:38 | CPS ---
PT REFUSED PAP THERAPY FOR THE NIGHT
[2023-04-30] MEDS: Miconazole Nitrate 43 GM Bottle 1 APPLIC TOPICAL ×2 (08:57→20:43)
[2023-04-30] MEDS: Menthol/Lanolin/Calamine/Znox 113 GM Tube 1 APPLIC TOPICAL ×2 (08:57→20:43)
[2023-04-30] MEDS: Senna/Docusate Sodium 1 Tablet PO ×2 (09:00→20:40)
[2023-04-30] MEDS: Febuxostat 40 MG TABLET PO (09:00)
[2023-04-30] MEDS: dilTIAZem CD 120 MG Capsule PO (09:01)
[2023-04-30 09:10] VITALS: PULSE 71; RESP 20; O2SAT 98
[2023-04-30 09:21] VITALS: BP 112/68; PULSE 71
[2023-04-30 12:09] VITALS: BP 125/59; PULSE 78; RESP 14; TEMP 36.4; O2SAT 97
[2023-04-30] MEDS: MELATONIN 10 MG TABLET PO (20:40)
[2023-04-30] MEDS: Mirtazapine 15 MG Tablet 7.5 MG PO (20:40)
[2023-05-01 06:38] LABS: International Normalized Ratio 2.2; Prothrombin Time (Protime)PT. 25.1 SECONDS (11.7-14.9)
[2023-05-01] MEDS: Senna/Docusate Sodium 1 Tablet PO ×2 (09:12→20:15)
[2023-05-01] MEDS: Febuxostat 40 MG TABLET PO (09:12)
[2023-05-01] MEDS: dilTIAZem CD 120 MG Capsule PO (09:12)
[2023-05-01] MEDS: Albuterol IH (6.7 GM) 1 PUFF INHALER 2 PUFF INHALATION (09:13)
[2023-05-01] MEDS: Menthol/Lanolin/Calamine/Znox 113 GM Tube 1 APPLIC TOPICAL ×2 (09:14→20:19)
[2023-05-01] MEDS: Miconazole Nitrate 43 GM Bottle 1 APPLIC TOPICAL ×2 (09:14→20:20)
[2023-05-01 13:41] VITALS: O2SAT 90
[2023-05-01 15:00] VITALS: BP 119/71; PULSE 101; RESP 14; TEMP 36.4
--- NOTE | 2023-05-01 15:06 | CASEMGMT ---
Addendum entered by Liza Chapa 05/03/23 08:58: SW met with son yesterday to update on accepting facilities. [facility] and [facility] can accept and provided pricing. Son stated [facility] is the farthest location. -- This day, SW left VM with son that [facility] can accept, provided pricing, and noted they are a [facility] certified facility that could provide financial assistance to pt's if he decides to admit. SW will await outcome from family and set DC date early next week. Addendum entered by Liza Chapa 05/01/23 15:43: Son presented to this worker's office. Son stated family priced out in home 23/01 care and that's not happening, thus pt will need a SNF. Family prefer [facility] but there is a waitlist. SW offered to provide SNF list for other [facility] SNFs. Son agreed. SW provided printed list of SNFs with quality and resource data via [employer]. Son requested referrals to all SNFs to determine acceptance and pricing, then family will make a decision. SW agreed. SW placed referrals to [facility], [facility], and [facility] via [facility]. Will await outcomes. Original Note: Social Work Voicemail left with son to follow up on DC plans for pt after family meeting Monday. ROOSEVELT Nicholas
--- NOTE | 2023-05-01 15:16 | EKG12_ITS ---
Test Reason : HIGH HR Blood Pressure : / mmHG Vent. Rate : 090 BPM Atrial Rate : 090 BPM P-R Int : 114 ms QRS Dur : 074 ms QT Int : 384 ms P-R-T Axes : 050 -08 -41 degrees QTc Int : 469 ms Sinus rhythm with Premature ventricular complexes or Fusion complexes Low voltage QRS Nonspecific T wave abnormality Abnormal ECG When compared with ECG of 10-APR-2023 10:11, Sinus rhythm has replaced Atrial fibrillation Vent. rate has decreased BY 75 BPM Questionable change in QRS duration Confirmed by SANDRINE PHELPS, GROVER ([id number]), food editor KT DOUGLAS ([id number]) on 05/03/2023 6:29:25 AM Referred By: JAILYN Confirmed By:GROVER DELUCA MD
[2023-05-01] MEDS: Mirtazapine 15 MG Tablet 7.5 MG PO (20:15)
[2023-05-01] MEDS: MELATONIN 10 MG TABLET PO (20:15)
[2023-05-01 20:22] VITALS: O2SAT 92
--- NOTE | 2023-05-02 04:47 | CPS ---
Patient refuses to wear Bipap, order stopped
[2023-05-02 06:27] VITALS: O2SAT 92
[2023-05-02] MEDS: Febuxostat 40 MG TABLET PO (09:21)
[2023-05-02] MEDS: Albuterol IH (6.7 GM) 1 PUFF INHALER 2 PUFF INHALATION (09:21)
[2023-05-02] MEDS: Senna/Docusate Sodium 1 Tablet PO ×2 (09:22→21:37)
[2023-05-02] MEDS: dilTIAZem CD 120 MG Capsule PO (09:22)
[2023-05-02] MEDS: Menthol/Lanolin/Calamine/Znox 113 GM Tube 1 APPLIC TOPICAL ×2 (09:24→21:40)
[2023-05-02] MEDS: Miconazole Nitrate 43 GM Bottle 1 APPLIC TOPICAL ×2 (09:24→21:41)
[2023-05-02 09:28] VITALS: BMI 26.6
[2023-05-02 11:17] VITALS: BP 124/72; PULSE 85; RESP 18; TEMP 36.4; O2SAT 91
[2023-05-02 13:04] VITALS: O2SAT 92
[2023-05-02 18:16] LABS: Absolute Lymphocyte Count 0.59 X10^3/uL (0.83-4.51); Absolute Neutrophil Count 10.3 X10^3/uL (2.0-7.7); Basophil# 0.03 X10^3/uL; Basophil% 0.3 % (0-1); Eosinophil# 0.19 X10^3/uL; Eosinophils% 1.6 % (0-5); Hematocrit 31.1 % (37-47); Lymphocyte # 0.59 X10^3/ul (0.83-4.51); Mean Corp Hgb Conc 32.2 g/dL (32-36); Mean Corpuscular Volume 111.9 fL (81-99); Mean Platelet Vol. 10.2 fl (6.2-12.0); Monocyte% 4.2 % (0-10); NRBC Flagged by Analyzer 0 % (0-5); Neutrophil # 10.26 X10^3/uL (2.7-7.7); Neutrophil % 86.4 % (47-70); POSITIVE DIFFERENTIAL YES; Platelet Count 241 K/mm3 (150-450); RBC Distribution Width CV 14.2 % (11.6-14.6); RBC Distribution Width SD 58.6 fl (35.1-43.9); Red Blood Count 2.78 M/mm3 (4.2-5.4); White Blood Count 11.9 K/mm3 (4.4-11.0)
[2023-05-02 18:17] LABS: Differential Indicated SCAN CRITERIA MET
[2023-05-02 18:40] LABS: Differential Comment SCANNED
[2023-05-02 18:41] LABS: ALB/GLOB Ratio 0.8 RATIO (0.9-2.4); AST(SGOT) 13 U/L (15-37); Alanine Aminotransfer ALT/SGPT 30 U/L (13-56); Albumin, Serum 2.5 g/dL (3.2-5.0); Alkaline Phosphatase 76 U/L (45-117); Anion Gap 3 (5-15); BUN 42 mg/dL (7-18); BUN/Creat Ratio 41.2 RATIO (10-20); Calcium,Total 8.9 mg/dL (8.5-10.1); Chloride 108 mmol/L (98-107); Creatinine, Serum 1.02 mg/dL (0.55-1.02); EST Glomerular Filtration Rate 55 mL/min (>60); Est Glom Filt Rate - Afr Amer 66 mL/min (>60); Estimated Creatinine Clearance 31.31 ml/min; Globulin 3.2 g/dL (2.2-4.2); Glucose 102 mg/dL (74-106); Potassium 4.1 mmol/L (3.5-5.1); Protein, Total 5.7 g/dL (6.4-8.2); Sodium Level 143 mmol/L (136-145)
[2023-05-02 19:02] LABS: Mucous, Urine 0 SEEN /hpf (<or=2+); Red Blood Cells-Urine 0 SEEN /hpf (0-5); Squamous Epithelial Cells - UA 0 SEEN /hpf (5-10)
--- NOTE | 2023-05-02 19:04 | RAD_ITS ---
INDICATION: Rhonchi, worsening fatigue. EXAMINATION/TECHNIQUE: X-RAY - XR Chest 2 Views COMPARISON: 04/21/2023 FINDINGS: LINES/DEVICES: None. LUNGS: Emphysema. No consolidation, edema or effusion. No pneumothorax. Unchanged blunting of the left lateral costophrenic sulcus. MEDIASTINUM AND CARDIOVASCULAR STRUCTURES: Cardiac silhouette remains mildly enlarged. Aorta is atherosclerotic.. Central airways and mediastinal contour are unremarkable. BONES AND SOFT TISSUES: Unremarkable. RAD/Chest PA and Lateral IMPRESSION: No acute pulmonary finding. Electronically Signed: John Fernandez MD at 19:34 EDT ,
--- NOTE | 2023-05-02 19:04 | NURSING ---
Addendum entered by Leyda Perdomo 05/02/23 19:14: therapy felt pt not acting like self, more tired. dr tomlinson notified, new order for UA c/s, resp panel, cxr, covid swab. after covid swab sent, noted pt had been positive with covid on 04/15/23, had been in covid precautions x10 days. UA showing + nitrates this evening. Original Note: pt off unit to cxr
[2023-05-02 19:05] LABS: Color, Urine Yellow (Yellow); Glucose, Dipstick Normal (Normal); Ketone-Dipstick Negative (Negative); Leukocyte Esterase-Dipstick 500 /ul (Negative); Nitrite-Dipstick Positive (Negative); Occult Blood-Urine 50 /ul (Negative); Protein-Dipstick 30 mg/dl (Negative); Specific Gravity, Urine 1.015 (1.002-1.030); Urine Bilirubin Dipstick Negative (Negative); Urine Clarity Cloudy (Clear); Urine Urobilinogen Normal (Normal)
[2023-05-02 19:13] LABS: Bacteria 1+ /hpf (None Seen); White Blood Cells >100 SEEN /hpf (0-5)
--- NOTE | 2023-05-02 19:32 | NURSING ---
Addendum entered by Berna Malin 05/03/23 09:00: Patient started on oral antibiotics for UA results. Await culture results. Original Note: Therapy reports patient has appeared weaker and not participating well in therapy lately and that they have noticed a decline. Dr. Dueñas made aware and ordered a UA C&S, covid swab, respiratory panel, covid swab, chest x-ray, and labs.
[2023-05-02] MEDS: MELATONIN 10 MG TABLET PO (21:36)
[2023-05-02] MEDS: Mirtazapine 15 MG Tablet 7.5 MG PO (21:37)
[2023-05-02] MEDS: Cefdinir 300 MG Capsule PO (21:37)
--- NOTE | 2023-05-03 04:43 | NURSING ---
Patient's Covid swab positive. However patient was positive for Covid 04/15/2023, and was under Covid precautions for 10 days per policy. Will continue to monitor.
[2023-05-03] MEDS: Miconazole Nitrate 43 GM Bottle 1 APPLIC TOPICAL ×2 (09:59→20:18)
[2023-05-03] MEDS: Menthol/Lanolin/Calamine/Znox 113 GM Tube 1 APPLIC TOPICAL ×2 (09:59→20:18)
[2023-05-03] MEDS: Senna/Docusate Sodium 1 Tablet PO ×2 (10:02→20:15)
[2023-05-03] MEDS: Cefdinir 300 MG Capsule PO ×2 (10:03→20:16)
[2023-05-03] MEDS: Febuxostat 40 MG TABLET PO (10:03)
[2023-05-03] MEDS: dilTIAZem CD 120 MG Capsule PO (10:03)
[2023-05-03 13:15] VITALS: O2SAT 95
[2023-05-03 15:41] VITALS: BP 124/63; PULSE 90; RESP 24; TEMP 36.7; O2SAT 99
--- NOTE | 2023-05-03 18:24 | PCA ---
alarm checked and on with Kenna
[2023-05-03 19:45] VITALS: O2SAT 93
[2023-05-03] MEDS: MELATONIN 10 MG TABLET PO (20:16)
[2023-05-03] MEDS: Mirtazapine 15 MG Tablet 7.5 MG PO (20:17)
[2023-05-04 05:49] VITALS: O2SAT 92
[2023-05-04 06:03] LABS: Absolute Lymphocyte Count 0.66 X10^3/uL (0.83-4.51); Absolute Neutrophil Count 7.8 X10^3/uL (2.0-7.7); Basophil# 0.01 X10^3/uL; Basophil% 0.1 % (0-1); Eosinophil# 0.17 X10^3/uL; Eosinophils% 1.8 % (0-5); Hemoglobin 9.6 g/dL (12.0-15.0); Lymphocyte # 0.66 X10^3/ul (0.83-4.51); Mean Corp Hgb Conc 33.1 g/dL (32-36); Mean Corpuscular Hgb 37.4 pg (27.0-32.0); Mean Corpuscular Volume 112.8 fL (81-99); Mean Platelet Vol. 10.2 fl (6.2-12.0); Monocyte# 0.48 X10^3/uL; Monocyte% 5.1 % (0-10); NRBC Flagged by Analyzer 0 % (0-5); Neutrophil # 7.84 X10^3/uL (2.7-7.7); Neutrophil % 83.7 % (47-70); Platelet Count 228 K/mm3 (150-450); RBC Distribution Width CV 14.4 % (11.6-14.6); RBC Distribution Width SD 59.2 fl (35.1-43.9); Red Blood Count 2.57 M/mm3 (4.2-5.4); White Blood Count 9.4 K/mm3 (4.4-11.0)
--- NOTE | 2023-05-04 06:21 | PCA ---
alarm checked and on
[2023-05-04 06:33] LABS: International Normalized Ratio 2.7; Prothrombin Time (Protime)PT. 28.9 SECONDS (11.7-14.9)
[2023-05-04 06:57] LABS: Anion Gap 4 (5-15); BUN 35 mg/dL (7-18); BUN/Creat Ratio 35.5 RATIO (10-20); Calcium,Total 8.9 mg/dL (8.5-10.1); Chloride 110 mmol/L (98-107); Creatinine, Serum 0.99 mg/dL (0.55-1.02); EST Glomerular Filtration Rate 57 mL/min (>60); Est Glom Filt Rate - Afr Amer 69 mL/min (>60); Estimated Creatinine Clearance 32.26 ml/min; Glucose 93 mg/dL (74-106); Potassium 4.1 mmol/L (3.5-5.1); Sodium Level 144 mmol/L (136-145)
[2023-05-04] MEDS: dilTIAZem CD 120 MG Capsule PO (08:26)
[2023-05-04] MEDS: Senna/Docusate Sodium 1 Tablet PO ×2 (08:26→20:20)
[2023-05-04] MEDS: Febuxostat 40 MG TABLET PO (08:26)
[2023-05-04] MEDS: Miconazole Nitrate 43 GM Bottle 1 APPLIC TOPICAL ×2 (08:26→20:23)
[2023-05-04] MEDS: Cefdinir 300 MG Capsule PO ×2 (08:26→20:20)
[2023-05-04] MEDS: Menthol/Lanolin/Calamine/Znox 113 GM Tube 1 APPLIC TOPICAL ×2 (08:27→20:24)
[2023-05-04 08:33] VITALS: BP 135/74; PULSE 89; RESP 18
[2023-05-04] MEDS: Albuterol IH (6.7 GM) 1 PUFF INHALER 2 PUFF INHALATION (09:37)
--- NOTE | 2023-05-04 09:41 | NURSING ---
HIM ASSISTANT notified of new skin issue to left lower abdomen. Noted bleeding to small area of moisture-related skin shearing. Cleansed area, applied adaptic dressing and gauze to area. Pt tolerated well, no signs or complaints of pain.
--- NOTE | 2023-05-04 10:03 | NURSING ---
Pt has refused breakfast and therapy this morning, is currently resting in bed with eyes closed. Respirations even, regular
[2023-05-04 14:00] VITALS: BP 114/76; PULSE 93; RESP 14; TEMP 36.6; O2SAT 94
--- NOTE | 2023-05-04 16:32 | CASEMGMT ---
Addendum entered by Liza Chapa 05/05/23 10:17: PASRR completed and pt triggered for Level II review. Pt will not DC until results are received. SW updated IDT, SNF, pt and grandson. Original Note: Social Work Son presented to this worker's office requesting to include grandson on conference call to finalize DC plans. SW agreed and spoke with son and grandson. Both were inquiring about hospice for pt. SW educated to services and pt would have those wishes. Confirmed hospice would not provide enough care pt needs in the home, but can provide services in a SNF. Family agreed to SNF and [facility] as FOC. Family to discuss hospice with pt, as will this worker, if hospice referral requests to be made at DC. SW provided son with printed list of hospice agencies. Set DC date for 05/09, per family preference. Family to transport. SW updated SNFs and IDT. Plan: DC 05/09 to [facility], private pay, intermediate. Liza Chapa, ROOSEVELT SENIOR AUTOMATION ENGINEER
--- NOTE | 2023-05-04 19:26 | PCM.DC.SUM ---
Providers Date of Admission: 04/12/23 Primary Care Physician: Dr. Fletcher Menchaca MD Reason For Visit: ADOLFO/UTI Diagnosis Discharge Diagnosis (1) Debility: Status: Acute Code(s): R53.81 - Other malaise (2) Acute delirium: Status: Acute Code(s): R41.0 - Disorientation, unspecified (3) UTI (urinary tract infection): Status: Resolved Code(s): N39.0 - Urinary tract infection, site not specified Qualifiers: Urinary tract infection type: acute cystitis Hematuria presence: without hematuria Qualified Code(s): N30.00 - Acute cystitis without hematuria (4) ADOLFO (acute kidney injury): Status: Resolved Code(s): N17.9 - Acute kidney failure, unspecified (5) Dehydration: Status: Acute Code(s): E86.0 - Dehydration (6) Atrial fibrillation: Status: Acute Code(s): I48.91 - Unspecified atrial fibrillation (7) COPD (chronic obstructive pulmonary disease): Status: Chronic Code(s): J44.9 - Chronic obstructive pulmonary disease, unspecified (8) Chronic respiratory failure with hypoxia: Status: Chronic Code(s): J96.11 - Chronic respiratory failure with hypoxia (9) Alcohol dependence: Status: Acute Code(s): F10.20 - Alcohol dependence, uncomplicated (10) Mild cognitive impairment: Status: Acute Code(s): G31.84 - Mild cognitive impairment of uncertain or unknown etiology (11) Gout: Status: Acute Code(s): M10.9 - Gout, unspecified (12) Sleep apnea: Status: Acute Code(s): G47.30 - Sleep apnea, unspecified Plan 88 year old female with below past medical history hospitalized for acute delirium secondary to urinary tract infection, complicated by acute kidney injury, dehydration, coagulopathy, admitted to TCU with debility, here for rehabilitation, strengthening, prior to discharge home with . Debility - PT/OT. Pain - Tylenol 1000mg q6 prn pain (1-10). Bowel - senna/colace 1 tablet bid, Magnesium citrate 300ml daily prn. Adult immunization - Administer pneumonia vaccine, covid19 vaccine, flu vaccine as appropriate. DVT prophylaxis - on warfarin. COPD - Albuterol 2 puffs q4h prn. Chronic hypoxia - resident on oxygen at home, pulsox 94% on RA, she appears short of breath, order Chest X-ray. Sleep apnea - BiPAP at night. Atrial fibrillation - Diltiazem 120mg daily, warfarin 2mg daily, follow INR. Gout - Febuxostat 40mg daily. E. Coli urinary tract infection - Nitrofurantoin 100mg bid thru 04/14/2023. Alcohol dependence - She drinks tequila every night, I have asked her to stop. Mixed dementia (Alcohol/Alzheimer) - Treat when cognition to baseline. Medications at Discharge Home Medications Handicap Parking Placard #1 ea 12/24/20 diltiazem HCl 120 mg capsule,extended release 24 hr (Cardizem CD) 120 mg PO QDAY Heart #90 caps 01/09/23 albuterol sulfate 90 mcg/actuation aerosol inhaler (Ventolin HFA) 2 puff inhalation Q4H PRN shortness of breath or wheezing #8.5 grams 01/23/23 febuxostat 40 mg tablet 40 mg PO DAILY GOUT 03/15/23 menthol 0.44 %-zinc oxide 20.6 % topical ointment (Calmoseptine) 1 applic topical BID Skin #0 grams 04/12/23 acetaminophen 500 mg tablet 1,000 mg (2 x 500 mg) PO Q6H PRN PRN Pain Score 1-10 #0 tabs 05/04/23 melatonin 10 mg sublingual tablet 10 mg PO QHS #0 tabs 05/04/23 miconazole nitrate 2 % topical powder (Desenex) 1 applic topical 1000,2200 #0 grams 05/04/23 mirtazapine 15 mg tablet 7.5 mg (1/2 x 15 mg) PO QHS #0 tabs 05/04/23 sennosides 8.6 mg-docusate sodium 50 mg tablet (Stool Softener-Stimulant Laxative) 1 tab PO BID #0 tabs 05/04/23 warfarin 5 mg tablet (Jantoven) 5 mg PO DINNER #0 tabs 05/04/23 Hospital Course Operations None Procedures None Summary of Care Provided Minutes Spent on Discharge: 35 Hospital Course: 88 year old female with below past medical history hospitalized for acute delirium secondary to urinary tract infection, complicated by acute kidney injury, dehydration, coagulopathy, admitted to TCU with debility, here for rehabilitation, strengthening, prior to discharge home with . 05/02/2023 Urine culture grew Proteus Mirabilis, UTI treated with Cefdinir 300mg twice daily x 7 days. Discharge to [facility] 05/09/2023, Private Pay, intermediate. Physical Exam Const alert General Appearance: cooperative HEENT normocephalic Eyes PERRL and EOMs intact bilaterally Neck supple, no JVD and no carotid bruits Resp normal respiratory effort, normal air movement and clear to auscultation bilaterally Cardio regular rate and regular rhythm GI normal to inspection, nondistended, normoactive bowel sounds, non-tender and non-distended Extremity normal capillary refill General Extremity: Negative for edema Skin no rashes or lesions noted General Skin Exam: no breakdown Psych affect normal Appearance: appropriate Weight / BMI Weight Weight: 66.043 kg Body Mass Index (BMI) 26.6 ABG / Lab / Microbiology Data 05/04/23 05:19 05/04/23 05:19 Laboratory: Laboratory Results - last 24 hr 05/04/23 05:19: WBC 9.4, RBC 2.57 L, Hgb 9.6 L, Hct 29.0 L, MCV 112.8 H, MCH 37.4 H, MCHC 33.1, RDW Std Deviation 59.2 H, RDW Coeff of Gera 14.4, Plt Count 228, MPV 10.2, Immature Gran % (Auto) 2.300 H, Neut % (Auto) 83.7 H, Lymph % (Auto) 7.0 L, [place] % (Auto) 5.1, Eos % (Auto) 1.8, Baso % (Auto) 0.1, Absolute Neuts (auto) 7.8 H, Absolute Lymphs (auto) 0.66 L, Nucleated RBC % 0, PT 28.9 H, INR 2.7, Sodium 144, Potassium 4.1, Chloride 110 H, Carbon Dioxide 30.0, Anion Gap 4 L, BUN 35 H, Creatinine 0.99, Estim Creat Clear Calc 32.26, Est GFR (MDRD) Af Amer 69, Est GFR (MDRD) Non-Af 57 L, BUN/Creatinine Ratio 35.5 H, Glucose 93, Calcium 8.9 Microbiology: Microbiology 05/02/23 Unknown Urine Catheter - Catheter Urine Culture - Final Proteus mirabilis 05/02/23 19:40 Mucosa - Nasopharyngeal Respiratory Panel (PCR) - Final 05/02/23 18:40 Nasal Secretion SARS-CoV-2 Antigen (Rapid) - Final SARS-CoV-2 (COVID 19) 04/15/23 05:25 Nasal Secretion SARS-CoV-2 Antigen (Rapid) - Final SARS-CoV-2 (COVID 19) D/C Instructions Discharge Diet: No restrictions Discharge Activity: Return to Normal Activity, May Shower and Use Walker Weight Bearing Status: Weight bearing as tolerated Call your doctor if you observe: Fever of 101 or Higher, Inability to urinate, Inability to have a bowel movement, Shortness of breath, Dizziness, Fainting spells, Swelling in the ankles, Chest pain and Uncontrolled pain Additional Instructions: Discharge to [facility] 05/09/2023, Private Pay, intermediate. Meaningful Use Info Meaningful Use Diagnoses (Choose all that apply): None applicable Discharge Plan Admission Admit Date/Time: 04/12/23 17:30 Primary Reason for Your Visit: Debility. Attending Provider: Fletcher Menchaca Chi Primary Care Provider: Fletcher Menchaca Chi Instructions Additional Instructions / Restrictions: Discharge to [facility] 05/09/2023, Private Pay, intermediate. Discharge Orders/Prescriptions Prescriptions: New sennosides-docusate sodium [Stool Softener-Stimulant Laxat] 8.6-50 mg Tablet 1 tab PO BID Qty: 0 0RF miconazole nitrate [Desenex] 2 % Powder 1 applic topical 1000,2200 Qty: 0 0RF Protocol: *Topical Application Instructions APPLICATION INSTRUCTIONS: Apply to groin. acetaminophen 500 mg Tablet 1,000 mg PO Q6H PRN PRN (Reason: Pain Score 1-10) Qty: 0 0RF warfarin [Jantoven] 5 mg Tablet 5 mg PO DINNER Qty: 0 0RF mirtazapine 15 mg Tablet 7.5 mg PO QHS Qty: 0 0RF melatonin 10 mg Tablet, Sublingual 10 mg PO QHS Qty: 0 0RF Continued albuterol sulfate [Ventolin HFA] 90 mcg/actuation HFA aerosol inhaler 2 puff INHALATION Q4H PRN (Reason: shortness of breath or wheezing) Qty: 8.5 0RF menthol-zinc oxide [Calmoseptine] 0.44-20.6 % Ointment 1 applic topical BID Qty: 0 0RF Protocol: *Topical Application Instructions APPLICATION INSTRUCTIONS: YOLANDA BUTTOCKS diltiazem HCl [Cardizem CD] 120 mg capsule,extended release 24hr 120 mg PO QDAY Qty: 90 3RF febuxostat 40 mg tablet 40 mg PO DAILY Discontinued acetaminophen 325 mg Tablet 650 mg PO Q6H PRN PRN (Reason: Pain 1-10 Or Fever >100.7) Qty: 0 0RF warfarin [Jantoven] 2 mg Tablet 2 mg PO DINNER Qty: 0 0RF nitrofurantoin monohyd/m-cryst [Macrobid] 100 mg capsule 100 mg PO BID Qty: 8 0RF Rx Instructions: must administer with a meal/food No Action (DME) Handicap Parking Placard See Rx Instructions .Route .MEDSUPPLY Qty: 1 0RF Rx Instructions: As directed Referrals / Follow Up: Fletcher Menchaca Chi, MD [Primary Care Provider] - Disposition Disposition (needs filled in before D/C Order can be placed): NonSkilled NH/Intermed Care
--- NOTE | 2023-05-04 19:32 | TREXTCAR_ITS ---
Diet Diet Order/Speech Therapy: 04/12/23 18:49 Diet: Regular - General Food consistency:: Regular Liquid Consistency:: Regular/Thin Type of Dietary Supplement:: [place] Breakfast Diet Comments: 8oz CIB w/meals for increased nutrition Routine Orders/Code Status Code Status: Full Code Wound(s) Skin Tear L elbow: Wound Type: Skin Tear Dressing Change: Adaptic, DSD Therapies Weight Bearing: Weight bearing as tolerated Extremity Affected:: Bilateral Lower Problem/Diagnosis (1) Debility: Status: Acute Code(s): R53.81 - Other malaise (2) Acute delirium: Status: Acute Code(s): R41.0 - Disorientation, unspecified (3) UTI (urinary tract infection): Status: Resolved Code(s): N39.0 - Urinary tract infection, site not specified (4) ADOLFO (acute kidney injury): Status: Resolved Code(s): N17.9 - Acute kidney failure, unspecified (5) Dehydration: Status: Acute Code(s): E86.0 - Dehydration (6) Atrial fibrillation: Status: Acute Code(s): I48.91 - Unspecified atrial fibrillation (7) COPD (chronic obstructive pulmonary disease): Status: Chronic Code(s): J44.9 - Chronic obstructive pulmonary disease, unspecified (8) Chronic respiratory failure with hypoxia: Status: Chronic Code(s): J96.11 - Chronic respiratory failure with hypoxia (9) Alcohol dependence: Status: Acute Code(s): F10.20 - Alcohol dependence, uncomplicated (10) Mild cognitive impairment: Status: Acute Code(s): G31.84 - Mild cognitive impairment of uncertain or unknown etiology (11) Gout: Status: Acute Code(s): M10.9 - Gout, unspecified (12) Sleep apnea: Status: Acute Code(s): G47.30 - Sleep apnea, unspecified Plan 88 year old female with below past medical history hospitalized for acute delirium secondary to urinary tract infection, complicated by acute kidney injury, dehydration, coagulopathy, admitted to TCU with debility, here for rehabilitation, strengthening, prior to discharge home with . * Debility - PT/OT. * Pain - Tylenol 1000mg q6 prn pain (1-10). * Bowel - senna/colace 1 tablet bid, Magnesium citrate 300ml daily prn. * Adult immunization - Administer pneumonia vaccine, covid19 vaccine, flu vaccine as appropriate. * DVT prophylaxis - on warfarin. * COPD - Albuterol 2 puffs q4h prn. * Chronic hypoxia - resident on oxygen at home, pulsox 94% on RA, she appears short of breath, order Chest X-ray. * Sleep apnea - BiPAP at night. * Atrial fibrillation - Diltiazem 120mg daily, warfarin 2mg daily, follow INR. * Gout - Febuxostat 40mg daily. * E. Coli urinary tract infection - Nitrofurantoin 100mg bid thru 04/14/2023. * Alcohol dependence - She drinks tequila every night, I have asked her to stop. * Mixed dementia (Alcohol/Alzheimer) - Treat when cognition to baseline. Allergies/Procedures Done in Hospital Allergies hydrochlorothiazide Allergy (Severe, Verified 03/30/23 13:43) Unknown Sulfa (Sulfonamide Antibiotics) Allergy (Severe, Verified 03/30/23 13:43) Unknown Procedures: None Type of Care/Length of Stay Estimated LOS: More Than 30 Days Type of Care Needed: Intermediate Rehab Potential: Fair Prognosis: Fair Additional Orders/Day of Discharge Day of Discharge: 05/09/23 Dietary and Speech Recommendations Dietitian Recommendations/Changes: Continue Regular diet to optimize oral intakes. Continue CIB 8oz with meals to provide supplemental energy. Discharge Plan Admission Admit Date/Time: 04/12/23 17:30 Primary Reason for Your Visit: Debility. Attending Provider: Fletcher Menchaca Chi Primary Care Provider: Fletcher Menchaca Chi Instructions Additional Instructions / Restrictions: Discharge to [facility] 05/09/2023, Private Pay, intermediate. Discharge Orders/Prescriptions Prescriptions: New sennosides-docusate sodium [Stool Softener-Stimulant Laxat] 8.6-50 mg Tablet 1 tab PO BID Qty: 0 0RF miconazole nitrate [Desenex] 2 % Powder 1 applic topical 1000,2200 Qty: 0 0RF Protocol: *Topical Application Instructions APPLICATION INSTRUCTIONS: Apply to groin. acetaminophen 500 mg Tablet 1,000 mg PO Q6H PRN PRN (Reason: Pain Score 1-10) Qty: 0 0RF warfarin [Jantoven] 5 mg Tablet 5 mg PO DINNER Qty: 0 0RF mirtazapine 15 mg Tablet 7.5 mg PO QHS Qty: 0 0RF melatonin 10 mg Tablet, Sublingual 10 mg PO QHS Qty: 0 0RF Continued albuterol sulfate [Ventolin HFA] 90 mcg/actuation HFA aerosol inhaler 2 puff INHALATION Q4H PRN (Reason: shortness of breath or wheezing) Qty: 8.5 0RF menthol-zinc oxide [Calmoseptine] 0.44-20.6 % Ointment 1 applic topical BID Qty: 0 0RF Protocol: *Topical Application Instructions APPLICATION INSTRUCTIONS: YOLANDA BUTTOCKS diltiazem HCl [Cardizem CD] 120 mg capsule,extended release 24hr 120 mg PO QDAY Qty: 90 3RF febuxostat 40 mg tablet 40 mg PO DAILY Discontinued acetaminophen 325 mg Tablet 650 mg PO Q6H PRN PRN (Reason: Pain 1-10 Or Fever >100.7) Qty: 0 0RF warfarin [Jantoven] 2 mg Tablet 2 mg PO DINNER Qty: 0 0RF nitrofurantoin monohyd/m-cryst [Macrobid] 100 mg capsule 100 mg PO BID Qty: 8 0RF Rx Instructions: must administer with a meal/food No Action (DME) Handicap Parking Placard See Rx Instructions .Route .MEDSUPPLY Qty: 1 0RF Rx Instructions: As directed Referrals / Follow Up: Fletcher Menchaca Chi, MD [Primary Care Provider] - Disposition Disposition (needs filled in before D/C Order can be placed): NonSkilled NH/Intermed Care (3) UTI (urinary tract infection) Qualifiers: Urinary tract infection type: acute cystitis Hematuria presence: without hematuria Qualified Code(s): N30.00 - Acute cystitis without hematuria
[2023-05-04] MEDS: Mirtazapine 15 MG Tablet 7.5 MG PO (20:20)
[2023-05-04] MEDS: MELATONIN 10 MG TABLET PO (20:20)
[2023-05-05 06:09] LABS: International Normalized Ratio 2.9
--- NOTE | 2023-05-05 06:25 | PCA ---
alarm checked and on with Ever
[2023-05-05 08:05] VITALS: O2SAT 92
[2023-05-05] MEDS: Menthol/Lanolin/Calamine/Znox 113 GM Tube 1 APPLIC TOPICAL ×2 (08:05→22:57)
[2023-05-05] MEDS: dilTIAZem CD 120 MG Capsule PO (08:05)
[2023-05-05] MEDS: Senna/Docusate Sodium 1 Tablet PO ×2 (08:06→22:49)
[2023-05-05] MEDS: Miconazole Nitrate 43 GM Bottle 1 APPLIC TOPICAL ×2 (08:06→22:58)
[2023-05-05] MEDS: Cefdinir 300 MG Capsule PO ×2 (08:06→22:49)
[2023-05-05] MEDS: Febuxostat 40 MG TABLET PO (08:07)
[2023-05-05 08:11] VITALS: BP 141/75; PULSE 93; RESP 24; O2SAT 92
--- NOTE | 2023-05-05 09:43 | NURSING ---
Patient had string bracelet on that was causing deep indentation in her wrist. Edema in wrist, skin very thin and fragile. Nurse x2 attempted to remove without causing any damage to her skin. Unable to be removed. Patient gave permission to cut it off. Bracelet cut off. Placed in container with her watch and other bracelets that had been removed. Placed in lock box in room.
[2023-05-05 15:36] VITALS: BP 122/63; PULSE 96; RESP 24; TEMP 36.7; O2SAT 98
[2023-05-05] MEDS: Mirtazapine 15 MG Tablet 7.5 MG PO (22:48)
[2023-05-05] MEDS: MELATONIN 10 MG TABLET PO (22:49)
[2023-05-06 07:45] VITALS: O2SAT 93
[2023-05-06] MEDS: Menthol/Lanolin/Calamine/Znox 113 GM Tube 1 APPLIC TOPICAL ×2 (09:02→20:40)
[2023-05-06] MEDS: Cefdinir 300 MG Capsule PO ×2 (09:02→20:36)
[2023-05-06] MEDS: Miconazole Nitrate 43 GM Bottle 1 APPLIC TOPICAL ×2 (09:02→20:41)
[2023-05-06] MEDS: dilTIAZem CD 120 MG Capsule PO (09:02)
[2023-05-06] MEDS: Febuxostat 40 MG TABLET PO (09:03)
[2023-05-06] MEDS: Senna/Docusate Sodium 1 Tablet PO ×2 (09:03→20:40)
[2023-05-06 14:59] VITALS: BP 123/72; PULSE 83; RESP 20; TEMP 36.6; O2SAT 99
[2023-05-06] MEDS: Magnesium Citrate 300 ML PO (17:00)
[2023-05-06] MEDS: Mirtazapine 15 MG Tablet 7.5 MG PO (20:36)
[2023-05-06] MEDS: MELATONIN 10 MG TABLET PO (20:40)
[2023-05-07 07:37] VITALS: O2SAT 92
[2023-05-07] MEDS: Menthol/Lanolin/Calamine/Znox 113 GM Tube 1 APPLIC TOPICAL ×2 (09:55→22:00)
[2023-05-07] MEDS: Febuxostat 40 MG TABLET PO (09:56)
[2023-05-07] MEDS: Senna/Docusate Sodium 1 Tablet PO (09:56)
[2023-05-07] MEDS: Miconazole Nitrate 43 GM Bottle 1 APPLIC TOPICAL ×2 (09:57→22:00)
[2023-05-07] MEDS: Cefdinir 300 MG Capsule PO (09:57)
[2023-05-07] MEDS: dilTIAZem CD 120 MG Capsule PO (09:57)
--- NOTE | 2023-05-07 12:15 | NURSING ---
No BM noted since 05/03/23 pt received mag citrate on 05/06/23 Pt had emesis this AM. Dr. Menchaca updated N.O. for KUB and SSE. Order read back.
--- NOTE | 2023-05-07 13:05 | RAD_ITS ---
EXAM: XR ABDOMEN, 1 VIEW CLINICAL INDICATION: Constipation Nausea/Vomiting TECHNIQUE: Frontal supine view of the abdomen/pelvis. COMPARISON: No relevant prior studies available. FINDINGS: GASTROINTESTINAL TRACT: Diffuse gaseous distention of the large and small bowel. Mild stool burden within the rectum. ORGANS: No organomegaly. BONES/JOINTS: No acute abnormality. Blunting of the left lateral costophrenic sulcus which may represent scarring or small effusion. RAD/Abdomen Single View IMPRESSION: Diffuse ileus. Electronically Signed: Eliseo Smith MD at 14:36 EST ,
[2023-05-07 15:20] VITALS: BP 163/66; PULSE 92; RESP 22; TEMP 36.4; O2SAT 98
[2023-05-07 15:50] LABS: Bacteria 0 SEEN /hpf (None Seen); Mucous, Urine 0 SEEN /hpf (<or=2+)
[2023-05-07 16:04] LABS: Color, Urine Yellow (Yellow); Glucose, Dipstick Normal (Normal); Ketone-Dipstick Negative (Negative); Leukocyte Esterase-Dipstick 25 /ul (Negative); Nitrite-Dipstick Negative (Negative); Occult Blood-Urine 25 /ul (Negative); Protein-Dipstick 15 mg/dl (Negative); Specific Gravity, Urine 1.015 (1.002-1.030); Urine Bilirubin Dipstick Negative (Negative); Urine Clarity Sl. Cloudy (Clear); Urine Urobilinogen Normal (Normal)
[2023-05-07 16:14] LABS: Amorphous Sediment 1+ PHOS; Red Blood Cells-Urine 0-5 SEEN /hpf (0-5); Squamous Epithelial Cells - UA 0-5 SEEN /hpf (5-10); White Blood Cells 0-5 SEEN /hpf (0-5)
--- NOTE | 2023-05-07 17:52 | CON.PCM.SX_ITS ---
Assessment & Plan Assessment/Plan (1) Ileus: PLAN: Patient has small bowel ileus of uncertain etiology. I do believe I see stool in the rectum on the x-ray so I will order a Fleet enema tonight and see if that helps. I will also order labs for the morning. I checked a UA and urine culture but the UA does not appear to be infected and she is on cefdinir currently. I will order repeat KUB for the morning. Patient's abdomen is soft and nondistended. Continue n.p.o. for the night. Hasmukh Queen MD Pager: [facility] [address] [place] [address] Outpatient [place], [address] [place] [address] Office: HPI Consult Data Date of Consult: 05/07/23 HPI Narrative HPI Narrative: IVELISSE YAÑEZ, is a 88 F who is admitted to TCU for rehab. Patient is here with UTI and acute kidney injury. The patient started throwing up this morning and a KUB was ordered which showed distended small bowel and ileus fashion. The patient has not had a bowel movement since at least May 02. She was ordered for magnesium citrate and still has not had a bowel movement. She denies abdominal pain. She does not say she is having nausea. [facility] Medical History Atrial enlargement, bilateral TREVIÑO (dyspnea on exertion) Fatigue History of colon cancer Hypersomnia Hypoxia senior embedded software engineer (current) use of anticoagulants Long-term use of high-risk medication Neck mass Nonrheumatic mitral valve regurgitation Nonrheumatic tricuspid valve regurgitation Nummular eczema Obesity ROSARIO (obstructive sleep apnea) Persistent atrial fibrillation Restless legs syndrome (RLS) Seborrheic keratoses Stage 2 moderate COPD by GOLD classification Syncope Thyroid nodule Thyromegaly Tobacco dependence in remission Home Medications Handicap Parking Placard #1 ea 12/24/20 [Rx Last Taken Unknown] diltiazem HCl 120 mg capsule,extended release 24 hr (Cardizem CD) 120 mg PO QDAY Heart #90 caps 01/09/23 [Rx Last Taken 04/12/23 10:15] albuterol sulfate 90 mcg/actuation aerosol inhaler (Ventolin HFA) 2 puff i nhalation Q4H PRN shortness of breath or wheezing #8.5 grams 01/23/23 [Rx Last Taken Unknown] febuxostat 40 mg tablet 40 mg PO DAILY GOUT 03/15/23 [History Last Taken Unknown] menthol 0.44 %-zinc oxide 20.6 % topical ointment (Calmoseptine) 1 applic topical BID Skin #0 grams 04/12/23 [Rx Last Taken Unknown] acetaminophen 500 mg tablet 1,000 mg (2 x 500 mg) PO Q6H PRN PRN Pain Score 1-10 #0 tabs 05/04/23 [Rx Last Taken Unknown] melatonin 10 mg sublingual tablet 10 mg PO QHS #0 tabs 05/04/23 [Rx Last Taken Unknown] miconazole nitrate 2 % topical powder (Desenex) 1 applic topical 1000,2200 #0 grams 05/04/23 [Rx Last Taken Unknown] mirtazapine 15 mg tablet 7.5 mg (1/2 x 15 mg) PO QHS #0 tabs 05/04/23 [Rx Last Taken Unknown] sennosides 8.6 mg-docusate sodium 50 mg tablet (Stool Softener-Stimulant Laxative) 1 tab PO BID #0 tabs 05/04/23 [Rx Last Taken Unknown] warfarin 5 mg tablet (Jantoven) 5 mg PO DINNER #0 tabs 05/04/23 [Rx Last Taken Unknown] Allergy/AdvReac Type Severity Reaction Status Date / Time hydrochlorothiazide Allergy Severe Unknown Verified 03/30/23 13:43 Sulfa (Sulfonamide Allergy Severe Unknown Verified 03/30/23 13:43 Antibiotics) Family History Father CAD (coronary artery disease) Myocardial infarction, Onset Age: 54 Daughter Breast cancer Surgical History History of colon resection Social History (Updated 04/12/23 @ 20:[address] Fletcher Menchaca MD) household members: spouse Smoking Status: Former smoker how long ago did patient quit smokin second hand exposure: Yes alcohol intake: current alcohol intake frequency: a few times a week Alcohol type: beer and wine substance use type: does not use ROS Review of Systems ROS Unobtainable: due to mental status Physical Exam Const alert and no apparent distress HEENT normocephalic Eyes PERRL Resp normal respiratory effort Cardio Rate: regular rate Rhythm: regular rhythm GI soft to palpation, non-tender and non-distended Extremity normal to inspection Lab / Micro Data 05/04/23 05:19 05/04/23 05:19 Labs: Laboratory Results - last 24 hr 05/07/23 15:43: Urine Color Yellow, Urine Clarity Sl. Cloudy, Urine pH 8.0, Ur Specific Vill[place] 1.015, Urine Protein 15 H, Urine Glucose (UA) Normal, Urine Ketones Negative, Urine Occult Blood 25 H, Urine Nitrite Negative, Urine Bilirubin Negative, Urine Urobilinogen Normal, Ur Leukocyte Esterase 25 H, Urine RBC 0-5 SEEN, Urine WBC 0-5 SEEN, Ur Squamous Epith Cells 0-5 SEEN, Amorphous Sediment 1+ PHOS, Urine Bacteria 0 SEEN, Urine Mucus 0 SEEN Radiology Impression KUB X-Ray 05/07/23 13:05 IMPRESSION: Diffuse ileus. Electronically Signed: Eliseo Smith MD at 14:36 EST ,
[2023-05-07] MEDS: Fleet Enema 1 ML RC (18:29)
--- NOTE | 2023-05-07 21:00 | NURSING ---
Spoke w/ Dr. Menchaca via phone to question if pt should have IVF d/t NPO status. New order received and read back for D5 1/2 NS at 60ml/hr.
[2023-05-07] MEDS: Dext 5%-0.45% NS 1,000 ML 60 ML IV (21:50)
[2023-05-07 23:00] VITALS: O2SAT 92
[2023-05-08 05:48] LABS: Absolute Lymphocyte Count 0.34 X10^3/uL (0.83-4.51); Absolute Neutrophil Count 8.6 X10^3/uL (2.0-7.7); Basophil# 0.02 X10^3/uL; Basophil% 0.2 % (0-1); Eosinophil# 0.03 X10^3/uL; Eosinophils% 0.3 % (0-5); Hematocrit 25.6 % (37-47); Hemoglobin 8.2 g/dL (12.0-15.0); Lymphocyte # 0.34 X10^3/ul (0.83-4.51); Lymphocyte % 3.6 % (19-41); Mean Corpuscular Hgb 36.3 pg (27.0-32.0); Mean Corpuscular Volume 113.3 fL (81-99); Mean Platelet Vol. 10.1 fl (6.2-12.0); Monocyte# 0.37 X10^3/uL; Monocyte% 3.9 % (0-10); NRBC Flagged by Analyzer 0 % (0-5); Neutrophil # 8.62 X10^3/uL (2.7-7.7); Neutrophil % 91.3 % (47-70); POSITIVE DIFFERENTIAL YES; Platelet Count 189 K/mm3 (150-450); RBC Distribution Width CV 13.9 % (11.6-14.6); RBC Distribution Width SD 57.7 fl (35.1-43.9); Red Blood Count 2.26 M/mm3 (4.2-5.4); White Blood Count 9.5 K/mm3 (4.4-11.0)
--- NOTE | 2023-05-08 05:55 | RAD_ITS ---
INDICATION: ileus EXAMINATION/TECHNIQUE: X-RAY - XR Abdomen 1 View COMPARISON: Abdomen x-ray 05/07/2023 FINDINGS: Mild diffuse colonic distention. No dilated air-filled bowel to suggest obstruction. Moderate amount of stool in the rectum. The lung bases are not well assessed. RAD/Abdomen Single View (Portable) IMPRESSION: Mild colonic distention likely ileus. Electronically Signed: Korin Barboza MD at 6:35 EST ,
[2023-05-08 06:08] LABS: Prothrombin Time (Protime)PT. 41.7 SECONDS (11.7-14.9)
[2023-05-08 06:11] LABS: Differential Indicated SCAN CRITERIA MET
[2023-05-08 06:28] LABS: International Normalized Ratio 4.3
[2023-05-08 06:41] LABS: Anion Gap 4 (5-15); BUN 37 mg/dL (7-18); BUN/Creat Ratio 36.3 RATIO (10-20); Calcium,Total 8.8 mg/dL (8.5-10.1); Chloride 110 mmol/L (98-107); Creatinine, Serum 1.02 mg/dL (0.55-1.02); EST Glomerular Filtration Rate 55 mL/min (>60); Est Glom Filt Rate - Afr Amer 66 mL/min (>60); Estimated Creatinine Clearance 31.31 ml/min; Glucose 141 mg/dL (74-106); Magnesium 3.6 mg/dL (1.6-2.6); Phosphorus 4.3 mg/dL (2.5-4.9); Potassium 3.8 mmol/L (3.5-5.1); Sodium Level 145 mmol/L (136-145)
[2023-05-08 07:10] LABS: Differential Comment SCANNED
[2023-05-08 07:26] VITALS: O2SAT 97
--- NOTE | 2023-05-08 08:03 | NURSING ---
IN TO PT ROOM AND DID A RECTAL EXAM AND PULLED OUT LARGE AMOUNT OF HARD STOOL. SMALL BLEEDING NOTED WILL MONITOR,RN AND DR GLASER AWARE. DR. NJ DID STATE THAT ALL MED CAN BE GIVEN.
[2023-05-08] MEDS: Menthol/Lanolin/Calamine/Znox 113 GM Tube 1 APPLIC TOPICAL ×2 (09:44→20:11)
[2023-05-08] MEDS: Miconazole Nitrate 43 GM Bottle 1 APPLIC TOPICAL ×2 (09:45→20:11)
[2023-05-08] MEDS: Febuxostat 40 MG TABLET PO (09:46)
[2023-05-08] MEDS: Cefdinir 300 MG Capsule PO ×2 (09:46→20:10)
[2023-05-08] MEDS: dilTIAZem CD 120 MG Capsule PO (09:46)
[2023-05-08] MEDS: Senna/Docusate Sodium 1 Tablet PO ×2 (09:46→20:11)
[2023-05-08 09:55] VITALS: BP 140/64; PULSE 96
--- NOTE | 2023-05-08 10:34 | PCM.PN.SRG ---
Subjective Subjective Patient does not complain of any abdominal pain. Objective Data Objective Data Vital Signs: Vital Signs Temp Pulse Resp BP Pulse Ox O2 Del Method O2 Flow Rate 97.5 F L 96 22 H 140/64 H 97 Nasal Cannula 4 05/07/23 15:20 05/08/23 09:55 05/07/23 15:20 05/08/23 09:55 05/08/23 07:26 05/08/23 07:26 05/08/23 07:26 FiO2 32 04/19/23 03:05 Oxygen Flow Rate (L/min) 4 Oxygen Delivery Method Nasal Cannula Weight: 145 lb 9.6 oz Body Mass Index (BMI) 26.6 Intake & Output: Intake and Output for Last 24 Hours 05/07/23 05/07/23 05/08/23 00:59 23:59 23:59 Intake Total Balance Lab / Micro Data 05/08/23 05:22 05/08/23 05:22 Labs: Laboratory Results - last 24 hr 05/07/23 15:43: Urine Color Yellow, Urine Clarity Sl. Cloudy, Urine pH 8.0, Ur Specific [place] 1.015, Urine Protein 15 H, Urine Glucose (UA) Normal, Urine Ketones Negative, Urine Occult Blood 25 H, Urine Nitrite Negative, Urine Bilirubin Negative, Urine Urobilinogen Normal, Ur Leukocyte Esterase 25 H, Urine RBC 0-5 SEEN, Urine WBC 0-5 SEEN, Ur Squamous Epith Cells 0-5 SEEN, Amorphous Sediment 1+ PHOS, Urine Bacteria 0 SEEN, Urine Mucus 0 SEEN 05/08/23 05:22: WBC 9.5, RBC 2.26 L, Hgb 8.2 L, Hct 25.6 L, MCV 113.3 H, MCH 36.3 H, MCHC 32.0, RDW Std Deviation 57.7 H, RDW Coeff of Gera 13.9, Plt Count 189, MPV 10.1, Immature Gran % (Auto) 0.700, Neut % (Auto) 91.3 H, Lymph % (Auto) 3.6 L, [place] % (Auto) 3.9, Eos % (Auto) 0.3, Baso % (Auto) 0.2, Absolute Neuts (auto) 8.6 H, Absolute Lymphs (auto) 0.34 L, Nucleated RBC % 0, Differential Comment SCANNED, PT 41.7 H, INR 4.3 H*, Sodium 145, Potassium 3.8, Chloride 110 H, Carbon Dioxide 31.0, Anion Gap 4 L, BUN 37 H, Creatinine 1.02, Estim Creat Clear Calc 31.31, Est GFR (MDRD) Af Amer 66, Est GFR (MDRD) Non-Af 55 L, BUN/Creatinine Ratio 36.3 H, Glucose 141 H, Calcium 8.8, Phosphorus 4.3, Magnesium 3.6 H Micro: Microbiology 05/02/23 Unknown Urine Catheter - Catheter Urine Culture - Final Proteus mirabilis 05/02/23 19:40 Mucosa - Nasopharyngeal Respiratory Panel (PCR) - Final 05/02/23 18:40 Nasal Secretion SARS-CoV-2 Antigen (Rapid) - Final SARS-CoV-2 (COVID 19) 04/15/23 05:25 Nasal Secretion SARS-CoV-2 Antigen (Rapid) - Final SARS-CoV-2 (COVID 19) Radiography Diagnostic Testing: Radiology Impression KUB X-Ray 05/07/23 13:05 IMPRESSION: Diffuse ileus. Electronically Signed: Eliseo Smith MD at 14:36 EST , KUB X-Ray 05/08/23 05:55 IMPRESSION: Mild colonic distention likely ileus. Electronically Signed: Korin Barboza MD at 6:35 EST , Physical Exam Const no apparent distress Resp normal respiratory effort GI soft to palpation and non-tender Assessment & Plan Assessment/Plan (1) Ileus: PLAN: The patient's abdomen is soft and nontender. Unsure as to the etiology of the pain. I ordered an enema yesterday which did not have any results so I performed a manual disimpaction this morning. I removed a lot of firm stool from the rectal vault and hopefully this stimulates movement of bowels. Her x-ray showed improvement. I will start some clear liquids to see how she tolerates this. UA was normal. White count was normal. Hasmukh Queen MD Pager: [facility] [address] [place] [address], [address] [place] [address] Office:
--- NOTE | 2023-05-08 13:36 | NURSING ---
PT HAD A MEDIUM FORMED/HARD BM AT 1330 TODAY WITH SOME BLOOD FROM DR. ZHAO THIS MORNING. RN AWARE
[2023-05-08 14:05] VITALS: PULSE 106; RESP 24; O2SAT 93
[2023-05-08 14:38] VITALS: BP 128/66; PULSE 100; RESP 20; TEMP 36.5; O2SAT 95
[2023-05-08] MEDS: Dext 5%-0.45% NS 1,000 ML 60 ML IV (14:46)
[2023-05-08] MEDS: Albuterol IH (6.7 GM) 1 PUFF INHALER 2 PUFF INHALATION (15:10)
[2023-05-08] MEDS: Glycerin/Hypromellose/PEG400 15 ml Bottle 2 DRP EACH EYE (15:10)
--- NOTE | 2023-05-08 15:23 | NURSING ---
PT LEFT EYE IS CRUSTY. EYE CLEANED,PRN EYE DROPS GIVEN. ASKED PT IF HER EYE WAS ITCY,OR HURTS. PT STATED NO. EYE IS NOT RED. WILL CONTINUE TO MONITOR.
--- NOTE | 2023-05-08 16:05 | CASEMGMT ---
Social Work PASRR results still have not been received. Pt will not be discharging on 05/09 as planned. SW phoned grandson to update. Grandson expressed understanding. SW updated SNF. SW attempted to speak with pt and complete MDS assessment, however, pt struggling to stay awake alert to speak with this worker. Noticeable decline. Nursing aware and Dr. Menchaca made aware. Liza Chapa, INSPECTOR REPA[employer]
[2023-05-08] MEDS: Mirtazapine 15 MG Tablet 7.5 MG PO (20:10)
[2023-05-08] MEDS: MELATONIN 10 MG TABLET PO (20:10)
[2023-05-09] MEDS: Dext 5%-0.45% NS 1,000 ML 60 ML IV ×2 (06:02→21:37)
--- NOTE | 2023-05-09 07:49 | PCM.TCUNOT ---
Subjective Subjective Resident seen, examined for regulatory visit. She is difficult to awaken. 05/02/2023 urine culture grew Proteus Mirabilis, treated with Cefdinir 300mg q12 x 7 days. 05/07/2023 urine culture growing yeast, likely contaminant or colonization. 05/07/2023 Resident constipated, developed ileus, Dr. Queen consulted, manually disimpacted 05/08/2023, she has bowel movement afterwards. INR 4.3 yesterday, warfarin held, monitor INR. Objective Data Objective Data Vital Signs: Vital Signs Temp Pulse Resp BP Pulse Ox O2 Del Method O2 Flow Rate 97.7 F L 100 20 H 128/66 H 95 Nasal Cannula 4 05/08/23 14:38 05/08/23 14:38 05/08/23 14:38 05/08/23 14:38 05/08/23 14:38 05/08/23 14:38 05/08/23 14:38 FiO2 32 04/19/23 03:05 Oxygen Flow Rate (L/min) 4 Oxygen Delivery Method Nasal Cannula Weight: 66.043 kg Body Mass Index (BMI) 26.6 Intake & Output: Intake and Output for Last 24 Hours 05/07/23 05/08/23 05/09/23 23:59 23:59 23:59 Intake Total 1360 / 1360 916 / 916 Balance 1360 / 1360 916 / 916 Lab / Micro Data 05/08/23 05:22 05/08/23 05:22 Micro: Microbiology 05/07/23 15:42 Urine, Catheterized Urine Culture - Preliminary Yeast Like Organism 05/02/23 Unknown Urine Catheter - Catheter Urine Culture - Final Proteus mirabilis 05/02/23 19:40 Mucosa - Nasopharyngeal Respiratory Panel (PCR) - Final 05/02/23 18:40 Nasal Secretion SARS-CoV-2 Antigen (Rapid) - Final SARS-CoV-2 (COVID 19) 04/15/23 05:25 Nasal Secretion SARS-CoV-2 Antigen (Rapid) - Final SARS-CoV-2 (COVID 19) Physical Exam Const alert General Appearance: cooperative HEENT normocephalic Eyes PERRL and EOMs intact bilaterally Neck supple, no JVD and no carotid bruits Resp normal respiratory effort, normal air movement and clear to auscultation bilaterally Cardio regular rate and regular rhythm GI normal to inspection, nondistended, normoactive bowel sounds, non-tender and non-distended Palpation: tender RLQ (Mild.) and LUQ (Mild.) Extremity normal capillary refill General Extremity: Negative for edema Skin no rashes or lesions noted General Skin Exam: no breakdown Psych affect normal Appearance: appropriate Assessment & Plan Assessment/Plan (1) Debility: (2) Acute delirium: (3) UTI (urinary tract infection): QUALIFIERS: Urinary tract infection type: acute cystitis Hematuria presence: without hematuria Qualified Code(s): N30.00 - Acute cystitis without hematuria (4) ADOLFO (acute kidney injury): (5) Dehydration: (6) Atrial fibrillation: (7) COPD (chronic obstructive pulmonary disease): (8) Chronic respiratory failure with hypoxia: (9) Alcohol dependence: (10) Mild cognitive impairment: (11) Gout: (12) Sleep apnea: PLAN: Plan 88 year old female with below past medical history hospitalized for acute delirium secondary to urinary tract infection, complicated by acute kidney injury, dehydration, coagulopathy, admitted to TCU with debility, here for rehabilitation, strengthening, prior to discharge home with . Debility - PT/OT/ST. Pain - Tylenol 1000mg q6 prn pain (1-10). Bowel - senna/colace 2 tablet bid, Magnesium citrate 300ml daily prn. Adult immunization - Administer pneumonia vaccine, covid19 vaccine, flu vaccine as appropriate. DVT prophylaxis - on warfarin. COPD - Albuterol 2 puffs q4h prn. Chronic hypoxia - Continue oxygen per nasal cannula. Sleep apnea - BiPAP at night. Atrial fibrillation - Diltiazem 120mg daily, INR 4.3 yesterday, warfarin held, monitor INR. Gout - Febuxostat 40mg daily. P. Mirabilis urinary tract infection - Cefdinir 300mg q12 thru 05/09/2023. Yeast in urine culture - Contamination/colonization, no treatment recommended. Alcohol dependence - She drinks tequila every night, I have asked her to stop. Mixed dementia (Alcohol/Alzheimer) - Treat when cognition to baseline. Ileus - Appreciate Dr. Queen, manually disimpacted yesterday, clear liquid diet, D51/2NS 60cc/hour. Insomnia - Melatonin 10mg qhs, Mirtazapine 7.5mg qhs. Tinea Corporis - Miconazole topical bid. Dry Eyes - Artificial tears 2gtt q1h prn. Capacity Capacity Assessment Tool Can the patient make a choice & communicate that choice?: Yes Can the patient understand benefits, risks and alternatives?: Yes Can the patient make a logical, rational choice?: Yes Is the choice the patient makes consistent w/ their values?: Yes Is there an impending, emergent risk to the patient?: No Does the patient have an Advance Directive?: No Is there a Surrogate Available?: Yes i.e. HCPOA: Yes i.e. close relative (spouse, child, parent, sibling)?: Yes
[2023-05-09 09:59] LABS: Prothrombin Time (Protime)PT. 47.4 SECONDS (11.7-14.9)
--- NOTE | 2023-05-09 10:40 | NURSING ---
Addendum entered by Neris Dalton 05/09/23 10:44: New order from Dr. Menchaca for Vitamin K 10mg PO x1. Verified there was an INR draw for tomorrow morning. Original Note: Notified Dr. Menchaca of patient's INR.
[2023-05-09] MEDS: Cefdinir 300 MG Capsule PO ×2 (10:55→20:11)
[2023-05-09] MEDS: dilTIAZem CD 120 MG Capsule PO (10:55)
[2023-05-09] MEDS: Menthol/Lanolin/Calamine/Znox 113 GM Tube 1 APPLIC TOPICAL ×2 (10:55→20:11)
[2023-05-09] MEDS: Senna/Docusate Sodium 1 Tablet 2 TABLET PO ×2 (10:55→20:11)
[2023-05-09] MEDS: Febuxostat 40 MG TABLET PO (10:56)
[2023-05-09] MEDS: Miconazole Nitrate 43 GM Bottle 1 APPLIC TOPICAL ×2 (11:01→20:12)
[2023-05-09 11:03] VITALS: BP 112/54; PULSE 91
[2023-05-09] MEDS: Phytonadione (Vit K1) 5 MG TABLET 10 MG PO (11:45)
[2023-05-09 11:59] VITALS: BMI 26.2
[2023-05-09 13:08] VITALS: BP 104/48; PULSE 97; RESP 16; TEMP 36.1; O2SAT 98
[2023-05-09] MEDS: Mirtazapine 15 MG Tablet 7.5 MG PO (20:11)
[2023-05-09] MEDS: MELATONIN 10 MG TABLET PO (20:11)
[2023-05-10 06:07] LABS: International Normalized Ratio 1.7; Prothrombin Time (Protime)PT. 19.9 SECONDS (11.7-14.9)
[2023-05-10 06:52] VITALS: O2SAT 96
[2023-05-10] MEDS: Senna/Docusate Sodium 1 Tablet 2 TABLET PO ×2 (10:14→22:42)
[2023-05-10 11:05] VITALS: PULSE 81; RESP 22
[2023-05-10] MEDS: dilTIAZem CD 120 MG Capsule PO (11:13)
[2023-05-10] MEDS: Febuxostat 40 MG TABLET PO (11:14)
[2023-05-10] MEDS: Miconazole Nitrate 43 GM Bottle 1 APPLIC TOPICAL ×2 (11:15→22:40)
[2023-05-10] MEDS: Menthol/Lanolin/Calamine/Znox 113 GM Tube 1 APPLIC TOPICAL ×2 (11:21→22:41)
[2023-05-10 13:40] VITALS: BP 110/51; PULSE 78; RESP 16; TEMP 36.2; O2SAT 97
[2023-05-10] MEDS: Dext 5%-0.45% NS 1,000 ML 60 ML IV (15:15)
[2023-05-10] MEDS: Furosemide 20 MG/2 ML VIAL IV (18:55)
[2023-05-10] MEDS: Mirtazapine 15 MG Tablet 7.5 MG PO (22:42)
[2023-05-10] MEDS: MELATONIN 10 MG TABLET PO (22:42)
--- NOTE | 2023-05-11 00:13 | NURSING ---
Addendum entered by Berna Malin 05/11/23 10:35: Clarified IVF order with Dr. Menchaca, order to DC from AUG. Original Note: Per day shift nurse IV fluids have been d/c'd due to fluid overload. IV Fluids were stopped on previous shift and have not been running since this nurse entered room on 05/10/23 at 2000 for rounding. Vitals WNL at this time and resting in bed with no s/sx of SOB or difficulty breathing at this time.
[2023-05-11 05:59] LABS: Hematocrit 22.2 % (37-47); Hemoglobin 7.3 g/dL (12.0-15.0); Mean Corp Hgb Conc 32.9 g/dL (32-36); Mean Corpuscular Hgb 37.1 pg (27.0-32.0); Mean Corpuscular Volume 112.7 fL (81-99); Mean Platelet Vol. 9.8 fl (6.2-12.0); POSITIVE COUNT YES; POSITIVE MORPHOLOGY YES; Platelet Count 176 K/mm3 (150-450); RBC Distribution Width CV 13.9 % (11.6-14.6); Red Blood Count 1.97 M/mm3 (4.2-5.4); White Blood Count 5.4 K/mm3 (4.4-11.0)
[2023-05-11 06:15] VITALS: PULSE 88; RESP 20; O2SAT 98
[2023-05-11 06:29] LABS: Anion Gap 3 (5-15); BUN 24 mg/dL (7-18); BUN/Creat Ratio 26.5 RATIO (10-20); Calcium,Total 8.3 mg/dL (8.5-10.1); Chloride 105 mmol/L (98-107); Creatinine, Serum 0.91 mg/dL (0.55-1.02); EST Glomerular Filtration Rate 63 mL/min (>60); Est Glom Filt Rate - Afr Amer 76 mL/min (>60); Glucose 97 mg/dL (74-106); Potassium 3.2 mmol/L (3.5-5.1); Sodium Level 140 mmol/L (136-145)
[2023-05-11 06:51] LABS: Differential Indicated MANUAL DIFF; International Normalized Ratio 1.2; Prothrombin Time (Protime)PT. 15.4 SECONDS (11.7-14.9)
[2023-05-11 06:52] LABS: Eosinophil 3 % (0-5); Hypochromasia 1+; Lymphocyte 15 % (19-41); Monocyte 2 % (0-10); Myelocyte 1 % (0-0); Neutrophil-Band 3 % (0-5); Neutrophil-Segmented 76 % (47-70); Nucleated Red Bld Cells,Manual 1 % (0-5); Platelet Estimate ADEQUATE (ADEQ); Total Cells Counted 100 (MANUAL DIFF)
[2023-05-11 06:53] LABS: Absolute Lymphocyte Count 0.81 X10^3/uL (0.83-4.51); Absolute Neutrophil Count 4.3 X10^3/uL (2.0-7.7); Anisocytosis 1+; Lymphocyte # 0.81 X10^3/ul (0.83-4.51); Macrocytosis 1+; Neutrophil # 4.27 X10^3/uL (2.7-7.7)
--- NOTE | 2023-05-11 08:06 | NURSING ---
CALLED IN TO SEE HOW PT WAS DOING AND PROBABILIY WILL NOT SEE PT ANY MORE LONG SHE IS HAVING BM OR NO OTHER PROBLEMS AT THIS TIME. RN AWARE
[2023-05-11] MEDS: Potassium Chloride Oral Tablet 20 MEQ PO (10:23)
[2023-05-11] MEDS: Calcium Carbonate 500 MG Tablet PO ×2 (10:24→16:51)
--- NOTE | 2023-05-11 10:25 | CASEMGMT ---
Addendum entered by Liza Chapa 05/11/23 15:23: Pt did not qualify for IPU. Hospice will proceed with meeting with family on 05/13. SW will continue to await PASRR results. Email was sent this date to [facility] [employer] to follow up on results. Will continue to follow. Addendum entered by Liza Chapa 05/11/23 13:40: Family requested to meet with hospice 05/13, but family is agreeable to nurse to assess pt for IPU. Nurse visiting at 1400 this date. SW will continue to follow. Original Note: Social Work DR. Menchaca requesting hospice consult for pt. Pt continues to decline and not having will to live. SW phoned son to update. Son agreeable and family has discussed hospice on their and are not surprised. SW educated to the process and IPU vs SNF. Still awaiting PASRR results. SW emailed referral to Sharyn at [facility] and she is contacting son to schedule meeting. SW will continue to follow. ROOSEVELT BrowerW
[2023-05-11] MEDS: Febuxostat 40 MG TABLET PO (10:26)
[2023-05-11] MEDS: dilTIAZem CD 120 MG Capsule PO (10:26)
[2023-05-11] MEDS: Senna/Docusate Sodium 1 Tablet 2 TABLET PO ×2 (10:26→19:56)
[2023-05-11] MEDS: Miconazole Nitrate 43 GM Bottle 1 APPLIC TOPICAL ×2 (10:33→19:57)
[2023-05-11] MEDS: Menthol/Lanolin/Calamine/Znox 113 GM Tube 1 APPLIC TOPICAL ×2 (10:33→19:57)
[2023-05-11 10:37] VITALS: BP 120/60; PULSE 89
[2023-05-11 13:22] VITALS: O2SAT 96
--- NOTE | 2023-05-11 14:24 | NURSING ---
HOSPICE IN TO SEE PT PER REQUEST.
[2023-05-11 15:34] VITALS: BP 112/44; PULSE 99; RESP 20; TEMP 36.4; O2SAT 99
[2023-05-11 15:47] LABS: Pathologist Review Reviewed
[2023-05-11] MEDS: Mirtazapine 15 MG Tablet 7.5 MG PO (19:55)
[2023-05-11] MEDS: MELATONIN 10 MG TABLET PO (19:57)
[2023-05-12 05:38] LABS: International Normalized Ratio 1.2; Prothrombin Time (Protime)PT. 15.6 SECONDS (11.7-14.9)
[2023-05-12 05:48] LABS: Anion Gap 2 (5-15); BUN 24 mg/dL (7-18); BUN/Creat Ratio 27.3 RATIO (10-20); Calcium,Total 8.6 mg/dL (8.5-10.1); Chloride 108 mmol/L (98-107); Creatinine, Serum 0.88 mg/dL (0.55-1.02); EST Glomerular Filtration Rate 65 mL/min (>60); Est Glom Filt Rate - Afr Amer 79 mL/min (>60); Estimated Creatinine Clearance 36.29 ml/min; Glucose 106 mg/dL (74-106); Sodium Level 141 mmol/L (136-145)
[2023-05-12 07:26] VITALS: O2SAT 96
[2023-05-12 08:32] LABS: Hematocrit 21.4 % (37-47); Hemoglobin 6.8 g/dL (12.0-15.0)
[2023-05-12] MEDS: Calcium Carbonate 500 MG Tablet PO (10:33)
[2023-05-12] MEDS: Potassium Chloride Oral Tablet 20 MEQ PO (10:33)
[2023-05-12] MEDS: Menthol/Lanolin/Calamine/Znox 113 GM Tube 1 APPLIC TOPICAL (10:33)
[2023-05-12] MEDS: Miconazole Nitrate 43 GM Bottle 1 APPLIC TOPICAL (10:34)
[2023-05-12] MEDS: Senna/Docusate Sodium 1 Tablet 2 TABLET PO (10:34)
[2023-05-12] MEDS: dilTIAZem CD 120 MG Capsule PO (10:34)
[2023-05-12] MEDS: Febuxostat 40 MG TABLET PO (10:34)
[2023-05-12] MEDS: 0.9% Saline Lock 10 ML Syringe IV (10:37)
--- NOTE | 2023-05-12 14:38 | CASEMGMT ---
Addendum entered by Liza Chapa 05/12/23 16:01: Pt approved for IPU. Son and will arrive to sign consents, then pt can be transport to IPU. IDT updated. [place] updated. Plan: DC to [facility] IPU 05/12 Original Note: Social Work therapy and nursing reported to this worker that pt has exhibited decline medically, not alert, refusing food and meds. SW spoke further with nurse on symptoms and relayed to Sharyn at [facility] to possible reeval for IPU. Sharyn agreed to send nurse to [facility]. Hospice nurse present and assessing pt. Will await results. ROOSEVELT Brower
[2023-05-12 14:54] VITALS: BP 118/59; PULSE 85; RESP 36; TEMP 36.5; O2SAT 97
[2023-05-12 17:30] VITALS: BP 116/60; PULSE 89; RESP 38; TEMP 36.4; O2SAT 98
== END 2023-05-12 17:35 | disposition hospice, inpatient (51) | DRG 690 ==
PROVIDERS: Surgery; Admitting Provider Family Medicine Geriatric Medicine; PCP Family Medicine Geriatric Medicine; Visit Provider Family Medicine Geriatric Medicine
DX: N30.00 Acute cystitis without hematuria (principal); J96.11 Chronic respiratory failure with hypoxia; I48.19 Other persistent atrial fibrillation; K56.7 Ileus, unspecified; F10.97 Alcohol use, unspecified with alcohol-induced persisting dementia; F02.80 Dementia in other diseases classified elsewhere, unspecified severity, without behavioral disturbance, psychotic disturbance, mood disturbance, and anxiety; B35.4 Tinea corporis; G30.9 Alzheimer's disease, unspecified; F10.20 Alcohol dependence, uncomplicated; G31.84 Mild cognitive impairment of uncertain or unknown etiology; G47.33 Obstructive sleep apnea (adult) (pediatric); B96.20 Unspecified Escherichia coli [E. coli] as the cause of diseases classified elsewhere; Z79.01 Long term (current) use of anticoagulants; Z87.891 Personal history of nicotine dependence; J44.89 Other specified chronic obstructive pulmonary disease; Z79.899 Other long term (current) drug therapy; Z99.81 Dependence on supplemental oxygen; B96.4 Proteus (mirabilis) (morganii) as the cause of diseases classified elsewhere
CPT/HCPCS: 36415; 71046; 74018; 80048; 80053; 81001; 83735; 84100; 85014; 85018; 85025; 85610; 87077; 87086; 87088; 87186; 87633; 87811; 92507; 92523; 92526; 93005; 94002; 94003; 94640; 94667; 94668; 97110; 97116; 97129; 97130; 97162; 97166; 97530; 97535; A4216; J1940; J7799